=== PATIENT | male | born 1935 | race Caucasian/White ===

== ENCOUNTER → 2017-07-09 11:23 | Outpatient (CLI) | payer MEDICARE, OTHER, SELFPAY ==
[2017-07-09 13:24] LABS: PSA,Total- Diagnostic 3.53 ng/mL (0.0-4.0)
== END ==
PROVIDERS: Family Provider Family Medicine; PCP Family Medicine; Visit Provider Urology
DX: N40.1 Benign prostatic hyperplasia with lower urinary tract symptoms (principal); R30.0 Dysuria
CPT/HCPCS: 36415; 84153

== ENCOUNTER → 2017-07-16 13:51 | Outpatient (CLI) | payer MEDICARE, OTHER, SELFPAY ==
--- NOTE | 2017-07-16 13:52 | CT_ITS ---
STUDY: CT ABDOMEN AND PELVIS WITHOUT CONTRAST REASON FOR EXAM: Male, 81 years old. History of TURP dysuria RADIATION DOSAGE (If Supplied By Facility): CTDIvol = ( 9.71 ) mGy, DLP = ( 553.22 ) mGycm TECHNIQUE: Transaxial images were obtained from the dome of the diaphragm to the symphysis pubis without oral contrast, and without intravenous contrast. Sagittal and coronal images were reconstructed. Individualized dose optimization techniques were used for this CT. COMPARISON: March 15, 2014 CT scan abdomen and pelvis FINDINGS: There is minimal lower lobe atelectasis lateral pleural plaquing and peripheral fibrotic change. There visualized coronary calcifications. There is partial visualization of the defibrillator lead. Normal liver. Normal gallbladder and extrahepatic biliary system. Normal spleen. Normal pancreas. Normal bilateral adrenal glands. There is mild bilateral perinephric stranding without evidence of hydronephrosis or visualized stones. This is greater than prior study. There is a small hiatal hernia. Normal small intestine. There is moderate stool in the colon. There are a few diverticula present without evidence of diverticulitis. The appendix is visualized and appears normal. Aorta is partially calcified. This calcifications the takeoff of the celiac and the superior mesenteric artery as well as bilateral renal arteries. Normal inferior vena cava. Normal retroperitoneum. Normal urinary bladder. The prostate measures 4.4 x 5.5 cm. This is slightly smaller than the prior study when it measured approximately 4.9 x 5.7 cm allowing for differences in technique. The prior study may have been near the TURP timing. There is a low-lying appearance of the rectum. There are few phleboliths in the pelvis. There is no definitive pelvic lymphadenopathy. There is a partially visualized trace amount of fluid within the right scrotum similar to prior study. The bladder is distended. Normal abdominal wall. There is a straightening of the physiologic lordosis. There is multilevel disc space narrowing and endplate sclerosis with multilevel neural foraminal narrowing secondary to broad disc bulge and facet arthropathy especially at L2-L3, L3-L4 and L4-L5 there is moderate central stenosis as well. There is degenerative change of the SI joints. There are diffuse degenerative changes of the visualized lumbar spine. CT/Abdomen/Pelvis without Cont IMPRESSION: Nonspecific bilateral perinephric stranding. No evidence of hydronephrosis or visualized stones. Enlarged prostate slightly smaller than the prior study. Diverticulosis no evidence of diverticulitis. Visualized pleural plaquing and fibrotic change within the lung bases. Status post sternotomy and pacemaker. Degenerative changes in the thoracolumbar spine as detailed above. Electronically Signed: Elena Almonte MD at 15:45 EST Tel , Service support ,
== END ==
PROVIDERS: Family Provider Family Medicine; PCP Family Medicine; Visit Provider Urology
DX: R10.9 Unspecified abdominal pain (principal); Z98.890 Other specified postprocedural states
CPT/HCPCS: 74176

== ENCOUNTER → 2017-08-20 14:12 | Outpatient (CLI) | payer MEDICARE, OTHER, SELFPAY ==
--- NOTE | 2017-08-20 14:13 | US_ITS ---
STUDY: ULTRASOUND - URINARY BLADDER REASON FOR EXAM: Male, 81 years old. Pre and post void, nocturia and PVH TECHNIQUE: Ultrasound evaluation of the urinary bladder was performed with real-time and static kinsey-scale imaging. COMPARISON: None. FINDINGS: There is no right UVJ calculus. There is a non-visualization of a right ureteral jet. There is no left UVJ calculus. There is a non-visualization of a left ureteral jet. The distended volume of the urinary bladder is 50.0 ml. The empty volume of the urinary bladder is 0 ml. The bladder wall is within normal limits. The empty bladder wall measures 8 mm. There is no demonstrated bladder wall mass lesion. There are no demonstrated bladder calculi. US/Post Void Residual Bladder IMPRESSION: Normal ultrasound of the urinary bladder. Electronically Signed: Rubens Mccoy MD at 23:55 EDT , Service support ,
== END ==
PROVIDERS: Family Provider Family Medicine; PCP Family Medicine; Visit Provider Family Medicine
DX: N40.1 Benign prostatic hyperplasia with lower urinary tract symptoms (principal)
CPT/HCPCS: 51798

== ENCOUNTER 2017-10-21 09:09 | Emergency (ER) | payer MEDICARE, OTHER, SELFPAY ==
[2017-10-21 09:11] VITALS: BP 143/84; PULSE 60; RESP 14; TEMP 36.8; O2SAT 98; BMI 23.8
[2017-10-21] MEDS: 0.9% Normal Saline 1,000 ML 150 ML IV (09:15)
--- NOTE | 2017-10-21 09:21 | RAD_ITS ---
STUDY: X-RAY CHEST REASON FOR EXAM: Male, 81 years old. Shortness of breath. Dyspnea. TECHNIQUE: Portable upright chest x-ray COMPARISON: 10/27/2015 FINDINGS: Left pacer device with 2 wire leads, stable. Median sternotomy. Radiodense pulmonary nodule of the right lower lung is stable and most consistent with old granulomatous disease. 2 others on the left consistent with old granulomatous disease. Low inspiratory effort contributing to hypoventilatory compressive changes of the pulmonary interstitium. Accounting for this, no suspected infiltrate. 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 Correlate smoking history. Normal cardiomediastinal silhouette, netsor and pleural margins. No acute osseous or upper abdominal process. RAD/Chest 1 View (Portable) IMPRESSION: No acute cardiopulmonary process. Electronically Signed: Julio C Clayton, at 9:48 EDT Tel , Service support ,
--- NOTE | 2017-10-21 09:21 | EKG12_ITS ---
Test Reason : CHEST PAIN Blood Pressure : / mmHG Vent. Rate : 060 BPM Atrial Rate : 060 BPM P-R Int : 256 ms QRS Dur : 126 ms QT Int : 424 ms P-R-T Axes : 029 -39 110 degrees QTc Int : 424 ms Sinus rhythm with 1st degree A-V block Left axis deviation Left ventricular hypertrophy with QRS widening and repolarization abnormality Abnormal ECG Confirmed by AILEEN COHEN ([id number]), editor news TRENA DEAL ([id number]) on 11/04/2017 5:17:48 PM Referred By: DARIAN Confirmed By:AILEEN COHEN
--- NOTE | 2017-10-21 09:28 | ED.VISSUMM ---
- ER Visit Summary Date of Service: 10/21/17 Chief Complaint: Syncope History of Present Illness: The patient is a 81 M who was brought in by EMS. Patient states he went to the [facility] this morning. He was walking on the sidewalk crumpled to the ground. He believes he passed out. He denies chest pain or palpitations. He does not member feeling lightheaded or dizzy before the episode. Patient has a history of sick sinus syndrome and has a cardiac pacemaker. He has had bypass surgery and cardiac stenting as well. He also has tricuspid and mitral valve insufficiency. Patient states he did not eat this morning but that is not unusual for him. Blood sugar per EMS was 108. There has been no recent change in his medications. Physical Examination: Vital signs are unremarkable. Patient is in no acute distress and is nontoxic appearing. Head and neck examination is normal. Heart is regular rate and rhythm. Palpable pulses are noted throughout. Lungs are clear with good air movement throughout. Abdomen is soft and nontender. Bowel sounds are noted. Extremity examination is unremarkable with full range of motion. Neurologic examination reveals no focal deficits. Skin examination reveals he does look slightly pale. Test Results: EKG is sinus at [address] change. Portable chest x-ray shows chronic changes with no acute process. CBC was normal white count with hemoglobin 12.6. Platelet count is 135,000. Chemistry studies are unremarkable. Troponin is negative. Emergency Department Course and Treatment: Patient was given IV fluids here. I discussed the case with Dr. Harden. We agreed that we would get a repeat troponin at 3 hours and have his pacemaker interrogated. The [facility] rep presented to the ER and interrogate the patient's pacemaker. He states it is functional and appropriate. Repeat troponin remains less than 0.015. Repeat EKG is unchanged. Patient got up and ambulated in the ER without difficulty. He has no dizziness or lightheadedness. He will be discharged home with family at this time. Treatment Plan: [] Disposition: Discharge Impression: Syncope This note was generated with DriftToIt dictation software. It may contain incorrect words, spelling, and punctuation that were not noted in review of the chart prior to signing ED Disposition - Plan for ED Patient: Disposition: Home or Assisted Living Chief Complaint: Dizziness Instructions: ED Fainting Unkn Cause Referrals: Hiram Wright MD [STAFF PHYSICIAN] - 1-2 Weeks Hi Durbin MD [Primary Care Provider] - 5-7 Days
[2017-10-21 09:29] LABS: Absolute Neutrophil Count 5.9 X10^3/uL (2.0-7.7); Basophil# 0.02 X10^3/uL; Basophil% 0.2 % (0-1); Eosinophil# 0.18 X10^3/uL; Hematocrit 38.4 % (40-54); Hemoglobin 12.6 g/dl (13.0-16.5); Lymphocyte % 23.9 % (19-41); Mean Corp Hgb Conc 32.8 g/gl (32-36); Mean Corpuscular Hgb 29.7 pg (27.0-32.0); Mean Corpuscular Volume 90.6 fL (80-94); Mean Platelet Vol. 9.4 fl (6.2-12.0); Monocyte# 0.56 X10^3/uL; Monocyte% 6.4 % (0-10); Neutrophil # 5.92 X10^3/uL (2.7-7.7); Neutrophil % 67.4 % (47-70); POSITIVE COUNT NO; POSITIVE DIFFERENTIAL NO; POSITIVE MORPHOLOGY NO; Platelet Count 135 K/mm3 (150-450); RBC Distribution Width CV 13.6 % (11.6-14.6); RBC Distribution Width SD 44.8 fl (35.1-43.9); Red Blood Count 4.24 M/mm3 (4.6-6.2); White Blood Count 8.8 K/mm3 (4.4-11.0)
[2017-10-21 09:42] LABS: Anion Gap 6 (5-15); BUN 23 mg/dL (7-18); BUN/Creat Ratio 19.8 RATIO (10-20); Calcium,Total 9.1 mg/dL (8.5-10.1); Chloride 109 mmol/L (98-107); Creatinine, Serum 1.16 mg/dL (0.70-1.30); EST Glomerular Filtration Rate 64 mL/min (>60); Est Glom Filt Rate - Afr Amer 78 mL/min (>60); Estimated Creatinine Clearance 59.05 ml/min; Glucose 94 mg/dL (74-106); Potassium 3.8 mmol/L (3.5-5.1); Sodium Level 141 mmol/L (136-145)
[2017-10-21 10:15] VITALS: BP 145/74; PULSE 60; RESP 18; O2SAT 98
--- NOTE | 2017-10-21 10:37 | NURSING ---
DR PEREZ PAGED
--- NOTE | 2017-10-21 11:00 | NURSING ---
CALLED [facility], TALKED TO PENELOPE. SHE WILL [employer] PAN TENDER INTERIGATOR
--- NOTE | 2017-10-21 11:18 | NURSING ---
AVERY, INTERIGATOR FOR [facility], CALLED BACK. HE WILL BE IN
--- NOTE | 2017-10-21 12:15 | EKG12_ITS ---
Test Reason : REPEAT Blood Pressure : / mmHG Vent. Rate : 060 BPM Atrial Rate : 060 BPM P-R Int : 216 ms QRS Dur : 166 ms QT Int : 470 ms P-R-T Axes : 027 -75 025 degrees QTc Int : 470 ms Atrial-sensed ventricular-paced rhythm with prolonged AV conduction Abnormal ECG Confirmed by AILEEN COHEN ([id number]), editor newspaper TRENA DEAL ([id number]) on 11/04/2017 5:18:08 PM Referred By: DARIAN Confirmed By:AILEEN COHEN
[2017-10-21 12:27] VITALS: BP 137/80; PULSE 60; RESP 15; O2SAT 96
--- NOTE | 2017-10-21 12:28 | ED.RN ---
rep present interrogating pacer at this time
--- NOTE | 2017-10-21 13:12 | ED.DEP ---
ED Disposition - Plan for ED Patient: Disposition: Home or Assisted Living Chief Complaint: Dizziness Instructions: ED Fainting Unkn Cause Referrals: Hi Durbin MD [Primary Care Provider] - 5-7 Days Hiram Wright MD [STAFF PHYSICIAN] - 1-2 Weeks
[2017-10-21 13:25] VITALS: BP 140/89; PULSE 72; RESP 16; TEMP 36.3; O2SAT 99
== END 2017-10-21 13:25 | disposition home or self-care (01) ==
PROVIDERS: Emergency Provider Emergency Medicine; Family Provider Family Medicine; PCP Family Medicine
DX: R55 Syncope and collapse (principal); I34.0 Nonrheumatic mitral (valve) insufficiency; I07.1 Rheumatic tricuspid insufficiency; I25.2 Old myocardial infarction; E78.00 Pure hypercholesterolemia, unspecified; G47.33 Obstructive sleep apnea (adult) (pediatric); N40.0 Benign prostatic hyperplasia without lower urinary tract symptoms; Z87.891 Personal history of nicotine dependence; Z95.0 Presence of cardiac pacemaker; Z95.1 Presence of aortocoronary bypass graft; Z95.5 Presence of coronary angioplasty implant and graft; Z79.82 Long term (current) use of aspirin; Z79.02 Long term (current) use of antithrombotics/antiplatelets; Z79.899 Other long term (current) drug therapy
CPT/HCPCS: 71045; 80048; 84484; 85025; 93005; 96360; 96361; 99285; J7030; A4216

== ENCOUNTER → 2017-11-01 15:47 | Outpatient (CLI) | payer MEDICARE, OTHER, SELFPAY ==
--- NOTE | 2017-11-01 15:47 | DT_ITS ---
This patient was seen during an EMR downtime October 28, 2017 - November 04, 2017. This patient may have a combination of paper and electronic documentation or all paper documentation. All documentation is viewable within the e-chart portion of [employer] for each patient visit.
--- NOTE | 2017-11-01 15:51 | CT_ITS ---
STUDY: CT LUMBAR SPINE WITHOUT CONTRAST REASON FOR EXAM: Male, 81 years old. BACK AND LEG PAIN RADIATION DOSAGE (If Supplied By Facility): CTDIvol = ( 16.16 ) mGy, DLP = ( 687.51 ) mGycm TECHNIQUE: The patient was scanned in a multi detector CT scanner. High resolution transaxial imaging was performed. Sagittal and coronal images were reconstructed. Individualized dose optimization techniques were used for this CT. COMPARISON: 11.07.13 FINDINGS: There is straightening of the normal lumbar lordosis. There is no substantial scoliosis. There are calcifications of the abdominal aorta. This is consistent for atherosclerotic disease. There is no abdominal aortic aneurysm. There are multiple diverticuli of the colon. There is diverticulosis but no radiographic signs for diverticulitis. Normal vertebrae of the lumbar spine. L1-2: There is endplate spondylosis of the vertebral body. Normal disc height and morphology. There is bilateral facet arthropathy. Normal central canal and bilateral lateral recesses. Normal bilateral intervertebral neural foramina. L2-3: There is endplate spondylosis of the vertebral body. Normal disc height and morphology. There is bilateral facet arthropathy. Normal central canal and bilateral lateral recesses. Normal bilateral intervertebral neural foramina. L3-4: There is endplate spondylosis of the vertebral body. Normal disc height and morphology. There is bilateral facet arthropathy. There is bilateral ligamentum flavum thickening. Narrowing of the lateral recess. Posterior disc bulge. Mild effacement of the anterior thecal sac. Mild bilateral neural foraminal stenosis. L4-5: There is endplate spondylosis of the vertebral body. Normal disc height and morphology. There is bilateral facet arthropathy. There is bilateral ligamentum flavum thickening. Severe left neural foraminal stenosis. Mild right neural foraminal stenosis. Posterior disc bulge. No spinal stenosis. Vacuum disc phenomenon. L5-S1: There is endplate spondylosis of the vertebral body. Loss of intervertebral disc height. There is bilateral facet arthropathy. Normal central canal and bilateral lateral recesses. Right paracentral disc bulge. No spinal stenosis. Moderate right neural foraminal stenosis. Normal visualized paraspinous soft tissue structures. CT/Spine Lumbar without Contrast IMPRESSION: Multilevel degenerative changes, as described above. Findings are unchanged since the prior study. There is mild straightening of the normal lumbar lordosis. This can suggest back strain. Electronically Signed: Sergio eLahy MD at 23:10 EDT , Service support ,
== END ==
PROVIDERS: Family Provider Family Medicine; PCP Family Medicine; Visit Provider Anesthesiology Pain Medicine
DX: M54.9 Dorsalgia, unspecified (principal); M79.606 Pain in leg, unspecified
CPT/HCPCS: 72131

== ENCOUNTER → 2018-01-16 15:54 | Outpatient (CLI) | payer MEDICARE, OTHER, SELFPAY ==
[2018-01-16 17:59] LABS: Absolute Neutrophil Count 4.7 X10^3/uL (2.0-7.7); Basophil# 0.03 X10^3/uL; Basophil% 0.4 % (0-1); Eosinophil# 0.18 X10^3/uL; Eosinophils% 2.4 % (0-5); Hematocrit 39.5 % (40-54); Hemoglobin 12.7 g/dl (13.0-16.5); Lymphocyte % 27.6 % (19-41); Mean Corp Hgb Conc 32.2 g/gl (32-36); Mean Corpuscular Hgb 29.5 pg (27.0-32.0); Mean Corpuscular Volume 91.9 fL (80-94); Mean Platelet Vol. 9.8 fl (6.2-12.0); Monocyte# 0.56 X10^3/uL; Monocyte% 7.3 % (0-10); Neutrophil # 4.74 X10^3/uL (2.7-7.7); Neutrophil % 62.2 % (47-70); Platelet Count 141 K/mm3 (150-450); RBC Distribution Width CV 13.7 % (11.6-14.6); RBC Distribution Width SD 45.7 fl (35.1-43.9); White Blood Count 7.6 K/mm3 (4.4-11.0)
[2018-01-16 18:30] LABS: ALB/GLOB Ratio 1.2 RATIO (0.9-2.4); AST(SGOT) 20 U/L (15-37); Alanine Aminotransfer ALT/SGPT 31 U/L (16-61); Alkaline Phosphatase 71 U/L (45-117); Anion Gap 13 (5-15); BUN 21 mg/dL (7-18); BUN/Creat Ratio 18.1 RATIO (10-20); Calcium,Total 9.1 mg/dL (8.5-10.1); Chloride 107 mmol/L (98-107); Creatinine, Serum 1.16 mg/dL (0.70-1.30); EST Glomerular Filtration Rate 64 mL/min (>60); Est Glom Filt Rate - Afr Amer 78 mL/min (>60); Globulin 3.3 g/dL (2.2-4.2); Glucose 79 mg/dL (74-106); Iron 64 ug/dL (65-175); Potassium 4.2 mmol/L (3.5-5.1); Protein, Total 7.3 g/dL (6.4-8.2); Sodium Level 143 mmol/L (136-145); Thyroid Stim Hormone (TSH) 1.53 uIU/mL (0.358-3.74)
[2018-01-16 19:02] LABS: POSITIVE COUNT NO; POSITIVE DIFFERENTIAL NO; POSITIVE MORPHOLOGY NO
[2018-01-17 10:39] LABS: Vitamin B12 > 2000 pg/mL (211-911)
== END ==
PROVIDERS: Family Provider Family Medicine; PCP Family Medicine; Visit Provider Family Medicine
DX: I10 Essential (primary) hypertension (principal); R53.81 Other malaise; R53.83 Other fatigue
CPT/HCPCS: 36415; 80053; 82306; 82533; 82607; 83540; 84403; 84443; 85025

== ENCOUNTER → 2018-08-04 12:04 | Outpatient (CLI) | payer MEDICARE, OTHER, SELFPAY ==
[2018-07-03 10:36] VITALS: BMI 24.6
[2018-08-04 13:58] LABS: Hematocrit 38.3 % (40-54); Hemoglobin 12.5 g/dl (13.0-16.5); Mean Corp Hgb Conc 32.6 g/gl (32-36); Mean Corpuscular Hgb 30.6 pg (27.0-32.0); Mean Corpuscular Volume 93.6 fL (80-94); Mean Platelet Vol. 10.3 fl (6.2-12.0); Platelet Count 160 K/mm3 (150-450); RBC Distribution Width CV 13.5 % (11.6-14.6); RBC Distribution Width SD 44.7 fl (35.1-43.9); Red Blood Count 4.09 M/mm3 (4.6-6.2); White Blood Count 7.1 K/mm3 (4.4-11.0)
[2018-08-04 14:02] LABS: Scan Indicated on CBC? Y/N NO
[2018-08-04 14:12] LABS: Anion Gap 6 (5-15); BUN 28 mg/dL (7-18); BUN/Creat Ratio 21.2 RATIO (10-20); Calcium,Total 9.1 mg/dL (8.5-10.1); Chloride 111 mmol/L (98-107); Creatinine, Serum 1.32 mg/dL (0.70-1.30); EST Glomerular Filtration Rate 55 mL/min (>60); Est Glom Filt Rate - Afr Amer 67 mL/min (>60); Glucose 108 mg/dL (74-106); Iron 75 ug/dL (65-175); Potassium 4.5 mmol/L (3.5-5.1); Sodium Level 143 mmol/L (136-145)
[2018-08-04 14:16] LABS: Vitamin B12 769 pg/mL (211-911)
== END ==
PROVIDERS: Family Provider Family Medicine; PCP Family Medicine; Visit Provider Family Medicine
DX: I10 Essential (primary) hypertension (principal); E53.8 Deficiency of other specified B group vitamins
CPT/HCPCS: 80048; 82607; 83540; 85027

== ENCOUNTER 2018-09-21 10:47 | Emergency (ER) | payer MEDICARE, OTHER, SELFPAY ==
[2018-07-03 10:36] VITALS: BMI 24.6
[2018-09-21 10:49] VITALS: BP 96/52; PULSE 60; RESP 18; TEMP 36.6; O2SAT 98; BMI 23.7
--- NOTE | 2018-09-21 10:58 | EKG12_ITS ---
Test Reason : CP Blood Pressure : / mmHG Vent. Rate : 065 BPM Atrial Rate : 065 BPM P-R Int : 194 ms QRS Dur : 126 ms QT Int : 388 ms P-R-T Axes : -17 -42 113 degrees QTc Int : 403 ms Normal sinus rhythm Left axis deviation Left ventricular hypertrophy with QRS widening and repolarization abnormality Poor R-Wave Progression Abnormal ECG Confirmed by ANA BOOGIE, MICHEAL ([id number]), editorial clerk OLIVERIO ROCK ([id number]) on 09/23/2018 11:11:54 AM Referred By: JUANITA Confirmed By:MICHEAL PEREZ MD
--- NOTE | 2018-09-21 10:58 | ED.VIS.GEN ---
History of Present Illness Chief Complaint: Chest Pain Detail of Chief Complaint: Shooting through my chest Informant: Patient, Significant Other Onset: Today - Per spouse, Weeks - Per patient Context: Sudden Onset Timing: Intermittent - Not able to tell me duration other than it shoots through my chest. Asked if this meant transient and patient acknowledged yes. Quality: Shooting pain Location: Left side of chest Current Severity: - - None Maximum Severity: - - Noted/present when he experiences the pain Worsened by: Not positional, exertional or related to food Relieved by: Apparently transient Associated Symptoms: None Narrative: Patient is an elderly male brought to the emergency room by because of chest pain. She was unaware that he has had pain for 1 week. Pain is described as shooting through his chest. On the left side of his chest. He is unable to qualitate or quantitate or tell duration of symptoms. There is no radiation. There is no associated symptoms. He denies history of PE or DVT. He denies leg pain, swelling discoloration. He denies hematemesis, melena hematochezia. He does have history of coronary bypass surgery. Apparently, this is not similar to the pain he had prior to bypass surgery. Patient is very hard of hearing. He is not a good informant. 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 Jacobo (3) BPH (benign prostatic hyperplasia) Status: Chronic (4) Cardiac pacemaker Status: Chronic Comment: 07/11/2015 @ [facility] per Dr. horn (5) Hyperlipidemia Status: Chronic (6) S/P CABG x 3 Status: Chronic Comment: 12/08/[address] [facility] [address]. Wesley: Left radial graft from Aorta to the distal RCA; SVG to the second marginal branch of the cs and first diaonal branch of the LAD (7) S/P TURP Status: Chronic (8) Stented coronary artery Status: Chronic Comment: Stent to LAD 10/04/2015 @ [facility] per Dr. Jacobo Past Medical History - Allergies and Home Meds Allergies/Adverse Reactions: Allergies niacin [From Niaspan Extended-Release] Allergy (Verified 09/21/18 10:49) Hives pravastatin Allergy (Verified 09/21/18 10:49) Other ELEVATED LIVER ENZYMES simvastatin [From Zocor] Allergy (Verified 09/21/18 10:49) Other ELEVATED LIVER ENZYMES Primary Care Physician: Hi Durbin MD [Primary Care Provider] - Prior records reviewed: Yes Surgical History: coronary bypass surgery, TURP Lives: Spouse/ Significant Other Smoking Status: Former smoker - Quit 1968 Alcohol: None Drugs: None - Family History Maternal Family History: Family History (Last Reviewed 07/03/18 @ 10:25 by Hiram Horn MD) Mother CAD (coronary artery disease) Hypertension Brother CVA (cerebral vascular accident) Brother Cancer Brother Heart disease Family History: Reports: Heart Disease Sibling Family History: Family History (Last Reviewed 07/03/18 @ 10:25 by Hiram Horn MD) Mother CAD (coronary artery disease) Hypertension Brother CVA (cerebral vascular accident) Brother Cancer Brother Heart disease Family History: Reports: Heart Disease Review of Systems General: Denies: Chills, Fever, Malaise, Subjective, Sweats ENT: Denies: Rhinorrhea, Sore throat Cardiovascular: Reports: Chest pain. Denies: Palpitations, Heart racing Respiratory: Denies: Dyspnea, Cough, Dyspnea on exertion, Orthopnea, Paroxysmal nocturnal dyspnea Gastrointestinal: Denies: Abdominal pain, Nausea, Vomiting, Diarrhea, Melena, Hematochezia Genitourinary: Denies: Dysuria, Hematuria, Frequency Musculoskeletal: Denies: Myalgias, Arthralgias, Neck pain, Back pain, Extremity Pain Skin: Denies: Rash, Wounds Neurological: Denies: Headache, Weakness, Numbness Hematologic: Denies: Easy bruising, Easy bleeding Allergy: Denies: Uticaria, Swelling of the mouth Physical Exam Vital Signs/Narrative: Vital Signs Temp Pulse Resp BP Pulse Ox 09/21/18 10:49 97.8 F 60 18 96/52 L 98 Inital Vital Signs reviewed: Yes - Blood pressure is low will monitor. General: Well nourished, Well developed, No Acute Distress Head: Normocephalic, Atraumatic Eyes: Perrl, EOMI. Negative for: Pale conjunctiva, Scleral icterus ENT: Moist mucous membranes, No rhinorrhea, TM's clear, - - Patient hard of hearing Neck: Supple, Nontender, No lymphadenopathy, No JVD Cardiovascular: Regular rate, Regular rhythm, No murmurs, Normal S1, Normal S2 Abdomen: Soft, Nontender, Nondistended, Normal bowel sounds, No masses. Negative for: Hepatomegaly, Splenomegaly, Mass, Pulsatile mass Extremities: Nontender, No edema, - - There is no asymmetry, swelling, discoloration, leg vein distention, palpable cords or tenderness along the distribution of the deep venous system. Skin: Normal color, No rash Neurological: Alert, Oriented x3, Cranial nerves II-XII grossly intact, Normal Strength, Normal Sensation, Normal Gait Psychological: Normal affect, Normal Mood Diagnostic/Tx/Re-eval Chest X-Ray - ED: 2 View, Read by ED Physician, Normal, Heart, Mediastinum, Bony Structures, No Acute Disease, Chronic Changes, - - Dual-chamber pacemaker noted. Sternotomy wires noted. Troponin less than 0.015 - Rhythm Strip Rhythm Strip: Sinus Rhythm Rate: 70 Ectopy: PAC(s) - EKG Initial EKG Interpretation: Sinus Rhythm - Ventricular rate 65. NC interval 194 ms. 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 [place] to the left. QT interval is normal. There is evidence of LVH with repolarization abnormality. 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 Troponin since symptoms have been present for 1 week and chest x-ray. Differential noncardiac versus cardiac versus GI versus pulmonary etiology. With normal EKG, normal troponin and no acute process noted on chest x-ray plan is to discharge to home patient's been informed the cause of his pain is unknown. He was told that he is not had a heart attack, there is no evidence of pneumonia, heart failure, pneumothorax etc. ED Disposition - Plan for ED Patient: Disposition: Home or Assisted Living Diagnosis: Intermittent left-sided chest pain, Atherosclerotic heart disease of [place] coronary artery without angina pectoris, Hyperlipidemia Instructions: ED Chest Pain NonCardiac Referrals: Hi Durbin MD [Primary Care Provider] - 5-7 Days
--- NOTE | 2018-09-21 11:02 | ED.DCSUM_ITS ---
History of Present Illness Chief Complaint: Chest Pain Detail of Chief Complaint: Shooting through my chest Informant: Patient, Significant Other Onset: Today - Per spouse, Weeks - Per patient Context: Sudden Onset Timing: Intermittent - Not able to tell me duration other than it shoots through my chest. Asked if this meant transient and patient acknowledged yes. Quality: Shooting pain Location: Left side of chest Current Severity: - - None Maximum Severity: - - Noted/present when he experiences the pain Worsened by: Not positional, exertional or related to food Relieved by: Apparently transient Associated Symptoms: None Narrative: Patient is an elderly male brought to the emergency room by because of chest pain. She was unaware that he has had pain for 1 week. Pain is described as shooting through his chest. On the left side of his chest. He is unable to qualitate or quantitate or tell duration of symptoms. There is no radiation. There is no associated symptoms. He denies history of PE or DVT. He denies leg pain, swelling discoloration. He denies hematemesis, melena hematochezia. He does have history of coronary bypass surgery. Apparently, this is not similar to the pain he had prior to bypass surgery. Patient is very hard of hearing. He is not a good informant. 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 Jacobo (3) BPH (benign prostatic hyperplasia) Status: Chronic (4) Cardiac pacemaker Status: Chronic Comment: 07/11/2015 @ [facility] per Dr. horn (5) Hyperlipidemia Status: Chronic (6) S/P CABG x 3 Status: Chronic Comment: 12/08/[address] [facility] [address] Wesley: Left radial graft from Aorta to the distal RCA; SVG to the second marginal branch of the cs and first diaonal branch of the LAD (7) S/P TURP Status: Chronic (8) Stented coronary artery Status: Chronic Comment: Stent to LAD 10/04/2015 @ [facility] per Dr. Jacobo Past Medical History - Allergies and Home Meds Allergies/Adverse Reactions: Allergies niacin [From Niaspan Extended-Release] Allergy (Verified 09/21/18 10:49) Hives pravastatin Allergy (Verified 09/21/18 10:49) Other ELEVATED LIVER ENZYMES simvastatin [From Zocor] Allergy (Verified 09/21/18 10:49) Other ELEVATED LIVER ENZYMES Primary Care Physician: Hi Durbin MD [Primary Care Provider] - Prior records reviewed: Yes Surgical History: coronary bypass surgery, TURP Lives: Spouse/ Significant Other Smoking Status: Former smoker - Quit 1968 Alcohol: None Drugs: None - Family History Maternal Family History: Family History (Last Reviewed 07/03/18 @ 10:25 by Hiram Horn MD) Mother CAD (coronary artery disease) Hypertension Brother CVA (cerebral vascular accident) Brother Cancer Brother Heart disease Family History: Reports: Heart Disease Sibling Family History: Family History (Last Reviewed 07/03/18 @ 10:25 by Hiram Horn MD) Mother CAD (coronary artery disease) Hypertension Brother CVA (cerebral vascular accident) Brother Cancer Brother Heart disease Family History: Reports: Heart Disease Review of Systems General: Denies: Chills, Fever, Malaise, Subjective, Sweats ENT: Denies: Rhinorrhea, Sore throat Cardiovascular: Reports: Chest pain. Denies: Palpitations, Heart racing Respiratory: Denies: Dyspnea, Cough, Dyspnea on exertion, Orthopnea, Paroxysmal nocturnal dyspnea Gastrointestinal: Denies: Abdominal pain, Nausea, Vomiting, Diarrhea, Melena, Hematochezia Genitourinary: Denies: Dysuria, Hematuria, Frequency Musculoskeletal: Denies: Myalgias, Arthralgias, Neck pain, Back pain, Extremity Pain Skin: Denies: Rash, Wounds Neurological: Denies: Headache, Weakness, Numbness Hematologic: Denies: Easy bruising, Easy bleeding Allergy: Denies: Uticaria, Swelling of the mouth Physical Exam Vital Signs/Narrative: Vital Signs Temp Pulse Resp BP Pulse Ox 09/21/18 10:49 97.8 F 60 18 96/52 L 98 Inital Vital Signs reviewed: Yes - Blood pressure is low will monitor. General: Well nourished, Well developed, No Acute Distress Head: Normocephalic, Atraumatic Eyes: Perrl, EOMI. Negative for: Pale conjunctiva, Scleral icterus ENT: Moist mucous membranes, No rhinorrhea, TM's clear, - - Patient hard of hearing Neck: Supple, Nontender, No lymphadenopathy, No JVD Cardiovascular: Regular rate, Regular rhythm, No murmurs, Normal S1, Normal S2 Abdomen: Soft, Nontender, Nondistended, Normal bowel sounds, No masses. Negative for: Hepatomegaly, Splenomegaly, Mass, Pulsatile mass Extremities: Nontender, No edema, - - There is no asymmetry, swelling, discoloration, leg vein distention, palpable cords or tenderness along the distribution of the deep venous system. Skin: Normal color, No rash Neurological: Alert, Oriented x3, Cranial nerves II-XII grossly intact, Normal Strength, Normal Sensation, Normal Gait Psychological: Normal affect, Normal Mood Diagnostic/Tx/Re-eval Chest X-Ray - ED: 2 View, Read by ED Physician, Normal, Heart, Mediastinum, Bony Structures, No Acute Disease, Chronic Changes, - - Dual-chamber pacemaker noted. Sternotomy wires noted. Troponin less than 0.015 - Rhythm Strip Rhythm Strip: Sinus Rhythm Rate: 70 Ectopy: PAC(s) - EKG Initial EKG Interpretation: Sinus Rhythm - Ventricular rate 65. OK interval 194 ms. 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 Canby to the left. QT interval is normal. There is evidence of LVH with repolarization abnormality. 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 Troponin since symptoms have been present for 1 week and chest x-ray. Differential noncardiac versus cardiac versus GI versus pulmonary etiology. With normal EKG, normal troponin and no acute process noted on chest x-ray plan is to discharge to home patient's been informed the cause of his pain is unknown. He was told that he is not had a heart attack, there is no evidence of pneumonia, heart failure, pneumothorax etc. ED Disposition - Plan for ED Patient: Disposition: Home or Assisted Living Diagnosis: Intermittent left-sided chest pain, Atherosclerotic heart disease of nikolai coronary artery without angina pectoris, Hyperlipidemia Instructions: ED Chest Pain NonCardiac Referrals: Hi Durbin MD [Primary Care Provider] - 5-7 Days
--- NOTE | 2018-09-21 11:15 | RAD_ITS ---
STUDY: X-RAY CHEST REASON FOR EXAM: Male, 82 years old. Pain TECHNIQUE: PA and lateral views of the chest. COMPARISON: October 21, 2017 chest x-ray FINDINGS: There is a left side pacer demonstrated with leads overlying right atrium and ventricle. The interstitial markings are minimally prominent within the left greater than right lung base stable since prior study. There is no demonstrated pleural abnormality. Sternal cerclage wires are present from a prior sternotomy. Normal mediastinum and nestor. Normal visualized pulmonary arteries. Normal visualized aortic arch and descending thoracic aorta. Normal visualized thoracic spine. Normal visualized ribs, clavicles, and shoulders. There is no demonstrated abnormality of the visualized soft tissue structures of the upper abdomen. RAD/Chest PA and Lateral IMPRESSION: Asymmetric or status post sternotomy. Stable lung markings. No evidence of acute focal infiltrate. Electronically Signed: Elena Almonte MD at 11:47 EDT Tel , Service support ,
[2018-09-21 12:04] VITALS: BP 132/64; PULSE 62; RESP 18; O2SAT 99
== END 2018-09-21 12:05 | disposition home or self-care (01) ==
PROVIDERS: Emergency Provider Emergency Medicine; Family Provider Family Medicine; PCP Family Medicine
DX: R07.9 Chest pain, unspecified (principal); I25.10 Atherosclerotic heart disease of native coronary artery without angina pectoris; E78.5 Hyperlipidemia, unspecified; N40.0 Benign prostatic hyperplasia without lower urinary tract symptoms; Z95.1 Presence of aortocoronary bypass graft; Z87.891 Personal history of nicotine dependence; Z95.0 Presence of cardiac pacemaker; Z79.82 Long term (current) use of aspirin; Z79.02 Long term (current) use of antithrombotics/antiplatelets; Z79.899 Other long term (current) drug therapy
CPT/HCPCS: 71046; 84484; 93005; 99284

== ENCOUNTER → 2019-02-25 | Outpatient (CLI) | payer MEDICARE, OTHER, SELFPAY ==
[2019-01-02 10:31] VITALS: BMI 24.0
[2019-02-25 14:37] LABS: Absolute Lymphocyte Count 1.71 X10^3/uL (0.83-4.51); Absolute Neutrophil Count 4.7 X10^3/uL (2.0-7.7); Basophil# 0.05 X10^3/uL; Basophil% 0.7 % (0-1); Eosinophil# 0.19 X10^3/uL; Eosinophils% 2.7 % (0-5); Hematocrit 39.1 % (40-54); Hemoglobin 12.7 g/dL (13.0-16.5); Lymphocyte # 1.71 X10^3/ul (4.0); Lymphocyte % 24.5 % (19-41); Mean Corp Hgb Conc 32.5 g/dL (32-36); Mean Corpuscular Hgb 30.4 pg (27.0-32.0); Mean Corpuscular Volume 93.5 fL (80-94); Mean Platelet Vol. 10.1 fl (6.2-12.0); Monocyte# 0.34 X10^3/uL; Monocyte% 4.9 % (0-10); NRBC Flagged by Analyzer 0 % (0-5); Neutrophil # 4.66 X10^3/uL (2.7-7.7); Neutrophil % 66.9 % (47-70); Platelet Count 153 K/mm3 (150-450); RBC Distribution Width CV 12.5 % (11.6-14.6); RBC Distribution Width SD 43.2 fl (35.1-43.9); Red Blood Count 4.18 M/mm3 (4.6-6.2)
[2019-02-25 14:56] LABS: Vitamin B12 775 pg/mL (211-911); Vitamin D,25 Hydroxy 63.9 ng/mL (29.95-100.01)
[2019-02-25 15:00] LABS: ALB/GLOB Ratio 1.3 RATIO (0.9-2.4); AST(SGOT) 14 U/L (15-37); Alanine Aminotransfer ALT/SGPT 23 U/L (16-61); Albumin, Serum 3.9 g/dL (3.2-5.0); Alkaline Phosphatase 73 U/L (45-117); Anion Gap 4 (5-15); BUN 26 mg/dL (7-18); BUN/Creat Ratio 17.8 RATIO (10-20); Chloride 109 mmol/L (98-107); Cholesterol 178 mg/dL (200); Creatinine, Serum 1.46 mg/dL (0.70-1.30); EST Glomerular Filtration Rate 49 mL/min (>60); Est Glom Filt Rate - Afr Amer 59 mL/min (>60); Globulin 3.1 g/dL (2.2-4.2); Glucose 120 mg/dL (74-106); High Density Lipoprotein 53 mg/dL; Potassium 3.9 mmol/L (3.5-5.1); Sodium Level 139 mmol/L (136-145); Thyroid Stim Hormone (TSH) 1.14 uIU/mL (0.358-3.74); Triglycerides 217 mg/dL; Very Low Density Lipoprotein 43 mg/dL (5-40)
== END | disposition home or self-care (01) ==
LOC: MFPLAB 12:06
PROVIDERS: Family Provider Family Medicine; PCP Family Medicine; Referring Provider Family Medicine; Visit Provider Family Medicine
DX: I10 Essential (primary) hypertension (principal); E55.9 Vitamin D deficiency, unspecified; F32.9 Major depressive disorder, single episode, unspecified; E53.8 Deficiency of other specified B group vitamins
CPT/HCPCS: 36415; 80053; 80061; 82306; 82607; 84443; 85025

== ENCOUNTER → 2019-05-28 11:13 | Outpatient (CLI) | payer MEDICARE, OTHER, SELFPAY ==
[2019-01-02 10:31] VITALS: BMI 24.0
[2019-05-28 13:00] LABS: Anion Gap 4 (5-15); BUN 29 mg/dL (7-18); BUN/Creat Ratio 20.7 RATIO (10-20); Calcium,Total 9.4 mg/dL (8.5-10.1); Chloride 111 mmol/L (98-107); EST Glomerular Filtration Rate 52 mL/min (>60); Est Glom Filt Rate - Afr Amer 62 mL/min (>60); Glucose 113 mg/dL (74-106); Potassium 4.3 mmol/L (3.5-5.1); Sodium Level 143 mmol/L (136-145)
== END ==
PROVIDERS: Family Provider Family Medicine; PCP Family Medicine; Referring Provider Family Medicine; Visit Provider Family Medicine
DX: I10 Essential (primary) hypertension (principal)
CPT/HCPCS: 36415; 80048

== ENCOUNTER → 2019-11-17 15:22 | Outpatient (CLI) | payer MEDICARE, OTHER, SELFPAY ==
[2019-07-31 14:53] VITALS: BMI 23.8
[2019-11-17 18:03] LABS: Absolute Neutrophil Count 6.3 X10^3/uL (2.0-7.7); Basophil# 0.06 X10^3/uL; Basophil% 0.7 % (0-1); Eosinophil# 0.14 X10^3/uL; Eosinophils% 1.6 % (0-5); Hematocrit 39.6 % (40-54); Hemoglobin 12.6 g/dL (13.0-16.5); Lymphocyte % 20.4 % (19-41); Mean Corp Hgb Conc 31.8 g/dL (32-36); Mean Corpuscular Hgb 29.5 pg (27.0-32.0); Mean Corpuscular Volume 92.7 fL (80-94); Mean Platelet Vol. 9.9 fl (6.2-12.0); Monocyte# 0.52 X10^3/uL; Monocyte% 5.9 % (0-10); NRBC Flagged by Analyzer 0 % (0-5); Neutrophil # 6.26 X10^3/uL (2.7-7.7); Neutrophil % 71.1 % (47-70); Platelet Count 215 K/mm3 (150-450); RBC Distribution Width CV 12.8 % (11.6-14.6); RBC Distribution Width SD 43.6 fl (35.1-43.9); Red Blood Count 4.27 M/mm3 (4.6-6.2); White Blood Count 8.8 K/mm3 (4.4-11.0)
[2019-11-17 18:14] LABS: Erythrocyte Sedimentation Rate 20 mm/hr (0-20)
[2019-11-17 18:26] LABS: Vitamin B12 509 pg/mL (211-911); Vitamin D,25 Hydroxy 75.9 ng/mL
[2019-11-17 18:33] LABS: ALB/GLOB Ratio 1.1 RATIO (0.9-2.4); AST(SGOT) 18 U/L (15-37); Alanine Aminotransfer ALT/SGPT 26 U/L (16-61); Albumin, Serum 3.9 g/dL (3.2-5.0); Alkaline Phosphatase 91 U/L (45-117); Anion Gap 7 (5-15); BUN 27 mg/dL (7-18); BUN/Creat Ratio 13.9 RATIO (10-20); Calcium,Total 9.4 mg/dL (8.5-10.1); Chloride 105 mmol/L (98-107); Creatinine, Serum 1.94 mg/dL (0.70-1.30); EST Glomerular Filtration Rate 35 mL/min (>60); Est Glom Filt Rate - Afr Amer 43 mL/min (>60); Globulin 3.7 g/dL (2.2-4.2); Glucose 80 mg/dL (74-106); Iron 67 ug/dL (65-175); Potassium 4.2 mmol/L (3.5-5.1); Protein, Total 7.6 g/dL (6.4-8.2); Sodium Level 140 mmol/L (136-145); Thyroid Stim Hormone (TSH) 1.19 uIU/mL (0.358-3.74)
== END ==
PROVIDERS: PCP Family Medicine; Referring Provider Family Medicine; Visit Provider Family Medicine
DX: E53.8 Deficiency of other specified B group vitamins (principal); R53.83 Other fatigue; F32.9 Major depressive disorder, single episode, unspecified; E55.9 Vitamin D deficiency, unspecified; D50.9 Iron deficiency anemia, unspecified
CPT/HCPCS: 36415; 80053; 82306; 82607; 83540; 84443; 85025; 85652

== ENCOUNTER → 2019-12-08 12:07 | Outpatient (CLI) | payer MEDICARE, OTHER, SELFPAY ==
[2019-07-31 14:53] VITALS: BMI 23.8
[2019-12-08 15:25] LABS: Anion Gap 6 (5-15); BUN 29 mg/dL (7-18); BUN/Creat Ratio 19.5 RATIO (10-20); Calcium,Total 8.9 mg/dL (8.5-10.1); Chloride 107 mmol/L (98-107); Creatinine, Serum 1.49 mg/dL (0.70-1.30); EST Glomerular Filtration Rate 48 mL/min (>60); Est Glom Filt Rate - Afr Amer 58 mL/min (>60); Glucose 93 mg/dL (74-106); Potassium 4.1 mmol/L (3.5-5.1); Sodium Level 139 mmol/L (136-145)
== END ==
PROVIDERS: PCP Family Medicine; Referring Provider Family Medicine; Visit Provider Family Medicine
DX: R94.4 Abnormal results of kidney function studies (principal)
CPT/HCPCS: 36415; 80048

== ENCOUNTER → 2020-03-22 11:11 | Outpatient (CLI) | payer MEDICARE, OTHER, SELFPAY ==
[2020-03-03 14:26] VITALS: BMI 23.6
[2020-03-22 15:17] LABS: Anion Gap 6 (5-15); BUN 25 mg/dL (7-18); BUN/Creat Ratio 19.1 RATIO (10-20); Calcium,Total 9.2 mg/dL (8.5-10.1); Chloride 108 mmol/L (98-107); Cholesterol 176 mg/dL (200); Creatinine, Serum 1.31 mg/dL (0.70-1.30); EST Glomerular Filtration Rate 56 mL/min (>60); Est Glom Filt Rate - Afr Amer 67 mL/min (>60); Glucose 89 mg/dL (74-106); High Density Lipoprotein 59 mg/dL; Potassium 4.5 mmol/L (3.5-5.1); Sodium Level 139 mmol/L (136-145); Triglycerides 204 mg/dL; Very Low Density Lipoprotein 41 mg/dL (5-40)
[2020-03-22 15:20] LABS: Vitamin B12 537 pg/mL (211-911)
== END ==
PROVIDERS: PCP Family Medicine; Referring Provider Family Medicine; Visit Provider Family Medicine
DX: I10 Essential (primary) hypertension (principal); E53.8 Deficiency of other specified B group vitamins
CPT/HCPCS: 36415; 80048; 80061; 82607

== ENCOUNTER 2020-06-23 14:19 | Outpatient (RCR) | payer MEDICARE, OTHER, SELFPAY ==
[2020-03-03 14:26] VITALS: BMI 23.6
== END 2020-06-23 23:59 ==
LOC: IMMUN 14:19
PROVIDERS: PCP Family Medicine; Visit Provider Family Medicine
DX: Z23 Encounter for immunization (principal)
CPT/HCPCS: 0011A; 0012A; 91301

== ENCOUNTER 2020-07-13 15:44 | Emergency (ER) | payer MEDICARE, OTHER, SELFPAY ==
[2020-03-03 14:26] VITALS: BMI 23.6
[2020-07-13 15:45] VITALS: BP 108/61; PULSE 60; RESP 15; RESP 21; TEMP 36.5; O2SAT 98; O2SAT 99; BMI 25.0
--- NOTE | 2020-07-13 16:03 | EKG12_ITS ---
Test Reason : SYNCOPE Blood Pressure : / mmHG Vent. Rate : 067 BPM Atrial Rate : 067 BPM P-R Int : 210 ms QRS Dur : 166 ms QT Int : 474 ms P-R-T Axes : 006 -65 056 degrees QTc Int : 500 ms Atrial-sensed ventricular-paced rhythm with prolonged AV conduction with occasional Premature ventric ular complexes Abnormal ECG Confirmed by TINY BOOGIE, DMITRI ([id number]), graphic editor OLIVERIO ROCK ([id number]) on 07/18/2020 10:43:28 AM Referred By: TED Confirmed By:DMITRI FRANKS MD
--- NOTE | 2020-07-13 16:03 | RAD_ITS ---
STUDY: X-RAY CHEST REASON FOR EXAM: Male, 84 years old. NEAR SYNCOPE TECHNIQUE: Frontal view COMPARISON: 09/21/2018. FINDINGS: Stable sternotomy wires and left-sided pacemaker. The lungs are expanded. Possible left basilar retrocardiac infiltrate. Normal size heart. Normal mediastinum and nestor. Normal visualized pulmonary arteries. Normal visualized aortic arch and descending thoracic aorta. Degenerative changes of the thoracic spine. Normal visualized ribs, clavicles, and shoulders. There is no demonstrated abnormality of the visualized soft tissue structures of the upper abdomen. RAD/Chest 1 View (Portable) IMPRESSION: Possible left basilar retrocardiac infiltrate. Electronically Signed: Phill Haddad DO at 17:35 EST Tel [phone], Service support ,
--- NOTE | 2020-07-13 16:43 | ED.VISSUMM ---
- ER Visit Summary Date of Service: 07/13/20 Chief Complaint: Near syncope History of Present Illness: The patient is a [address] Jones and Dr. Choudhury. He has a history of sick sinus syndrome and a pacemaker. He reports that he was standing up cooking became lightheaded and diaphoretic. He pulled out a chair and sat down. Family member reports the patient was pale and drooling. He did not go unresponsive. He did not fall. Patient denies any chest pain, palpitations, or shortness of breath with this episode. His review of systems is otherwise negative. Physical Examination: Vitals: Stable. Afebrile. General: Well-nourished and well-developed. Head: Normocephalic atraumatic. Neck: Supple, no lymphadenopathy. No JVD. Nontender. Cardiovascular: Regular rate and rhythm. 2 out of 6 systolic murmur. Heart sounds are distant. Respiratory: No respiratory distress. Fine crackles at the bases bilaterally. Abdominal: Soft, nontender, nondistended, normal bowel sounds. No guarding, rebound, or peritoneal signs. Back: Nontender. Extremities: Nontender, no edema. Skin: Normal color, no rash. Neurologic: Alert and oriented ?3. Cranial nerves II through XII are intact. Normal strength and sensation. Psych: Normal affect. Test Results: EKG is AV paced at 67 with PVCs. There is normal sensing capture. Pacemaker interrogation shows no events. CBC shows stable neutrophils 75 and lymphocytes of 18. Chem-7 shows a BUN of 27 and creatinine 1.66. Baseline creatinine in 2019 was 1.31?1.94. Troponin is negative. Clinical Impression(s) from Imaging Studies Chest X-Ray 07/13/20 16:03 IMPRESSION: Possible left basilar retrocardiac infiltrate. Electronically Signed: Phill Haddad DO at 17:35 EST Tel [phone], Service support , Emergency Department Course and Treatment: Patient has no symptoms at this time and feels improved. He is resting comfortably. Patient had positive orthostatic vital signs here. I discussed with him the radiologist reading of his chest x-ray which I do not appreciate. He denies cough. He denies fever or chills. I do not think that he has pneumonia and he agrees with this. Treatment Plan: Patient be discharged with instructions to push fluids. He feels well and would like to go home. Follow-up his primary care physician 1 to 2 days if not improving. Return to the emergency department for any worsening symptoms. Disposition: To home in improved and stable condition. Impression: 1. Near syncope. 2. Orthostatic hypotension. This note was generated with [employer] dictation software. It may contain incorrect words, spelling, and punctuation that were not noted in review of the chart prior to signing ED Disposition - Plan for ED Patient: Disposition: Home or Assisted Living Instructions: ED Hypotension, Orthostatic Referrals: Hi Durbin MD [Primary Care Provider] - 1-2 Days if not improving
[2020-07-13 16:44] LABS: Absolute Neutrophil Count 5.9 X10^3/uL (2.0-7.7); Basophil# 0.05 X10^3/uL; Basophil% 0.6 % (0-1); Eosinophil# 0.22 X10^3/uL; Eosinophils% 2.8 % (0-5); Hemoglobin 13.8 g/dL (13.0-16.5); Lymphocyte % 17.7 % (19-41); Mean Corp Hgb Conc 31.4 g/dL (32-36); Mean Corpuscular Hgb 28.5 pg (27.0-32.0); Mean Corpuscular Volume 90.9 fL (80-94); Mean Platelet Vol. 10.4 fl (6.2-12.0); Monocyte# 0.34 X10^3/uL; Monocyte% 4.3 % (0-10); NRBC Flagged by Analyzer 0 % (0-5); Neutrophil % 74.5 % (47-70); POSITIVE COUNT YES; Platelet Count 130 K/mm3 (150-450); RBC Distribution Width CV 13.3 % (11.6-14.6); RBC Distribution Width SD 45.1 fl (35.1-43.9); Red Blood Count 4.84 M/mm3 (4.6-6.2); White Blood Count 7.9 K/mm3 (4.4-11.0)
[2020-07-13 16:52] LABS: Differential Indicated SCAN CRITERIA MET
[2020-07-13 16:56] LABS: Anion Gap 5 (5-15); BUN 27 mg/dL (7-18); BUN/Creat Ratio 16.3 RATIO (10-20); Calcium,Total 9.2 mg/dL (8.5-10.1); Chloride 107 mmol/L (98-107); Creatinine, Serum 1.66 mg/dL (0.70-1.30); EST Glomerular Filtration Rate 42 mL/min (>60); Est Glom Filt Rate - Afr Amer 51 mL/min (>60); Estimated Creatinine Clearance 37.01 ml/min; Glucose 105 mg/dL (74-106); Potassium 3.8 mmol/L (3.5-5.1); Sodium Level 139 mmol/L (136-145)
[2020-07-13 17:12] LABS: Differential Comment SCANNED
[2020-07-13 17:42] VITALS: BP 108/56; BP 122/60; BP 139/59; BP 154/68; PULSE 60; PULSE 62; PULSE 63; RESP 17; O2SAT 98
[2020-07-13 19:01] VITALS: BP 116/56; PULSE 60; RESP 16; O2SAT 100
== END 2020-07-13 19:06 | disposition home or self-care (01) ==
PROVIDERS: Emergency Provider Emergency Medicine; PCP Family Medicine
DX: I95.1 Orthostatic hypotension (principal); I25.10 Atherosclerotic heart disease of native coronary artery without angina pectoris; K21.9 Gastro-esophageal reflux disease without esophagitis; Z95.0 Presence of cardiac pacemaker; Z79.82 Long term (current) use of aspirin
CPT/HCPCS: 71045; 80048; 84484; 85025; 93005; 99285; A4216

== ENCOUNTER → 2020-08-16 12:02 | Outpatient (CLI) | payer MEDICARE, OTHER, SELFPAY ==
[2020-08-16 15:23] LABS: Anion Gap 6 (5-15); BUN 29 mg/dL (7-18); BUN/Creat Ratio 17.5 RATIO (10-20); Calcium,Total 8.9 mg/dL (8.5-10.1); Chloride 107 mmol/L (98-107); Creatinine, Serum 1.66 mg/dL (0.70-1.30); EST Glomerular Filtration Rate 42 mL/min (>60); Est Glom Filt Rate - Afr Amer 51 mL/min (>60); Glucose 97 mg/dL (74-106); Sodium Level 141 mmol/L (136-145)
== END ==
PROVIDERS: PCP Family Medicine; Visit Provider Family Medicine
DX: N18.30 Chronic kidney disease, stage 3 unspecified (principal)
CPT/HCPCS: 36415; 80048

== ENCOUNTER 2020-09-19 22:18 | Inpatient (IN) | payer MEDICARE, OTHER, SELFPAY ==
[2020-09-01 10:47] VITALS: BMI 24.1
[2020-09-19 22:20] VITALS: BP 127/55; PULSE 60; RESP 14; TEMP 37; O2SAT 98; BMI 25.2
--- NOTE | 2020-09-19 22:36 | CT_ITS ---
STUDY: CT CERVICAL SPINE WITHOUT CONTRAST REASON FOR EXAM: Male, 84 years old. trauma RADIATION DOSAGE (If Supplied By Facility): CTDIvol = ( 21.18 ) mGy, DLP = ( 466.88 ) mGycm TECHNIQUE: High resolution transaxial imaging was performed without contrast material. Sagittal and coronal images were reconstructed. Individualized dose optimization techniques were used for this CT. COMPARISON: None FINDINGS: Normal craniovertebral junction. Normal anterior atlantoaxial articulation. Normal odontoid process. Normal cervical lordosis. Normal vertebral bodies and posterior osseous elements. C2-3: Normal endplates. Normal disc height and morphology. Normal central canal and intervertebral neuroforamina. C3-4: Normal endplates. Normal disc height and morphology. Normal central canal and intervertebral neuroforamina. C4-5: Normal endplates. Normal disc height and morphology. Normal central canal and intervertebral neuroforamina. C5-6: Disc space narrowing and moderate narrowing of the neural foramen on the right. Left neural foramen and central canal patent. C6-7: Normal endplates. Normal disc height and morphology. Normal central canal and intervertebral neuroforamina. C7-T1: Normal endplates. Normal disc height and morphology. Normal central canal and intervertebral neuroforamina. Normal visualized soft tissue structures. Calcified plaque in the carotids bilaterally. CT/Spine Cervical without Contras IMPRESSION: No fracture Electronically Signed: Bandar Styles MD at 23:59 EDT , Service support ,
--- NOTE | 2020-09-19 22:36 | CT_ITS ---
STUDY: CT BRAIN WITHOUT CONTRAST REASON FOR EXAM: Male, 84 years old. trauma RADIATION DOSAGE (If Supplied By Facility): CTDIvol = ( 44.99 ) mGy, DLP = ( 880.47 ) mGycm TECHNIQUE: Transaxial CT imaging of the brain was performed without administration of intravenous contrast material. Individualized dose optimization techniques were used for this CT. COMPARISON: MR brain 11/27/2011 FINDINGS: Normal soft tissue structures. Normal calvarium. There is moderate cerebral atrophy with widening of the extra-axial spaces and ventricular dilatation. Normal white matter tracts of the cerebral hemispheres. Normal basal ganglia and thalami. Normal brainstem. Normal cerebellum. Intracranial atherosclerosis. There is no intracranial hemorrhage. There are no findings of an acute ischemic infarction. Normal visualized paranasal sinuses. CT/Brain/Head without Contrast IMPRESSION: Moderate atrophy. No acute disease. Electronically Signed: Bandar Styles MD at 23:52 EDT , Service support ,
--- NOTE | 2020-09-19 22:37 | EKG12_ITS ---
Test Reason : DYSRHYTHMIA Blood Pressure : / mmHG Vent. Rate : 060 BPM Atrial Rate : 060 BPM P-R Int : 232 ms QRS Dur : 176 ms QT Int : 504 ms P-R-T Axes : -03 -67 081 degrees QTc Int : 504 ms AV dual-paced rhythm with prolonged AV conduction Abnormal ECG Confirmed by ANA BOOGIE, MICHEAL ([id number]), purchasing expeditor OLIVERIO ROCK ([id number]) on 09/22/2020 9:04:31 AM Referred By: KATHIE Confirmed By:MICHEAL PEREZ MD
--- NOTE | 2020-09-19 22:50 | RAD_ITS ---
STUDY: X-RAY CHEST REASON FOR EXAM: Male, 84 years old. syncope, fall with head injury. abnormal EKG. semi conscious. TECHNIQUE: Single frontal view of the chest. COMPARISON: 07/13/2020 FINDINGS: Bipolar pacer on the left. Sternotomy wires. At least 2 nodular densities project over the right midlung measuring up to 12 mm. There is no demonstrated pleural abnormality. Normal size heart. Normal mediastinum and nestor. Normal visualized pulmonary arteries. Normal visualized aortic arch and descending thoracic aorta. Normal visualized thoracic spine. Normal visualized ribs, clavicles, and shoulders. There is no demonstrated abnormality of the visualized soft tissue structures of the upper abdomen. RAD/Chest 1 View (Portable) IMPRESSION: Right perihilar nodular densities. Recommend follow-up CT chest nonemergently. Electronically Signed: Bandar Styles MD at 0:02 EDT , Service support ,
[2020-09-19 23:11] LABS: International Normalized Ratio 1.1; Prothrombin Time (Protime)PT. 13.4 SECONDS (11.7-14.9)
[2020-09-19 23:12] LABS: Partial Thromboplast Time 31.4 Seconds (24.1-36.2)
[2020-09-19 23:13] LABS: Anion Gap 9 (5-15); BUN 31 mg/dL (7-18); BUN/Creat Ratio 13.6 RATIO (10-20); Calcium,Total 9.1 mg/dL (8.5-10.1); Chloride 105 mmol/L (98-107); Creatinine, Serum 2.28 mg/dL (0.70-1.30); EST Glomerular Filtration Rate 29 mL/min (>60); Est Glom Filt Rate - Afr Amer 35 mL/min (>60); Estimated Creatinine Clearance 26.94 ml/min; Glucose 112 mg/dL (74-106); Potassium 3.6 mmol/L (3.5-5.1); Sodium Level 139 mmol/L (136-145)
[2020-09-19 23:15] LABS: Bacteria 0 SEEN /hpf (None Seen); Mucous, Urine 0 SEEN /hpf (<or=2+); Red Blood Cells-Urine 0 SEEN /hpf (0-5); Squamous Epithelial Cells - UA 0 SEEN /hpf (0-5)
[2020-09-19 23:17] LABS: Color, Urine Amber (Yellow); Glucose, Dipstick Normal (Normal); Ketone-Dipstick 5 mg/dl (Negative); Leukocyte Esterase-Dipstick 25 /ul (Negative); Nitrite-Dipstick Negative (Negative); Occult Blood-Urine Negative /ul (Negative); Protein-Dipstick 15 mg/dl (Negative); Specific Gravity, Urine 1.025 (1.002-1.030); Urine Bilirubin Dipstick Negative (Negative); Urine Clarity Clear (Clear); Urine Urobilinogen 1 mg/dl (Normal)
[2020-09-19 23:23] LABS: Absolute Lymphocyte Count 2.91 X10^3/uL (0.83-4.51); Absolute Neutrophil Count 6.4 X10^3/uL (2.0-7.7); Basophil# 0.06 X10^3/uL; Basophil% 0.6 % (0-1); Eosinophil# 0.16 X10^3/uL; Eosinophils% 1.6 % (0-5); Hematocrit 39.9 % (40-54); Hemoglobin 12.8 g/dL (13.0-16.5); Lymphocyte # 2.91 X10^3/ul (0.83-4.51); Lymphocyte % 28.6 % (19-41); Mean Corp Hgb Conc 32.1 g/dL (32-36); Mean Corpuscular Hgb 28.8 pg (27.0-32.0); Mean Corpuscular Volume 89.9 fL (80-94); Mean Platelet Vol. 9.8 fl (6.2-12.0); Monocyte# 0.57 X10^3/uL; Monocyte% 5.6 % (0-10); NRBC Flagged by Analyzer 0 % (0-5); Neutrophil # 6.38 X10^3/uL (2.7-7.7); Neutrophil % 62.8 % (47-70); Platelet Count 167 K/mm3 (150-450); RBC Distribution Width CV 13.4 % (11.6-14.6); RBC Distribution Width SD 44.4 fl (35.1-43.9); Red Blood Count 4.44 M/mm3 (4.6-6.2); White Blood Count 10.2 K/mm3 (4.4-11.0)
[2020-09-19 23:26] LABS: Hyaline Cast 5-10 SEEN /lpf (0-5); White Blood Cells 0-5 SEEN /hpf (0-5)
[2020-09-20] VITALS (12 sets, daily range): BP systolic 123–149; BP diastolic 58–72; PULSE 60–63; RESP 16–18; TEMP 36.4–36.9; O2SAT 93–100
--- NOTE | 2020-09-20 00:29 | ED.VISSUMM ---
- ER Visit Summary Date of Service: 09/20/20 Chief Complaint: Syncope History of Present Illness: The patient is a 84 M who presents for syncopal episode. He said he fell over from standing and hit his head. He thinks something is wrong with his heart, but denies any chest pain. He does have a history of coronary disease and a pacemaker. He is on aspirin and Plavix among his other medications. No other complaints. Physical Examination: Afebrile and vital signs unremarkable. Head and neck atraumatic. Heart regular. Lungs clear. Abdomen soft. Back is nontender. Extremities atraumatic and nontender. Skin is pale. NIH stroke scale is 0. Test Results: EKG shows a paced rhythm at a rate of 60. Troponin 0 0.063. Hemoglobin 12.8. BUN 31 and creatinine 2.28. Coags unremarkable. Urinalysis unremarkable. Chest x-ray shows right-sided nodules. CT brain and cervical spine are unremarkable. Emergency Department Course and Treatment: Patient was placed on the monitor. Work-up as above. He has signs of acute kidney injury and was treated with a fluid bolus. Troponin is indeterminate. EKG is paced, but I have low suspicion for ACS. He has no chest pain. No history of blood clots. No pain whatsoever. No evidence of bleeding. Will contact the hospitalist for admission. Treatment Plan: As above Disposition: Admission Impression: Syncope, acute kidney injury, elevated troponin, lung nodules This note was generated with [employer] dictation software. It may contain incorrect words, spelling, and punctuation that were not noted in review of the chart prior to signing ED Disposition - Plan for ED Patient: Referrals: Hi Durbin MD [Primary Care Provider] -
[2020-09-20] MEDS: 0.9% Normal Saline 1,000 ML 100 ML IV ×2 (02:50→13:25)
[2020-09-20 08:43] LABS: ALB/GLOB Ratio 1.2 RATIO (0.9-2.4); Albumin, Serum 3.3 g/dL (3.2-5.0); BUN 31 mg/dL (7-18); BUN/Creat Ratio 17.8 RATIO (10-20); Calcium,Total 8.4 mg/dL (8.5-10.1); Creatinine, Serum 1.74 mg/dL (0.70-1.30); EST Glomerular Filtration Rate 40 mL/min (>60); Est Glom Filt Rate - Afr Amer 48 mL/min (>60); Estimated Creatinine Clearance 35.31 ml/min; Globulin 2.8 g/dL (2.2-4.2); Glucose 99 mg/dL (74-106); Protein, Total 6.1 g/dL (6.4-8.2)
[2020-09-20 08:44] LABS: AST(SGOT) 14 U/L (15-37); Alanine Aminotransfer ALT/SGPT 16 U/L (16-61); Alkaline Phosphatase 74 U/L (45-117); Anion Gap 10 (5-15); Chloride 107 mmol/L (98-107); Magnesium 1.7 mg/dL (1.6-2.6); Potassium 3.6 mmol/L (3.5-5.1); Sodium Level 139 mmol/L (136-145); Thyroid Stim Hormone (TSH) 0.61 uIU/mL (0.358-3.74)
--- NOTE | 2020-09-20 09:04 | ECHOD_ITS ---
Reason For Study: Pre Syncope Procedure This was a 2D Doppler, Color Flow transthoracic echocardiogram. Bubble Study performed. Exam performed portable in patient room. Left Ventricle Normal LV size. Moderate concentric left ventricular hypertrophy. Left ventricular systolic function is normal. The estimated ejection fraction is 65 %. Diastolic function is indeterminate. No regional wall motion abnormalities noted. Right Ventricle Normal RV size. ICD or pacer leads identified within the right ventricle. Normal systolic function. Atria Normal left atrium. Normal right atrium. ICD or pacer leads identified within the right atrium. No doppler evidence for ASD. Bubble contrast study negative for right to left interatrial shunt. Mitral Valve There is no mitral annular calcification. Anterior leaflet diffuse mitral valve thickening. Mild- Moderate (1-2+) eccentric mitral valve insufficiency. Tricuspid Valve Normal tricuspid valve. Mild to moderate (1-2+) eccentric tricuspid valve insufficiency. Right ventricular systolic pressure estimated to be 42 mmHg. Aortic Valve Trisinus/trileaflet aortic valve. Normal aortic valve. Mild (1+) aortic valve insufficiency. Pulmonic Valve The pulmonic valve is not well visualized. Trivial pulmonic valve insufficiency. Great Vessels The aortic root is not well visualized. Pericardium/Pleural No pericardial effusion. Medication Performed a rapid injection of agitated mix of 9 cc saline and 1cc air to assess for atrial septal defect. MMode/2D Measurements & Calculations LVIDd: 4.3 cm IVSd: 1.6 cm LA dimension: 4.2 cm LVIDs: 3.0 cm LVPWd: 1.4 cm FS: 29.8 % LAV(MOD-bp): 63.9 ml LA A4 area: 19.9 cm2 RA A4 area: 19.8 cm2 LAV(MOD-bp) Indexed: 31.0 ml/m2 LAV(MOD-sp2): 69.0 ml LAV(MOD-sp4): 57.7 ml Time Measurements MV dec time: 0.43 sec Doppler Measurements & Calculations MV E max alonzo: 46.6 cm/sec Lat Peak E' Alonzo: 6.3 cm/sec Med Peak E' Alonzo: 4.6 cm/sec MV A max alonzo: 81.2 cm/sec E/E' lat: 7.4 E/E' med: 10.2 MV E/A: 0.57 MV V2 max: 85.4 cm/sec MV P1/2t max alonzo: 54.4 cm/sec Ao V2 max: 129.4 cm/sec MV max P.9 mmHg MV P1/2t: 80.3 msec Ao max P.7 mmHg MV V2 mean: 39.9 cm/sec MV dec slope: 198.2 cm/sec2 MV mean P.77 mmHg MV V2 VTI: 25.7 cm MVA(P1/2t): 2.7 cm2 AI max alonzo: 502.6 cm/sec LV V1 max: 114.0 cm/sec PA V2 max: 168.5 cm/sec AI max P.0 mmHg LV V1 max P.2 mmHg AI dec slope: 241.6 cm/sec2 AI P1/2t: 609.3 msec TR max alonzo: 312.6 cm/sec TR max P.1 mmHg ECHO/Echo Complete Interpretation Summary Left ventricular systolic function is normal. The estimated ejection fraction is 65 %. Moderate concentric left ventricular hypertrophy. Anterior leaflet diffuse mitral valve thickening. Mild-Moderate (1-2+) eccentric mitral valve insufficiency. Mild to moderate (1-2+) eccentric tricuspid valve insufficiency. Mild (1+) aortic valve insufficiency. Trivial pulmonic valve insufficiency. Right ventricular systolic pressure estimated to be 42 mmHg. Diastolic function is indeterminate. Bubble contrast study negative for right to left interatrial shunt. ICD or pacer leads identified within the right atrium ICD or pacer leads identified within the right ventricle. Ordering Physician: Myles Valdovinos Referring Physician: Dusty Durbin Performed By: Damion Ceron RCS
[2020-09-20 09:21] LABS: Vitamin D,25 Hydroxy 86.6 ng/mL
[2020-09-20 09:50] LABS: Absolute Lymphocyte Count 1.23 X10^3/uL (0.83-4.51); Absolute Neutrophil Count 7.2 X10^3/uL (2.0-7.7); Basophil# 0.04 X10^3/uL; Basophil% 0.4 % (0-1); Eosinophil# 0.06 X10^3/uL; Eosinophils% 0.7 % (0-5); Hematocrit 34.1 % (40-54); Hemoglobin 10.7 g/dL (13.0-16.5); Lymphocyte # 1.23 X10^3/ul (0.83-4.51); Lymphocyte % 13.8 % (19-41); Mean Corp Hgb Conc 31.4 g/dL (32-36); Mean Corpuscular Hgb 28.5 pg (27.0-32.0); Mean Corpuscular Volume 90.7 fL (80-94); Monocyte# 0.42 X10^3/uL; Monocyte% 4.7 % (0-10); NRBC Flagged by Analyzer 0 % (0-5); Neutrophil # 7.16 X10^3/uL (2.7-7.7); Neutrophil % 80.1 % (47-70); Platelet Count 140 K/mm3 (150-450); RBC Distribution Width CV 13.3 % (11.6-14.6); RBC Distribution Width SD 44.1 fl (35.1-43.9); Red Blood Count 3.76 M/mm3 (4.6-6.2); White Blood Count 8.9 K/mm3 (4.4-11.0)
[2020-09-20] MEDS: Enoxaparin 40 MG/0.4 ML Syringe SC (11:54)
[2020-09-20] MEDS: Fluticasone 0.05% 1 SPRAY NASAL.SRY NASAL (11:54)
[2020-09-20] MEDS: Clopidogrel Bisulfate 75 MG Tablet PO (11:55)
[2020-09-20] MEDS: Memantine Hydrochloride 5 MG Tablet PO (11:55)
[2020-09-20] MEDS: Ascorbic Acid 500 MG Tablet PO (11:55)
[2020-09-20] MEDS: Pantoprazole Sodium 40 MG Tablet PO (11:55)
[2020-09-20] MEDS: Sertraline 100 MG Tablet 200 MG PO (11:56)
--- NOTE | 2020-09-20 12:10 | CASEMGMT ---
IRWIN LUNA Assessment: Face to Face with pt for initial transition planning/care coordination assessment. IRWIN LUNA introduced self and role at [facility], pt voices understanding and consents to assessment. Pt is A/O x4 and answers all questions appropriately at this time. is at bedside. Pt does not have hearing aids in as they need charged. He wishes CM to speak with for assessment due to [place]. Care providers, pharmacy, and demographics verified/updated. Admitting Dx: Syncope PCP: Ramakrishna Specialists: Kyle cardio Preferred Pharmacy: [facility] Retail Insurance: [facility], [employer] Prescription Benefit: yes LW/HPOA: Per pt , pt does not have a LW/DPOA. LNOK: Minal Flaherty Living Arrangements: Pt lives with , son, dil and grandson in a 2 story house with 3 steps with a rail to enter in the back. Pt was I in ADL's. No concerns at home per . Transportation: Pt transports pt to appts. Denies concerns with transportation. DME/HHC/SNF: Pt denies having any DME in the home. Denies any previous HHC or SNF stays. Pt states no concerns with going home at time of dc. She states pt may be weaker than usual. Discussed HHC for therapy. Pt states she feels this is something that would be beneficial but that the pt is stubborn and strong willed. She will discuss with . IRWIN LUNA provided a list of HHC providers including quality and resource use data and consistent with the patient?s preferred geographic region, medical needs, and insurance network. CM to follow for HHC needs. Pt states no further concerns/needs. Advised pt/ to ask CM if any further question/concerns/needs arise, voices understanding. Pt Goal: Home Plan: Home with family support, follow for HHC.
--- NOTE | 2020-09-20 12:51 | PCM.PN.HOSP ---
Subjective Subjective: Denies current complaints. Objective Data Objective Data Vital Signs: Vital Signs Temp Pulse Resp BP Pulse Ox 36.9 C 60 16 126/58 H 99 09/20/20 10:45 09/20/20 10:45 09/20/20 10:45 09/20/20 10:45 09/20/20 10:45 Oxygen Delivery Method Room Air Weight: 84.3 kg Body Mass Index (BMI) 25.2 Intake & Output: Intake and Output for Last 24 Hours 09/18/20 09/19/20 09/20/20 23:59 23:59 23:59 Intake Total 500 / 500 Balance 500 / 500 Lab / Micro Data Result Diagrams: 09/20/20 06:08 09/20/20 06:08 Labs: Laboratory Results - last 24 hr 09/19/20 09/19/20 09/19/20 22:15 22:15 22:15 WBC 10.2 RBC 4.44 L Hgb 12.8 L Hct 39.9 L MCV 89.9 MCH 28.8 MCHC 32.1 RDW Std Deviation 44.4 H RDW Coeff of Bekah 13.4 Plt Count 167 MPV 9.8 Immature Gran % (Auto) 0.800 Neut % (Auto) 62.8 Lymph % (Auto) 28.6 Robertson % (Auto) 5.6 Eos % (Auto) 1.6 Baso % (Auto) 0.6 Absolute Neuts (auto) 6.4 Absolute Lymphs (auto) 2.91 Nucleated RBC % 0 PT 13.4 INR 1.1 APTT 31.4 Sodium 139 Potassium 3.6 Chloride 105 Carbon Dioxide 25.0 Anion Gap 9 BUN 31 H Creatinine 2.28 H Estim Creat Clear Calc 26.94 Est GFR (MDRD) Af Amer 35 L Est GFR (MDRD) Non-Af 29 L BUN/Creatinine Ratio 13.6 Glucose 112 H Calcium 9.1 Magnesium Total Bilirubin AST ALT Alkaline Phosphatase Troponin I 0.063 H Total Protein Albumin Globulin Albumin/Globulin Ratio Vitamin D 25-Hydroxy TSH Urine Color Urine Clarity Urine pH Ur Specific [place] Urine Protein Urine Glucose (UA) Urine Ketones Urine Occult Blood Urine Nitrite Urine Bilirubin Urine Urobilinogen Ur Leukocyte Esterase Urine RBC Urine WBC Ur Squamous Epith Cells Urine Bacteria Hyaline Casts Urine Mucus Blood Type Antibody Screen 04/26/21 04/26/21 04/27/21 22:50 23:00 02:58 WBC RBC Hgb Hct MCV MCH MCHC RDW Std Deviation RDW Coeff of Bekah Plt Count MPV Immature Gran % (Auto) Neut % (Auto) Lymph % (Auto) Robertson % (Auto) Eos % (Auto) Baso % (Auto) Absolute Neuts (auto) Absolute Lymphs (auto) Nucleated RBC % PT INR APTT Sodium Potassium Chloride Carbon Dioxide Anion Gap BUN Creatinine Estim Creat Clear Calc Est GFR (MDRD) Af Amer Est GFR (MDRD) Non-Af BUN/Creatinine Ratio Glucose Calcium Magnesium Total Bilirubin AST ALT Alkaline Phosphatase Troponin I 0.085 H Total Protein Albumin Globulin Albumin/Globulin Ratio Vitamin D 25-Hydroxy TSH Urine Color Cori Urine Clarity Clear Urine pH 5.0 Ur Specific [place] 1.025 Urine Protein 15 H Urine Glucose (UA) Normal Urine Ketones 5 H Urine Occult Blood Negative Urine Nitrite Negative Urine Bilirubin Negative Urine Urobilinogen 1 H Ur Leukocyte Esterase 25 H Urine RBC 0 SEEN Urine WBC 0-5 SEEN Ur Squamous Epith Cells 0 SEEN Urine Bacteria 0 SEEN Hyaline Casts 5-10 SEEN Urine Mucus 0 SEEN Blood Type A POSITIVE Antibody Screen NEGATIVE 09/20/20 09/20/20 09/20/20 06:08 06:08 06:08 WBC 8.9 RBC 3.76 L Hgb 10.7 L Hct 34.1 L MCV 90.7 MCH 28.5 MCHC 31.4 L RDW Std Deviation 44.1 H RDW Coeff of Bekah 13.3 Plt Count 140 L MPV 10.0 Immature Gran % (Auto) 0.300 Neut % (Auto) 80.1 H Lymph % (Auto) 13.8 L Robertson % (Auto) 4.7 Eos % (Auto) 0.7 Baso % (Auto) 0.4 Absolute Neuts (auto) 7.2 Absolute Lymphs (auto) 1.23 Nucleated RBC % 0 PT INR APTT Sodium 139 Potassium 3.6 Chloride 107 Carbon Dioxide 22.0 Anion Gap 10 BUN 31 H Creatinine 1.74 H Estim Creat Clear Calc 35.31 Est GFR (MDRD) Af Amer 48 L Est GFR (MDRD) Non-Af 40 L BUN/Creatinine Ratio 17.8 Glucose 99 Calcium 8.4 L Magnesium 1.7 Total Bilirubin 0.30 AST 14 L ALT 16 Alkaline Phosphatase 74 Troponin I 0.234 H Total Protein 6.1 L Albumin 3.3 Globulin 2.8 Albumin/Globulin Ratio 1.2 Vitamin D 25-Hydroxy 86.6 TSH 0.61 Urine Color Urine Clarity Urine pH Ur Specific [place] Urine Protein Urine Glucose (UA) Urine Ketones Urine Occult Blood Urine Nitrite Urine Bilirubin Urine Urobilinogen Ur Leukocyte Esterase Urine RBC Urine WBC Ur Squamous Epith Cells Urine Bacteria Hyaline Casts Urine Mucus Blood Type Antibody Screen Radiography Diagnostic Testing: Radiology Impression Brain CT 09/19/20 22:36 IMPRESSION: Moderate atrophy. No acute disease. Electronically Signed: Bandar Styles MD at 23:52 EDT , Service support , Cervical Spine CT 09/19/20 22:36 IMPRESSION: No fracture Electronically Signed: Bandar Styles MD at 23:59 EDT , Service support , Chest X-Ray 09/19/20 22:50 IMPRESSION: Right perihilar nodular densities. Recommend follow-up CT chest nonemergently. Electronically Signed: Bandar Stylse MD at 0:02 EDT , Service support , Physical Exam Narrative pleasantly confused. afebrile. large back tattoo. Const Orientation / Consciousness: confused HEENT Head and Scalp: normocephalic Resp normal respiratory effort and clear to auscultation bilaterally Cardio regular rate, regular rhythm, S1 normal heart sound and S2 normal heart sound Extremity normal to inspection and full ROM Assessment & Plan Assessment/Plan (1) Syncope and collapse: Status: Acute Code(s): R55 - Syncope and collapse Plan: may be vasovagal. no arrythmia on tele check echo (2) LIZABETH (acute kidney injury): Status: Acute Code(s): N17.9 - Acute kidney failure, unspecified Plan: monitor (3) Elevated troponin: Status: Acute Code(s): R77.8 - Other specified abnormalities of plasma proteins Plan: trending up to 0.234. asymptomatic. check echo and stress. known CAD had [facility] in 2016: 1. Angiographically normal left main coronary artery. 2. Left anterior descending artery with 70% mid segment stenosis. 3. Left circumflex artery, which is totally occluded. 4. Right coronary artery, which is dominant and subtotally occluded in the proximal to mid segment. 5. Saphenous vein graft to obtuse marginal branch, which is patent. 6. Saphenous vein graft to diagonal branch with mild eccentric stenosis. 7. Radial graft to right coronary artery, which is patent. Based on the above angiographic findings, I would recommend angioplasty to the left anterior descending artery to see whether this would improve his symptomatology. Inpatient E&M: [id number] Subs Hosp L2
[2020-09-20] MEDS: Donepezil HCl 10 MG Tablet PO (21:20)
[2020-09-20] MEDS: Tamsulosin HCl 0.4 MG Capsule PO (21:20)
[2020-09-20] MEDS: Finasteride 5 MG Tablet PO (21:20)
[2020-09-20] MEDS: Atorvastatin Calcium 10 MG Tablet PO (21:20)
[2020-09-21] VITALS (14 sets, daily range): BP systolic 111–161; BP diastolic 47–67; PULSE 60–76; RESP 16–18; TEMP 36.2–36.8; O2SAT 95–100
[2020-09-21 05:36] LABS: Absolute Lymphocyte Count 1.27 X10^3/uL (0.83-4.51); Basophil# 0.04 X10^3/uL; Basophil% 0.7 % (0-1); Eosinophil# 0.17 X10^3/uL; Eosinophils% 2.9 % (0-5); Hematocrit 32.9 % (40-54); Hemoglobin 10.4 g/dL (13.0-16.5); Lymphocyte # 1.27 X10^3/ul (0.83-4.51); Lymphocyte % 21.7 % (19-41); Mean Corp Hgb Conc 31.6 g/dL (32-36); Mean Corpuscular Hgb 28.3 pg (27.0-32.0); Mean Corpuscular Volume 89.6 fL (80-94); Mean Platelet Vol. 9.5 fl (6.2-12.0); Monocyte# 0.37 X10^3/uL; Monocyte% 6.3 % (0-10); NRBC Flagged by Analyzer 0 % (0-5); Neutrophil # 3.99 X10^3/uL (2.7-7.7); Neutrophil % 68.2 % (47-70); Platelet Count 114 K/mm3 (150-450); RBC Distribution Width CV 13.2 % (11.6-14.6); RBC Distribution Width SD 43.9 fl (35.1-43.9); Red Blood Count 3.67 M/mm3 (4.6-6.2); White Blood Count 5.9 K/mm3 (4.4-11.0)
[2020-09-21 05:55] LABS: Anion Gap 7 (5-15); BUN 26 mg/dL (7-18); BUN/Creat Ratio 20.3 RATIO (10-20); Calcium,Total 8.3 mg/dL (8.5-10.1); Chloride 111 mmol/L (98-107); Creatinine, Serum 1.28 mg/dL (0.70-1.30); EST Glomerular Filtration Rate 57 mL/min (>60); Est Glom Filt Rate - Afr Amer 69 mL/min (>60); Estimated Creatinine Clearance 47.99 ml/min; Glucose 87 mg/dL (74-106); Potassium 3.5 mmol/L (3.5-5.1); Sodium Level 141 mmol/L (136-145)
--- NOTE | 2020-09-21 05:55 | EKG12_ITS ---
Test Reason : AM EKG Blood Pressure : / mmHG Vent. Rate : 060 BPM Atrial Rate : 060 BPM P-R Int : 144 ms QRS Dur : 170 ms QT Int : 476 ms P-R-T Axes : -11 -64 095 degrees QTc Int : 476 ms Atrial-sensed ventricular-paced rhythm Abnormal ECG Confirmed by ANA BOOGIE, MICHEAL ([id number]), slot editor OLIVERIO ROCK ([id number]) on 09/22/2020 9:23:26 AM Referred By: ELGIN Confirmed By:MICHEAL PEREZ MD
[2020-09-21] MEDS: Clopidogrel Bisulfate 75 MG Tablet PO (06:25)
[2020-09-21] MEDS: Aspirin E.C. 325 MG Tablet PO (06:25)
[2020-09-21] MEDS: Pantoprazole Sodium 40 MG Tablet PO (06:25)
--- NOTE | 2020-09-21 10:18 | STRESSREP ---
Stress Test Report Date: 09-21-2020 Procedure: Pharmacologic stress nuclear imaging study Indications: Syncope; permanent pacemaker; CAD; abnormal cardiac enzyme Consent: Per the patient Procedure: The patient underwent pharmacologic (Regadenoson 0.4mg ) evaluation with a peak heart rate of 126 beats per minute (91%predicted maximal heart rate) and a peak blood pressure of 142/70 mmHg. The baseline ECG demonstrated an electronic ventricular pacemaker. The peak pharmacologic ECG demonstrated an electronic ventricular pacemaker. There was a rare PVC during recovery. There was no complaint of chest discomfort during pharmacologic infusion or recovery. The examination was discontinued secondary to completion of protocol. Impression: 1. Pharmacologic (Regadenoson) evaluation 2. Peak pharmacologic ECG with an electronic ventricular pacemaker. 3. There was a rare PVC during recovery. 4. Nuclear images pending Myocardial perfusion imaging study: Technique: The patient was injected with 11.0 millicuries of technetium 99m Cardiolite and subsequently rest SPECT Cardiolite nuclear imaging was obtained in the horizontal long, vertical long, and short axis views. The patient underwent pharmacologic (Regadenoson) evaluation with a peak heart rate of 126 beats per minute (91% percent predicted maximal heart rate) and a peak blood pressure of 142/70 mmHg. The patient was injected with 32.9 millicuries of technetium 99m Cardiolite and subsequently stress SPECT Cardiolite nuclear imaging was obtained in the horizontal long, vertical long, and short axis views. A gated Cardiolite study at peak stress was obtained. Interpretation: Rest and stress SPECT Cardiolite nuclear imaging status post realignment, normalization, and attenuation correction demonstrate relative uniform tracer uptake and myocardial perfusion appearing within normal limits. There is end systolic thickening and brightening. The gated Cardiolite study demonstrates myocardial thickening and inward wall motion. The reported LVEF is 75%. Impression: 1. Rest and stress SPECT Cardiolite nuclear imaging demonstrate relative uniform tracer uptake and myocardial perfusion appearing within normal limits. 2. The gated Cardiolite study reports an LVEF of 75%. This note was generated with [employer] software. It may contain incorrect words, spelling, and punctuation that were not noted in checking the note before signing.
[2020-09-21] MEDS: Fluticasone 0.05% 1 SPRAY NASAL.SRY NASAL (11:29)
[2020-09-21] MEDS: Ascorbic Acid 500 MG Tablet PO (11:30)
[2020-09-21] MEDS: Memantine Hydrochloride 5 MG Tablet PO (11:30)
[2020-09-21] MEDS: Sertraline 100 MG Tablet 200 MG PO (11:30)
--- NOTE | 2020-09-21 14:17 | CASEMGMT ---
Pt screened with [facility] Palliative Screening Tool d/t Strata 3, pt did not meet criteria.
--- NOTE | 2020-09-21 15:15 | PN.HOSP_ITS ---
Subjective Subjective: Feels good. Denies any new complaints. Objective Data Objective Data Vital Signs: Vital Signs Temp Pulse Resp BP Pulse Ox 36.6 C 63 16 142/58 H 100 09/21/20 12:25 09/21/20 14:00 09/21/20 14:00 09/21/20 12:25 09/21/20 14:00 Oxygen Delivery Method Room Air Weight: 84.3 kg Body Mass Index (BMI) 25.2 Intake & Output: Intake and Output for Last 24 Hours 09/19/20 09/20/20 09/21/20 23:59 23:59 23:59 Intake Total 3340 / 3340 360 / 360 Balance 3340 / 3340 360 / 360 Lab / Micro Data Result Diagrams: 09/21/20 05:14 09/21/20 05:14 Labs: Laboratory Results - last 24 hr 09/21/20 09/21/20 05:14 05:14 WBC 5.9 RBC 3.67 L Hgb 10.4 L Hct 32.9 L MCV 89.6 MCH 28.3 MCHC 31.6 L RDW Std Deviation 43.9 RDW Coeff of Bekah 13.2 Plt Count 114 L MPV 9.5 Immature Gran % (Auto) 0.200 Neut % (Auto) 68.2 Lymph % (Auto) 21.7 [place] % (Auto) 6.3 Eos % (Auto) 2.9 Baso % (Auto) 0.7 Absolute Neuts (auto) 4.0 Absolute Lymphs (auto) 1.27 Nucleated RBC % 0 Sodium 141 Potassium 3.5 Chloride 111 H Carbon Dioxide 23.0 Anion Gap 7 BUN 26 H Creatinine 1.28 Estim Creat Clear Calc 47.99 Est GFR (MDRD) Af Amer 69 Est GFR (MDRD) Non-Af 57 L BUN/Creatinine Ratio 20.3 H Glucose 87 Calcium 8.3 L Physical Exam Const alert Resp normal respiratory effort and clear to auscultation bilaterally Cardio regular rate, regular rhythm, S1 normal heart sound and S2 normal heart sound GI normal to inspection, nondistended, normoactive bowel sounds, non-tender and non-distended Assessment & Plan Assessment/Plan (1) Syncope and collapse: Status: Acute Code(s): R55 - Syncope and collapse Plan: may be vasovagal. no arrythmia on tele echo results as below (2) LIZABETH (acute kidney injury): Status: Acute Code(s): N17.9 - Acute kidney failure, unspecified Plan: resolved suspect prerenal (3) Elevated troponin: Status: Acute Code(s): R77.8 - Other specified abnormalities of plasma proteins Plan: trending up to 0.234. asymptomatic. Echo shows: EF 65%. Concentric LVH. RVSP 42mmHg Stress test results pending. continue DAPT, HIS known CAD [facility] in 2016: * 1. Angiographically normal left main coronary artery. * 2. Left anterior descending artery with 70% mid segment stenosis. * 3. Left circumflex artery, which is totally occluded. * 4. Right coronary artery, which is dominant and subtotally occluded in the proximal to mid segment. * 5. Saphenous vein graft to obtuse marginal branch, which is patent. * 6. Saphenous vein graft to diagonal branch with mild eccentric stenosis. * 7. Radial graft to right coronary artery, which is patent. * Based on the above angiographic findings, I would recommend angioplasty to the left anterior descending artery to see whether this would improve his symptomatology. (4) Venous thromboembolism (VTE) prophylaxis not indicated: Status: Acute Plan: as pt is observation status at this time.
[2020-09-21] MEDS: Atorvastatin Calcium 10 MG Tablet PO (21:28)
[2020-09-21] MEDS: Tamsulosin HCl 0.4 MG Capsule PO (21:28)
[2020-09-21] MEDS: Donepezil HCl 10 MG Tablet PO (21:28)
[2020-09-21] MEDS: Finasteride 5 MG Tablet PO (21:28)
[2020-09-22 05:00] VITALS: BP 138/61; PULSE 60; RESP 16; TEMP 37; O2SAT 97
[2020-09-22 07:30] VITALS: O2SAT 98
[2020-09-22 07:34] VITALS: PULSE 65
[2020-09-22] MEDS: Memantine Hydrochloride 5 MG Tablet PO (08:59)
[2020-09-22] MEDS: Fluticasone 0.05% 1 SPRAY NASAL.SRY NASAL (08:59)
[2020-09-22] MEDS: Ascorbic Acid 500 MG Tablet PO (08:59)
[2020-09-22] MEDS: Aspirin E.C. 325 MG Tablet PO (08:59)
[2020-09-22] MEDS: Pantoprazole Sodium 40 MG Tablet PO (09:00)
[2020-09-22] MEDS: Sertraline 100 MG Tablet 200 MG PO (09:00)
[2020-09-22] MEDS: Clopidogrel Bisulfate 75 MG Tablet PO (09:00)
--- NOTE | 2020-09-22 09:00 | DS.PCM_ITS ---
Providers Date of Admission: 09/20/20 Primary Care Physician: Dr. iH Durbin MD Reason For Visit: syncope Diagnosis Discharge Diagnosis (1) Syncope and collapse: Status: Acute Code(s): R55 - Syncope and collapse (2) LIZABETH (acute kidney injury): Status: Acute Code(s): N17.9 - Acute kidney failure, unspecified (3) Elevated troponin: Status: Acute Code(s): R77.8 - Other specified abnormalities of plasma proteins (4) Venous thromboembolism (VTE) prophylaxis not indicated: Status: Acute Medications at Discharge Home Medications ascorbic acid (vitamin C) 500 mg PO DAILY@0800 07/23/14 atorvastatin 10 mg PO QHS 07/23/14 esomeprazole magnesium 40 mg PO DAILY 07/23/14 aspirin 325 mg PO DAILY@0807/08/15 ergocalciferol (vitamin D2) 50,000 unit PO TU 07/08/15 fluticasone furoate 27.5 mcg NS DAILY 07/08/15 nitroglycerin 0.4 mg SL Q5M PRN 07/08/15 clopidogrel 75 mg PO DAILY 10/27/15 donepezil 10 mg PO QHS 07/23/16 memantine 5 mg tablet 5 mg PO DAILY tab 01/02/19 finasteride 5 mg PO QHS 07/13/20 tamsulosin 0.4 mg PO QHS 07/13/20 sertraline 100 mg tablet 200 mg PO DAILY tablet 09/01/20 Hospital Course Procedures 2-D Echocardiogram Summary of Care Provided Minutes Spent on Discharge: 28 Hospital Course: Presents with a syncopal episode. [place] to be vasovagal. Patient underwent echocardiogram that showed an EF of 65% with right ventricular systolic pressure 42 mmHg. Telemetry was unremarkable. Patient did have bump in his troponin went up to 0.234. Patient was asymptomatic denies any chest pain. Patient did undergo a stress test which results were delayed due to recent EMR upgrade but report came in today and was negative. Patient did have acute kidney injury as well with a creatinine of 2.28. Today it is down to 1.28 which is his baseline. Likely some dehydration was contributing to that and maybe his syncopal episode as well the patient has remained stable during this hospitalization and will be discharged home in stable condition. Physical Exam Const alert and no apparent distress HEENT normocephalic Resp normal respiratory effort and clear to auscultation bilaterally Cardio regular rate, regular rhythm, S1 normal heart sound and S2 normal heart sound ABG / Lab / Microbiology Data Result Diagrams: 09/21/20 05:14 09/21/20 05:14 D/C Instructions Discharge Diet: Low fat / Low cholesterol Meaningful Use Info Meaningful Use Diagnoses (Choose all that apply): None applicable Discharge Plan Admission Admit Date/Time: 09/20/20 10:57 Attending Provider: Behzad Ulloa Primary Care Provider: Hi Durbin Instructions Patient Instructions: ED Chest Pain, Noncardiac Discharge Orders/Prescriptions Prescriptions: Continued memantine [Namenda] 5 mg tablet 5 mg PO DAILY RF: 0 atorvastatin 10 MG tablet 10 mg PO QHS RF: 0 ascorbic acid (vitamin C) 500 MG tablet 500 mg PO DAILY@0800 RF: 0 sertraline 100 mg tablet 200 mg PO DAILY RF: 0 aspirin 325 MG tablet 325 mg PO DAILY@0800 RF: 0 fluticasone furoate 10 GM spray,suspension 27.5 mcg NS DAILY RF: 0 clopidogrel 75 MG tablet 75 mg PO DAILY RF: 0 donepezil 10 MG tablet 10 mg PO QHS RF: 0 tamsulosin 0.4 MG capsule 0.4 mg PO QHS RF: 0 finasteride 5 MG tablet 5 mg PO QHS RF: 0 No Action esomeprazole magnesium 40 MG capsule 40 mg PO DAILY RF: 0 nitroglycerin 0.4 MG tablet 0.4 mg SL Q5M PRN (Reason: Chest Pain) RF: 0 ergocalciferol (vitamin D2) 50,000 UNIT capsule 50,000 unit PO TU RF: 0 Referrals: Hi Durbin MD [Primary Care Provider] - Within 2 Weeks Disposition Patient Disposition: Home, self care
--- NOTE | 2020-09-22 09:44 | CASEMGMT ---
IRWIN CM in to pt room to discuss dc. Pt sitting up in chair. Pt states he is feeling well and that he does exercises at home. Denies need for home therapy or outpt therapy. Pt denies further needs.
--- NOTE | 2020-09-22 09:48 | PHA.DC.MR ---
Pharmacy Service has performed discharge medication reconciliation for this patient. No new medications at time of discharge. Medications reviewed are from previously reported home medications. Home Medications ascorbic acid (vitamin C) 500 mg PO DAILY@0800 07/23/14 atorvastatin 10 mg PO QHS 07/23/14 esomeprazole magnesium 40 mg PO DAILY 07/23/14 aspirin 325 mg PO DAILY@0800 07/08/15 ergocalciferol (vitamin D2) 50,000 unit PO TU 07/08/15 fluticasone furoate 27.5 mcg NS DAILY 07/08/15 nitroglycerin 0.4 mg SL Q5M PRN 07/08/15 clopidogrel 75 mg PO DAILY 10/27/15 donepezil 10 mg PO QHS 07/23/16 memantine 5 mg tablet 5 mg PO DAILY tab 01/02/19 finasteride 5 mg PO QHS 07/13/20 tamsulosin 0.4 mg PO QHS 07/13/20 sertraline 100 mg tablet 200 mg PO DAILY tablet 09/01/20 The patient's discharge medication list was reviewed for discrepancies and discrepancies were resolved.
--- NOTE | 2020-09-22 10:15 | PCM.DC ---
Discharge Instructions Outpatient Procedure Reason For Visit: syncope Diet Discharge Diet: Low fat / Low cholesterol Dressing / Incision Call your doctor if you observe: Fainting spells Follow Up Care Test Results: Test results from this visit will be discussed in further detail at your follow-up appointment, if applicable. Discharge Plan Admission Admit Date/Time: 09/20/20 10:57 Attending Provider: Behzad Ulloa Primary Care Provider: Hi Durbin Instructions Patient Instructions: ED Chest Pain, Noncardiac Discharge Orders/Prescriptions Prescriptions: Continued memantine [Namenda] 5 mg tablet 5 mg PO DAILY RF: 0 atorvastatin 10 MG tablet 10 mg PO QHS RF: 0 ascorbic acid (vitamin C) 500 MG tablet 500 mg PO DAILY@0800 RF: 0 sertraline 100 mg tablet 200 mg PO DAILY RF: 0 aspirin 325 MG tablet 325 mg PO DAILY@0800 RF: 0 fluticasone furoate 10 GM spray,suspension 27.5 mcg NS DAILY RF: 0 clopidogrel 75 MG tablet 75 mg PO DAILY RF: 0 donepezil 10 MG tablet 10 mg PO QHS RF: 0 tamsulosin 0.4 MG capsule 0.4 mg PO QHS RF: 0 finasteride 5 MG tablet 5 mg PO QHS RF: 0 No Action esomeprazole magnesium 40 MG capsule 40 mg PO DAILY RF: 0 nitroglycerin 0.4 MG tablet 0.4 mg SL Q5M PRN (Reason: Chest Pain) RF: 0 ergocalciferol (vitamin D2) 50,000 UNIT capsule 50,000 unit PO TU RF: 0 Referrals: Hi Durbin MD [Primary Care Provider] - 09/29/20 3:20 pm Disposition Patient Disposition: Home, self care
[2020-09-22 10:59] VITALS: BP 160/70; PULSE 60; RESP 16; TEMP 36.4; O2SAT 98
== END 2020-09-22 11:22 | disposition home or self-care (01) | DRG 641 ==
LOC: ED 22:45 → PCU 09-20 08:30
PROVIDERS: Admitting Provider Hospitalist; Emergency Provider Emergency Medicine; PCP Family Medicine
DX: E86.0 Dehydration (principal); N17.9 Acute kidney failure, unspecified; R55 Syncope and collapse; R29.700 NIHSS score 0; R91.8 Other nonspecific abnormal finding of lung field; R77.8 Other specified abnormalities of plasma proteins; Z79.02 Long term (current) use of antithrombotics/antiplatelets; Z79.82 Long term (current) use of aspirin; I10 Essential (primary) hypertension; I25.10 Atherosclerotic heart disease of native coronary artery without angina pectoris; Z95.1 Presence of aortocoronary bypass graft; Z95.0 Presence of cardiac pacemaker
CPT/HCPCS: 36415; 70450; 71045; 72125; 78452; 80048; 80053; 81001; 82306; 83735; 84443; 84484; 85025; 85610; 85730; 86850; 86900; 86901; 93005; 93017; 93306; 97162; 97166; 97530; 99285; A9500; J7030; J7040; P9612; A4216; J2785

== ENCOUNTER → 2020-10-27 11:29 | Outpatient (CLI) | payer MEDICARE, OTHER, SELFPAY ==
[2020-10-27 15:07] LABS: Hematocrit 39.4 % (40-54); Hemoglobin 12.5 g/dL (13.0-16.5); Mean Corp Hgb Conc 31.7 g/dL (32-36); Mean Corpuscular Hgb 29.3 pg (27.0-32.0); Mean Corpuscular Volume 92.5 fL (80-94); Mean Platelet Vol. 10.1 fl (6.2-12.0); Platelet Count 139 K/mm3 (150-450); RBC Distribution Width CV 13.9 % (11.6-14.6); RBC Distribution Width SD 46.8 fl (35.1-43.9); Red Blood Count 4.26 M/mm3 (4.6-6.2); White Blood Count 7.6 K/mm3 (4.4-11.0)
[2020-10-27 15:15] LABS: Anion Gap 6 (5-15); BUN 28 mg/dL (7-18); BUN/Creat Ratio 21.4 RATIO (10-20); Calcium,Total 9.4 mg/dL (8.5-10.1); Chloride 108 mmol/L (98-107); Creatinine, Serum 1.31 mg/dL (0.70-1.30); EST Glomerular Filtration Rate 55 mL/min (>60); Est Glom Filt Rate - Afr Amer 67 mL/min (>60); Glucose 86 mg/dL (74-106); Potassium 4.8 mmol/L (3.5-5.1); Sodium Level 142 mmol/L (136-145)
== END ==
PROVIDERS: PCP Family Medicine; Referring Provider Family Medicine; Visit Provider Family Medicine
DX: N18.30 Chronic kidney disease, stage 3 unspecified (principal); D64.9 Anemia, unspecified
CPT/HCPCS: 36415; 80048; 85027

== ENCOUNTER → 2020-12-12 12:15 | Outpatient (CLI) | payer MEDICARE, OTHER, SELFPAY ==
[2020-12-12 15:13] LABS: Absolute Neutrophil Count 5.4 X10^3/uL (2.0-7.7); Basophil# 0.07 X10^3/uL; Basophil% 0.9 % (0-1); Eosinophil# 0.25 X10^3/uL; Eosinophils% 3.1 % (0-5); Hematocrit 39.8 % (40-54); Lymphocyte % 23.4 % (19-41); Mean Corp Hgb Conc 32.7 g/dL (32-36); Mean Corpuscular Volume 91.7 fL (80-94); Mean Platelet Vol. 9.7 fl (6.2-12.0); Monocyte# 0.48 X10^3/uL; Monocyte% 5.9 % (0-10); NRBC Flagged by Analyzer 0 % (0-5); Neutrophil % 66.3 % (47-70); Platelet Count 123 K/mm3 (150-450); RBC Distribution Width CV 13.7 % (11.6-14.6); RBC Distribution Width SD 46.7 fl (35.1-43.9); Red Blood Count 4.34 M/mm3 (4.6-6.2); White Blood Count 8.1 K/mm3 (4.4-11.0)
[2020-12-12 15:26] LABS: Vitamin B12 457 pg/mL (211-911)
[2020-12-12 15:51] LABS: ALB/GLOB Ratio 1.3 RATIO (0.9-2.4); AST(SGOT) 17 U/L (15-37); Alanine Aminotransfer ALT/SGPT 25 U/L (16-61); Alkaline Phosphatase 72 U/L (45-117); Anion Gap 7 (5-15); BUN 25 mg/dL (7-18); BUN/Creat Ratio 17.5 RATIO (10-20); Calcium,Total 9.1 mg/dL (8.5-10.1); Chloride 107 mmol/L (98-107); Creatinine, Serum 1.43 mg/dL (0.70-1.30); EST Glomerular Filtration Rate 50 mL/min (>60); Est Glom Filt Rate - Afr Amer 61 mL/min (>60); Globulin 3.1 g/dL (2.2-4.2); Glucose 94 mg/dL (74-106); Potassium 4.5 mmol/L (3.5-5.1); Protein, Total 7.1 g/dL (6.4-8.2); Sodium Level 140 mmol/L (136-145); Thyroid Stim Hormone (TSH) 1.79 uIU/mL (0.358-3.74)
== END ==
PROVIDERS: PCP Family Medicine; Visit Provider Family Medicine
DX: R45.86 Emotional lability (principal); E53.8 Deficiency of other specified B group vitamins
CPT/HCPCS: 36415; 80053; 82607; 84443; 85025; 87086; 87088

== ENCOUNTER → 2021-03-23 13:17 | Outpatient (CLI) | payer MEDICARE, OTHER, SELFPAY ==
--- NOTE | 2021-03-23 13:20 | CT_ITS ---
STUDY: CT ORBITS WITHOUT CONTRAST REASON FOR EXAM: Male, 85 years old. OPTIC NEUROPATHY RADIATION DOSAGE (If Supplied By Facility): CTDIvol = ( 67.58 ) mGy, DLP = ( 806.33 ) mGycm TECHNIQUE: The patient was scanned in a multi detector CT scanner. Transaxial imaging was performed without the administration of intravenous contrast material. Sagittal and coronal images were reconstructed. Individualized dose optimization techniques were used for this CT. COMPARISON: None. FINDINGS: Normal globes. Normal intraconal spaces. Normal optic nerve sheath complex. Normal bilateral extraocular muscles. Normal lacrimal glands. Normal bilateral medial and inferior orbital noe. Normal bilateral maxillary bones. Normal bilateral frontozygomatic arches. Normal bilateral zygomatic temporal arches. Normal frontal sinus. Normal ethmoidal sinuses. Normal maxillary sinuses. Normal sphenoid sinuses. Normal soft tissue structures. CT/Orb Sella Post Fossa Ear w/o IMPRESSION: Normal CT examination of the bilateral orbits. Electronically Signed: Rudy Gordillo MD at 14:16 EDT , Service support ,
--- NOTE | 2021-03-23 13:21 | CT_ITS ---
STUDY: CT BRAIN WITH AND WITHOUT CONTRAST REASON FOR EXAM: Male, 85 years old. OPTIC NEUROPATHY RADIATION DOSAGE (If Supplied By Facility): CTDIvol = ( 44.99 ) mGy, DLP = ( 1783.45 ) mGycm TECHNIQUE: Transaxial CT imaging of the brain was performed pre and post contrast administration. The examination was performed with intravenous administration of 100 CC ISOVUE 300. Individualized dose optimization techniques were used for this CT. COMPARISON: None. FINDINGS: Normal soft tissue structures. Normal calvarium. There is mild cerebral atrophy with widening of the extra-axial spaces and ventricular dilatation. There are areas of decreased attenuation within the white matter tracts of the supratentorial brain, consistent with microvascular disease changes. Normal basal ganglia and thalami. Normal brainstem. Normal cerebellum. There is no intracranial hemorrhage. There are no findings of an acute ischemic infarction. Normal visualized paranasal sinuses. CT/Brain/Head W/WO Contrast IMPRESSION: Chronic involutional changes of the brain. Electronically Signed: Rudy Gordillo MD at 14:15 EDT , Service support ,
[2021-03-23 13:36] LABS: CREATININE FINGERSTICK 0.9 mg/dL (0.70-1.30); EGFR FINGERSTICK > 60.0000 mL/min (>60)
== END ==
PROVIDERS: PCP Family Medicine; Referring Provider Ophthalmology; Visit Provider Ophthalmology
DX: H46.8 Other optic neuritis (principal)
CPT/HCPCS: 70470; 70480; Q9967

== ENCOUNTER → 2021-05-11 10:53 | Outpatient (CLI) | payer MEDICARE, OTHER, SELFPAY ==
[2021-05-11 12:18] LABS: Hematocrit 39.8 % (40-54); Hemoglobin 12.9 g/dL (13.0-16.5); Mean Corp Hgb Conc 32.4 g/dL (32-36); Mean Corpuscular Hgb 29.9 pg (27.0-32.0); Mean Corpuscular Volume 92.3 fL (80-94); Mean Platelet Vol. 10.3 fl (6.2-12.0); Platelet Count 120 K/mm3 (150-450); RBC Distribution Width CV 13.7 % (11.6-14.6); RBC Distribution Width SD 46.5 fl (35.1-43.9); Red Blood Count 4.31 M/mm3 (4.6-6.2); White Blood Count 7.4 K/mm3 (4.4-11.0)
[2021-05-11 12:42] LABS: ALB/GLOB Ratio 1.2 RATIO (0.9-2.4); AST(SGOT) 23 U/L (15-37); Alanine Aminotransfer ALT/SGPT 35 U/L (16-61); Albumin, Serum 3.9 g/dL (3.2-5.0); Alkaline Phosphatase 71 U/L (45-117); Anion Gap 6 (5-15); BUN 28 mg/dL (7-18); BUN/Creat Ratio 20.3 RATIO (10-20); Calcium,Total 9.4 mg/dL (8.5-10.1); Chloride 108 mmol/L (98-107); Cholesterol 179 mg/dL (200); Creatinine, Serum 1.38 mg/dL (0.70-1.30); EST Glomerular Filtration Rate 52 mL/min (>60); Est Glom Filt Rate - Afr Amer 63 mL/min (>60); Globulin 3.2 g/dL (2.2-4.2); Glucose 86 mg/dL (74-106); High Density Lipoprotein 59 mg/dL; Potassium 4.5 mmol/L (3.5-5.1); Protein, Total 7.1 g/dL (6.4-8.2); Sodium Level 140 mmol/L (136-145); Triglycerides 207 mg/dL; Very Low Density Lipoprotein 41 mg/dL (5-40)
[2021-05-11 12:52] LABS: Vitamin B12 593 pg/mL (211-911)
== END ==
PROVIDERS: PCP Family Medicine; Referring Provider Family Medicine; Visit Provider Family Medicine
DX: N18.30 Chronic kidney disease, stage 3 unspecified (principal); E55.9 Vitamin D deficiency, unspecified; I25.10 Atherosclerotic heart disease of native coronary artery without angina pectoris; E53.8 Deficiency of other specified B group vitamins
CPT/HCPCS: 36415; 80053; 80061; 82306; 82607; 85027

== ENCOUNTER 2021-08-28 12:44 | Outpatient (CLI) | payer MEDICARE, OTHER, SELFPAY ==
--- NOTE | 2021-08-28 12:47 | RAD_ITS ---
STUDY: X-RAY CHEST REASON FOR EXAM: Male, 85 years old. CHEST PAIN ABNORNAL CXR TECHNIQUE: XR Chest 2 Views COMPARISON: 09.19.20 FINDINGS: There is no demonstrated pleural abnormality. There are multiple median sternotomy wires. There is a left sided pacemaker batterypack. Left infiltrate Normal size heart. Normal mediastinum and nestor. Normal visualized pulmonary arteries. There is atherosclerotic calcification of the aortic arch with tortuosity. There are diffuse degenerative changes of the visualized thoracic spine. There is degenerative osteoarthritis of the bilateral shoulders. There is no demonstrated abnormality of the visualized soft tissue structures of the upper abdomen. RAD/Chest PA and Lateral IMPRESSION: Left infiltrate Electronically Signed: Sergio Leahy MD at 19:16 EDT ,
== END 2021-08-28 23:59 | disposition home or self-care (01) ==
LOC: MTRAD 12:46
PROVIDERS: PCP Family Medicine; Referring Provider Family Medicine; Visit Provider Family Medicine
DX: R93.89 Abnormal findings on diagnostic imaging of other specified body structures (principal)
CPT/HCPCS: 71046

== ENCOUNTER 2021-12-10 04:43 | Emergency (ER) | payer MEDICARE, OTHER, SELFPAY ==
[2021-12-10 04:43] VITALS: BP 104/62; PULSE 63; RESP 22; TEMP 36.7; O2SAT 95; BMI 23.7
--- NOTE | 2021-12-10 04:54 | CT_ITS ---
We are attempting to reach an attending provider to discuss findings. An addendum with communication details will be sent when the communication is complete. STUDY: CT BRAIN WITHOUT CONTRAST REASON FOR EXAM: Male, 86 years old. Syncope and fall RADIATION DOSAGE (If Supplied By Facility): CTDIvol = ( 44.99 ) mGy, DLP = ( 897.35 ) mGycm TECHNIQUE: Transaxial CT imaging of the brain was performed without administration of intravenous contrast material. Individualized dose optimization techniques were used for this CT. COMPARISON: CT head 03/23/2021. FINDINGS: BRAIN: Acute intraparenchymal hemorrhage in the left posterior temporal parietal region measures 3.2 x 2.5 x 1.9 cm with mild surrounding edema. Mild mass effect on the adjacent posterior horn of the left lateral ventricle. No midline shift. Small adjacent subarachnoid hemorrhage. Decreased attenuation in the periventricular white matter bilaterally. VENTRICLES AND SULCI: Ventricles are not dilated. The sulci are partially effaced on the left. EXTRA-AXIAL: No hemorrhage, fluid collection, or mass. CALVARIUM / SKULL BASE: Unremarkable. FACE/SINUSES: Unremarkable. SOFT TISSUES: Unremarkable. CT/Brain/Head without Contrast IMPRESSION: Intraparenchymal hemorrhage in the left temporoparietal region with small adjacent subarachnoid hemorrhage, mild surrounding edema. No midline shift. Chronic microvascular ischemic disease. Electronically Signed: Maria Elena Iverson MD at 5:23 EDT ,
--- NOTE | 2021-12-10 04:54 | EKG12_ITS ---
Test Reason : CP Blood Pressure : / mmHG Vent. Rate : 063 BPM Atrial Rate : 063 BPM P-R Int : 196 ms QRS Dur : 142 ms QT Int : 442 ms P-R-T Axes : 032 -50 113 degrees QTc Int : 452 ms Normal sinus rhythm Right bundle branch block Left anterior fascicular block Bifascicular block Left ventricular hypertrophy with repolarization abnormality Abnormal ECG NORMAL SINUS RHYTHM Confirmed by TINY BOOGIE, DMITRI ([id number]), map editor NIALL PATEL ([id number]) on 12/11/2021 10:58:59 AM Referred By: HERLINDA Confirmed By:DMITRI FRANKS MD
--- NOTE | 2021-12-10 04:57 | EX.ED.DYSGE1 ---
HPI History of Present Illness Chief Complaint: Syncope Informant: patient and EMS Narrative Narrative: Patient is an 86-year-old male with history of coronary artery disease status post CABG, sick sinus syndrome, pulmonary hypertension, hyperlipidemia and dementia presenting from home after a fall. Apparently patient was walking to go to the bathroom when he collapsed. Patient was diaphoretic for squad. Prearrival EKG transmitted was concerning for ST elevation in lead III and aVF with ST depressions in 1, aVL, V2 and V3. STEMI alert was called. Case was discussed with cardiology on-call, Dr. Paris, who was not convinced this was an ST elevation WI and canceled STEMI alert pending further and ER evaluation. Patient currently denies any chest pain or any other complaints at this time. He is a poor historian because of his dementia. There is no family at the bedside at this time. Chart review shows that patient was most hospitalized on 09/19-09/22/20 for syncope. He had echocardiogram which showed an EF of 65% with right ventricular systolic pressure 42 mmHg. Patient had a bump in his troponin that went up to 0.234. He did have a stress test which was negative. He did have acute kidney injury at that time with a creatinine of 2.28 however it trended down to 1.2 eights at time of discharge. [facility] Medical History Atherosclerotic heart disease of [place] coronary artery without angina pectoris BPH (benign prostatic hyperplasia) Dementia Hyperlipidemia Secondary pulmonary arterial hypertension Sick sinus syndrome Syncope and collapse Home Medications ascorbic acid (vitamin C) 500 mg tablet 500 mg PO DAILY@0800 07/23/14 [History Last Taken 07/13/20] atorvastatin 10 mg tablet 10 mg PO QHS 07/23/14 [History Last Taken 07/12/20] esomeprazole magnesium 40 mg capsule,delayed release 40 mg PO DAILY 07/23/14 [History Last Taken 07/13/20] aspirin 325 mg tablet,delayed release 325 mg PO DAILY@0800 07/08/15 [History Last Taken 07/13/20] ergocalciferol (vitamin D2) 1,250 mcg (50,000 unit) capsule 50,000 unit PO TU 07/08/15 [History Last Taken 07/05/20] nitroglycerin 0.4 mg sublingual tablet 0.4 mg sublingual Q5M PRN Chest Pain 07/08/15 [History Last Taken Unknown] clopidogrel 75 mg tablet 75 mg PO DAILY 10/27/15 [History Last Taken 07/13/20] finasteride 5 mg tablet 5 mg PO QHS PROSTATE 07/13/20 [History Last Taken 07/12/20] tamsulosin 0.4 mg capsule 0.4 mg PO QHS PROSTATE 07/13/20 [History Last Taken 07/12/20] sertraline 100 mg tablet 200 mg PO DAILY 09/01/20 [History Last Taken Unknown] fluticasone propionate 50 mcg/actuation nasal spray,suspension 2 spray intranasal DAILY 08/17/21 [History Last Taken Unknown] memantine 5 mg tablet 5 mg PO DAILY 12/10/21 [History Last Taken Unknown] Allergy/AdvReac Type Severity Reaction Status Date / Time donepezil Allergy Intermediate hallucinati Verified 08/17/21 11:46 ons niacin Allergy Hives Verified 08/17/21 11:15 [From Niaspan Extended-Release] pravastatin Allergy Other Verified 08/17/21 11:15 simvastatin [From Zocor] Allergy Other Verified 08/17/21 11:15 metoprolol AdvReac Severe Hypotensive/passing Verified 08/17/21 11:15 out Family History Mother , age 90 CAD (coronary artery disease) Hypertension Brother CVA (cerebral vascular accident) Brother Cancer Brother Heart disease Surgical History H/O coronary artery bypass surgery (12/08/01) History of coronary artery stent placement (10/04/15) History of permanent cardiac pacemaker placement (07/11/15) History of transurethral resection of prostate Social History Smoking Status: Former smoker how long ago did patient quit smokin-40 years ago alcohol intake: never substance use type: marijuana caffeine: Yes Type: coffee Number of servings: 3 ROS ROS ED Review of Systems ROS Unobtainable: other Details: Dementia EXAM Physical Exam Const Vital Signs: 12/10/21 04:43 07/17/22 04:59 12/10/21 05:01 Temperature 98.1 F Temperature Source Temporal Pulse Rate 63 61 Respiratory Rate 22 H 21 H Respiratory Effort Non-Labored Respiratory Pattern Normal Blood Pressure 104/62 Blood Pressure Mean 76 Pulse Ox 95 96 Oxygen Delivery Method Room Air Room Air 12/10/21 05:32 Temperature 97.4 F L Temperature Source Temporal Pulse Rate 61 Respiratory Rate 17 Respiratory Effort Respiratory Pattern Blood Pressure 134/50 H Blood Pressure Mean 78 Pulse Ox 95 Oxygen Delivery Method Room Air Positive well nourished and well developed General Appearance ED: well developed and NAD HEENT Reports dry mucous membranes Mouth ED: Yes dry mucous membranes Mouth: dry mucous membranes Eyes PERRL and EOMs intact bilaterally Neck supple and no JVD Chest Wall inspection of chest normal and palpation of chest normal Resp normal respiratory effort and clear to auscultation bilaterally Cardio regular rate, regular rhythm and no murmurs GI normal to inspection, nondistended, normoactive bowel sounds and non-tender Extremity normal to inspection General Extremety ED: Negative for edema or tenderness General Extremity: Negative for edema Neuro no sensory deficits noted Sensorium / Orientation: alert and orientation impaired Motor Exam: strength 5/5 throughout Psych mental status grossly normal Skin no rashes or lesions noted Skin Narrative: Scattered ecchymosis on the left trunk as well as the legs in various stages of healing MDM MDM MDM Narrative Medical decision making narrative: Patient is evaluated for initially what sounds like a syncopal episode. He had EKG changes concerning for ST elevation WI. This was discussed with cardiology who deactivated and did not feel that this was a STEMI. Repeat EKG in the emergency room is not consistent with a STEMI but does show some T wave changes. then arrived to the bedside and states that he was too weak to get out of bed. She does not think that he is fallen. CT of the brain is obtained as patient does seem confused and is weak with this questionable syncopal history. It shows a small subdural as well as an intraparenchymal hemorrhage. No shift. Patient is extremely hard of hearing at baseline and is difficult to perform a full neurologic exam however he does not appear to have any focal neurologic deficits. NIH is 1 as he is not aware of the month. Discussed with the patient's at length if he would like intervention versus palliative/hospice care. She states they never had this discussion and she does not know. She does not know if he would like to be intubated or not. Will transfer to [facility] for further expert evaluation as we do not have any neurosurgical services in our emergency room. Patient remains hemodynamically stable in the emergency room. We will maintain blood pressure below 140 as needed. Lab Data Attestation: I reviewed the patient's lab results. Labs: Laboratory Results - last 24 hr 12/10/21 12/10/21 12/10/21 04:50 04:50 04:50 WBC 7.8 RBC 4.48 L Hgb 13.5 Hct 41.8 MCV 93.3 MCH 30.1 MCHC 32.3 RDW Std Deviation 44.9 H RDW Coeff of Bekah 13.2 Plt Count 97 L MPV 9.9 Immature Gran % (Auto) 0.500 Neut % (Auto) 92.8 H Lymph % (Auto) 3.8 L O'Brien % (Auto) 1.7 Eos % (Auto) 0.6 Baso % (Auto) 0.6 Absolute Neuts (auto) 7.3 Absolute Lymphs (auto) 0.30 L Nucleated RBC % 0 PT Cancelled INR Cancelled APTT Cancelled Sodium 142 Potassium 3.3 L Chloride 111 H Carbon Dioxide 23.0 Anion Gap 8 BUN 29 H Creatinine 1.62 H Estim Creat Clear Calc 36.59 Est GFR (MDRD) Af Amer 52 L Est GFR (MDRD) Non-Af 43 L BUN/Creatinine Ratio 17.9 Glucose 95 Calcium 9.4 Total Bilirubin 0.60 AST 38 H ALT 36 Alkaline Phosphatase 78 Troponin I High Sens 32 Total Protein 6.7 Albumin 3.7 Globulin 3.0 Albumin/Globulin Ratio 1.2 Urine Color Urine Clarity Urine pH Ur Specific Jackson Urine Protein Urine Glucose (UA) Urine Ketones Urine Occult Blood Urine Nitrite Urine Bilirubin Urine Urobilinogen Ur Leukocyte Esterase 12/10/21 05:00 WBC RBC Hgb Hct MCV MCH MCHC RDW Std Deviation RDW Coeff of Bekah Plt Count MPV Immature Gran % (Auto) Neut % (Auto) Lymph % (Auto) O'Brien % (Auto) Eos % (Auto) Baso % (Auto) Absolute Neuts (auto) Absolute Lymphs (auto) Nucleated RBC % PT INR APTT Sodium Potassium Chloride Carbon Dioxide Anion Gap BUN Creatinine Estim Creat Clear Calc Est GFR (MDRD) Af Amer Est GFR (MDRD) Non-Af BUN/Creatinine Ratio Glucose Calcium Total Bilirubin AST ALT Alkaline Phosphatase Troponin I High Sens Total Protein Albumin Globulin Albumin/Globulin Ratio Urine Color Yellow Urine Clarity Clear Urine pH 5.0 Ur Specific Jackson 1.025 Urine Protein 15 H Urine Glucose (UA) Normal Urine Ketones 5 H Urine Occult Blood Negative Urine Nitrite Negative Urine Bilirubin Negative Urine Urobilinogen Normal Ur Leukocyte Esterase Negative Radiography Chest X-Ray - ED: 1 View, Read by ED Physician, Read by Radiologist and No Acute Disease Diagnostic Testing: Clinical Impression(s) from Imaging Studies Brain CT 12/10/21 04:54 IMPRESSION: Intraparenchymal hemorrhage in the left temporoparietal region with small adjacent subarachnoid hemorrhage, mild surrounding edema. No midline shift. Chronic microvascular ischemic disease. Electronically Signed: Maria Elena Iverson MD at 5:23 EDT Reading Location ID and State: [facility] / [place] Tel , Service support , ADDENDUM: 12/10/21 0532 IMPRESSION: Intraparenchymal hemorrhage in the left temporoparietal region with small adjacent subarachnoid hemorrhage, mild surrounding edema. No midline shift. Chronic microvascular ischemic disease. N.B. : The above Results were Read Back by Maria Elena Iverson MD to Danielle Hassan and understanding confirmed on 12/10/2021 05:25:56 (ET). Electronically Signed: Maria Elena Iverson MD at 5:23 EDT Reading Location ID and State: [facility] / [place] Tel , Service support , Chest X-Ray 12/10/21 05:08 IMPRESSION: No infiltrates. Questionable nodular opacity in the right lower lung. Follow-up PA and lateral chest x-ray recommended. Electronically Signed: Maria Elena Iverson MD at 5:25 EDT Reading Location ID and State: [facility] / [place] Tel , Service support , Rhythm Strip Rhythm Strip: Sinus Rhythm Rate: 63 Ectopy: None EKG Initial EKG: Attestation: I personally reviewed and interpreted this EKG as follows: Interpretation: Sinus Rhythm Comments: Normal sinus rhythm at a rate of 63 Bifascicular block?right bundle branch block and left anterior fascicular block LVH with repolarization abnormalities T wave inversions in 1, aVL, V1 through V3 Compared to prior EKG on 09/21/2020 patient is no longer paced and has new T wave inversions in V1 through V3 as well as new bifascicular block Prior: Changed Critical Care Time Critical Care Time: Yes Critical care time (excluding procedures): 30-74 minutes (45), Discussing w/Patient &/or Family/Full Stack Developer, Discussing w/Consultants, Arranging Admission or Transfer and Performing Direct Patient Care at Bedside Discharge Plan Triage Chief Complaint: Syncope Other Complaint: Chest Pain ED Provider: Danielle Hassan Dx/Rx/DC Orders Clinical Impression: Subdural hematoma, Intraparenchymal hemorrhage of brain, Abnormal ECG Prescriptions: No Action fluticasone propionate 50 mcg/actuation spray,suspension 2 spray intranasal DAILY atorvastatin 10 MG tablet 10 mg PO QHS Label Comments: cholesterol ascorbic acid (vitamin C) 500 MG tablet 500 mg PO DAILY@0800 Label Comments: supplement esomeprazole magnesium 40 MG capsule 40 mg PO DAILY Label Comments: acid reflux sertraline 100 mg tablet 200 mg PO DAILY Label Comments: depression aspirin 325 MG tablet 325 mg PO DAILY@0800 Label Comments: heart health nitroglycerin 0.4 MG tablet 0.4 mg SL Q5M PRN (Reason: Chest Pain) Label Comments: chest pain ergocalciferol (vitamin D2) 50,000 UNIT capsule 50,000 unit PO TU Label Comments: supplement clopidogrel 75 MG tablet 75 mg PO DAILY tamsulosin 0.4 MG capsule 0.4 mg PO QHS finasteride 5 MG tablet 5 mg PO QHS memantine 5 mg tablet 5 mg PO DAILY Primary Care Provider: Hi Durbin Referrals: Hi Durbin MD [Primary Care Provider] - Disposition Disposition: Acute Care Hospital Discharge Location: [facility]
[2021-12-10] MEDS: 0.9% Normal Saline 1,000 ML 1000 ML IV (04:58)
[2021-12-10 04:59] VITALS: BP 121/37; PULSE 61; RESP 21; O2SAT 96
[2021-12-10 05:00] VITALS: BP 121/37; PULSE 63; RESP 18; TEMP 36.6; O2SAT 96
[2021-12-10 05:04] LABS: Absolute Neutrophil Count 7.3 X10^3/uL (2.0-7.7); Basophil# 0.05 X10^3/uL; Basophil% 0.6 % (0-1); Eosinophil# 0.05 X10^3/uL; Eosinophils% 0.6 % (0-5); Hematocrit 41.8 % (40-54); Hemoglobin 13.5 g/dL (13.0-16.5); Lymphocyte % 3.8 % (19-41); Mean Corp Hgb Conc 32.3 g/dL (32-36); Mean Corpuscular Hgb 30.1 pg (27.0-32.0); Mean Corpuscular Volume 93.3 fL (80-94); Mean Platelet Vol. 9.9 fl (6.2-12.0); Monocyte# 0.13 X10^3/uL; Monocyte% 1.7 % (0-10); NRBC Flagged by Analyzer 0 % (0-5); Neutrophil # 7.27 X10^3/uL (2.7-7.7); Neutrophil % 92.8 % (47-70); POSITIVE COUNT YES; POSITIVE DIFFERENTIAL YES; Platelet Count 97 K/mm3 (150-450); RBC Distribution Width CV 13.2 % (11.6-14.6); RBC Distribution Width SD 44.9 fl (35.1-43.9); Red Blood Count 4.48 M/mm3 (4.6-6.2); White Blood Count 7.8 K/mm3 (4.4-11.0)
[2021-12-10 05:05] LABS: Mucous, Urine 0 SEEN /hpf (<or=2+); Red Blood Cells-Urine 0 SEEN /hpf (0-5); Squamous Epithelial Cells - UA 0 SEEN /hpf (0-5)
--- NOTE | 2021-12-10 05:08 | RAD_ITS ---
STUDY: X-RAY CHEST REASON FOR EXAM: Male, 86 years old. syncope TECHNIQUE: AP portable. 5:07 AM. COMPARISON: 08/28/2021 FINDINGS: LINES/DEVICES: Pacemaker leads unchanged. LUNGS: No consolidation. Questionable small nodular opacity in the right lower lung superimposed on the anterior fourth rib may be superimposed structures, nodule not excluded. No pneumothorax. MEDIASTINUM: Unremarkable. CARDIAC SILHOUETTE: Not enlarged. Sternal wires. BONES AND SOFT TISSUES: No acute abnormalities. RAD/Chest 1 View (Portable) IMPRESSION: No infiltrates. Questionable nodular opacity in the right lower lung. Follow-up PA and lateral chest x-ray recommended. Electronically Signed: Maria Elena Iverson MD at 5:25 EDT ,
[2021-12-10 05:09] LABS: Differential Indicated SCAN CRITERIA MET
[2021-12-10 05:24] LABS: ALB/GLOB Ratio 1.2 RATIO (0.9-2.4); AST(SGOT) 38 U/L (15-37); Alanine Aminotransfer ALT/SGPT 36 U/L (16-61); Albumin, Serum 3.7 g/dL (3.2-5.0); Alkaline Phosphatase 78 U/L (45-117); Anion Gap 8 (5-15); BUN 29 mg/dL (7-18); BUN/Creat Ratio 17.9 RATIO (10-20); Calcium,Total 9.4 mg/dL (8.5-10.1); Chloride 111 mmol/L (98-107); Creatinine, Serum 1.62 mg/dL (0.70-1.30); EST Glomerular Filtration Rate 43 mL/min (>60); Est Glom Filt Rate - Afr Amer 52 mL/min (>60); Estimated Creatinine Clearance 36.59 ml/min; Glucose 95 mg/dL (74-106); Potassium 3.3 mmol/L (3.5-5.1); Protein, Total 6.7 g/dL (6.4-8.2); Sodium Level 142 mmol/L (136-145); Troponin-I HS (w/2H Reflex) 32 pg/mL (3.0-78.0)
[2021-12-10 05:29] LABS: Color, Urine Yellow (Yellow); Glucose, Dipstick Normal (Normal); Ketone-Dipstick 5 mg/dl (Negative); Leukocyte Esterase-Dipstick Negative /ul (Negative); Nitrite-Dipstick Negative (Negative); Occult Blood-Urine Negative /ul (Negative); Protein-Dipstick 15 mg/dl (Negative); Specific Gravity, Urine 1.025 (1.002-1.030); Urine Bilirubin Dipstick Negative (Negative); Urine Clarity Clear (Clear); Urine Urobilinogen Normal (Normal)
[2021-12-10 05:32] VITALS: BP 134/50; PULSE 61; RESP 17; TEMP 36.3; O2SAT 95
[2021-12-10 05:36] LABS: Bacteria RARE /hpf (None Seen); White Blood Cells 0-5 SEEN /hpf (0-5)
[2021-12-10 05:37] LABS: Calcium Oxalate Crystals Ur RARE /hpf (<or=2+)
[2021-12-10 05:52] LABS: International Normalized Ratio 1.2; Prothrombin Time (Protime)PT. 14.6 SECONDS (11.7-14.9)
[2021-12-10] MEDS: 0.9% Normal Saline 1,000 ML 150 ML IV (05:57)
[2021-12-10 06:06] VITALS: BP 130/48; PULSE 70; RESP 15; TEMP 36.6; O2SAT 94
[2021-12-10 06:12] LABS: Differential Comment SCANNED
[2021-12-10 06:59] LABS: Reflex Troponin-HS? (from REC) Y
== END 2021-12-10 06:05 | disposition short-term general hospital (02) ==
PROVIDERS: Emergency Provider Emergency Medicine; PCP Family Medicine; Visit Provider Emergency Medicine
DX: I62.00 Nontraumatic subdural hemorrhage, unspecified (principal); F03.90 Unspecified dementia, unspecified severity, without behavioral disturbance, psychotic disturbance, mood disturbance, and anxiety; R94.31 Abnormal electrocardiogram [ECG] [EKG]; E78.5 Hyperlipidemia, unspecified; I25.10 Atherosclerotic heart disease of native coronary artery without angina pectoris; F12.90 Cannabis use, unspecified, uncomplicated; Z79.82 Long term (current) use of aspirin; Z79.899 Other long term (current) drug therapy; Z95.0 Presence of cardiac pacemaker; Z95.5 Presence of coronary angioplasty implant and graft; Z87.891 Personal history of nicotine dependence
CPT/HCPCS: 70450; 71045; 80053; 81001; 84484; 85025; 85610; 85730; 93005; 96360; 99285; J7030; A4216

== ENCOUNTER 2021-12-14 19:00 | Inpatient (IN) | payer MEDICARE, OTHER, SELFPAY ==
[2021-12-14 19:21] VITALS: BP 114/53; PULSE 60; RESP 18; TEMP 36.5; O2SAT 95; BMI 24.9
[2021-12-14 22:15] VITALS: PULSE 60; RESP 16; O2SAT 95
[2021-12-14] MEDS: levETIRAcetam Oral Solution 500 MG/5 ML PO (22:44)
[2021-12-14] MEDS: MELATONIN 3 MG TABLET 6 MG PO (22:50)
[2021-12-14] MEDS: Memantine Hydrochloride 10 MG Tablet PO (22:52)
--- NOTE | 2021-12-15 04:04 | NURSING ---
Patient admitted to TCU last night, he is spontaneous, jumps up without calling for help. He has some confusion and expressive aphasia, unable to answer admit questions or fill out paperwork. Called listed contact w/ no answer, RN to reach out to family in the morning to complete admission documentation.
[2021-12-15 05:53] LABS: Absolute Lymphocyte Count 1.23 X10^3/uL (0.83-4.51); Absolute Neutrophil Count 4.1 X10^3/uL (2.0-7.7); Basophil# 0.04 X10^3/uL; Basophil% 0.7 % (0-1); Eosinophil# 0.27 X10^3/uL; Eosinophils% 4.4 % (0-5); Hematocrit 35.8 % (40-54); Hemoglobin 12.1 g/dL (13.0-16.5); Lymphocyte # 1.23 X10^3/ul (0.83-4.51); Lymphocyte % 20.1 % (19-41); Mean Corp Hgb Conc 33.8 g/dL (32-36); Mean Corpuscular Hgb 30.6 pg (27.0-32.0); Mean Corpuscular Volume 90.6 fL (80-94); Mean Platelet Vol. 9.7 fl (6.2-12.0); Monocyte# 0.42 X10^3/uL; Monocyte% 6.9 % (0-10); NRBC Flagged by Analyzer 0 % (0-5); Neutrophil # 4.13 X10^3/uL (2.7-7.7); Neutrophil % 67.4 % (47-70); Platelet Count 105 K/mm3 (150-450); RBC Distribution Width CV 12.9 % (11.6-14.6); RBC Distribution Width SD 42.9 fl (35.1-43.9); Red Blood Count 3.95 M/mm3 (4.6-6.2); White Blood Count 6.1 K/mm3 (4.4-11.0)
[2021-12-15] MEDS: levETIRAcetam Oral Solution 500 MG/5 ML PO ×2 (06:07→18:03)
[2021-12-15] MEDS: Tamsulosin HCl 0.4 MG Capsule PO (06:07)
[2021-12-15] MEDS: Pantoprazole Sodium 40 MG Tablet PO (06:07)
[2021-12-15] MEDS: Sertraline 100 MG Tablet 200 MG PO (06:08)
[2021-12-15 06:17] LABS: Anion Gap 8 (5-15); BUN 30 mg/dL (7-18); BUN/Creat Ratio 21.6 RATIO (10-20); Calcium,Total 9.3 mg/dL (8.5-10.1); Chloride 106 mmol/L (98-107); Creatinine, Serum 1.39 mg/dL (0.70-1.30); EST Glomerular Filtration Rate 52 mL/min (>60); Est Glom Filt Rate - Afr Amer 63 mL/min (>60); Estimated Creatinine Clearance 40.12 ml/min; Glucose 88 mg/dL (74-106); Potassium 4.4 mmol/L (3.5-5.1); Sodium Level 138 mmol/L (136-145)
[2021-12-15 06:20] VITALS: BP 132/49; PULSE 60; RESP 16; TEMP 35.6; O2SAT 95
--- NOTE | 2021-12-15 06:26 | NURSING ---
Addendum entered by Annabel Storey 12/15/21 06:47: Called [facility] and updated of fall. She will be in later today to see patient, updated her that nurse will have some paperwork to go over with her. Original Note: Called to room around 0610 where staff had found patient on the floor laying on his right side by his bed. He had not called out for help to get up, bed alarm sounding. He has skin tear to right elbow and abrasion to right side of head. He was able to stand up with help of 2 RNs and sat in chair. Vitals stable, neuro assessment unchanged from assessment last night, WILLIAMS. Follows commands, difficult to assess orientation as he doesn't seem to understand questions, which is also unchanged from before fall. Paged Dr. Horne @[phone], verbal order to do head CT w/o contrast.
--- NOTE | 2021-12-15 08:23 | NURSING ---
CT called and updated RN that there was a critical finding on the CT scan. They are reaching out to Dr. Horne to notify her of the findings. Updated Imani GAYLE.
--- NOTE | 2021-12-15 09:18 | NURSING ---
pt taken to ED. Dr Horne aware and notified patient's spouse.
--- NOTE | 2021-12-15 09:32 | PCM.HP.STD ---
HPI - General General Date of Admission: 12/14/21 Date of Service: 12/15/21 Chief Complaint: Intracerebral bleed. HPI Narrative DAMASO FLAHERTY, is a 86 YO male admitted to TCU last evening from [facility] where he was evaluated for an intracerebral bleed secondary to a fall. Early this morning the bed alarm went off and staff rushed to the room and found him on the floor. He had a abrasion on the Elbow and had struck his head. He was sent to CT for an emergent NC CTB which revealed the intracerebral bleed in the posterior left temporal parietal lobe had increased in size since the prior study. There was an enlarging halo of surrounding vasogenic edema which now causes mild mass-effect upon the atrium of the left left lateral ventricle. There was a trace of subarachnoid blood which was unchanged from a prior study. Mr. Flaherty was sent to the ED for possible transfer to [facility]. I then talked to Mrs. Flaherty on the phone and discussed code status which was not listed on the chart from admission to TCU. Mr. Flaherty has advanced dementia and has been having frequent falls. Mrs. Flaherty was told at [facility] that he was not a surgical candidate. She did not think her would want intubated or have CPR. His quality of life has not been good recently. She made a decision to keep him comfortable and to have him stay at [facility] so that she can visit with him. An order for DNRCC was entered into the computer. He will be readmitted to TCU and we will start Decadron to decrease the edema and keep the HOB elevated. PRN pain medication will be ordered and he will be kept comfortable. Will repeat the CTB in 6 hours to see if the bleeding has stabilized. Mrs. Flaherty is good with this plan and will be in shortly to visit. There were no records from [facility] for me to review. I did review the records from the ED on 12/10/2021. Apparently he was walking to the bathroom and collapsed. He was diaphoretic when the squad arrived. He had an abnormal EKG and initially was thought to have a STEMI however Dr. Cannon canceled the STEMI alert pending further ER evaluation. He has dementia and is a very poor historian. He had been hospitalized in August for syncope. His EF at that time was 65% with a right ventricular systolic pressure of 42. He had a stress test that was negative at that time. Past medical history is significant for CAD, BPH, dementia, hyperlipidemia, mild pulmonary hypertension, sick sinus syndrome. He has had a CABG and stents placed in 2015. He also had a permanent pacemaker placed in June 2015. COUNTS INCLUDE 234 BEDS AT THE [facility] Medical History (Updated 12/15/21 @ 15:[address] 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 Sick sinus syndrome Syncope and collapse Home Medications ascorbic acid (vitamin C) 500 mg tablet 500 mg PO DAILY@0800 07/23/14 [History Last Taken 07/13/20] atorvastatin 10 mg tablet 10 mg PO QHS cholesterol 07/23/14 [History Last Taken 07/12/20] esomeprazole magnesium 40 mg capsule,delayed release 40 mg PO DAILY acid reflux 07/23/14 [History Last Taken 07/13/20] aspirin 325 mg tablet,delayed release 325 mg PO DAILY@0800 07/08/15 [History Last Taken 07/13/20] ergocalciferol (vitamin D2) 1,250 mcg (50,000 unit) capsule 50,000 unit PO TU supplement 07/08/15 [History Last Taken 07/05/20] nitroglycerin 0.4 mg sublingual tablet 0.4 mg sublingual Q5M PRN Chest Pain 07/08/15 [History Last Taken Unknown] clopidogrel 75 mg tablet 75 mg PO DAILY 10/27/15 [History Last Taken 07/13/20] finasteride 5 mg tablet 5 mg PO QHS PROSTATE 07/13/20 [History Last Taken 07/12/20] sertraline 100 mg tablet 200 mg PO DAILY mood 09/01/20 [History Last Taken Unknown] fluticasone propionate 50 mcg/actuation nasal spray,suspension 2 spray intranasal DAILY 08/17/21 [History Last Taken Unknown] memantine 5 mg tablet 10 mg PO DAILY memory 12/10/21 [History Last Taken Unknown] acetaminophen 325 mg tablet 975 mg PO Q6H PRN Pain 12/14/21 [History Last Taken Unknown] levetiracetam 500 mg tablet 500 mg PO BID prevent seizures 12/14/21 [History Last Taken Unknown] melatonin 3 mg tablet 6 mg PO DAILY sleep 12/14/21 [History Last Taken Unknown] tamsulosin 0.4 mg capsule 0.4 mg PO DAILY bladder 12/14/21 [History Last Taken Unknown] Allergy/AdvReac Type Severity Reaction Status Date / Time donepezil Allergy Intermediate hallucinati Verified 12/15/21 09:39 ons niacin Allergy Hives Verified 12/15/21 09:39 [From Niaspan Extended-Release] pravastatin Allergy Other Verified 12/15/21 09:39 simvastatin [From Zocor] Allergy Other Verified 12/15/21 09:39 metoprolol AdvReac Severe Hypotensive/passing Verified 12/15/21 09:39 out Family History Mother , age 90 CAD (coronary artery disease) Hypertension Brother CVA (cerebral vascular accident) Brother Cancer Brother Heart disease Surgical History H/O coronary artery bypass surgery (12/08/01) History of coronary artery stent placement (10/04/15) History of permanent cardiac pacemaker placement (07/11/15) History of transurethral resection of prostate Social History Smoking Status: Former smoker how long ago did patient quit smokin-40 years ago alcohol intake: never substance use type: marijuana caffeine: Yes Type: coffee Number of servings: 3 ROS Review of Systems ROS Unobtainable: due to mental status and other Details: severe dementia and he had to be sedated due to agitation and combative aggressive behavior. Vital Signs Vital Signs Vital Signs: 12/14/21 19:21 12/14/21 22:15 12/15/21 06:20 Temperature 97.7 F L 96.1 F L Temperature Source Temporal Temporal Pulse Rate 60 60 60 Pulse Rhythm Regular Pulse Strength Normal (2+) Respiratory Rate 18 16 16 Respiratory Effort Normal Non-Labored Respiratory Depth Normal Respiratory Pattern Normal Blood Pressure 114/53 L 132/49 H Blood Pressure Mean 73 76 Blood Pressure Source Monitor Monitor Blood Pressure Position Sitting Blood Pressure Location Right Arm Pulse Ox 95 95 95 Oxygen Delivery Method Room Air Room Air Room Air Weight Weight: 174 lb 2.643 oz Body Mass Index (BMI) 24.9 Physical Exam Const Constitutional Narrative: He awoke when I entered the room and he is calm and cooperative. General Appearance: cooperative HEENT normocephalic HEENT Narrative: He had no hematomas or laceration of the scalp. He did not c/o pain when I palpated his skull. Mucous membranes are very dry and he tells me he is thirsty. Pupils are equal and reactive to light. Extraocular muscles are intact. He is very hard of hearing. Neck Neck Narrative: Neck is supple. The are no fractures or subluxations on the CT of the cervical spine this AM. Chest Chest Narrative: PM in the upper Left chest. Cardio Cardio Narrative: Regular, no gallop and no ectopy. GI GI Narrative: The abdomen is soft, ND, and there are normal BS's. He had no guarding with palpation of the abd and I felt no masses. Extremity Extremity Narrative: He has a bruise on the Left elbow but no swelling and no openings in the skin. There is no edema Skin Skin Narrative: bruises no rashes, no breakdown. Neuro Neuro Narrative: Oriented to person for me He was calm and appropriate. He is moving all extremities. He is very RESIGHINI. There is no facial asymmetry. He protruded his tongue on the midline. Results Lab / Micro Data Result Diagrams: 12/15/21 05:36 12/15/21 05:36 Labs: Laboratory Results - last 24 hr 12/15/21 05:36: WBC 6.1, RBC 3.95 L, Hgb 12.1 L, Hct 35.8 L, MCV 90.6, MCH 30.6, MCHC 33.8, RDW Std Deviation 42.9, RDW Coeff of Bekah 12.9, Plt Count 105 L, MPV 9.7, Immature Gran % (Auto) 0.500, Neut % (Auto) 67.4, Lymph % (Auto) 20.1, [place] % (Auto) 6.9, Eos % (Auto) 4.4, Baso % (Auto) 0.7, Absolute Neuts (auto) 4.1, Absolute Lymphs (auto) 1.23, Nucleated RBC % 0 12/15/21 05:36: Sodium 138, Potassium 4.4, Chloride 106, Carbon Dioxide 24.0, Anion Gap 8, BUN 30 H, Creatinine 1.39 H, Estim Creat Clear Calc 40.12, Est GFR (MDRD) Af Amer 63, Est GFR (MDRD) Non-Af 52 L, BUN/Creatinine Ratio 21.6 H, Glucose 88, Calcium 9.3 Micro: Microbiology 12/14/21 23:15 Nasal Secretion SARS-CoV-2 Antigen (Rapid) - Final Assessment & Plan Assessment/Plan (1) Intraparenchymal hemorrhage of brain: PLAN: Due to a fall on 12/10/21. He had another fall this morning and the bleed may have increased......it is increased from our CT on 12/10 but, we have no records from [facility] so it maybe stable. I suspect they would not have discharged him if it was not stable. (2) Atherosclerotic heart disease of [place] coronary artery without angina pectoris: QUALIFIERS: [place] vs. transplanted heart: [place] heart Qualified Code(s): I25.10 - Atherosclerotic heart disease of [place] coronary artery without angina pectoris (3) History of coronary artery stent placement: (4) H/O coronary artery bypass surgery: (5) History of permanent cardiac pacemaker placement: (6) Secondary pulmonary arterial hypertension: (7) Frequent falls: (8) Presbycusis of both ears: (9) Dementia with behavioral disturbance: (10) Normochromic normocytic anemia: (11) Thrombocytopenia: (12) Chronic renal failure, stage 3a: PLAN: Plan PLAN PT for gait stability - when we know the bleed is stable OT for ADL's ST for evaluation Analgesics as needed Bowel protocol Fall precautions Assess for Anxiety/Depression GI prophylaxis with pantoprazole DVT prophylaxis contraindicated due to Intracerebral bleed. Code status was reviewed with Mrs Flaherty and I explained the differences between the different levels and he is to be a DNR CC. Order entered into the computer. HOB elevated to 30 degrees Start Decadron 4 mg IV Q8H to decrease edema. Haldol was ordered to control behavior and was effective. I am going to start him on Seroquel 25 mg at 2000 and 12.5 mg in the AM. Will order PRN Haldol for extreme agitation with aggression. Will keep the pt at [facility] and continue to observe. Check orthostatic VS's to r/o orthostatic hypotension as the etiology of the syncope/falls. Repeat the CT brain today at 3 to make sure the bleed is stable. Charges/Coding Visit Charges Inpatient E&M: 05432 SNF Init L2
--- NOTE | 2021-12-15 11:10 | NURSING ---
pt agitated and refusing to sit or lay down. Repeatedly stating he wants to go home. Unable to calm pt. Received order for 2mg Haldol IM x1 per Dr. Horne.
[2021-12-15] MEDS: Haloperidol Lactate 5 MG/ML Vial 2 MG IM (11:31)
--- NOTE | 2021-12-15 11:55 | NURSING ---
Notified Dr. Horne of pt still agitated and becoming aggressive. Received order for 3mg Haldol IM.
[2021-12-15] MEDS: Haloperidol Lactate 5 MG/ML Vial 3 MG IM (12:04)
--- NOTE | 2021-12-15 15:19 | NURSING ---
pt take to CT for repeat CT of brain
[2021-12-15] MEDS: dexAMETHasone 4 MG/ML Vial IV ×2 (15:49→19:55)
[2021-12-15 16:00] VITALS: BP 140/69; PULSE 64; RESP 16; TEMP 36.1; O2SAT 98
[2021-12-15] MEDS: QUEtiapine 25 MG Tablet PO (19:54)
[2021-12-15] MEDS: Atorvastatin Calcium 10 MG Tablet PO (19:56)
[2021-12-15] MEDS: MELATONIN 3 MG TABLET 6 MG PO (19:56)
[2021-12-15] MEDS: Finasteride 5 MG Tablet PO (19:57)
[2021-12-15] MEDS: Memantine Hydrochloride 10 MG Tablet PO (19:58)
[2021-12-15 22:00] VITALS: PULSE 62; RESP 16; O2SAT 95
[2021-12-16] MEDS: Tamsulosin HCl 0.4 MG Capsule PO (05:15)
[2021-12-16] MEDS: dexAMETHasone 4 MG/ML Vial IV ×3 (05:15→22:38)
[2021-12-16] MEDS: Pantoprazole Sodium 40 MG Tablet PO (05:16)
[2021-12-16] MEDS: Sertraline 100 MG Tablet PO (05:16)
[2021-12-16] MEDS: levETIRAcetam Oral Solution 500 MG/5 ML PO ×2 (05:16→17:29)
[2021-12-16 05:24] VITALS: BP 133/82; BP 142/91; PULSE 62
--- NOTE | 2021-12-16 06:30 | NURSING ---
patient sleeping until time for meds. Medications taken without difficulty. Pt sleep majority of night. Got up 3-4 times through out night, easily directed back to bed, toileted for 250 urine out and then bladder scanned for 0 retention.
[2021-12-16] MEDS: QUEtiapine 25 MG Tablet 12.5 MG PO (07:37)
--- NOTE | 2021-12-16 08:34 | NURSING ---
pt restless, assisted to BR, pt voided, passed flatus and then back to chair. alarm in place. sitting in lobby drinking coffee and has magazine. will continue to montior, frequent checks
--- NOTE | 2021-12-16 09:15 | NURSING ---
pt restless again, asking to go lay down, pt assisted x2 to bed, linens changed d/t staining. noted mepilex intact to coccyx. call light in reach. alarm in place on bed for safety.
[2021-12-16] MEDS: Tuberculin,Purif.prot.deriv. 50 TU/ML Vial 0.1 ML ID (09:42)
[2021-12-16 11:38] VITALS: PULSE 83; RESP 16; O2SAT 94
--- NOTE | 2021-12-16 12:03 | NURSING ---
reported that pt has bilateral LEOS's and had this nurse check pt room. This nurse could not find any personal belongings except upper dentures. She stated she would call [facility] to see if they still have them.
[2021-12-16 12:24] VITALS: BP 96/46; PULSE 60; RESP 18; TEMP 36.1; O2SAT 94
[2021-12-16] MEDS: 0.9% Saline Lock 10 ML Syringe IV ×2 (13:40→22:39)
[2021-12-16 14:14] VITALS: BP 103/54; BP 63/37; BP 81/41; PULSE 61; PULSE 92
--- NOTE | 2021-12-16 14:49 | PCM.PN.BLA ---
Progress Note Afebrile Orthostatics are very + today. Maintaining appropriate oxygen saturation on RA Oral intake is improved today. Discussed with nursing - no problems that need addressed. Behavior is much better and he is not agitated. He is cooperative with nursing today and he is calm. Medication list reviewed. He denies LEOS. Speech is a little difficult for me to understand. He does not enunciate very well. Physical Exam Narrative Calm, cooperative, is starting to eat and drink more. Appears in no acute distress. HEENT HEENT Narrative: Mucous membranes are dry. Resp Resp Narrative: Not Neck, lungs are clear to auscultation, no accessory muscle use. Cardio Cardio Narrative: Regular rate and rhythm, no gallop GI GI Narrative: Soft, nontender, nondistended bowel sounds present. Extremity Extremity Narrative: No edema Assessment & Plan Assessment/Plan (1) Orthostatic hypotension: PLAN: Likely multifactorial. Dehydration + FLomax and Proscar. Will hydrate today and recheck orthostatics in the AM. Hold the Proscar. (2) Dehydration: PLAN: Hydrate today and recheck the lab in the AM (3) Frequent falls: PLAN: Due to orthostasis? (4) Intraparenchymal hemorrhage of brain: PLAN: CT yesterday afternoon stable and he is not c/o and does not appear to be in pain. He is cooperative today with no agitation. Continue the Seroquel. (5) Cerebral edema: PLAN: Continue the Decadron 4 mg BID today and change to PO in the AM if stable. Visit Charges Inpatient E&M: 00304 SNF Subs L2
[2021-12-16] MEDS: 0.9% Normal Saline 1,000 ML 100 ML IV (15:16)
--- NOTE | 2021-12-16 17:42 | NURSING ---
updated on MD orders today.
[2021-12-16] MEDS: MELATONIN 3 MG TABLET PO (22:30)
[2021-12-16] MEDS: Atorvastatin Calcium 10 MG Tablet PO (22:30)
[2021-12-16] MEDS: QUEtiapine 25 MG Tablet PO (22:31)
[2021-12-16] MEDS: Memantine Hydrochloride 10 MG Tablet PO (22:31)
[2021-12-17] MEDS: 0.9% Normal Saline 1,000 ML 100 ML IV (01:20)
[2021-12-17] MEDS: Sertraline 100 MG Tablet PO (06:32)
[2021-12-17] MEDS: Tamsulosin HCl 0.4 MG Capsule PO (06:32)
[2021-12-17] MEDS: Pantoprazole Sodium 40 MG Tablet PO (06:32)
[2021-12-17] MEDS: levETIRAcetam Oral Solution 500 MG/5 ML PO ×2 (06:33→17:11)
[2021-12-17] MEDS: dexAMETHasone 4 MG/ML Vial IV ×2 (06:38→12:51)
[2021-12-17] MEDS: 0.9% Saline Lock 10 ML Syringe IV (06:40)
[2021-12-17 07:04] LABS: Anion Gap 9 (5-15); BUN 36 mg/dL (7-18); BUN/Creat Ratio 28.3 RATIO (10-20); Calcium,Total 9.1 mg/dL (8.5-10.1); Chloride 106 mmol/L (98-107); Creatinine, Serum 1.27 mg/dL (0.70-1.30); EST Glomerular Filtration Rate 57 mL/min (>60); Est Glom Filt Rate - Afr Amer 69 mL/min (>60); Estimated Creatinine Clearance 47.52 ml/min; Glucose 122 mg/dL (74-106); Magnesium 1.9 mg/dL (1.6-2.6); Potassium 4.2 mmol/L (3.5-5.1); Sodium Level 138 mmol/L (136-145)
[2021-12-17] MEDS: QUEtiapine 25 MG Tablet 12.5 MG PO (07:50)
--- NOTE | 2021-12-17 11:43 | NURSING ---
unable to get ortho's d/t pt resisting, family at bedside.
[2021-12-17] MEDS: 0.9% Normal Saline 1,000 ML 75 ML IV (11:59)
[2021-12-17 12:03] VITALS: BP 130/45
--- NOTE | 2021-12-17 12:52 | PN_ITS ---
Subjective Subjective Afebrile Blood pressure is better today following hydration. Sitting up it is 130/45. He is maintaining appropriate oxygen saturation on room air. Heart rate is in the 60s. Fluid balance yesterday was +1810. Post void residual last night was 261 and he was straight cathed. Proscar was discontinued yesterday for orthostatic hypotension. He remains on Flomax. Unable to stand and get orthostatics today. Will try again in the AM. He requested to get in the WC and go for a ride today. His and dtr were pr esent and he sat in the atrium and ate his lunch. He was attempting to get up by himself while in the atrium to go back to bed. He is more directable. slept well last night. Told me his fine today. He does not appear to be in any discomfort. All labs were reviewed. The sodium is 138 and the potassium is 4.2 today. The BUN is 36 and the creatinine is 1.27, down from 1.54 on 12/15/2021. FBS is 122, likely secondary to Decadron to decrease cerebral edema. Magnesium is normal. Objective Data Objective Data Vital Signs: Vital Signs Temp Pulse Resp BP Pulse Ox O2 Del Method 97 F L 61 18 130/45 H 94 Room Air 12/16/21 12:24 12/16/21 14:14 12/16/21 12:24 12/17/21 12:03 12/16/21 12:24 12/16/21 12:24 Oxygen Delivery Method Room Air Weight: 174 lb 2.643 oz Body Mass Index (BMI) 24.9 Intake & Output: Intake and Output for Last 24 Hours 12/15/21 12/16/21 12/17/21 23:59 23:59 23:59 Intake Total 120 / 120 600 / 600 2240 / 2240 Output Total 550 / 550 250 / 250 Balance 120 / 120 50 / 50 1989 Medical Nutrition Assessment Dietitian: Malnutrition Criteria Met Start: 12/15/21 11:51 Freq: Status: Active Protocol: Document 12/15/21 11:53 CED (Rec: 12/15/21 11:54 SLA [id number]) Nutrition Malnutrition Evidence of Malnutrition Exists Yes Malnutrition (moderate): Acute Illness/Injury Evidenced By Suboptimal Energy Intake ( Severe),Physical Changes ( Moderate) Intake Problem Inadequate Oral Intake Etiology related to traumatic subarachnoid hemmorhage Signs/Symptoms as 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 Lab / Micro Data Result Diagrams: 12/15/21 05:36 12/17/21 06:20 Labs: Laboratory Results - last 24 hr 12/17/21 06:20: Sodium 138, Potassium 4.2, Chloride 106, Carbon Dioxide 23.0, Anion Gap 9, BUN 36 H, Creatinine 1.27, Estim Creat Clear Calc 47.52, Est GFR (MDRD) Af Amer 69, Est GFR (MDRD) Non-Af 57 L, BUN/Creatinine Ratio 28.3 H, Glucose 122 H, Calcium 9.1, Magnesium 1.9 Micro: Microbiology 12/14/21 23:15 Nasal Secretion SARS-CoV-2 Antigen (Rapid) - Final Physical Exam Const no apparent distress HEENT moist oral mucous membranes Resp clear to auscultation bilaterally Cardio regular rate, regular rhythm and no gallops GI normal to inspection, nondistended, normoactive bowel sounds, soft to palpation and non-tender GI Narrative: Had a BM today Extremity Extremity Narrative: no edema Skin General Skin Exam: no breakdown Rashes: no rashes Neuro CN's II-XII intact bilaterally and no focal motor deficits Assessment & Plan Assessment/Plan (1) Cerebral edema: PLAN: Continue the Decadron but, transition to PO today. (2) Dehydration: PLAN: Continue the IV fluids for another 24 hours and decrease the rate to 75 cc/hr (3) Orthostatic hypotension: PLAN: Continue to hold the Proscar. BP improved with hydration.......would still like to get a standing BP.....will try tomorrow when PT is here. (4) Dementia with behavioral disturbance: PLAN: Continue the Seroquel. (5) Intraparenchymal hemorrhage of brain: PLAN: TAper over the next week. Continue to keep the HOB elevated to 30 degrees. (6) Chronic renal failure, stage 3a: PLAN: Creat improving with hydration (7) Urine retention: PLAN: Continue post void residuals and straight cath PRN for a residual > 250. PLAN: Plan Continue PT........remains to be seen if he will be able to go home with his or if he needs placed in a dementia gamez. Charges/Coding Visit Charges Inpatient E&M: 33042 Subs Hosp L1
[2021-12-17 16:00] VITALS: BP 130/42; PULSE 64; RESP 17; TEMP 35.9; O2SAT 95
[2021-12-17] MEDS: dexAMETHasone 4 MG Tablet 2 MG PO (17:11)
[2021-12-17] MEDS: MELATONIN 3 MG TABLET PO (20:32)
[2021-12-17] MEDS: QUEtiapine 25 MG Tablet PO (20:33)
[2021-12-17] MEDS: Memantine Hydrochloride 10 MG Tablet PO (20:33)
[2021-12-17] MEDS: Atorvastatin Calcium 10 MG Tablet PO (20:33)
[2021-12-17] MEDS: Acetaminophen 325 MG Tablet 975 MG PO (20:40)
[2021-12-18] MEDS: levETIRAcetam Oral Solution 500 MG/5 ML PO ×2 (05:09→17:58)
[2021-12-18] MEDS: Sertraline 100 MG Tablet PO (05:10)
[2021-12-18] MEDS: Pantoprazole Sodium 40 MG Tablet PO (05:10)
[2021-12-18] MEDS: Tamsulosin HCl 0.4 MG Capsule PO (05:10)
[2021-12-18] MEDS: dexAMETHasone 4 MG Tablet 2 MG PO ×2 (08:01→17:58)
[2021-12-18] MEDS: QUEtiapine 25 MG Tablet 12.5 MG PO (08:01)
[2021-12-18 09:22] VITALS: BP 112/53; BP 115/58; BP 68/34; PULSE 59; PULSE 72
[2021-12-18] MEDS: 0.9% Saline Lock 10 ML Syringe IV (09:27)
[2021-12-18 09:30] VITALS: PULSE 60; RESP 20; O2SAT 97
[2021-12-18 14:36] VITALS: BP 134/52; PULSE 60; RESP 14; TEMP 36.4; O2SAT 96
--- NOTE | 2021-12-18 15:18 | NURSING ---
Addendum entered by Imani Gupta 12/18/21 15:31: Fax number for Dr Knutson [phone] Original Note: Left message for Dr Knutson's office, stating pt's spouse does not want to keep F/U appt. [facility] did ask that CT results from 12/15/21 be faxed and images be sent over. Dr Knutson's nurse to call back tomorrow if there are any questions.
--- NOTE | 2021-12-18 16:15 | CASEMGMT ---
Social Work Unable to complete assessment with pt r/t cognition. Contacted to complete. Explained Medicare benefit and secondary insurance. Verified contacts. Inquired about DC plans. states the goal is for pt to return home at the end of TCU stay. Explored goals per for pt to be able to return home. states pt must be able to walk and transfer at [facility] as cannot physically lift pt. would like pt's speech to improve to be better understood, and his cognition to improve. SW explained those goals will be noted to the therapists, however, pt is currently x2 assist and is not safe to be left alone. Inquired about alternative DC plan. Explained HEAV[employer] D[employer] MECH[employer]IC cannot provide x2 assist in the home and currently, aides are difficult to secure in the home. Discussed SNF stay and financial liability with part B therapies. states she cannot afford to pay privately for SNF. Inquired about finances. Pt does have a life insurance policy that will need to be liquidated. [facility]. Pt is over resources for checking account currently and income. However, SW explained Medicaid will take into account the spouse in the community and pt may need a QIT. unsure of her plan. SW offered to take the next day to consider options and will reconvene at the [facility] 12/20. Offered ongoing assistance with questions and DC planning. agreed and expressed appreciation. SW to continue to follow. MARLON TurnerW
--- NOTE | 2021-12-18 17:02 | CASEMGMT ---
Addendum entered by Karen Contreras 12/19/21 09:54: Palliative has a visit scheduled with the 12/19 at 1400 Original Note: Social Work Palliative referral made to [facility] per Dr. Horne request. Palliative is reviewing schedule to determine timeframe of when pt can be seen. SW to continue to follow. Karen Contreras, PRODUCTION TRAINER DIRECTOR OF COLLECTIONS AND ARCHIVES
[2021-12-18] MEDS: Atorvastatin Calcium 10 MG Tablet PO (20:36)
[2021-12-18] MEDS: MELATONIN 3 MG TABLET PO (20:37)
[2021-12-18] MEDS: Memantine Hydrochloride 10 MG Tablet PO (20:37)
[2021-12-18] MEDS: QUEtiapine 25 MG Tablet PO (20:37)
[2021-12-19] MEDS: levETIRAcetam Oral Solution 500 MG/5 ML PO ×2 (05:18→18:04)
[2021-12-19] MEDS: Sertraline 100 MG Tablet PO (05:19)
[2021-12-19] MEDS: Tamsulosin HCl 0.4 MG Capsule PO (05:19)
[2021-12-19] MEDS: Pantoprazole Sodium 40 MG Tablet PO (05:19)
--- NOTE | 2021-12-19 07:44 | PN.TCU_ITS ---
Subjective Subjective Resident restless, gets up and down a lot, alert to self. Objective Data Objective Data Vital Signs: Vital Signs Temp Pulse Resp BP Pulse Ox O2 Del Method 97.6 F L 60 14 134/52 H 96 Room Air 12/18/21 14:36 12/18/21 14:36 12/18/21 14:36 12/18/21 14:36 12/18/21 14:36 12/18/21 14:36 Oxygen Delivery Method Room Air Weight: 79 kg Body Mass Index (BMI) 24.9 Intake & Output: Intake and Output for Last 24 Hours 12/17/21 12/18/21 12/19/21 23:59 23:59 23:59 Intake Total 2933.75 / 2933.75 620 / 620 Output Total 250 / 250 Balance 2683.75 / 2683.75 620 / 620 Medical Nutrition Assessment Dietitian: Malnutrition Criteria Met Start: 12/15/21 11:51 Freq: Status: Active Protocol: Document 12/15/21 11:53 CED (Rec: 12/15/21 11:54 SLA [id number]) Nutrition Malnutrition Evidence of Malnutrition Exists Yes Malnutrition (moderate): Acute Illness/Injury Evidenced By Suboptimal Energy Intake ( Severe),Physical Changes ( Moderate) Intake Problem Inadequate Oral Intake Etiology related to traumatic subarachnoid hemmorhage Signs/Symptoms as evidenced by <50% 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 Lab / Micro Data Result Diagrams: 12/15/21 05:36 12/17/21 06:20 Micro: Microbiology 12/14/21 23:15 Nasal Secretion SARS-CoV-2 Antigen (Rapid) - Final Assessment & Plan Assessment/Plan (1) Intracranial bleed: (2) Behavioral disorder: PLAN: Seroquel, Haldol necessary for time being, consider gradual dose reduction once resident stable.
[2021-12-19] MEDS: QUEtiapine 25 MG Tablet 12.5 MG PO (08:32)
[2021-12-19] MEDS: dexAMETHasone 4 MG Tablet 2 MG PO ×2 (08:32→18:05)
[2021-12-19 10:00] VITALS: BP 130/76; BP 133/48; BP 138/81; PULSE 59
[2021-12-19] MEDS: 0.9% Saline Lock 10 ML Syringe IV (12:35)
--- NOTE | 2021-12-19 14:34 | PCM.PN.DRR ---
TCU RX Drug Regimen Review Subjective: TCU Admission. 86 YOM presented to ER with a fall. Transferred to [facility] for evaluation of intracerebral bleed secondary to fall. Admitted to TCU with debility for strengthening and rehabilitation. Objective: Allergies donepezil Allergy (Intermediate, Verified 12/15/21 09:39) hallucinations niacin [From Niaspan Extended-Release] Allergy (Verified 12/15/21 09:39) Hives pravastatin Allergy (Verified 12/15/21 09:39) Other ELEVATED LIVER ENZYMES simvastatin [From Zocor] Allergy (Verified 12/15/21 09:39) Other ELEVATED LIVER ENZYMES metoprolol Adverse Reaction (Severe, Verified 12/15/21 09:39) Hypotensive/passing out Current Medications Generic Name Dose Route Start Last Admin Trade Name Freq PRN Reason Stop Dose Admin Acetaminophen 975 mg 12/14/21 19:40 12/17/21 20:40 Acetaminophen 325 Mg Tablet PO 975 mg Q6H PRN Administration Pain score 1-10 Atorvastatin Calcium 10 mg 12/15/21 22:00 12/18/21 20:36 Atorvastatin Calcium 10 Mg Tablet PO 10 mg QHS PAULO Administration Dexamethasone 4 mg 12/17/21 17:00 12/19/21 08:32 Dexamethasone 4 Mg Tablet PO 12/26/21 16:59 4 mg BIDCM PAULO Administration Taper Ergocalciferol 1.25 mg 12/19/21 19:40 Ergocalciferol 1.25 Mg (50, 000 Unit) Capsule PO TU PAULO Finasteride 5 mg 12/15/21 22:00 12/15/21 19:57 Finasteride 5 Mg Tablet PO 5 mg QHS PAULO Administration Haloperidol Lactate 2 mg 12/15/21 15:39 Haloperidol Lactate 5 Mg/Ml Vial IM Q8H PRN PRN severe agitation/aggression Levetiracetam 500 mg 12/15/21 06:00 12/19/21 05:18 Levetiracetam Oral Solution 500 Mg/5 Ml PO 500 mg BID PAULO Administration Melatonin 3 mg 12/16/21 22:00 12/18/21 20:37 Melatonin 3 Mg Tablet PO 3 mg QHS PAULO Administration Memantine 10 mg 12/14/21 22:00 12/18/21 20:37 Memantine Hydrochloride 10 Mg Tablet PO 10 mg QHS PAULO Administration Nutritional Formula (Lactose Free) 120 ml 12/15/21 06:00 12/19/21 12:15 Ensure Enlive 120 Ml Liquid PO Not Given 4X/DAY PAULO Pantoprazole Sodium 40 mg 12/15/21 06:00 12/19/21 05:19 Pantoprazole Sodium 40 Mg Tablet PO 40 mg DAILY PAULO Administration Quetiapine Fumarate 25 mg 12/15/21 20:00 12/18/21 20:37 Quetiapine 25 Mg Tablet PO 25 mg 2000 PAULO Administration Quetiapine Fumarate 12.5 mg 12/16/21 08:00 12/19/21 08:32 Quetiapine 25 Mg Tablet PO 12.5 mg 0800 PAULO Administration Sertraline HCl 100 mg 12/16/21 06:00 12/19/21 05:19 Sertraline 100 Mg Tablet PO 100 mg DAILY PAULO Administration Sodium Chloride 10 - 40 ml 12/15/21 15:52 12/19/21 12:35 0.9% Saline Lock 10 Ml Syringe IV 10 ml UD PRN Administration SALINE FLUSH Tamsulosin HCl 0.4 mg 12/15/21 06:00 12/19/21 05:19 Tamsulosin Hcl 0.4 Mg Capsule PO 0.4 mg DAILY PAULO Administration Tuberculin PPD 0.1 ml 12/23/21 10:00 Tuberculin,Purif.Prot.Deriv. 50 Tu/Ml Vial ID 12/23/21 10:01 X1 ONE Problem List (Last Updated 12/15/21 @ 15:[address] 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) Vital Signs Temp Pulse Resp BP Pulse Ox O2 Del Method 97.6 F L 60 14 134/52 H 96 Room Air 12/18/21 14:36 12/18/21 14:36 12/18/21 14:36 12/18/21 14:36 12/18/21 14:36 12/18/21 14:36 Oxygen Delivery Method Room Air Weight: 79 kg Body Mass Index (BMI) 24.9 Sodium 138 mmol/L (136-145) 12/17/21 06:20 Potassium 4.2 mmol/L (3.5-5.1) 12/17/21 06:20 Chloride 106 mmol/L (98-107) 12/17/21 06:20 Carbon Dioxide 23.0 mmol/L (21.0-32.0) 12/17/21 06:20 Anion Gap 9 (5-15) 12/17/21 06:20 BUN 36 mg/dL (7-18) H 12/17/21 06:20 Creatinine 1.27 mg/dL (0.70-1.30) 12/17/21 06:20 Est GFR (MDRD) Af Amer 69 mL/min (>60) 12/17/21 06:20 Est GFR (MDRD) Non-Af 57 mL/min (>60) L 12/17/21 06:20 BUN/Creatinine Ratio 28.3 RATIO (10-20) H 12/17/21 06:20 Glucose 122 mg/dL (74-106) H 12/17/21 06:20 Assessment/Plan: 1. Pain: acetaminophen 975mg PO Q6H PRN pain 1-1010. Resident has received 1 dose of acetaminophen for generalized pain with a score of 4. Document resident resting following dose. Please continue to monitor for increased pain and PRN usage. 2. Cerebral edema: dexamethasone taper thru 12/26/21. Please continue to monitor for edema, agitation/delirium (BEERs criteria medication, resident has had documented agitation/aggression towards staff), increased hunger, S/S of infection and blood glucose (last 122mg/dL). 3. BPH: tamsulosin 0.4mg and finasteride 5mg PO QHS (currently on hold due to orthostatic hypotension). Please continue to monitor BP (last 134/52, BPs have varied) and S/S of BPH. 4. Hyperlipidemia: atorvastatin 10mg PO QHS. Please continue to monitor lipid panel at least annually (last 05/11/21) and for muscle pain. 5. GI prophylaxis: pantoprazole 40mg PO daily. Please consider stopping this medication after completion of steroid if it is being used solely for GI prophylaxis. This medication is on the BEERs list for the risk for C difficile infection and bone loss/fractures. Resident is having frequent falls and this medication can increase the risk of fractures. Thanks. Please continue to monitor for diarrhea. 6. Vitamin D deficiency (lab 05/11/21 WNL while taking vitamin D): ergocalciferol 1.25mg PO weekly. Please continue to monitor to monitor vitamin D levels. Assessment/Plan for indications treated with psychotropic medications: 1. Dementia with behavioral disorder: memantine 10mg PO QHS, quetiapine 12.5mg PO QAM and 25mg PO QPM, haloperidol 2mg IM Q8H PRN severe agitation/aggression. Necessity and GDR addressed for quetiapine and haloperidol in physician note. Please consider adding a 2 week stop date for haloperidol per CMS requirements for PRN antipsychotics. Thanks. Resident has not required a dose of PRN haloperidol. Use of dexamethasone could be contributing to the behavioral disorder. Dexamethasone taper will end in 1 week. Quetiapine and haloperidol are on the BEERs criteria for delirium/dementia/falls. Resident had a fall while on these medications. Please continue to monitor while resident still needs these medications. Please continue to monitor for GI side effects, rash, dementia, dyskinesias, dry mouth, Medical chart and medication regimen reviewed. The following medication irregularities or issues were identified: *1. Haloperidol 2mg IM Q8H PRN severe agitation/aggression. Necessity and GDR addressed for quetiapine and haloperidol in physician note. Please consider adding a 2 week stop date for haloperidol per CMS requirements for PRN antipsychotics. Thanks. *2. Levetiracetam oral solution 500mg PO BID. I did not see a clear, documented indication for this medication. Please consider adding an indication if medication is clinically necessary. Thanks. Please continue to monitor renal function. *3. Pantoprazole 40mg PO daily. Please consider stopping this medication after completion of steroid if it is being used solely for GI prophylaxis. This medication is on the BEERs list for the risk for C difficile infection and bone loss/fractures. Resident is having frequent falls and this medication can increase the risk of fractures. Thanks. *4. Sertraline 100mg PO daily. I did not see a clear, documented indication for this medication. Please consider adding the indication if medication is clinically necessary. If resident needs this medication, please consider GDR at this time. This medication is on the BEERs criteria for falls/fractures and resident has been having frequent falls. Thanks. *5. Melatonin 3mg PO QHS. I did not see a documented indication for this medication. Please consider adding the indication if clinically necessary. Thanks. Date of Note:: 12/19/21
[2021-12-19 15:03] VITALS: RESP 18; TEMP 35.8; O2SAT 96
[2021-12-19 19:44] VITALS: PULSE 54; RESP 16; O2SAT 97
[2021-12-19] MEDS: Memantine Hydrochloride 10 MG Tablet PO (21:58)
[2021-12-19] MEDS: MELATONIN 3 MG TABLET PO (21:58)
[2021-12-19] MEDS: QUEtiapine 25 MG Tablet PO (21:58)
[2021-12-19] MEDS: Atorvastatin Calcium 10 MG Tablet PO (21:58)
[2021-12-19] MEDS: Ergocalciferol 1.25 MG (50, 000 UNIT) Capsule PO (22:01)
[2021-12-20 06:23] VITALS: BP 152/69; PULSE 62
[2021-12-20] MEDS: Pantoprazole Sodium 40 MG Tablet PO (06:25)
[2021-12-20] MEDS: Tamsulosin HCl 0.4 MG Capsule PO (06:25)
[2021-12-20] MEDS: Sertraline 100 MG Tablet PO (06:25)
[2021-12-20] MEDS: levETIRAcetam Oral Solution 500 MG/5 ML PO ×2 (06:26→18:15)
[2021-12-20] MEDS: dexAMETHasone 4 MG Tablet 2 MG PO ×2 (07:54→18:15)
[2021-12-20] MEDS: QUEtiapine 25 MG Tablet 12.5 MG PO (07:54)
--- NOTE | 2021-12-20 08:54 | NURSING ---
Went to assist pt with oral care this AM, asked pt to open mouth so this nurse could clean top dentures d/t bad odor in mouth. No dentures, checked trash, bed, linens, clost, BR, ect. no where to be found. at bedside and stated I have found them teeth in crazy places at home will notify TCU health information managers. Last saw by this nurse on Saturday.
--- NOTE | 2021-12-20 09:06 | CASEMGMT ---
Social Work IDT met with patient and for care plan meeting. Discussed patient's progress in PT/OT/ST/SN. Explained Medicare benefit and secondary insurance. Pt remains impulsive and level of assistance varies day-to-day but becoming more alert and talkative. His cognition is still impairment and unable to make his own decisions currently. Reiterated request for alternative DC plan to . has not decided on a plan. Encouraged to look into liquidating the life insurance policy to see about that process. SW provided SNF list with quality and resource data that is consistent with geographic location and insurance network. Encouraged to choose 2-3 facilities for SW to start referring to. expressed understanding. SW to continue to follow. MARLON TurnerW
[2021-12-20 09:49] VITALS: PULSE 64; RESP 16; O2SAT 98
[2021-12-20 16:00] VITALS: BP 123/64; PULSE 62; RESP 18; TEMP 36.6; O2SAT 98
[2021-12-20] MEDS: MELATONIN 3 MG TABLET PO (21:51)
[2021-12-20] MEDS: Memantine Hydrochloride 10 MG Tablet PO (21:51)
[2021-12-20] MEDS: QUEtiapine 25 MG Tablet PO (21:51)
[2021-12-20] MEDS: Atorvastatin Calcium 10 MG Tablet PO (21:51)
[2021-12-21] MEDS: Sertraline 100 MG Tablet PO (05:39)
[2021-12-21] MEDS: levETIRAcetam Oral Solution 500 MG/5 ML PO ×2 (05:39→17:10)
[2021-12-21] MEDS: Pantoprazole Sodium 40 MG Tablet PO (05:39)
[2021-12-21] MEDS: Tamsulosin HCl 0.4 MG Capsule PO (05:40)
[2021-12-21 05:49] VITALS: BP 138/63; PULSE 64; RESP 16; TEMP 36.4; O2SAT 95
[2021-12-21] MEDS: dexAMETHasone 4 MG Tablet 2 MG PO ×2 (08:33→17:10)
[2021-12-21] MEDS: QUEtiapine 25 MG Tablet 12.5 MG PO (08:34)
[2021-12-21 16:00] VITALS: BP 108/58; PULSE 59; RESP 18; TEMP 36.2; O2SAT 97
[2021-12-21] MEDS: Atorvastatin Calcium 10 MG Tablet PO (19:55)
[2021-12-21] MEDS: Acetaminophen 325 MG Tablet 975 MG PO (19:55)
[2021-12-21] MEDS: QUEtiapine 25 MG Tablet PO (19:56)
[2021-12-21] MEDS: Memantine Hydrochloride 10 MG Tablet PO (19:56)
[2021-12-21] MEDS: MELATONIN 3 MG TABLET PO (19:56)
[2021-12-21 23:00] VITALS: PULSE 60; RESP 16; O2SAT 98
[2021-12-22 05:43] LABS: Absolute Lymphocyte Count 1.42 X10^3/uL (0.83-4.51); Absolute Neutrophil Count 11.4 X10^3/uL (2.0-7.7); Basophil# 0.01 X10^3/uL; Basophil% 0.1 % (0-1); Eosinophil# 0.03 X10^3/uL; Eosinophils% 0.2 % (0-5); Hematocrit 34.8 % (40-54); Hemoglobin 11.7 g/dL (13.0-16.5); Lymphocyte # 1.42 X10^3/ul (0.83-4.51); Lymphocyte % 10.4 % (19-41); Mean Corp Hgb Conc 33.6 g/dL (32-36); Mean Corpuscular Hgb 30.6 pg (27.0-32.0); Mean Corpuscular Volume 91.1 fL (80-94); Mean Platelet Vol. 10.3 fl (6.2-12.0); Monocyte# 0.63 X10^3/uL; Monocyte% 4.6 % (0-10); NRBC Flagged by Analyzer 0 % (0-5); Neutrophil # 11.38 X10^3/uL (2.7-7.7); Neutrophil % 83.7 % (47-70); Platelet Count 135 K/mm3 (150-450); RBC Distribution Width CV 13.2 % (11.6-14.6); RBC Distribution Width SD 43.2 fl (35.1-43.9); Red Blood Count 3.82 M/mm3 (4.6-6.2); White Blood Count 13.6 K/mm3 (4.4-11.0)
[2021-12-22 06:01] LABS: Anion Gap 5 (5-15); BUN 40 mg/dL (7-18); BUN/Creat Ratio 30.1 RATIO (10-20); Calcium,Total 9.3 mg/dL (8.5-10.1); Chloride 101 mmol/L (98-107); Creatinine, Serum 1.33 mg/dL (0.70-1.30); EST Glomerular Filtration Rate 54 mL/min (>60); Est Glom Filt Rate - Afr Amer 66 mL/min (>60); Estimated Creatinine Clearance 45.37 ml/min; Glucose 109 mg/dL (74-106); Potassium 4.2 mmol/L (3.5-5.1); Sodium Level 136 mmol/L (136-145)
[2021-12-22] MEDS: Sertraline 100 MG Tablet PO (06:32)
[2021-12-22] MEDS: Pantoprazole Sodium 40 MG Tablet PO (06:32)
[2021-12-22] MEDS: Tamsulosin HCl 0.4 MG Capsule PO (06:32)
[2021-12-22] MEDS: levETIRAcetam Oral Solution 500 MG/5 ML PO ×2 (06:32→17:09)
[2021-12-22] MEDS: QUEtiapine 25 MG Tablet 12.5 MG PO (08:30)
[2021-12-22] MEDS: dexAMETHasone 4 MG Tablet 2 MG PO ×2 (08:30→17:09)
--- NOTE | 2021-12-22 08:46 | PCM.CONS.P ---
Assessment & Plan Assessment/Plan (1) Intracranial bleed: (2) Cerebral edema: (3) Orthostatic hypotension: (4) Chronic renal failure, stage 3a: (5) Normochromic normocytic anemia: (6) Dementia with behavioral disturbance: (7) BPH (benign prostatic hyperplasia): QUALIFIERS: Lower urinary tract symptom presence: symptoms absent Prostatic enlargement morphology: unspecified morphology Qualified Code(s): N40.0 - Enlarged prostate without lower urinary tract symptoms (8) Frequent falls: (9) Syncope and collapse: (10) Atherosclerotic heart disease of [place] coronary artery without angina pectoris: QUALIFIERS: [place] vs. transplanted heart: [place] heart Qualified Code(s): I25.10 - Atherosclerotic heart disease of [place] coronary artery without angina pectoris (11) History of coronary artery stent placement: (12) H/O coronary artery bypass surgery: (13) History of permanent cardiac pacemaker placement: (14) Sick sinus syndrome: (15) Hyperlipidemia: QUALIFIERS: Hyperlipidemia type: pure hypercholesterolemia Qualified Code(s): E78.00 - Pure hypercholesterolemia, unspecified; E78.0 - Pure hypercholesterolemia (16) Debility: PLAN: Plan Dinesh HAN is an 86 year old male referred to [facility] Palliative for symptom management related to worsening dementia exacerbated by recent falls and intracranial hemorrhage. He is currently receiving therapy at [facility]. Palliative plan is as follows: 1) Debility/ falling/orthostatic Hypotension: Patient is continuing to receive PT/OT/ST. Due to Dementia and the intracranial bleed, progress is inconsistent and intermittent according to therapy. is aware of this. Discussed goals at this visit. Wants to take him home at his highest function and maintain the best quality of life as possible. Patient will remain a Palliative patient during active therapies at this time. Most likely will transition to hospice care once therapies are complete. She will discuss this further with her son and contact Palliative with any further questions. Orthostatics tends to be stable with discontinuing of Proscar (Finasteride). 2) Dementia with behaviors/Intracranial bleed: Behaviors appear stable at this time with current Seroquel dosing of 12.5mg during the day and 25mg at bedtime. Dinesh continues on Sertraline 100mg daily to assist with mood. No behaviors currently per staff. Palliative would recommend tapering back Memantine to 5mg if behaviors increase and/or hypotension continues due to late stage Dementia. 3) Encounter for Palliative care: Extensive discussion about Palliative versus hospice services. , Tamia is interested in Hospice services at discharge but unsure the amount of care that will be required at home. This may require more frequency of care than hospice can provide. Palliative may be an option with [facility] services but Thank you for the opportunity to participate in this patient's care, please do not hesitate to contact [facility] with any further questions or concerns. Palliative direct line is [phone]. TCU staff notified to call Palliative with any concerns and discharge planning date. Palliative will follow PRN while at TCU and follow as Palliative or Hospice care. TIME IN 0840 TIME OUT 0930 HPI Consult Data Date of Consult: 12/22/21 HPI Narrative HPI Narrative: Dinesh HAN is an 86 year old male referred to [facility] Palliative for symptom management related to worsening dementia exacerbated by recent falls and intracranial hemorrhage. He had been hospitalized in August for syncope. ECHO at that time revealed EF of 65% with right ventricular systolic pressure estimated to be 42. Stress test was negative. Past medical history is significant for CAD s/p CABG and stent placement in 2015, BPH, Dementia, Hyperlipidemia, mild pulmonary HTN and sic sinus syndrome. Alexandro was admitted to TCU on 12/14/21 following a fall and subsequent intracerebral bleed on 12/10/21. He was diaphoretic and evaluated for DE due to abnormal EKG and initially thought was a STEMI but was cancelled after further evaluation. Dinesh was sent for a CT on 12/10/21 which showed acute intraparenchymal hemorrhage in the left posterior temporal parietal region measures 3.2 x 2.5 x 1.9 cm with mild surrounding edema. Mild mass effect on the adjacent posterior horn of the left lateral ventricle. No midline shift. Small adjacent subarachnoid hemorrhage. Decreased attenuation in the periventricular white matter bilaterally.He was transferred to [facility] to be evaluated by neurology and deemed that patient was not a surgical candidate and sent back to the TCU on 12/14/21. Early in the morning, he reportedly fell while trying to go to the bathroom and struck his elbow and head. Follow up CT on 12/15 showed that the acute lobulated parenchymal hematoma is again seen within the posterior left temporoparietal lobe; the hematoma measures 3.6 x 2.5 x 3.5cm in diameter and has mildly increased in size since the prior study when it measured 3.2 x 2.5 x 1.9 cm. There is an enlarging halo of surrounding vasogenic edema which now causes mild mass effect upon the atrium of theleft lateral ventricle. A trace of subarachnoid blood is again noted within a sulcus just posterior to the parenchymal hematoma, unchanged. discussed with Dr. Horne and decided to keep Alexandro at [facility] and keep him comfortable. [facility] does not feel that he is a surgical candidate and she felt that he would not want intubated or have CPR and changed his code status to DNRCC. He was readmitted to TCU and placed on Decadron to decrease the edema and PRN Haldol and scheduled Seroquel for agitation. Orhtostatics were started on 12/15/21 as well. 's goal would be to take patient home if he is able to walk or transfer with one assist. Seen today in his TCU room. Responsive to name, LION. Has difficulty communicating and quickly falls back asleep. Able to follow commands but noted weakness in extremities. Denies any distress and appears comfortable. Talked with Rebel in PT and reports that progress is limited by patient's mental status. He is impulsive and gets up and walks in an instant. Safety alarms are placed in his chair and bed. Denies any ataxia, but patient is weak and unsteady and requires at least one and maybe 2 assist depending on the day. Met with his , Tamia to discuss Palliative versus hospice care. Goals are to continue PT to get him to be able to be care for at home. Comfort care only. She does not want any surgeries or heroics for him at this time. He has been through enough. Her son lives with her and works cage shift manager at [employer] so he can be of some assistance. They have been for 29 years and he was walking with a cane before the brain bleed. He was never very physically active and struggled with long-term cardiac issues before the dementia diagnosis. Tamia appears overwhelmed with these recent hospitalizations and is in agreement to assess with SS what will be needed at home following the end of PT. Understands the difference between hospice and Palliative care. During visit patient gets up and walks to the visiting area [facility] with a nurse. Gait is unsteady and he is smiling and blowing kisses to his . He was assisted into a gerichair beside his . Nurse reports that he is pleasantly confused, but not agitated with care and appears to be doing well with current Seroquel dosing. Haldol has been discontinued but staff are not concerned and have not noticed any aggression or behaviors that require additional Palliative intervention at this time. is pleased with care and will continue Palliative while patient is receiving therapies and will discuss hospice care with son. Palliative card and number left with Tamia at the conclusion of the visit. 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 Sick sinus syndrome Syncope and collapse Home Medications ascorbic acid (vitamin C) 500 mg tablet 500 mg PO DAILY@0800 07/23/14 [History Last Taken 07/13/20] atorvastatin 10 mg tablet 10 mg PO QHS cholesterol 07/23/14 [History Last Taken 07/12/20] esomeprazole magnesium 40 mg capsule,delayed release 40 mg PO DAILY acid reflux 07/23/14 [History Last Taken 07/13/20] aspirin 325 mg tablet,delayed release 325 mg PO DAILY@0800 07/08/15 [History Last Taken 07/13/20] ergocalciferol (vitamin D2) 1,250 mcg (50,000 unit) capsule 50,000 unit PO TU supplement 07/08/15 [History Last Taken 07/05/20] nitroglycerin 0.4 mg sublingual tablet 0.4 mg sublingual Q5M PRN Chest Pain 07/08/15 [History Last Taken Unknown] clopidogrel 75 mg tablet 75 mg PO DAILY 10/27/15 [History Last Taken 07/13/20] finasteride 5 mg tablet 5 mg PO QHS PROSTATE 07/13/20 [History Last Taken 07/12/20] sertraline 100 mg tablet 200 mg PO DAILY mood 09/01/20 [History Last Taken Unknown] fluticasone propionate 50 mcg/actuation nasal spray,suspension 2 spray intranasal DAILY 08/17/21 [History Last Taken Unknown] memantine 5 mg tablet 10 mg PO DAILY memory 12/10/21 [History Last Taken Unknown] acetaminophen 325 mg tablet 975 mg PO Q6H PRN Pain 12/14/21 [History Last Taken Unknown] levetiracetam 500 mg tablet 500 mg PO BID prevent seizures 12/14/21 [History Last Taken Unknown] melatonin 3 mg tablet 6 mg PO DAILY sleep 12/14/21 [History Last Taken Unknown] tamsulosin 0.4 mg capsule 0.4 mg PO DAILY bladder 12/14/21 [History Last Taken Unknown] Allergy/AdvReac Type Severity Reaction Status Date / Time donepezil Allergy Intermediate hallucinati Verified 12/15/21 09:39 ons niacin Allergy Hives Verified 12/15/21 09:39 [From Niaspan Extended-Release] pravastatin Allergy Other Verified 12/15/21 09:39 simvastatin [From Zocor] Allergy Other Verified 12/15/21 09:39 metoprolol AdvReac Severe Hypotensive/passing Verified 12/15/21 09:39 out Family History Mother , age 90 CAD (coronary artery disease) Hypertension Brother CVA (cerebral vascular accident) Brother Cancer Brother Heart disease Surgical History H/O coronary artery bypass surgery (12/08/01) History of coronary artery stent placement (10/04/15) History of permanent cardiac pacemaker placement (07/11/15) History of transurethral resection of prostate Social History Smoking Status: Former smoker how long ago did patient quit smokin-40 years ago alcohol intake: never substance use type: marijuana caffeine: Yes Type: coffee Number of servings: 3 ROS ROS Narrative Discussed symptom concerns with staff and spouse. Patient unable to accurately answer questions Review of Systems ROS Unobtainable: due to mental status Physical Exam Const alert, no apparent distress and well nourished HEENT normocephalic and head/scalp atraumatic General Ear: hearing grossly impaired Mouth: oral and palatal mucosa normal and lips normal Eyes PERRL, EOMs intact bilaterally, conjunctivae normal and no scleral icterus Neck full ROM and supple Chest inspection of chest normal Resp normal respiratory effort, normal air movement and no use of accessory muscles Auscultation: diminished lung sounds bilateral Cardio regular rate, regular rhythm and diaphoretic Cardio Narrative: pacemaker Rate: regular rate GI normal to inspection, nondistended, normoactive bowel sounds Back/Spine normal ROM and normal to inspection Extremity full ROM and no clubbing, cyanosis or edema Extremity Narrative: BUE weakness noted in hand grasp Skin Skin Narrative: skin tear dressing to the right elbow, multiple tattoos Neuro moves all extremities Neuro Narrative: Requires at least one to two person for ambulation. Patient is impulsive and does not use call light. Safety alarms in place to alert staff. Sensorium / Orientation: oriented to person Speech: expressive aphasia Gait (Neuro): staggering Psych Appearance: disheveled Activity / Motor Behavior: fidgetting Speech: minimal and other Has some possible expressive aphasia. Appears to understand the questions but trouble putting words together to communicate ideas. Thought Process: confused Memory / Cognition: dementia Insight: poor
[2021-12-22 15:12] VITALS: BP 126/57; PULSE 73; RESP 14; TEMP 36.1; O2SAT 97
--- NOTE | 2021-12-22 16:53 | NURSING ---
Called pt's family and LVM that there was a employee who tested positive for Covid.
[2021-12-22] MEDS: QUEtiapine 25 MG Tablet PO (20:18)
[2021-12-22] MEDS: MELATONIN 3 MG TABLET PO (20:18)
[2021-12-22] MEDS: Atorvastatin Calcium 10 MG Tablet PO (20:18)
[2021-12-22] MEDS: Memantine Hydrochloride 10 MG Tablet PO (20:18)
[2021-12-23] MEDS: Menthol/Lanolin/Calamine/Znox 113 GM Tube 1 APPLIC TOPICAL ×2 (04:59→17:57)
[2021-12-23] MEDS: Sertraline 100 MG Tablet PO (05:00)
[2021-12-23] MEDS: Pantoprazole Sodium 40 MG Tablet PO (05:00)
[2021-12-23] MEDS: levETIRAcetam Oral Solution 500 MG/5 ML PO ×2 (05:00→17:43)
[2021-12-23] MEDS: Tamsulosin HCl 0.4 MG Capsule PO (05:00)
[2021-12-23] MEDS: dexAMETHasone 4 MG Tablet 2 MG PO ×2 (08:24→17:43)
[2021-12-23] MEDS: QUEtiapine 25 MG Tablet 12.5 MG PO (08:24)
[2021-12-23] MEDS: Tuberculin,Purif.prot.deriv. 50 TU/ML Vial 0.1 ML ID (12:10)
[2021-12-23 16:00] VITALS: BP 108/60; PULSE 69; RESP 18; TEMP 36.3; O2SAT 96
[2021-12-23 19:44] VITALS: PULSE 61; RESP 16
[2021-12-23] MEDS: QUEtiapine 25 MG Tablet PO (21:59)
[2021-12-23] MEDS: Atorvastatin Calcium 10 MG Tablet PO (22:00)
[2021-12-23] MEDS: Memantine Hydrochloride 10 MG Tablet PO (22:00)
[2021-12-23] MEDS: MELATONIN 3 MG TABLET PO (22:00)
[2021-12-24] MEDS: Pantoprazole Sodium 40 MG Tablet PO (04:34)
[2021-12-24] MEDS: Sertraline 100 MG Tablet PO (04:34)
[2021-12-24] MEDS: levETIRAcetam Oral Solution 500 MG/5 ML PO ×2 (04:34→17:51)
[2021-12-24] MEDS: Tamsulosin HCl 0.4 MG Capsule PO (04:35)
[2021-12-24] MEDS: Menthol/Lanolin/Calamine/Znox 113 GM Tube 1 APPLIC TOPICAL ×2 (04:37→17:52)
[2021-12-24] MEDS: dexAMETHasone 4 MG Tablet 2 MG PO (08:43)
[2021-12-24] MEDS: QUEtiapine 25 MG Tablet 12.5 MG PO (08:43)
[2021-12-24 15:52] VITALS: BP 120/61; PULSE 65; RESP 16; TEMP 35.9; O2SAT 95
[2021-12-24] MEDS: QUEtiapine 25 MG Tablet PO (19:54)
[2021-12-24] MEDS: Atorvastatin Calcium 10 MG Tablet PO (19:54)
[2021-12-24] MEDS: MELATONIN 3 MG TABLET PO (19:55)
[2021-12-24] MEDS: Memantine Hydrochloride 10 MG Tablet PO (19:55)
[2021-12-25] MEDS: levETIRAcetam Oral Solution 500 MG/5 ML PO ×2 (05:47→17:55)
[2021-12-25] MEDS: Tamsulosin HCl 0.4 MG Capsule PO (05:48)
[2021-12-25] MEDS: Sertraline 100 MG Tablet PO (05:48)
[2021-12-25] MEDS: Pantoprazole Sodium 40 MG Tablet PO (05:48)
[2021-12-25] MEDS: Menthol/Lanolin/Calamine/Znox 113 GM Tube 1 APPLIC TOPICAL ×2 (05:52→17:55)
[2021-12-25] MEDS: dexAMETHasone 4 MG Tablet 2 MG PO (08:39)
[2021-12-25] MEDS: QUEtiapine 25 MG Tablet 12.5 MG PO (08:39)
--- NOTE | 2021-12-25 14:35 | CASEMGMT ---
Social Work This social service coordinator met with patient spouse in room. Introduced self and social service coordinator role. Patient spouse agreeable to speaking with this social service coordinator. Patient resting in bed and remains to be confused per medical team. This social service coordinator broached topic of discharge plan for patient. Patient spouse believes that patient is doing much better and plans for patient to discharge to home with spouse. Patient spouse confirms to have list of nursing homes and to have looked at list but plan is home. This social service coordinator voiced understanding. This social service coordinator communicating to patient spouse that reason for senior care recommendation for patient is due to patient being confused and concerns for patient safety. Patient spouse voiced understanding and plans to speak with family further about what to do. This social service coordinator provided patient spouse with support and active listening. Will continue to follow. CIELO Solis
[2021-12-25 15:46] VITALS: BP 138/57; PULSE 65; RESP 16; TEMP 36.2; O2SAT 97
[2021-12-25] MEDS: Acetaminophen 325 MG Tablet 975 MG PO (20:15)
[2021-12-25] MEDS: Atorvastatin Calcium 10 MG Tablet PO (20:16)
[2021-12-25] MEDS: Memantine Hydrochloride 10 MG Tablet PO (20:16)
[2021-12-25] MEDS: QUEtiapine 25 MG Tablet PO (20:16)
[2021-12-25] MEDS: MELATONIN 3 MG TABLET PO (20:17)
[2021-12-25 21:00] VITALS: PULSE 65; RESP 18; O2SAT 98
--- NOTE | 2021-12-26 04:15 | NURSING ---
Presents in common area with direct supervision, alert to self per usual, restless at times, poor safety awareness, pt. requests to sit in common area to watch tv per preference. No distress observed or reported. Resps even and unlabored. Call ortiz within reach and personal alarm in place and functioning properly to alert staff of unassisted transfers.
[2021-12-26] MEDS: Menthol/Lanolin/Calamine/Znox 113 GM Tube 1 APPLIC TOPICAL ×2 (04:59→17:51)
[2021-12-26] MEDS: Tamsulosin HCl 0.4 MG Capsule PO (05:00)
[2021-12-26] MEDS: Sertraline 100 MG Tablet PO (05:00)
[2021-12-26] MEDS: levETIRAcetam Oral Solution 500 MG/5 ML PO ×2 (05:00→17:51)
[2021-12-26] MEDS: Pantoprazole Sodium 40 MG Tablet PO (05:00)
[2021-12-26] MEDS: dexAMETHasone 4 MG Tablet 2 MG PO (07:42)
[2021-12-26] MEDS: QUEtiapine 25 MG Tablet 12.5 MG PO (07:42)
--- NOTE | 2021-12-26 08:27 | NURSING ---
message left to cancel CT scan of brain at [facility] for Dr Lin. offered to do here and fax report and mail disc. awaiting return call. unable to get transport set up, may need to reschedule.
--- NOTE | 2021-12-26 09:26 | MDS.RN ---
Information for the mds was obtained from review of the clinical record, interview of resident, staff, and direct observation of resident's care.
--- NOTE | 2021-12-26 11:30 | CASEMGMT ---
Social Work Telephone call from patient spouse, Tamia. Tamia reports to have been talking with son and thinking things over. Tamia states there is no way I could take him home in regards to the patient. This social services designee confirmed that team is recommending group home placement. This social services designee provided active listening and normalizing of Tamia's emotions/thoughts. Tamia reports plan to look over group home list further and decide on facility. This social services designee explaining patient Medicare benefits and value of transitioning patient to a nursing facility under skilled care sooner rather then later to allow for patient to have time to transition and for Tamia to have time to get finances figured out in regards to possible Medicaid. This social services designee encouraged Tamia to start Medicaid application process and to get back to this social services designee about group home choice in order for this social services designee to begin placement process and obtain bed for patient. Tamia voiced understanding. This social services designee communicating plan that patient would transition to accepting facility when acceptance is obtained, Tamia agreeable to this plan. Active support provided. Will continue to follow. Santiago MASON, CIELO
[2021-12-26 14:29] VITALS: BP 126/63; PULSE 78; RESP 18; TEMP 37; O2SAT 95
--- NOTE | 2021-12-26 15:05 | PN_ITS ---
Subjective Subjective Temp today is 98.6 which is actually higher than his usual temperature max ranges from 96.5-97. 6. VSS Maintaining appropriate oxygen saturation on RA Oral intake is variable Discussed with nursing - no problems that need addressed. Nursing tells me that he is calm and compliant now. He is redirectable and he is no longer agitated and striking out. Reviewed the PT/OT/ST notes Medication list reviewed. He denies LEOS, Cough, abd pain, LEOS. When I saw Alexandro today he was sitting in the lounge looking at a magazine. He is calm and he is able to follow simple commands. His speech is garbled at times and unintelligible. I do understand some words. He tells me that he has plenty to eat and he is good. He is unsupervised at this time and he is not attempting to get up and walk away. At admission to TCU he attempted to get out of bed by himself at night without calling nursing. The bed alarm went off and when the nurses rushed and he was sitting on the floor and had hit his head. Stat noncontrast CT brain showed increased bleeding from the last scan that was done at [facility]. He was started on Seroquel for dementia with behavioral disturbance. The dosage was gradually wa lked him to keep him calm and sleeping at night. For the first few days he was still impulsive and getting agitated with his family and attempting to get up out of bed and from a chair without assist. Now he is calm and without agitation. He still tries to get up without assist but, he has alarms on at all times and he has had no further falls. Lungs - Coarse crackles in the bases which is chronic. No tachypnea and no conversational dyspnea. No wheezing. HRRR, no gallops abd is soft, ND and NT with normal BS's. No peripheral edema. Recent lab was reviewed and the WBC is increased at 13.6 which is new....this may be due to the Decadron 2 mg daily since 12/15 ordered for cerebral edema. There is a left shift with 84% neutrophils and 1% immature granulocytes. Hemoglobin is 11.7, down from 12.1 on 12/15/2021. Creatinine is stable at 1.33 and electrolytes are within normal limits. Impressions 1. History of intracerebral bleed in November 2021. This was secondary to a fall. He fell again after admission to TCU and the stat CT brain showed increased bleeding from when he was seen in the ED initially prior to transfer to [facility]. There was a lot of cerebral edema and he has been on Decadron 2 mg daily. will repeat a NC CTB per neurosurgery at [facility] request. If the cerebral edema has decreased will taper the Decadron off. 2. Advanced dementia with behavioral disturbance. Tapering the Seroquel is contraindicated because he gets agitated and is hard to control. He gets combative. His would like to take him home if his behavior is controlled. He is no longer getting up at night and wandering around and he was previously doing this at home. 3. CRF 4. BPH. Objective Data Objective Data Vital Signs: Vital Signs Temp Pulse Resp BP Pulse Ox O2 Del Method 98.6 F 78 18 126/63 H 95 Room Air 12/26/21 14:29 12/26/21 14:29 12/26/21 14:29 12/26/21 14:29 12/26/21 14:29 12/26/21 14:29 Oxygen Delivery Method Room Air Weight: 180 lb 3.2 oz Body Mass Index (BMI) 24.9 Intake & Output: Intake and Output for Last 24 Hours 12/24/21 12/25/21 12/26/21 23:59 23:59 23:59 Intake Total 480 / 480 960 / 960 480 / 480 Balance 480 / 480 960 / 960 480 / 480 Medical Nutrition Assessment Dietitian: Malnutrition Criteria Met Start: 12/15/21 11:51 Freq: Status: Active Protocol: Document 12/20/21 11:07 CED (Rec: 12/20/21 11:07 CED [id number]) Nutrition Malnutrition Evidence of Malnutrition Exists Yes Malnutrition (moderate): Acute Illness/Injury Evidenced By Suboptimal Energy Intake ( Severe),Physical Changes ( Moderate) Intake Problem Inadequate Oral Intake Etiology related to traumatic subarachnoid hemorrhage Signs/Symptoms as evidenced by <50% po intake x 5 days sea captain and ~50% po intake since on TCU Status Active Problem Clinical Problem Acute Disease or Injury Related Malnutrition Etiology related to traumatic subarachnoid hemorrhage and inadequate energy intake Signs/Symptoms as evidenced by <50% po intake x 5 days sea captain and ~50% po intake since on TCU; res appears to have fat/muscle wasting in clavicle, shoulders , triceps, orbital, buccal Status Active Problem Biting/Chewing Difficulty Etiology related to issues with dysphagia Signs/Symptoms as evidenced by need for mech altered diet consistency Status Active Problem Recommendation Dietitian Recommendations/Changes Will continue liberal regular - consistency per FURNITURE REPAIR TECHNICIAN Will continue ensure enlive 4x /day w/ medpass Will continue magic cup/ ensure pudding w/ lunch and dinner for increased nutrition if consumed. Monitor wt trends as available and adjust supplements/diet as indicated. Lab / Micro Data Result Diagrams: 12/22/21 05:18 12/22/21 05:18 Micro: Microbiology 12/21/21 07:00 Nasal Secretion SARS-CoV-2 Antigen (Rapid) - Final 12/14/21 23:15 Nasal Secretion SARS-CoV-2 Antigen (Rapid) - Final Charges/Coding Visit Charges Inpatient E&M: 01810 Subs Hosp L2
--- NOTE | 2021-12-26 16:50 | NURSING ---
pt found on floor laying on back in lobby close to nurses station. vitals stable, pt getting up for something to eat. impulsive, does not call for help, but pt also has difficulty expressing needs verbally. dr lincoln and updated. no injuries noted.
--- NOTE | 2021-12-26 17:05 | NURSING ---
Addendum entered by Annabel Storey 12/27/21 09:44: CT results faxed to Dr. Knutson's office. Original Note: radiology transmitting CT scan results through system to Dr zahraa Gilman. will fax report as well
[2021-12-26] MEDS: Memantine Hydrochloride 10 MG Tablet PO (20:15)
[2021-12-26] MEDS: Atorvastatin Calcium 10 MG Tablet PO (20:15)
[2021-12-26] MEDS: QUEtiapine 25 MG Tablet PO (20:15)
[2021-12-26] MEDS: MELATONIN 3 MG TABLET PO (20:15)
[2021-12-26] MEDS: Ergocalciferol 1.25 MG (50, 000 UNIT) Capsule PO (20:15)
[2021-12-27] MEDS: Pantoprazole Sodium 40 MG Tablet PO (05:18)
[2021-12-27] MEDS: Tamsulosin HCl 0.4 MG Capsule PO (05:18)
[2021-12-27] MEDS: levETIRAcetam Oral Solution 500 MG/5 ML PO ×2 (05:18→16:59)
[2021-12-27] MEDS: Sertraline 100 MG Tablet PO (05:18)
[2021-12-27] MEDS: Menthol/Lanolin/Calamine/Znox 113 GM Tube 1 APPLIC TOPICAL ×2 (05:23→17:00)
[2021-12-27] MEDS: QUEtiapine 25 MG Tablet 12.5 MG PO (08:42)
[2021-12-27 14:17] VITALS: BP 130/61; PULSE 77; RESP 19; TEMP 36.6; O2SAT 97
[2021-12-27 20:15] VITALS: PULSE 65; RESP 16; O2SAT 96
[2021-12-27] MEDS: Memantine Hydrochloride 10 MG Tablet PO (20:30)
[2021-12-27] MEDS: MELATONIN 3 MG TABLET PO (20:30)
[2021-12-27] MEDS: Atorvastatin Calcium 10 MG Tablet PO (20:30)
[2021-12-27] MEDS: QUEtiapine 25 MG Tablet PO (20:30)
[2021-12-28] MEDS: Sertraline 100 MG Tablet PO (05:50)
[2021-12-28] MEDS: Tamsulosin HCl 0.4 MG Capsule PO (05:50)
[2021-12-28] MEDS: Pantoprazole Sodium 40 MG Tablet PO (05:50)
[2021-12-28] MEDS: levETIRAcetam Oral Solution 500 MG/5 ML PO ×2 (05:50→18:16)
[2021-12-28] MEDS: Menthol/Lanolin/Calamine/Znox 113 GM Tube 1 APPLIC TOPICAL ×2 (05:50→18:16)
[2021-12-28] MEDS: QUEtiapine 25 MG Tablet 12.5 MG PO (09:18)
--- NOTE | 2021-12-28 09:53 | CASEMGMT ---
Social Work Physical Therapy communicating to this social group worker that patient has been having difficulty participating in therapy and to anticipate a discharge next week from TCU. Telephone call to patient spouse, Minal. This social group worker updated Minal on above information. Minal voiced understanding. This social group worker inquired if Mnial has decided on nursing facility. Minal states [facility]. Minal not wanting to make any decisions until meeting with [facility] at 9am tomorrow morning. Minal agreeable to social work following up with Minal tomorrow morning after meeting. Minal states I will make a decision by then. Active support and listening provided. Will continue to follow. Santiago MASON, MIS
[2021-12-28 10:00] VITALS: PULSE 63; RESP 18; O2SAT 97
[2021-12-28 15:45] VITALS: BP 114/58; PULSE 70; RESP 16; TEMP 35.9; O2SAT 97
[2021-12-28] MEDS: QUEtiapine 25 MG Tablet PO (19:45)
[2021-12-28] MEDS: Atorvastatin Calcium 10 MG Tablet PO (19:45)
[2021-12-28] MEDS: MELATONIN 3 MG TABLET PO (19:46)
[2021-12-28] MEDS: Memantine Hydrochloride 10 MG Tablet PO (19:46)
[2021-12-29] MEDS: Acetaminophen 325 MG Tablet 975 MG PO (03:05)
[2021-12-29] MEDS: Sertraline 100 MG Tablet PO (05:05)
[2021-12-29] MEDS: levETIRAcetam Oral Solution 500 MG/5 ML PO ×2 (05:05→17:45)
[2021-12-29] MEDS: Pantoprazole Sodium 40 MG Tablet PO (05:05)
[2021-12-29] MEDS: Tamsulosin HCl 0.4 MG Capsule PO (05:05)
[2021-12-29] MEDS: Menthol/Lanolin/Calamine/Znox 113 GM Tube 1 APPLIC TOPICAL ×2 (05:09→17:46)
[2021-12-29 05:39] LABS: Absolute Lymphocyte Count 1.28 X10^3/uL (0.83-4.51); Absolute Neutrophil Count 6.6 X10^3/uL (2.0-7.7); Basophil# 0.05 X10^3/uL; Basophil% 0.6 % (0-1); Eosinophil# 0.22 X10^3/uL; Eosinophils% 2.5 % (0-5); Hemoglobin 11.5 g/dL (13.0-16.5); Lymphocyte # 1.28 X10^3/ul (0.83-4.51); Lymphocyte % 14.5 % (19-41); Mean Corp Hgb Conc 32.9 g/dL (32-36); Mean Corpuscular Hgb 30.8 pg (27.0-32.0); Mean Corpuscular Volume 93.8 fL (80-94); Mean Platelet Vol. 9.7 fl (6.2-12.0); Monocyte# 0.52 X10^3/uL; Monocyte% 5.9 % (0-10); NRBC Flagged by Analyzer 0 % (0-5); Neutrophil # 6.63 X10^3/uL (2.7-7.7); Neutrophil % 75.3 % (47-70); Platelet Count 108 K/mm3 (150-450); RBC Distribution Width CV 14.3 % (11.6-14.6); RBC Distribution Width SD 48.5 fl (35.1-43.9); Red Blood Count 3.73 M/mm3 (4.6-6.2); White Blood Count 8.8 K/mm3 (4.4-11.0)
[2021-12-29 06:01] LABS: Anion Gap 7 (5-15); BUN 50 mg/dL (7-18); BUN/Creat Ratio 32.7 RATIO (10-20); Calcium,Total 8.8 mg/dL (8.5-10.1); Chloride 102 mmol/L (98-107); Creatinine, Serum 1.53 mg/dL (0.70-1.30); EST Glomerular Filtration Rate 46 mL/min (>60); Est Glom Filt Rate - Afr Amer 56 mL/min (>60); Estimated Creatinine Clearance 39.89 ml/min; Glucose 116 mg/dL (74-106); Potassium 4.1 mmol/L (3.5-5.1); Sodium Level 137 mmol/L (136-145)
[2021-12-29] MEDS: QUEtiapine 25 MG Tablet 12.5 MG PO (08:42)
--- NOTE | 2021-12-29 15:09 | CASEMGMT ---
Addendum entered by Karen Contreras 12/29/21 16:13: Received return call from Diya at the [facility]. Discussed pt's need for tx to a LTC. Answered Diya's question. Diya requesting medical records from TCU SNF stay to file a claim through the [facility] to request coverage at a SNF. Diya stated there are no restrictions for which SNF, but pt would admit private pay until [facility] is approved then pt would get reimbursed. SW expressed understanding. [facility] can accept pt. SW to continue to follow. Original Note: Social Work Spoke with on DC planning. stated she spoke with Diya Street at [facility] but unsure of the next steps or if the [facility] will fund any SNF services. SW offered to contact Diya - agreeable. SW inquired about SNF choices. requested a new list to review. SW requested 3 choices and to contact this worker with preferences. expressed understanding. SW left message to speak with Diya Street to get further information. contacted SW and requested referrals to [facility], [facility] and [place]. SW emailed referrals to admissions coordinators. Will continue to follow. Karen Contreras, MARLON LOZANOW
[2021-12-29 15:32] VITALS: BP 108/54; PULSE 60; RESP 18; TEMP 36.7; O2SAT 96
[2021-12-29 19:38] VITALS: PULSE 66; RESP 18; O2SAT 96
[2021-12-29] MEDS: QUEtiapine 25 MG Tablet 50 MG PO (19:54)
[2021-12-29] MEDS: Atorvastatin Calcium 10 MG Tablet PO (19:54)
[2021-12-29] MEDS: MELATONIN 3 MG TABLET PO (19:54)
[2021-12-29] MEDS: Memantine Hydrochloride 10 MG Tablet PO (19:54)
[2021-12-30] MEDS: Pantoprazole Sodium 40 MG Tablet PO (05:32)
[2021-12-30] MEDS: Sertraline 100 MG Tablet PO (05:32)
[2021-12-30] MEDS: levETIRAcetam Oral Solution 500 MG/5 ML PO ×2 (05:32→17:48)
[2021-12-30] MEDS: Tamsulosin HCl 0.4 MG Capsule PO (05:33)
[2021-12-30] MEDS: Menthol/Lanolin/Calamine/Znox 113 GM Tube 1 APPLIC TOPICAL ×2 (05:36→17:48)
[2021-12-30 06:31] VITALS: TEMP 36.2
[2021-12-30] MEDS: QUEtiapine 25 MG Tablet 12.5 MG PO (08:20)
[2021-12-30 10:00] VITALS: PULSE 68; RESP 18
[2021-12-30 15:12] VITALS: BP 125/51; PULSE 60; RESP 18; TEMP 36.4; O2SAT 97
[2021-12-30] MEDS: MELATONIN 3 MG TABLET PO (20:52)
[2021-12-30] MEDS: Memantine Hydrochloride 10 MG Tablet PO (20:53)
[2021-12-30] MEDS: Atorvastatin Calcium 10 MG Tablet PO (20:53)
[2021-12-30] MEDS: QUEtiapine 25 MG Tablet 50 MG PO (20:54)
[2021-12-31] MEDS: Pantoprazole Sodium 40 MG Tablet PO (05:06)
[2021-12-31] MEDS: levETIRAcetam Oral Solution 500 MG/5 ML PO ×2 (05:06→17:15)
[2021-12-31] MEDS: Tamsulosin HCl 0.4 MG Capsule PO (05:07)
[2021-12-31] MEDS: Menthol/Lanolin/Calamine/Znox 113 GM Tube 1 APPLIC TOPICAL ×2 (05:07→17:15)
[2021-12-31] MEDS: Sertraline 100 MG Tablet PO (05:07)
[2021-12-31] MEDS: QUEtiapine 25 MG Tablet 12.5 MG PO (09:06)
--- NOTE | 2021-12-31 10:00 | EKG12_ITS ---
Test Reason : AMEKG Blood Pressure : / mmHG Vent. Rate : 061 BPM Atrial Rate : 060 BPM P-R Int : 230 ms QRS Dur : 130 ms QT Int : 456 ms P-R-T Axes : 104 -51 035 degrees QTc Int : 459 ms Atrial-paced rhythm with prolonged AV conduction Left axis deviation Left ventricular hypertrophy with QRS widening Abnormal ECG No previous ECGs available Confirmed by TINY BOOGIE, DMITRI ([id number]), editorial intern OLIVERIO ROCK ([id number]) on 01/03/2022 9:34:42 AM Referred By: JORGE Confirmed By:DMITRI FRANKS MD
[2021-12-31 14:05] VITALS: BP 112/57; PULSE 60; RESP 20; TEMP 37.4; O2SAT 96
[2021-12-31] MEDS: Memantine Hydrochloride 10 MG Tablet PO (20:21)
[2021-12-31] MEDS: MELATONIN 3 MG TABLET PO (20:21)
[2021-12-31] MEDS: Atorvastatin Calcium 10 MG Tablet PO (20:21)
[2021-12-31] MEDS: QUEtiapine 25 MG Tablet 50 MG PO (20:24)
[2022-01-01] MEDS: levETIRAcetam Oral Solution 500 MG/5 ML PO ×2 (06:30→18:02)
[2022-01-01] MEDS: Menthol/Lanolin/Calamine/Znox 113 GM Tube 1 APPLIC TOPICAL ×2 (06:30→18:07)
[2022-01-01] MEDS: Pantoprazole Sodium 40 MG Tablet PO (06:31)
[2022-01-01] MEDS: Sertraline 100 MG Tablet PO (06:31)
[2022-01-01] MEDS: Tamsulosin HCl 0.4 MG Capsule PO (06:32)
[2022-01-01 06:38] VITALS: BP 104/55; PULSE 68
[2022-01-01] MEDS: QUEtiapine 25 MG Tablet 12.5 MG PO (07:51)
[2022-01-01 15:17] VITALS: BP 132/72; PULSE 69; RESP 16; TEMP 36.3; O2SAT 95
[2022-01-01 15:34] VITALS: PULSE 53; O2SAT 100
[2022-01-01] MEDS: MELATONIN 3 MG TABLET PO (20:30)
[2022-01-01] MEDS: QUEtiapine 25 MG Tablet 50 MG PO (20:31)
[2022-01-01] MEDS: Atorvastatin Calcium 10 MG Tablet PO (20:31)
[2022-01-01] MEDS: Memantine Hydrochloride 10 MG Tablet PO (21:32)
[2022-01-02] MEDS: Pantoprazole Sodium 40 MG Tablet PO (05:28)
[2022-01-02] MEDS: levETIRAcetam Oral Solution 500 MG/5 ML PO ×2 (05:28→17:52)
[2022-01-02] MEDS: Tamsulosin HCl 0.4 MG Capsule PO (05:28)
[2022-01-02] MEDS: Sertraline 100 MG Tablet PO (05:28)
[2022-01-02] MEDS: Menthol/Lanolin/Calamine/Znox 113 GM Tube 1 APPLIC TOPICAL ×2 (05:34→17:53)
[2022-01-02] MEDS: QUEtiapine 25 MG Tablet 12.5 MG PO (08:08)
--- NOTE | 2022-01-02 09:31 | CASEMGMT ---
Social Work Followed up with on DC plans. aware [facility] accepted and agreeable to DC on 01/05. CC agreeable to DC 01/05. scheduled cot transport through [facility] for 01/05 at 10 am. PASRR completed. IDT notified. Plan: DC to [facility] 01/05, nonskilled, private pay, with part B therapies Karen Contreras, MARLON LOZANOW
[2022-01-02 14:13] VITALS: BP 135/53; PULSE 60; RESP 16; TEMP 36.1; O2SAT 94
--- NOTE | 2022-01-02 18:37 | NURSING ---
pt c/o burning with urination this AM, urine straw yellow, clear. dr lincoln notified, new order for UA. pt never really complains and his speech was clear when he stated ouch, that burning even painful with cleaning of urethra opening.
[2022-01-02 18:49] LABS: Mucous, Urine 0 SEEN /hpf (<or=2+); Red Blood Cells-Urine 0 SEEN /hpf (0-5); Squamous Epithelial Cells - UA 0 SEEN /hpf (0-5)
[2022-01-02 18:52] LABS: Color, Urine Yellow (Yellow); Glucose, Dipstick Normal (Normal); Ketone-Dipstick Negative (Negative); Leukocyte Esterase-Dipstick Negative /ul (Negative); Nitrite-Dipstick Negative (Negative); Occult Blood-Urine Negative /ul (Negative); Protein-Dipstick 15 mg/dl (Negative); Specific Gravity, Urine 1.015 (1.002-1.030); Urine Bilirubin Dipstick Negative (Negative); Urine Clarity Clear (Clear); Urine Urobilinogen 1 mg/dl (Normal)
[2022-01-02 19:51] LABS: Bacteria 1+ /hpf (None Seen); White Blood Cells 0-5 SEEN /hpf (0-5)
[2022-01-02] MEDS: MELATONIN 3 MG TABLET PO (22:24)
[2022-01-02] MEDS: Atorvastatin Calcium 10 MG Tablet PO (22:24)
[2022-01-02] MEDS: Memantine Hydrochloride 10 MG Tablet PO (22:24)
[2022-01-02] MEDS: Ergocalciferol 1.25 MG (50, 000 UNIT) Capsule PO (22:24)
[2022-01-02] MEDS: QUEtiapine 25 MG Tablet 50 MG PO (22:25)
[2022-01-03] MEDS: Menthol/Lanolin/Calamine/Znox 113 GM Tube 1 APPLIC TOPICAL ×2 (04:58→16:55)
[2022-01-03] MEDS: levETIRAcetam Oral Solution 500 MG/5 ML PO ×2 (05:00→16:52)
[2022-01-03] MEDS: Sertraline 100 MG Tablet PO (05:00)
[2022-01-03] MEDS: Pantoprazole Sodium 40 MG Tablet PO (05:00)
[2022-01-03] MEDS: Tamsulosin HCl 0.4 MG Capsule PO (05:00)
[2022-01-03] MEDS: QUEtiapine 25 MG Tablet 12.5 MG PO (07:32)
--- NOTE | 2022-01-03 08:27 | DS.PCM_ITS ---
Providers Date of Admission: 12/14/21 Primary Care Physician: Dr. Hi Durbin MD Consultations 12/18/21 14:59 Consult: Hospice / Palliative Care Routine Consulting Provider: [facility] Reason for Consult: Palliative EMERGENT Consult: No MD Notified: Yes Date Notified: 12/18/21 Time Notified: 14:59 Method of Notification: Text Reason For Visit: TRAUMATIC SUBARACHNOID HEMMORAGE, MALNUTRITION Diagnosis Discharge Diagnosis (1) Intracranial bleed: Status: Acute Code(s): I62.9 - Nontraumatic intracranial hemorrhage, unspecified (2) Cerebral edema: Status: Acute Code(s): G93.6 - Cerebral edema (3) Orthostatic hypotension: Status: Acute Code(s): I95.1 - Orthostatic hypotension (4) Chronic renal failure, stage 3a: Status: Acute Code(s): N18.31 - Chronic kidney disease, stage 3a (5) Normochromic normocytic anemia: Status: Acute Code(s): D64.9 - Anemia, unspecified (6) Dementia with behavioral disturbance: Status: Acute Code(s): F03.91 - Unspecified dementia with behavioral disturbance (7) BPH (benign prostatic hyperplasia): Status: Acute Code(s): N40.0 - Benign prostatic hyperplasia without lower urinary tract symptoms Qualifiers: Prostatic enlargement morphology: unspecified morphology Lower urinary tract symptom presence: symptoms absent Qualified Code(s): N40.0 - Enlarged prostate without lower urinary tract symptoms (8) Frequent falls: Status: Acute Code(s): R29.6 - Repeated falls (9) Syncope and collapse: Status: Acute Code(s): R55 - Syncope and collapse (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 transplanted heart: [place] heart Qualified Code(s): I25.10 - Atherosclerotic heart disease of [place] coronary artery without angina pectoris (11) History of coronary artery stent placement: Status: Chronic Code(s): Z95.5 - Presence of coronary angioplasty implant and graft (12) H/O coronary artery bypass surgery: Status: Chronic Code(s): Z95.1 - Presence of aortocoronary bypass graft (13) History of permanent cardiac pacemaker placement: Status: Chronic Code(s): Z95.0 - Presence of cardiac pacemaker (14) Sick sinus syndrome: Status: Chronic Code(s): I49.5 - Sick sinus syndrome (15) Hyperlipidemia: Status: Chronic Code(s): E78.5 - Hyperlipidemia, unspecified Qualifiers: Hyperlipidemia type: pure hypercholesterolemia Qualified Code(s): E78.00 - Pure hypercholesterolemia, unspecified; E78.0 - Pure hypercholesterolemia (16) Debility: Status: Acute Code(s): R53.81 - Other malaise Medications at Discharge Home Medications atorvastatin 10 mg tablet 10 mg PO QHS cholesterol 07/23/14 esomeprazole magnesium 40 mg capsule,delayed release 40 mg PO DAILY acid reflux 07/23/14 ergocalciferol (vitamin D2) 1,250 mcg (50,000 unit) capsule 50,000 unit PO TU supplement 07/08/15 finasteride 5 mg tablet 5 mg PO QHS PROSTATE 07/13/20 acetaminophen 325 mg tablet 975 mg PO Q6H PRN Pain 12/14/21 levetiracetam 500 mg tablet 500 mg PO BID prevent seizures 12/14/21 tamsulosin 0.4 mg capsule 0.4 mg PO DAILY bladder 12/14/21 melatonin 3 mg tablet 3 mg PO QHS #0 tabs 01/03/22 memantine 10 mg tablet 10 mg PO QHS #0 tabs 01/03/22 quetiapine 25 mg tablet 12.5 mg PO 0800 #0 tabs 01/03/22 quetiapine 25 mg tablet 50 mg PO 2000 #0 tabs 01/03/22 sertraline 100 mg tablet 100 mg PO DAILY #0 tabs 01/03/22 Hospital Course Operations None Procedures None Summary of Care Provided Minutes Spent on Discharge: 35 Hospital Course: 86 year old male with below past medical history hospitalized for intracranial bleed, complicated by dementia with behavioral disorder, admitted to TCU with debility, here for rehabilitation, strengthening, prior to discharge. Discharge to [facility] 01/05/2022, nonskilled, private pay, with Part B therapies. Physical Exam Const alert General Appearance: cooperative HEENT normocephalic Eyes PERRL and EOMs intact bilaterally Neck supple, no JVD and no carotid bruits Resp normal respiratory effort, normal air movement and clear to auscultation bilaterally Cardio regular rate and regular rhythm GI normal to inspection, nondistended, normoactive bowel sounds, non-tender and non-distended Extremity normal capillary refill General Extremity: Negative for edema Skin no rashes or lesions noted General Skin Exam: no breakdown Psych affect normal Appearance: appropriate Medical Records Data Medical Nutrition Assessment Dietitian: Malnutrition Criteria Met Start: 12/15/21 11:51 Freq: Status: Active Protocol: Document 12/20/21 11:07 CED (Rec: 12/20/21 11:07 [facility] [id number]) Nutrition Malnutrition Evidence of Malnutrition Exists Yes Malnutrition (moderate): Acute Illness/Injury Evidenced By Suboptimal Energy Intake ( Severe),Physical Changes ( Moderate) Intake Problem Inadequate Oral Intake Etiology related to traumatic subarachnoid hemorrhage Signs/Symptoms as evidenced by <50% po intake x 5 days sea captain and ~50% po intake since on TCU Status Active Problem Clinical Problem Acute Disease or Injury Related Malnutrition Etiology related to traumatic subarachnoid hemorrhage and inadequate energy intake Signs/Symptoms as evidenced by <50% po intake x 5 days sea captain and ~50% po intake since on TCU; res appears to have fat/muscle wasting in clavicle, shoulders , triceps, orbital, buccal Status Active Problem Biting/Chewing Difficulty Etiology related to issues with dysphagia Signs/Symptoms as evidenced by need for mech altered diet consistency Status Active Problem Recommendation Dietitian Recommendations/Changes Will continue liberal regular - consistency per HAY STACKER OPERATOR Will continue ensure enlive 4x /day w/ medpass Will continue magic cup/ ensure pudding w/ lunch and dinner for increased nutrition if consumed. Monitor wt trends as available and adjust supplements/diet as indicated. Weight / BMI Weight Weight: 81.737 kg Body Mass Index (BMI) 24.9 ABG / Lab / Microbiology Data Result Diagrams: 12/29/21 05:21 12/29/21 05:21 Laboratory: Laboratory Results - last 24 hr 01/02/22 18:35: Urine Color Yellow, Urine Clarity Clear, Urine pH 6.0, Ur Specific [place] 1.015, Urine Protein 15 H, Urine Glucose (UA) Normal, Urine Ketones Negative, Urine Occult Blood Negative, Urine Nitrite Negative, Urine Bi lirubin Negative, Urine Urobilinogen 1 H, Ur Leukocyte Esterase Negative, Urine RBC 0 SEEN, Urine WBC 0-5 SEEN, Ur Squamous Epith Cells 0 SEEN, Urine Bacteria 1+, Urine Mucus 0 SEEN Microbiology: Microbiology 12/28/21 14:37 Nasal Secretion SARS-CoV-2 Antigen (Rapid) - Final 12/21/21 07:00 Nasal Secretion SARS-CoV-2 Antigen (Rapid) - Final 12/14/21 23:15 Nasal Secretion SARS-CoV-2 Antigen (Rapid) - Final D/C Instructions Discharge Diet: No restrictions Discharge Activity: Return to Normal Activity, May Shower and Use Walker Weight Bearing Status: Weight bearing as tolerated Call your doctor if you observe: Fever of 101 or Higher, Inability to urinate, Inability to have a bowel movement, Shortness of breath, Dizziness, Fainting spells, Swelling in the ankles, Chest pain and Uncontrolled pain Additional Instructions: Discharge to [facility] 01/05/2022, nonskilled, private pay, with Part B therapies. Meaningful Use Info Meaningful Use Diagnoses (Choose all that apply): Hemorrhagic CVA CVA Therapy Assessed for PT,OT and/or ST?: Yes Discharge Plan Admission Admit Date/Time: 12/14/21 19:00 Primary Reason for Your Visit: Debility. Attending Provider: Frederick Fang Chi Primary Care Provider: Hi Durbin Consulting Providers: Mary Bo ; Reji Mcmahan ; Kerline Vail ; Shirley Bradley ; Lenore Eldridge DOG GROOMER Instructions Additional Instructions / Restrictions: Discharge to [facility] 01/05/2022, nonskilled, private pay, with Part B therapies. Discharge Orders/Prescriptions Prescriptions: New quetiapine 25 mg Tablet 12.5 mg PO 0800 Qty: 0 0RF quetiapine 25 mg Tablet 50 mg PO 1999 Qty: 0 0RF sertraline 100 mg Tablet 100 mg PO DAILY Qty: 0 0RF melatonin 3 mg Tablet 3 mg PO QHS Qty: 0 0RF memantine 10 mg Tablet 10 mg PO QHS Qty: 0 0RF Continued atorvastatin 10 MG tablet 10 mg PO QHS Label Comments: cholesterol esomeprazole magnesium 40 MG capsule 40 mg PO DAILY Label Comments: acid reflux ergocalciferol (vitamin D2) 50,000 UNIT capsule 50,000 unit PO TU Label Comments: supplement finasteride 5 MG tablet 5 mg PO QHS tamsulosin 0.4 mg Capsule 0.4 mg PO DAILY acetaminophen 325 mg Tablet 975 mg PO Q6H PRN (Reason: Pain) levetiracetam 500 mg Tablet 500 mg PO BID Discontinued fluticasone propionate 50 mcg/actuation spray,suspension 2 spray intranasal DAILY ascorbic acid (vitamin C) 500 MG tablet 500 mg PO DAILY@0800 Label Comments: supplement sertraline 100 mg tablet 200 mg PO DAILY Label Comments: depression aspirin 325 MG tablet 325 mg PO DAILY@0800 Label Comments: heart health nitroglycerin 0.4 MG tablet 0.4 mg SL Q5M PRN (Reason: Chest Pain) Label Comments: chest pain clopidogrel 75 MG tablet 75 mg PO DAILY memantine 5 mg tablet 10 mg PO DAILY melatonin 3 mg Tablet 6 mg PO DAILY Referrals / Follow Up: Camron Knutson [Other] ( Neurosurgery f/u SaturdayDecember 26 @ [address] scheduled at 1330 before appt) Hi Durbin MD [Primary Care Provider] - Within 2 Weeks Louis Winters MD [NON-STAFF] - In 1 Week (Urologist f/u in 1 week) Disposition Disposition (needs filled in before D/C Order can be placed): NonSkilled NH/Intermed Care
--- NOTE | 2022-01-03 08:36 | TREXTCAR_ITS ---
Diet Diet Order/Speech Therapy: 12/14/21 19:53 Diet: Regular - General Food consistency:: Mechanical (Minced/Moist) Liquid Consistency:: Regular/Thin Type of Dietary Supplement:: EP w/ L & MC w/ D Routine Orders/Code Status [facility]s) Left knee abrasion: Wound Type: Abrasion Dressing Change: cleanse, adaptic, cover with gauze, wrap with martin per order Left elbow abrasion: Wound Type: Abrasion Right 2nd toe: Wound Type: missing toenail Right elbow skin tear: Wound Type: Skin Tear Dressing Change: adaptic, gauze, kerlix Left Forearm: Wound Type: Skin Tear Dressing Change: dry/dressing removed left BRADY Therapies Weight Bearing: Weight bearing as tolerated Physical Therapy: Eval and Treat Occupational Therapy: Eval and Treat Speech Therapy: Eval and Treat Problem/Diagnosis (1) Intracranial bleed: Status: Acute Code(s): I62.9 - Nontraumatic intracranial hemorrhage, unspecified (2) Cerebral edema: Status: Acute Code(s): G93.6 - Cerebral edema (3) Orthostatic hypotension: Status: Acute Code(s): I95.1 - Orthostatic hypotension (4) Chronic renal failure, stage 3a: Status: Acute Code(s): N18.31 - Chronic kidney disease, stage 3a (5) Normochromic normocytic anemia: Status: Acute Code(s): D64.9 - Anemia, unspecified (6) Dementia with behavioral disturbance: Status: Acute Code(s): F03.91 - Unspecified dementia with behavioral disturbance (7) BPH (benign prostatic hyperplasia): Status: Acute Code(s): N40.0 - Benign prostatic hyperplasia without lower urinary tract symptoms (8) Frequent falls: Status: Acute Code(s): R29.6 - Repeated falls (9) Syncope and collapse: Status: Acute Code(s): R55 - Syncope and collapse (10) Atherosclerotic heart disease of [place] coronary artery without angina pectoris: Status: Chronic Code(s): I25.10 - Atherosclerotic heart disease of [place] coronary artery without angina pectoris (11) History of coronary artery stent placement: Status: Chronic Code(s): Z95.5 - Presence of coronary angioplasty implant and graft Comment: [id number]-[id number] LAD w/ 3.0 x 16 mm Synergy 5/10/16 (12) H/O coronary artery bypass surgery: Status: Chronic Code(s): Z95.1 - Presence of aortocoronary bypass graft Comment: CABG x 3 RA-Distal RCA, SVG-OM2 and SVG-D1 12/08/2001 (13) History of permanent cardiac pacemaker placement: Status: Chronic Code(s): Z95.0 - Presence of cardiac pacemaker (14) Sick sinus syndrome: Status: Chronic Code(s): I49.5 - Sick sinus syndrome (15) Hyperlipidemia: Status: Chronic Code(s): E78.5 - Hyperlipidemia, unspecified (16) Debility: Status: Acute Code(s): R53.81 - Other malaise Allergies/Procedures Done in Hospital Allergies donepezil Allergy (Intermediate, Verified 12/15/21 09:39) hallucinations niacin [From Niaspan Extended-Release] Allergy (Verified 12/15/21 09:39) Hives pravastatin Allergy (Verified 12/15/21 09:39) Other ELEVATED LIVER ENZYMES simvastatin [From Zocor] Allergy (Verified 12/15/21 09:39) Other ELEVATED LIVER ENZYMES metoprolol Adverse Reaction (Severe, Verified 12/15/21 09:39) Hypotensive/passing out Type of Care/Length of Stay Estimated LOS: More Than 30 Days Type of Care Needed: Intermediate Rehab Potential: Fair Prognosis: Fair Additional Orders/Day of Discharge Additional Orders: part B therapies Day of Discharge: 01/05/22 Dietary and Speech Recommendations Dietitian Recommendations/Changes: Will continue liberal regular - consistency per ELIGIBILITY EXAMINER Will continue ensure enlive 4x/day w/ medpass Will continue magic cup/ ensure pudding w/ lunch and dinner for increased nutrition if consumed. Monitor wt trends as available and adjust supplements/diet as indicated. Discharge Plan Admission Admit Date/Time: 12/14/21 19:00 Primary Reason for Your Visit: Debility. Attending Provider: Frederick Fang Chi Primary Care Provider: Hi Durbin Consulting Providers: Mary Bo ; Reji Mcmahan ; Kerline Vail ; Shirley Bradley ; Lenore Eldridge CIVIL SERVICE WORKER Instructions Additional Instructions / Restrictions: Discharge to [facility] 01/05/2022, nonskilled, private pay, with Part B therapies. Discharge Orders/Prescriptions Prescriptions: New quetiapine 25 mg Tablet 12.5 mg PO 0800 Qty: 0 0RF quetiapine 25 mg Tablet 50 mg PO 1999 Qty: 0 0RF sertraline 100 mg Tablet 100 mg PO DAILY Qty: 0 0RF melatonin 3 mg Tablet 3 mg PO QHS Qty: 0 0RF memantine 10 mg Tablet 10 mg PO QHS Qty: 0 0RF Continued atorvastatin 10 MG tablet 10 mg PO QHS Label Comments: cholesterol esomeprazole magnesium 40 MG capsule 40 mg PO DAILY Label Comments: acid reflux ergocalciferol (vitamin D2) 50,000 UNIT capsule 50,000 unit PO TU Label Comments: supplement finasteride 5 MG tablet 5 mg PO QHS tamsulosin 0.4 mg Capsule 0.4 mg PO DAILY acetaminophen 325 mg Tablet 975 mg PO Q6H PRN (Reason: Pain) levetiracetam 500 mg Tablet 500 mg PO BID Discontinued fluticasone propionate 50 mcg/actuation spray,suspension 2 spray intranasal DAILY ascorbic acid (vitamin C) 500 MG tablet 500 mg PO DAILY@0800 Label Comments: supplement sertraline 100 mg tablet 200 mg PO DAILY Label Comments: depression aspirin 325 MG tablet 325 mg PO DAILY@0800 Label Comments: heart health nitroglycerin 0.4 MG tablet 0.4 mg SL Q5M PRN (Reason: Chest Pain) Label Comments: chest pain clopidogrel 75 MG tablet 75 mg PO DAILY memantine 5 mg tablet 10 mg PO DAILY melatonin 3 mg Tablet 6 mg PO DAILY Referrals / Follow Up: Camron Knutson [Other] ( Neurosurgery f/u SaturdayDecember 26 @ [address] scheduled at 1330 before appt) Hi Durbin MD [Primary Care Provider] - Within 2 Weeks Louis Winters MD [NON-STAFF] - In 1 Week (Urologist f/u in 1 week) Disposition Disposition (needs filled in before D/C Order can be placed): NonSkilled NH/Intermed Care (1) BPH (benign prostatic hyperplasia) Qualifiers: Prostatic enlargement morphology: unspecified morphology Lower urinary tract symptom presence: symptoms absent Qualified Code(s): N40.0 - Enlarged prostate without lower urinary tract symptoms (2) Atherosclerotic heart disease of [place] coronary artery without angina pectoris Qualifiers: [place] vs. transplanted heart: [place] heart Qualified Code(s): I25.10 - Atherosclerotic heart disease of [place] coronary artery without angina pectoris (3) Hyperlipidemia Qualifiers: Hyperlipidemia type: pure hypercholesterolemia Qualified Code(s): E78.00 - Pure hypercholesterolemia, unspecified; E78.0 - Pure hypercholesterolemia
[2022-01-03 14:45] VITALS: RESP 16
[2022-01-03 14:50] VITALS: BP 135/62; PULSE 62; RESP 18; TEMP 36; O2SAT 92
[2022-01-03] MEDS: QUEtiapine 25 MG Tablet 50 MG PO (20:39)
[2022-01-03] MEDS: Atorvastatin Calcium 10 MG Tablet PO (20:39)
[2022-01-03] MEDS: MELATONIN 3 MG TABLET PO (20:39)
[2022-01-03] MEDS: Memantine Hydrochloride 10 MG Tablet PO (20:40)
[2022-01-04] MEDS: QUEtiapine 25 MG Tablet 12.5 MG PO (08:54)
[2022-01-04] MEDS: levETIRAcetam Oral Solution 500 MG/5 ML PO ×2 (08:55→17:05)
[2022-01-04] MEDS: Sertraline 100 MG Tablet PO (08:55)
[2022-01-04] MEDS: Tamsulosin HCl 0.4 MG Capsule PO (08:55)
[2022-01-04] MEDS: Pantoprazole Sodium 40 MG Tablet PO (08:55)
[2022-01-04] MEDS: Menthol/Lanolin/Calamine/Znox 113 GM Tube 1 APPLIC TOPICAL ×2 (08:56→17:05)
[2022-01-04 10:00] VITALS: PULSE 60; RESP 18; O2SAT 95
--- NOTE | 2022-01-04 10:11 | NURSING ---
Nurse Hand Tire Trimmer, Dr. Fang and patient's spouse notified of fall.
--- NOTE | 2022-01-04 10:19 | NURSING ---
Notified Dr. Fang of patients fall, received order for Neuro checks and CT of head. Will add order.
[2022-01-04 13:53] VITALS: BP 136/53; PULSE 62; RESP 18; TEMP 36.2; O2SAT 94
[2022-01-04] MEDS: MELATONIN 3 MG TABLET PO (20:02)
[2022-01-04] MEDS: QUEtiapine 25 MG Tablet 50 MG PO (20:02)
[2022-01-04] MEDS: Atorvastatin Calcium 10 MG Tablet PO (20:02)
[2022-01-04] MEDS: Memantine Hydrochloride 10 MG Tablet PO (20:03)
[2022-01-05 05:41] LABS: Absolute Lymphocyte Count 1.38 X10^3/uL (0.83-4.51); Absolute Neutrophil Count 3.9 X10^3/uL (2.0-7.7); Basophil# 0.03 X10^3/uL; Basophil% 0.5 % (0-1); Eosinophil# 0.29 X10^3/uL; Eosinophils% 4.8 % (0-5); Hemoglobin 10.9 g/dL (13.0-16.5); Lymphocyte # 1.38 X10^3/ul (0.83-4.51); Lymphocyte % 22.6 % (19-41); Mean Corpuscular Hgb 30.4 pg (27.0-32.0); Mean Corpuscular Volume 92.2 fL (80-94); Mean Platelet Vol. 9.5 fl (6.2-12.0); Monocyte# 0.45 X10^3/uL; Monocyte% 7.4 % (0-10); NRBC Flagged by Analyzer 0 % (0-5); Neutrophil # 3.92 X10^3/uL (2.7-7.7); Neutrophil % 64.2 % (47-70); Platelet Count 102 K/mm3 (150-450); RBC Distribution Width CV 13.6 % (11.6-14.6); RBC Distribution Width SD 46.3 fl (35.1-43.9); Red Blood Count 3.58 M/mm3 (4.6-6.2); White Blood Count 6.1 K/mm3 (4.4-11.0)
[2022-01-05] MEDS: Menthol/Lanolin/Calamine/Znox 113 GM Tube 1 APPLIC TOPICAL (06:00)
[2022-01-05] MEDS: Sertraline 100 MG Tablet PO (06:00)
[2022-01-05] MEDS: Tamsulosin HCl 0.4 MG Capsule PO (06:00)
[2022-01-05] MEDS: Pantoprazole Sodium 40 MG Tablet PO (06:00)
[2022-01-05] MEDS: levETIRAcetam Oral Solution 500 MG/5 ML PO (06:00)
[2022-01-05 06:02] LABS: Anion Gap 6 (5-15); BUN 29 mg/dL (7-18); Calcium,Total 8.7 mg/dL (8.5-10.1); Chloride 108 mmol/L (98-107); Creatinine, Serum 1.32 mg/dL (0.70-1.30); EST Glomerular Filtration Rate 55 mL/min (>60); Est Glom Filt Rate - Afr Amer 66 mL/min (>60); Estimated Creatinine Clearance 46.24 ml/min; Glucose 105 mg/dL (74-106); Sodium Level 138 mmol/L (136-145)
[2022-01-05] MEDS: QUEtiapine 25 MG Tablet 12.5 MG PO (07:28)
[2022-01-05 08:19] VITALS: BP 126/63; PULSE 60; RESP 18; TEMP 36.1; O2SAT 94
--- NOTE | 2022-01-05 10:10 | NURSING ---
REPORT CALLED TO [facility]. SPOKE WITH NURSE BECERRIL.
--- NOTE | 2022-01-10 12:56 | NURSING ---
Product Introduction Manager Note: Initial activity assessment completed on paper by interim interpretive program coordinator.
== END 2022-01-05 11:20 | disposition intermediate care facility (04) | DRG 949 ==
PROVIDERS: Internal Medicine; Admitting Provider Family Medicine Geriatric Medicine; PCP Family Medicine; Visit Provider Family Medicine Geriatric Medicine
DX: S06.369D Traumatic hemorrhage of cerebrum, unspecified, with loss of consciousness of unspecified duration, subsequent encounter (principal); G93.6 Cerebral edema; F03.91 Unspecified dementia, unspecified severity, with behavioral disturbance; I27.21 Secondary pulmonary arterial hypertension; S50.312A Abrasion of left elbow, initial encounter; D64.9 Anemia, unspecified; N18.31 Chronic kidney disease, stage 3a; I25.10 Atherosclerotic heart disease of native coronary artery without angina pectoris; I12.9 Hypertensive chronic kidney disease with stage 1 through stage 4 chronic kidney disease, or unspecified chronic kidney disease; W19.XXXD Unspecified fall, subsequent encounter; W19.XXXA Unspecified fall, initial encounter; E78.00 Pure hypercholesterolemia, unspecified; E55.9 Vitamin D deficiency, unspecified; Z87.891 Personal history of nicotine dependence; Z66 Do not resuscitate; Y93.9 Activity, unspecified; Y99.9 Unspecified external cause status; Y92.129 Unspecified place in nursing home as the place of occurrence of the external cause; Z79.899 Other long term (current) drug therapy; Z79.82 Long term (current) use of aspirin; Z79.02 Long term (current) use of antithrombotics/antiplatelets; N40.1 Benign prostatic hyperplasia with lower urinary tract symptoms; Z95.0 Presence of cardiac pacemaker; R33.8 Other retention of urine
CPT/HCPCS: 36415; 80048; 81001; 83735; 85025; 87426; 87811; 92507; 92523; 92526; 92610; 93005; 97116; 97162; 97166; 97530; 97535; 97802; J7030; A4216

== ENCOUNTER 2021-12-15 09:14 | Emergency (ER) | payer MEDICARE, OTHER, SELFPAY ==
[2021-12-15 09:15] VITALS: BP 134/74; PULSE 65; RESP 17; TEMP 35.8; O2SAT 98; BMI 23.1
--- NOTE | 2021-12-15 09:21 | CT_ITS ---
STUDY: CT CERVICAL SPINE WITHOUT CONTRAST REASON FOR EXAM: Male, 86 years old. History of fall. RADIATION DOSAGE (If Supplied By Facility): CTDIvol = ( 24.82 ) mGy, DLP = ( 565.68 ) mGycm TECHNIQUE: High resolution transaxial imaging was performed without contrast material. Sagittal and coronal images were reconstructed. Individualized dose optimization techniques were used for this CT. COMPARISON: Comparison is made with prior study dated 09/19/2020. FINDINGS: Normal craniovertebral junction. There are degenerative changes of the anterior atlantoaxial articulation. Normal odontoid process. There is straightening of the normal cervical lordosis. Normal vertebral bodies and posterior osseous elements. C2-3: Normal endplates. Normal disc height and morphology. Normal central canal and intervertebral neuroforamina. C3-4: Normal endplates. Normal disc height and morphology. Normal central canal and intervertebral neuroforamina. C4-5: Normal endplates. Normal disc height and morphology. Normal central canal and intervertebral neuroforamina. C5-6: Anterior spondylosis. Mild degree of disc space narrowing. Uncovertebral arthrosis. Bilateral neural foraminal stenosis worse on the left side. C6-7: Moderate degree of disc space narrowing. Spondylosis. Uncovertebral arthrosis. Bilateral neural foraminal stenosis worse on the right side. C7-T1: Disc space narrowing. Spondylosis. Atherosclerotic calcification in the carotid bifurcations bilaterally. CT/Spine Cervical without Contras IMPRESSION: Multilevel degenerative changes, as described above. Electronically Signed: Rudy Gordillo MD at 9:59 EDT ,
[2021-12-15 09:37] VITALS: BP 139/50; PULSE 60; RESP 18; O2SAT 99
--- NOTE | 2021-12-15 09:43 | EX.ED.GENINJ ---
HPI History of Present Illness Chief Complaint: Head Injury Informant: other Narrative Narrative: Patient sent down from TCU for unwitnessed fall with a CT concerning for a worsening head bleed. I spoke with physician there Dr. Horne. Reports patient just came to the facility yesterday for a recent bleed, unclear on CODE STATUS. Unwitnessed fall. He has history of dementia. He is not on any anticoagulation. Reported changes mentally from baseline from when they had him yesterday therefore sent down here. She was called and the spouse to discuss the patient's CODE STATUS. Reviewing CT scan report noting concerning increased size of intraparenchymal hematoma up to 3.6 cm from 3.2 cm. There is vasogenic edema and a stable minimal subarachnoid hemorrhage adjacent to the parenchymal hematoma. There is also anterior bow development of minimal intraventricular blood. There is noted mass-effect on the atrium and the lateral ventricle from the hematoma. Review records,. Had concerning syncopal episode 4 days ago, initial thought STEMI on EKG however cardiology canceled this and repeat EKG was stable. However with the fall he had a concerning intraparenchymal bleed and sent up to [facility]. There is no surgical intervention. Patient is denying any symptoms. There is abrasion right elbow. [facility] Medical History Atherosclerotic heart disease of [place] coronary artery without angina pectoris BPH (benign prostatic hyperplasia) Dementia Hyperlipidemia Secondary pulmonary arterial hypertension Sick sinus syndrome Syncope and collapse Home Medications ascorbic acid (vitamin C) 500 mg tablet 500 mg PO DAILY@0800 07/23/14 [History Last Taken 07/13/20] atorvastatin 10 mg tablet 10 mg PO QHS cholesterol 07/23/14 [History Last Taken 07/12/20] esomeprazole magnesium 40 mg capsule,delayed release 40 mg PO DAILY acid reflux 07/23/14 [History Last Taken 07/13/20] aspirin 325 mg tablet,delayed release 325 mg PO DAILY@0800 07/08/15 [History Last Taken 07/13/20] ergocalciferol (vitamin D2) 1,250 mcg (50,000 unit) capsule 50,000 unit PO TU supplement 07/08/15 [History Last Taken 07/05/20] nitroglycerin 0.4 mg sublingual tablet 0.4 mg sublingual Q5M PRN Chest Pain 07/08/15 [History Last Taken Unknown] clopidogrel 75 mg tablet 75 mg PO DAILY 10/27/15 [History Last Taken 07/13/20] finasteride 5 mg tablet 5 mg PO QHS PROSTATE 07/13/20 [History Last Taken 07/12/20] sertraline 100 mg tablet 200 mg PO DAILY mood 09/01/20 [History Last Taken Unknown] fluticasone propionate 50 mcg/actuation nasal spray,suspension 2 spray intranasal DAILY 08/17/21 [History Last Taken Unknown] memantine 5 mg tablet 10 mg PO DAILY memory 12/10/21 [History Last Taken Unknown] acetaminophen 325 mg tablet 975 mg PO Q6H PRN Pain 12/14/21 [History Last Taken Unknown] levetiracetam 500 mg tablet 500 mg PO BID prevent seizures 12/14/21 [History Last Taken Unknown] melatonin 3 mg tablet 6 mg PO DAILY sleep 12/14/21 [History Last Taken Unknown] tamsulosin 0.4 mg capsule 0.4 mg PO DAILY bladder 12/14/21 [History Last Taken Unknown] Allergy/AdvReac Type Severity Reaction Status Date / Time donepezil Allergy Intermediate hallucinati Verified 12/15/21 09:39 ons niacin Allergy Hives Verified 12/15/21 09:39 [From Niaspan Extended-Release] pravastatin Allergy Other Verified 12/15/21 09:39 simvastatin [From Zocor] Allergy Other Verified 12/15/21 09:39 metoprolol AdvReac Severe Hypotensive/passing Verified 12/15/21 09:39 out Family History Mother , age 90 CAD (coronary artery disease) Hypertension Brother CVA (cerebral vascular accident) Brother Cancer Brother Heart disease Surgical History H/O coronary artery bypass surgery (12/08/01) History of coronary artery stent placement (10/04/15) History of permanent cardiac pacemaker placement (07/11/15) History of transurethral resection of prostate Social History Smoking Status: Former smoker how long ago did patient quit smokin-40 years ago alcohol intake: never substance use type: marijuana caffeine: Yes Type: coffee Number of servings: 3 ROS ROS ED ROS Narrative Limited due to dementia. Review of Systems ROS Unobtainable: other EXAM Physical Exam Const Vital Signs: 12/15/21 09:15 12/15/21 09:26 12/15/21 09:37 Temperature 96.5 F L Temperature Source Temporal Pulse Rate 65 60 Respiratory Rate 17 18 Respiratory Effort Normal Non-Labored Blood Pressure 134/74 H 139/50 H Blood Pressure Mean 94 79 Pulse Ox 98 99 Oxygen Delivery Method Room Air Room Air 12/15/21 09:37 12/15/21 10:46 Temperature Temperature Source Pulse Rate 60 Respiratory Rate Respiratory Effort Blood Pressure 128/65 H Blood Pressure Mean Pulse Ox 99 Oxygen Delivery Method Room Air Positive well nourished and well developed General Appearance ED: well developed and NAD HEENT Reports moist mucous membranes HEENT Narrative: Small contusion right forehead. No hemotympanums. normocephalic Eyes PERRL, EOMs intact bilaterally and conjunctivae normal General Eye ED: Yes normal appearance of both eyes Neck no lymphadenopathy and supple General: Negative for tenderness Chest Wall inspection of chest normal and palpation of chest normal Chest Narrative: No chest wall tenderness or crepitus. No ecchymosis. Chest: Negative for tenderness Resp normal respiratory effort and normal air movement Effort and Inspection: symmetric chest movement; Negative for respiratory distress Cardio regular rate, regular rhythm and no murmurs Peripheral Pulses: pulses 2+ throughout GI normal to inspection, nondistended, normoactive bowel sounds and non-tender Palpation: Negative for guarding or rebound tenderness present Back/Spine no CVA tenderness and no thoracic nor lumbar tenderness Extremity full ROM Extremity Narrative: Right upper extremity small skin tear at the elbow full range of motion no deformities. General Extremety ED: Negative for deformity, edema or tenderness General Extremity: Negative for deformity or edema Neuro no sensory deficits noted Neuro Narrative: Alert to person. Moving all extremities. Following commands. Sensorium / Orientation: awake and alert Skin Skin Narrative: See above MDM MDM MDM Narrative Medical decision making narrative: Patient vital stable he is protecting his airway. With extension injury c-collar ordered for cervical spine clearance with CT. Initial order labs EKG Per preparations. However called back shortly from physician upstairs Dr. Horne, she spoke with the spouse, stating patient now a DNR comfort care only. He was not a surgical candidate at [facility]. She is filling out the DNR comfort care forms. Plan will be to send the patient back up to TCU for comfort care treatment. I did cancel blood work EKG. Cervical spine films negative I cleared his c-collar. His spouse Tamia bedside present I discussed findings with her. She does confirm comfort care status. Patient be transferred back to TCU to be managed up there. Lab Data Attestation: I reviewed the patient's lab results. Labs: Laboratory Results - last 24 hr 12/15/21 12/15/21 09:30 09:30 WBC Cancelled Corrected WBC Cancelled RBC Cancelled Hgb Cancelled Hct Cancelled MCV Cancelled MCH Cancelled MCHC Cancelled RDW Std Deviation Cancelled RDW Coeff of Bekah Cancelled Plt Count Cancelled MPV Cancelled Immature Gran % (Auto) Cancelled Neut % (Auto) Cancelled Lymph % (Auto) Cancelled [place] % (Auto) Cancelled Eos % (Auto) Cancelled Baso % (Auto) Cancelled Absolute Neuts (auto) Cancelled Absolute Lymphs (auto) Cancelled Total Counted Cancelled Neutrophils % (Manual) Cancelled Band Neutrophils % Cancelled Lymphocytes % (Manual) Cancelled Monocytes % (Manual) Cancelled Eosinophils % (Manual) Cancelled Basophils % (Manual) Cancelled Metamyelocytes % Cancelled Myelocytes % Cancelled Promyelocytes % Cancelled Blast Cells % Cancelled Plasma Cell % (Manual) Cancelled Other Cells % Cancelled Nucleated RBC % Cancelled Nucleated RBCs/100 WBC Cancelled Differential Comment Cancelled Diff Path Review Cancelled Hypersegmented Neuts Cancelled Atypical Lymphocytes Cancelled Reactive Lymphocytes Cancelled Smudge Cells Cancelled Toxic Granulation Cancelled Toxic Vacuolation Cancelled Dohle Bodies Cancelled Ismael Rods Cancelled Platelet Estimate Cancelled Plt Morphology Comment Cancelled RBC Morphology Cancelled Polychromasia Cancelled Hypochromasia Cancelled Poikilocytosis Cancelled Basophilic Stippling Cancelled Anisocytosis Cancelled Microcytosis Cancelled Macrocytosis Cancelled Spherocytes Cancelled Sickle Cells Cancelled Target Cells Cancelled Tear Drop Cells Cancelled Ovalocytes Cancelled Stomatocytes Cancelled Holder-Broseley Bodies Cancelled [place] Cells Cancelled Bite Cells Cancelled Crenated Cell Cancelled Acanthocytes (Spur) Cancelled Rouleaux Cancelled Schistocytes Cancelled Sodium 136 Potassium 4.2 Chloride 105 Carbon Dioxide 21.0 Anion Gap 10 BUN 30 H Creatinine 1.54 H Estim Creat Clear Calc 39.43 Est GFR (MDRD) Af Amer 56 L Est GFR (MDRD) Non-Af 46 L BUN/Creatinine Ratio 19.5 Glucose 107 H Calcium 9.5 Radiography Diagnostic Testing: Clinical Impression(s) from Imaging Studies Cervical Spine CT 12/15/21 09:21 IMPRESSION: Multilevel degenerative changes, as described above. Electronically Signed: Rudy Gordillo MD at 9:59 EDT , Critical Care Time Critical Care Time: Yes Critical care time (excluding procedures): 30-74 minutes, Discussing w/Patient &/or Family/Singe Machine Operator, Discussing w/Consultants, Arranging Admission or Transfer, Performing Direct Patient Care at Bedside and - (35 minutes) Discharge Plan Triage Chief Complaint: Head Injury ED Provider: Tono Elliott Dx/Rx/DC Orders Clinical Impression: Intraparenchymal hemorrhage of brain, Skin tear, DNR (do not resuscitate) Instructions: Intraventricular Hemorrhage ... Prescriptions: No Action fluticasone propionate 50 mcg/actuation spray,suspension 2 spray intranasal DAILY atorvastatin 10 MG tablet 10 mg PO QHS Label Comments: cholesterol ascorbic acid (vitamin C) 500 MG tablet 500 mg PO DAILY@0800 Label Comments: supplement esomeprazole magnesium 40 MG capsule 40 mg PO DAILY Label Comments: acid reflux sertraline 100 mg tablet 200 mg PO DAILY Label Comments: depression aspirin 325 MG tablet 325 mg PO DAILY@0800 Label Comments: heart health nitroglycerin 0.4 MG tablet 0.4 mg SL Q5M PRN (Reason: Chest Pain) Label Comments: chest pain ergocalciferol (vitamin D2) 50,000 UNIT capsule 50,000 unit PO TU Label Comments: supplement clopidogrel 75 MG tablet 75 mg PO DAILY finasteride 5 MG tablet 5 mg PO QHS memantine 5 mg tablet 10 mg PO DAILY tamsulosin 0.4 mg Capsule 0.4 mg PO DAILY acetaminophen 325 mg Tablet 975 mg PO Q6H PRN (Reason: Pain) levetiracetam 500 mg Tablet 500 mg PO BID melatonin 3 mg Tablet 6 mg PO DAILY Primary Care Provider: Hi Durbin Referrals: Hi Durbin MD [Primary Care Provider] - Activity Restrictions/Additional Instructions: Increased intraparenchymal bleed with small intraventricular hemorrhage. DNR CC. Disposition Disposition: Intermediate Facility Discharge Location: [facility] Transitional Care Unit
[2021-12-15 09:48] LABS: Anion Gap 10 (5-15); BUN 30 mg/dL (7-18); BUN/Creat Ratio 19.5 RATIO (10-20); Calcium,Total 9.5 mg/dL (8.5-10.1); Chloride 105 mmol/L (98-107); Creatinine, Serum 1.54 mg/dL (0.70-1.30); EST Glomerular Filtration Rate 46 mL/min (>60); Est Glom Filt Rate - Afr Amer 56 mL/min (>60); Estimated Creatinine Clearance 39.43 ml/min; Glucose 107 mg/dL (74-106); Potassium 4.2 mmol/L (3.5-5.1); Sodium Level 136 mmol/L (136-145)
[2021-12-15 10:46] VITALS: BP 128/65; PULSE 60
== END 2021-12-15 10:50 | disposition skilled nursing facility (03) ==
PROVIDERS: Emergency Provider Emergency Medicine; PCP Family Medicine; Visit Provider Emergency Medicine
DX: S06.890A Other specified intracranial injury without loss of consciousness, initial encounter (principal); S50.311A Abrasion of right elbow, initial encounter; F12.90 Cannabis use, unspecified, uncomplicated; I25.10 Atherosclerotic heart disease of native coronary artery without angina pectoris; Z95.5 Presence of coronary angioplasty implant and graft; W19.XXXA Unspecified fall, initial encounter; Z95.0 Presence of cardiac pacemaker; Z87.891 Personal history of nicotine dependence; Z66 Do not resuscitate
CPT/HCPCS: 70450; 72125; 80048; 99284; A4216

== ENCOUNTER → 2021-12-15 | Outpatient (CLI) | payer MEDICARE, OTHER, SELFPAY ==
--- NOTE | 2021-12-15 06:59 | CT_ITS ---
STUDY: CT BRAIN WITHOUT CONTRAST REASON FOR EXAM: Male, 86 years old. RECENT BRAIN BLEED RADIATION DOSAGE (If Supplied By Facility): CTDIvol = ( 44.99 ) mGy, DLP = ( 843.73 ) mGycm TECHNIQUE: Transaxial CT imaging of the brain was performed without administration of intravenous contrast material. Individualized dose optimization techniques were used for this CT. COMPARISON: No relevant priors. FINDINGS: The acute lobulated parenchymal hematoma is again seen within the posterior left temporoparietal lobe; the hematoma measures 3.6 x 2.5 x 3.5 cm in diameter and has mildly increased in size since the prior study when it measured 3.2 x 2.5 x 1.9 cm. There is an enlarging halo of surrounding vasogenic edema which now causes mild mass effect upon the atrium of the left lateral ventricle. A trace of subarachnoid blood is again noted within a sulcus just posterior to the parenchymal hematoma, unchanged. A very small amount of intraventricular blood now layers in the dependent portion of the left occipital horn, a new finding. A tiny rounded focus of acute blood is now present within the right occipital horn, as well. No blood seen within the third and fourth ventricles. There is no blood within the basal cisterns. The ventricles are stable in size except for mild effacement of the atrium of the left lateral ventricle by the hematoma in the surrounding edema; there has been no increase in size of the ventricles. There is no midline shift. Findings a [id number] atrophy again noted with prominence of the sulci, basal cisterns and sylvian fissures. Patchy chronic small vessel ischemic changes are again noted within the deep white matter tracts. The cerebral cortical sulci about the parenchymal hematoma are effaced. The basal ganglia are symmetric. Normal soft tissue structures. Normal calvarium. Normal visualized paranasal sinuses. The visualized mastoid air cells are clear. CT/Brain/Head without Contrast IMPRESSION: Mild increase in size of the acute intraparenchymal hematoma within the left temporoparietal region, with increasing halo of surrounding vasogenic edema. Stable minimal subarachnoid hemorrhage adjacent to the parenchymal hematoma. Interval development of minimal inter-ventricular blood. No interval increase in size of the ventricles. Nonstandard communication protocol initiated. N.B. : Dr. Coleen MD, confirmed on 12/15/2021 09:15:26 (ET) that the referring physician received the results and does not require a verbal communication. Electronically Signed: Jacob Rausch MD at 7:44 EDT ,
--- NOTE | 2021-12-15 06:59 | CT_ITS ---
We are attempting to reach an attending provider to discuss findings. An addendum with communication details will be sent when the communication is complete. STUDY: CT BRAIN WITHOUT CONTRAST REASON FOR EXAM: Male, 86 years old. RECENT BRAIN BLEED RADIATION DOSAGE (If Supplied By Facility): CTDIvol = ( 44.99 ) mGy, DLP = ( 843.73 ) mGycm TECHNIQUE: Transaxial CT imaging of the brain was performed without administration of intravenous contrast material. Individualized dose optimization techniques were used for this CT. COMPARISON: No relevant priors. FINDINGS: The acute lobulated parenchymal hematoma is again seen within the posterior left temporoparietal lobe; the hematoma measures 3.6 x 2.5 x 3.5 cm in diameter and has mildly increased in size since the prior study when it measured 3.2 x 2.5 x 1.9 cm. There is an enlarging halo of surrounding vasogenic edema which now causes mild mass effect upon the atrium of the left lateral ventricle. A trace of subarachnoid blood is again noted within a sulcus just posterior to the parenchymal hematoma, unchanged. A very small amount of intraventricular blood now layers in the dependent portion of the left occipital horn, a new finding. A tiny rounded focus of acute blood is now present within the right occipital horn, as well. No blood seen within the third and fourth ventricles. There is no blood within the basal cisterns. The ventricles are stable in size except for mild effacement of the atrium of the left lateral ventricle by the hematoma in the surrounding edema; there has been no increase in size of the ventricles. There is no midline shift. Findings a kpie-wy-rmqlermy atrophy again noted with prominence of the sulci, basal cisterns and sylvian fissures. Patchy chronic small vessel ischemic changes are again noted within the deep white matter tracts. The cerebral cortical sulci about the parenchymal hematoma are effaced. The basal ganglia are symmetric. Normal soft tissue structures. Normal calvarium. Normal visualized paranasal sinuses. The visualized mastoid air cells are clear.
--- NOTE | 2021-12-15 15:24 | CT_ITS ---
STUDY: CT BRAIN WITHOUT CONTRAST REASON FOR EXAM: Male, 86 years old. BLEED RADIATION DOSAGE (If Supplied By Facility): CTDIvol = ( 44.99 ) mGy, DLP = ( 846.73 ) mGycm TECHNIQUE: Transaxial CT imaging of the brain was performed without administration of intravenous contrast material. Individualized dose optimization techniques were used for this CT. COMPARISON: Comparison is made with prior examination done earlier today. FINDINGS: Normal soft tissue structures. Normal calvarium. There is moderate cerebral atrophy with widening of the extra-axial spaces and ventricular dilatation. There are areas of decreased attenuation within the white matter tracts of the supratentorial brain, consistent with microvascular disease changes. Normal basal ganglia and thalami. Normal brainstem. Normal cerebellum. Stable intracerebral hematoma in the left posterior temporal parietal lobe. Stable mild subarachnoid hemorrhage along the posterior aspect of the intracerebral hematoma. Minimal layering of blood is seen in the posterior horn of the left lateral ventricle. Surrounding edema. There are no findings of an acute ischemic infarction. Normal visualized paranasal sinuses. CT/Brain/Head without Contrast IMPRESSION: Stable examination. Electronically Signed: Rudy Gordillo MD at 15:35 EDT ,
== END | disposition home or self-care (01) ==
LOC: CT 06:58
PROVIDERS: PCP Family Medicine; Referring Provider Internal Medicine; Visit Provider Family Medicine Geriatric Medicine
DX: S00.03XA Contusion of scalp, initial encounter (principal)
CPT/HCPCS: 70450

== ENCOUNTER → 2021-12-26 | Outpatient (CLI) | payer MEDICARE, OTHER, SELFPAY ==
--- NOTE | 2021-12-26 15:40 | CT_ITS ---
STUDY: CT BRAIN WITHOUT CONTRAST REASON FOR EXAM: Male, 86 years old. INTRACEREBRAL HEMORRHAGE TECHNIQUE: Transaxial CT imaging of the brain was performed without administration of intravenous contrast material. Individualized dose optimization techniques were used for this CT. COMPARISON: Dec 15 2021 3:15pm FINDINGS: Normal calvarium. Normal soft tissues. Normal size ventricles and extra-axial spaces for the patient''s age. Normal white matter tracts of the cerebral hemispheres. Normal basal ganglia and thalami. Normal brainstem. Normal cerebellum. There is left temporal occipital 28mm area of intracranial hemorrhage. Overlying area of cerebral edema. There are no findings of an acute ischemic infarction. There are calcifications noted in the distal vertebral arteries. There are calcifications noted in the cavernous carotid arteries. This is consistent for atherosclerotic disease. Normal visualized paranasal sinuses. ASPECTS 10 CT/Brain/Head without Contrast IMPRESSION: There is improvement in the size of the left temporal occipital intracranial hemorrhage Electronically Signed: Sergio Leahy MD at 16:24 EDT ,
== END | disposition home or self-care (01) ==
LOC: CT 15:40
PROVIDERS: PCP Family Medicine; Referring Provider Internal Medicine; Visit Provider Internal Medicine
DX: S06.6X0D Traumatic subarachnoid hemorrhage without loss of consciousness, subsequent encounter (principal)
CPT/HCPCS: 70450

== ENCOUNTER → 2022-01-04 | Outpatient (CLI) | payer MEDICARE, OTHER, SELFPAY ==
--- NOTE | 2022-01-04 10:44 | CT_ITS ---
STUDY: CT BRAIN WITHOUT CONTRAST REASON FOR EXAM: Male, 86 years old. FALL RADIATION DOSAGE (If Supplied By Facility): CTDIvol = ( 44.99 ) mGy, DLP = ( 863.60 ) mGycm TECHNIQUE: Transaxial CT imaging of the brain was performed without administration of intravenous contrast material. Individualized dose optimization techniques were used for this CT. COMPARISON: Comparison is made with prior study 12/26/2021. FINDINGS: Normal soft tissue structures. Normal calvarium. There is mild cerebral atrophy with widening of the extra-axial spaces and ventricular dilatation. There are areas of decreased attenuation within the white matter tracts of the supratentorial brain, consistent with microvascular disease changes. Normal basal ganglia and thalami. Normal brainstem. Normal cerebellum. Once again, there is evidence of a focal intracerebral hematoma in the posterior left temporal parietal lobe with surrounding edema and mass effect. The hematoma as decreased in size as compared to prior study. It presently measures 2.2 cm x 2.2 cm. There is also evidence of less mass effect at this time. Atherosclerotic calcification of the cavernous portions of the internal carotid artery bilaterally. There are no findings of an acute ischemic infarction. Normal visualized paranasal sinuses. CT/Brain/Head without Contrast IMPRESSION: Interval further decrease in size of the left posterior parietal occipital intracerebral hematoma with the residual surrounding edema. Electronically Signed: Rudy Gordillo MD at 11:10 EDT ,
== END | disposition home or self-care (01) ==
PROVIDERS: PCP Family Medicine; Visit Provider Family Medicine Geriatric Medicine
DX: S00.03XA Contusion of scalp, initial encounter (principal); W19.XXXA Unspecified fall, initial encounter
CPT/HCPCS: 70450

== ENCOUNTER → 2022-05-11 | Outpatient (REF) | payer MEDICARE, OTHER, MEDICAID, SELFPAY ==
[2022-05-11 08:42] LABS: ALB/GLOB Ratio 1.1 RATIO (0.9-2.4); AST(SGOT) 22 U/L (15-37); Alanine Aminotransfer ALT/SGPT 32 U/L (16-61); Albumin, Serum 3.3 g/dL (3.2-5.0); Alkaline Phosphatase 74 U/L (45-117); Anion Gap 5 (5-15); BUN 28 mg/dL (7-18); BUN/Creat Ratio 18.7 RATIO (10-20); Chloride 107 mmol/L (98-107); EST Glomerular Filtration Rate 47 mL/min (>60); Est Glom Filt Rate - Afr Amer 57 mL/min (>60); Globulin 3.1 g/dL (2.2-4.2); Glucose 91 mg/dL (74-106); Potassium 4.2 mmol/L (3.5-5.1); Protein, Total 6.4 g/dL (6.4-8.2); Sodium Level 139 mmol/L (136-145)
== END ==
LOC: OLS.SW 05:00
PROVIDERS: PCP Family Medicine; Visit Provider Internal Medicine
DX: N18.31 Chronic kidney disease, stage 3a (principal); E46 Unspecified protein-calorie malnutrition
CPT/HCPCS: 36415; 80053

== ENCOUNTER 2022-05-25 13:47 | Outpatient (CLI) | payer MEDICARE, OTHER, SELFPAY ==
--- NOTE | 2022-05-25 13:52 | ART_ITS ---
Reason For Study: Atherosclerosis Procedure A bilateral lower extremity continuous wave Doppler with analog waveform analysis and ankle brachial indexes. Left Segmental Pressures Left brachial= 125mmHg. Left posterior tibial artery = 119mmHg. Left dorsalis pedis artery = 117mmHg. Left digit = 90 mmHg. Right Segmental Pressures Right brachial= 122mmHg. Right posterior tibial artery = 130mmHg. Right dorsalis pedis artery = 114mmHg. Right digit = 114 mmHg. Indices The right ankle brachial index by the posterior tibial artery is 1.04. The right ankle brachial index by the dorsalis pedis is 0.91. The right digital-brachial index is 0.91. The left ankle brachial index by the posterior tibial artery is 0.95. The left ankle brachial index by the dorsalis pedis is 0.94. The left digital-brachial index is 0.72. VL/Ankle Brachial Index Interpretation Summary Triphasic and biphasic Doppler waveforms are noted at ankle level on the right. Biphasic Doppler waveforms are noted at ankle level on the left. Pulse-volume recordings appear satisfactory at ankle and digital level bilaterally. Resting ankle-brachial indices are normal bilate rally. Digital- brachial indices are normal bilaterally. There is no evidence of significant arterial occlusive disease in the lower ext remities bilaterally. Ordering Physician: Yosi Hood Referring Physician: Dusty Durbin Performed By: Annamarie Duenas RDCS/RVT
== END 2022-05-25 23:59 | disposition home or self-care (01) ==
PROVIDERS: PCP Family Medicine; Visit Provider Podiatrist Foot & Ankle Surgery
DX: I70.293 Other atherosclerosis of native arteries of extremities, bilateral legs (principal); I70.0 Atherosclerosis of aorta
CPT/HCPCS: 93922

== ENCOUNTER → 2022-08-10 | Outpatient (REF) | payer MEDICARE, OTHER, MEDICAID, SELFPAY ==
[2022-08-10 08:20] LABS: Vitamin D,25 Hydroxy 55.6 ng/mL
[2022-08-10 08:21] LABS: ALB/GLOB Ratio 1.2 RATIO (0.9-2.4); AST(SGOT) 21 U/L (15-37); Alanine Aminotransfer ALT/SGPT 29 U/L (16-61); Albumin, Serum 3.4 g/dL (3.2-5.0); Alkaline Phosphatase 80 U/L (45-117); Anion Gap 8 (5-15); BUN 28 mg/dL (7-18); BUN/Creat Ratio 19.7 RATIO (10-20); Calcium,Total 9.3 mg/dL (8.5-10.1); Chloride 107 mmol/L (98-107); Creatinine, Serum 1.42 mg/dL (0.70-1.30); EST Glomerular Filtration Rate 50 mL/min (>60); Est Glom Filt Rate - Afr Amer 61 mL/min (>60); Globulin 2.8 g/dL (2.2-4.2); Glucose 92 mg/dL (74-106); Potassium 4.2 mmol/L (3.5-5.1); Protein, Total 6.2 g/dL (6.4-8.2); Sodium Level 142 mmol/L (136-145)
== END ==
LOC: OLS.SW 05:00
PROVIDERS: PCP Family Medicine; Visit Provider Internal Medicine
DX: E55.9 Vitamin D deficiency, unspecified (principal)
CPT/HCPCS: 36415; 80053; 82306

== ENCOUNTER → 2022-11-09 | Outpatient (REF) | payer MEDICARE, OTHER, MEDICAID, SELFPAY ==
[2022-11-09 09:06] LABS: ALB/GLOB Ratio 1.1 RATIO (0.9-2.4); AST(SGOT) 16 U/L (15-37); Alanine Aminotransfer ALT/SGPT 24 U/L (16-61); Albumin, Serum 3.4 g/dL (3.2-5.0); Alkaline Phosphatase 80 U/L (45-117); Anion Gap 6 (5-15); BUN 30 mg/dL (7-18); BUN/Creat Ratio 19.2 RATIO (10-20); Calcium,Total 9.3 mg/dL (8.5-10.1); Chloride 107 mmol/L (98-107); Creatinine, Serum 1.56 mg/dL (0.70-1.30); EST Glomerular Filtration Rate 45 mL/min (>60); Est Glom Filt Rate - Afr Amer 55 mL/min (>60); Glucose 93 mg/dL (74-106); Potassium 4.4 mmol/L (3.5-5.1); Protein, Total 6.4 g/dL (6.4-8.2); Sodium Level 140 mmol/L (136-145)
== END ==
LOC: OLS.SW 05:00
PROVIDERS: PCP Family Medicine; Visit Provider Internal Medicine
DX: F03.90 Unspecified dementia, unspecified severity, without behavioral disturbance, psychotic disturbance, mood disturbance, and anxiety (principal)
CPT/HCPCS: 36415; 80053

== ENCOUNTER → 2022-12-18 | Outpatient (REF) | payer MEDICARE, OTHER, MEDICAID, SELFPAY ==
[2022-12-20 16:09] LABS: KEPPRA (LEVETIRACETAM) 20.1 ug/mL (10.0-40.0)
== END ==
LOC: OLS.SW 05:00
PROVIDERS: PCP Family Medicine; Visit Provider Internal Medicine
DX: Z79.899 Other long term (current) drug therapy (principal)
CPT/HCPCS: 36415; 80177

== ENCOUNTER → 2023-02-08 | Outpatient (REF) | payer MEDICARE, OTHER, MEDICAID, SELFPAY ==
[2023-02-08 09:11] LABS: ALB/GLOB Ratio 1.1 RATIO (0.9-2.4); AST(SGOT) 14 U/L (15-37); Alanine Aminotransfer ALT/SGPT 22 U/L (16-61); Albumin, Serum 3.4 g/dL (3.2-5.0); Alkaline Phosphatase 95 U/L (45-117); Anion Gap 1 (5-15); BUN 24 mg/dL (7-18); BUN/Creat Ratio 16.6 RATIO (10-20); Calcium,Total 9.1 mg/dL (8.5-10.1); Chloride 111 mmol/L (98-107); Creatinine, Serum 1.45 mg/dL (0.70-1.30); EST Glomerular Filtration Rate 49 mL/min (>60); Est Glom Filt Rate - Afr Amer 59 mL/min (>60); Globulin 3.2 g/dL (2.2-4.2); Glucose 96 mg/dL (74-106); Potassium 4.6 mmol/L (3.5-5.1); Protein, Total 6.6 g/dL (6.4-8.2); Sodium Level 142 mmol/L (136-145)
== END ==
LOC: OLS.SW 05:00
PROVIDERS: PCP Family Medicine; Visit Provider Internal Medicine
DX: D64.9 Anemia, unspecified (principal); I95.1 Orthostatic hypotension; N40.0 Benign prostatic hyperplasia without lower urinary tract symptoms; N18.31 Chronic kidney disease, stage 3a; F32.A Depression, unspecified
CPT/HCPCS: 36415; 80053

== ENCOUNTER → 2023-03-01 | Outpatient (REF) | payer MEDICARE, OTHER, MEDICAID, SELFPAY ==
[2023-03-01 09:32] LABS: ALB/GLOB Ratio 1.1 RATIO (0.9-2.4); AST(SGOT) 14 U/L (15-37); Alanine Aminotransfer ALT/SGPT 25 U/L (16-61); Albumin, Serum 3.8 g/dL (3.2-5.0); Alkaline Phosphatase 106 U/L (45-117); Anion Gap 5 (5-15); BUN 26 mg/dL (7-18); BUN/Creat Ratio 15.8 RATIO (10-20); Calcium,Total 9.5 mg/dL (8.5-10.1); Chloride 111 mmol/L (98-107); Creatinine, Serum 1.65 mg/dL (0.70-1.30); EST Glomerular Filtration Rate 42 mL/min (>60); Est Glom Filt Rate - Afr Amer 51 mL/min (>60); Globulin 3.5 g/dL (2.2-4.2); Glucose 92 mg/dL (74-106); Potassium 4.1 mmol/L (3.5-5.1); Protein, Total 7.3 g/dL (6.4-8.2); Sodium Level 143 mmol/L (136-145)
== END ==
LOC: OLS.SW 05:00
PROVIDERS: PCP Family Medicine; Visit Provider Family Medicine
DX: Z79.899 Other long term (current) drug therapy (principal)
CPT/HCPCS: 36415; 80053

== ENCOUNTER → 2023-03-20 | Outpatient (REF) | payer MEDICARE, OTHER, MEDICAID, SELFPAY ==
[2023-03-20 09:52] LABS: Cholesterol 173 mg/dL (200); High Density Lipoprotein 42 mg/dL; Triglycerides 260 mg/dL; Very Low Density Lipoprotein 52 mg/dL (5-40)
== END ==
LOC: OLS.SW 07:15
PROVIDERS: PCP Family Medicine; Visit Provider Internal Medicine
DX: E78.5 Hyperlipidemia, unspecified (principal)
CPT/HCPCS: 36415; 80061

== ENCOUNTER → 2023-05-23 | Outpatient (REF) | payer MEDICARE, OTHER, MEDICAID, SELFPAY ==
--- OUTSIDE RECORDS SUMMARY | 2023-05-23 08:06 | XMS RPT_ITS | CCD ---
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 Back Operator Name Role Phone Rosa Maria Durbin MD Primary Care Provider DIANNA JARRETT Attending Unavailable ROSA MARIA DURBIN Primary Care Unavailabl Rosa Maria Melara MD Primary Care Provider Allergies Allergy Classification Reported Allergen(s) Allergy Type Date of Onset Reaction(s) Facility (3 sources) donepezil Drug Allergy 08-17-2021 Mental Status Change [facility] (3 sources) Metoprolol Drug Allergy 02-16-2021 Other: See Comments [facility] (3 sources) Niacin Drug Allergy 03-20-2012 Hives [facility] (3 sources) Pravastatin Drug Allergy 01-02-2019 Other: See Comments [facility] (3 sources) Simvastatin Drug Allergy 03-20-2012 Other: See Comments [facility] Medications Completed/Discontinued Medications Medication Drug Class(es) Dates Sig (Normalized) Sig (Original) acetaminophen 325 mg oral tablet (8 sources) Start: 12-14-2021 take 3 tablets by mouth every six hours as needed acetaminophen (TYLENOL) 325 mg tablet 3 tablets by ORAL/FEEDING TUBE route every 6 hours as needed for pain. 0 12/14/2021 Active Problems Active Problems Problem Classification Problem Date Documented Da te Episodic/Chronic Acquired foot deformities (1 source) Hammer toe; Translations: [Other hammer toe(s) (acquired), left foot] Chronic Nutritional deficiencies (5 sources) Malnutrition (calorie); Translations: [Moderate protein-calorie malnutrition] Onset: 12-10-2021 12-14-2021 Chronic Open wounds of extremities (2 sources) Avulsion of toenail; Translations: [Unspecified open wound of unspecified toe(s) with damage to nail, initial encounter] Episodic Other skin disorders (1 source) Ingrowing nail of toe of left foot; Translations: [Ingrowing nail] Episodic Peripheral and visceral atherosclerosis (2 sources) Peripheral vascular disease, unspecified; Translations: [Peripheral vascular disease, unspecified] Chronic Past or Other Problems Problem Classification Problem Date Documented Date Episodic/Chronic E Codes: Fall (5 sources) Fall; Translations: [Unspecified fall, initial encounter] Onset: 12-12-2021 12-14-2021 Episodic Intracranial injury (10 sources) Hemorrhage into subarachnoid space of neuraxis; Translations: [Traumatic subarachnoid hemorrhage with loss of consciousness of unspecified duration, initial encounter] Onset: 12-10-2021 12-14-2021 Episodic Other aftercare (5 sources) Long-term current use of aspirin; Translations: [[employer] (current) use of aspirin] Onset: 12-12-2021 12-14-2021 Episodic Other aftercare (5 sources) 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; Translations: [[employer] (current) use of antithrombotics/anti platelets] Onset: 12-12-2021 12-14-2021 Episodic Results Test Name Value Interpretation Reference Range Facil ity Encounters Encounter Date Encounter Type Care Provider Facility Start: 08-14-2022 End: 08-14-2022 Patient encounter procedure Dianna Jarrett Work Phone: Podiatry Procedures Date Procedure Procedure Detail Performing Clinician Start: 12-10-2021 Antibody screen Plan of Treatment Date Care Activity Detail Author Start: 12-13-2024 DIABETES SCREEN DIABETES SCREEN [facility] Start: 05-27-2022 ADVANCE DIRECTIVE DISCUSSION ADVANCE DIRECTIVE DISCUSSION [facility] Start: 05-27-2022 DEPRESSION ASSESSMENT DEPRESSION ASSESSMENT [facility] Start: 01-25-2022 Influenza vaccination INFLUENZA (#1) [facility] Start: 05-27-2021 ADVANCE DIRECTIVE DISCUSSION ADVANCE DIRECTIVE DISCUSSION [facility] Start: 05-27-2021 DEPRESSION ASSESSMENT DEPRESSION ASSESSMENT [facility] Start: 2001 PNEUMOCOCCAL: 65+ (1 - PCV) PNEUMOCOCCAL: 65+ (1 - PCV) [facility] Start: 1986 SHINGRIX VACCINE (1 of 2) SHINGRIX VACCINE (1 of 2) [facility] Start: 11-27-1955 Urine microalbumin profile DTAP,TDAP,TD (1 - Tdap) [facility] End: 05-07-2023 PVR ANK PRESS [facility] PVR ANK PRESS [facility] Vascular Lab STAT PAD (peripheral artery disease) (HCC) Ingrowing toenail of left foot 1 Occurrences starting 05/07/2022 until 05/07/2023 [facility] Work Phone: Payers Date Payer Category Payer [employer] ( and others) [id number] 2007 Unknown FOR LIFE [id number] 2007-Present [phone] [address] [place] [address] Indemnity [id number] 2007 Unknown FOR LIFE [id number] 2007-Present [phone] [address] [place] [address] Indemnity [id number] 2001 Medicare MEDICARE MEDICAR E A AND B [id number] 2001-Present [phone] [address] [address] [place] [address] Medicare [id number] 2001 Medicare [id number] 2001 Medicare [id number] Social History Date Type Detail Facility Start: 05-07-2022 Tobacco smoking stat us NHIS Never smoked tobacco [facility] Start: 12-10-2021 End: 08-14-2022 Alcohol intake Current drinker of alcohol (finding) [facility] Start: 1935 Sex Assigned At Not on file [facility] Start: 11-30-2021 End: 12-10-2021 Exposure to SARS-CoV-2 (event) Not sure [facility] Clinical Notes 12-10-2021 to 08-14-2022 Dianna Jarrett - 08/14/2022 10:07 AM GAUDENCIOben MaguireTRUMAN - 08/14/2022 9:34 AM EDTTelephone Encounter - Poonam Reeves RN - 05/30/2022 10:31 AM ESTPatient Instructions Note Date & Type Note Facility 08-14-2022 History of Presen t illness Narrative FOLLOW UP PODIATRIC OFFICE VISIT Chief Complaint: This 86 year old who presents for follow up right great toe injury Patient presents to clinic for follow-up right great toe injury Was seen back in April at which time he had injured his right 1st and 3rd toe. Had xrays from an outside facility which was absent for any fracture He denies any pain today Reports to having his toenails cut at facility PAIN EVALUATION 08/14/2022 0930 Pain Level: 1 Pain Location: Foot-Right Intervention/Comfort measure: Reposition;Relaxation No results found for: HBA1C PCP: Rosa Maria Durbin MD No past medical history on file. Current Outpatient Medications Medication Sig acetaminophen (TYLENOL) 650 mg suppository 650 mg by RECTAL route every 4 hours as needed. mag hydrox/aluminum hyd/simeth (ANTACID SUSPENSION ORAL) Take 30 mL by mouth every 4 hours as needed. 225-200 mg/5ml Aluminum and magnesium hydroxide bisacodyl (DULCOLAX) 10 mg supp 10 mg by RECTAL route once daily as needed for constipation. sodium phosphate,mono-dibasic (FLEET ENEMA RECTAL) 1 Dose by RECTAL route as needed (Constipation). glucagon (GLUCAGON EMERGENCY KIT, HUMAN,) 1 mg injection Inject 1 mg subcutaneously one time only. dextrose (GLUCOSE GEL ORAL) Take by mouth. GUAIFENESIN ORAL Take 10 mL by mouth every 4 hours as needed. magnesium hydroxide (MILK OF MAGNESIA ORAL) Take 30 mL by mouth as needed (Constipation). Multivitamin capsule Take 1 capsule by mouth once daily. QUEtiapine (SEROQUEL) 25 mg tablet Take 25 mg by mouth daily at bedtime. acetaminophen (TYLENOL) 325 mg tablet 3 tablets by ORAL/FEEDING TUBE route every 6 hours as needed for pain. melatonin 3 mg tablet Take 2 tablets by mouth daily at bedtime. atorvastatin (LIPITOR) 10 mg tablet Take 10 mg by mouth once daily. ergocalciferol 50,000 unit capsule (VITAMIN D2, DRISDOL) Take 1 capsule by mouth one time a week. memantine (NAMENDA) 5 mg tablet Take 10 mg by mouth daily at bedtime. sertraline (ZOLOFT) 100 mg tablet Take 200 mg by mouth once daily. tamsulosin (FLOMAX) 0.4 mg Take 0.4 mg by mouth once daily. cephALEXin (KEFLEX) 500 mg capsule Take 1 capsule by mouth three times daily. (Patient not taking: Reported on 08/14/2022) levETIRAcetam (KEPPRA) 500 mg tablet Take 1 tablet by mouth twice daily for 9 days. esomeprazole (NEXIUM) 40 mg capsule Take 40 mg by mouth once daily. finasteride (PROSCAR) 5 mg tablet Take 5 mg by mouth once daily. No current facility-administered medications for this visit. ALLERGIES Allergen Reactions Metoprolol Other: See Comments Hypotension Donepezil Mental Status Change Niacin Hives Pravastatin Other: See Comments Simvastatin Other: See Comments PAST SURGICAL HISTORY Procedure Laterality Date PAST SURGICAL HISTORY OF bypass Physical Exam: OBJECTIVE: Constitutional: Pt is a well developed 86 year old male who is alert, oriented, cooperative and in no apparent distress. Eyes: Following during examination. No redness or drainage. Respiratory: RR normal and nonlabored. Even breathing. No evidence of distress. Psychology: Patient is engaged during conversation. Normal affect and mood. Does not appear depressed or anxious. NVSI unchanged from previous visit. Dermatological: Nails 1-5 b/l are dystrophic. Webspaces clean and dry 1-4 b/l. Skin appears well hydrated and supple. good color, texture, turgor. No open lesions present. No callosities present. Musculoskeletal/Orthopaedic: Patient has no pain to palpation of b/l feet ASSESSMENT: (S91.209A) Traumatic avulsion of nail plate of toe, initial encounter (primary encounter diagnosis) (I73.9) PAD (peripheral artery disease) ([facility]) PLAN: Reviewed xrays (scan) from outside facility. No fracture. Ok to continue with activity as tolerated Patient has dystrophic toenails but has them cut at facility. He has elected to continue with care at facility Follow-up tiffanie Jarrett DPM AMB ROOMING INTAKE FLOWSHEET DATA Pain Pain Level: 1 Pain Location: Foot-Right Intervention/Comfort measure: Reposition, Relaxation Patient presents with: Left Foot - Established Patient, Follow Up, Pain Right Foot - Established Patient, Follow Up, Pain Geeta Maguire LPN documented in this encounter [facility] 05-30-2022 Miscellaneous Notes Phone call to [facility] where patient is a resident. Left message with nurse, Alannah, that testing was normal. She verbalized understanding. Resutls faxed to facility at [phone] Please call patient to inform him that his circulation studies from [facility] appear normal Dianna Jarrett DPM PVR received via fax from [facility]. Forwarded to Dr. Jarrett for review. documented in this encounter [facility] 05-07-2022 Note HNO ID: [id number] Author: Dianna Jarrett Service: ? Author Type: Physician Type: Progress Notes Filed: 05/07/2022 12:52 PM Note Text: Initial Podiatric Office Visit: Chief Complaint: This 86 year old male who presents with chief complaint:traumatic nail injury of right 1st and 3rd toe HPI Patient presents to clinic with nascar driver with complaint of traumatic nail injury of right 1st and 3rd nail Patient does not answer any questions Per nascar driver, he apparently kicked something the other day and now has bleeding on the first and 3rd toe of right foot They are applying guaze to the toe. PAIN EVALUATION 05/07/2022 0940 Pain Level: -- Grimaces when toe is touched No results found for: HBA1C PCP: Rosa Maria Durbin MD No past medical history on file. Current Outpatient Medications Medication Sig acetaminophen (TYLENOL) 650 mg suppository 650 mg by RECTAL route every 4 hours as needed. mag hydrox/aluminum hyd/simeth (ANTACID SUSPENSION ORAL) Take 30 mL by mouth every 4 hours as needed. 225-200 mg/5ml Aluminum and magnesium hydroxide bisacodyl (DULCOLAX) 10 mg supp 10 mg by RECTAL route once daily as needed for constipation. sodium phosphate,mono-dibasic (FLEET ENEMA RECTAL) 1 Dose by RECTAL route as needed (Constipation). glucagon (GLUCAGON EMERGENCY KIT, HUMAN,) 1 mg injection Inject 1 mg subcutaneously one time only. dextrose (GLUCOSE GEL ORAL) Take by mouth. GUAIFENESIN ORAL Take 10 mL by mouth every 4 hours as needed. magnesium hydroxide (MILK OF MAGNESIA ORAL) Take 30 mL by mouth as needed (Constipation). Multivitamin capsule Take 1 capsule by mouth once daily. QUEtiapine (SEROQUEL) 25 mg tablet Take 25 mg by mouth daily at bedtime. acetaminophen (TYLENOL) 325 mg tablet 3 tablets by ORAL/FEEDING TUBE route every 6 hours as needed for pain. levETIRAcetam (KEPPRA) 500 mg tablet Take 1 tablet by mouth twice daily for 9 days. melatonin 3 mg tablet Take 2 tablets by mouth daily at bedtime. atorvastatin (LIPITOR) 10 mg tablet Take 10 mg by mouth once daily. ergocalciferol 50,000 unit capsule (VITAMIN D2, DRISDOL) Take 1 capsule by mouth one time a week. esomeprazole (NEXIUM) 40 mg capsule Take 40 mg by mouth once daily. finasteride (PROSCAR) 5 mg tablet Take 5 mg by mouth once daily. memantine (NAMENDA) 5 mg tablet Take 10 mg by mouth daily at bedtime. sertraline (ZOLOFT) 100 mg tablet Take 200 mg by mouth once daily. tamsulosin (FLOMAX) 0.4 mg Take 0.4 mg by mouth once daily. No current facility-administered medications for this visit. ALLERGIES Allergen Reactions Metoprolol Other: See Comments Hypotension Donepezil Mental Status Change Niacin Hives Pravastatin Other: See Comments Simvastatin Other: See Comments PAST SURGICAL HISTORY Procedure Laterality Date PAST SURGICAL HISTORY OF bypass No family history on file. Social History Tobacco Use Smoking status: Never Vaping Use Vaping Use: Former Substance Use Topics Alcohol use: Yes Drug use: Never REVIEW OF SYSTEMS GENERAL: Negative for Malaise, significant weight loss, fever RESPIRATORY: Negative for cough, wheezing and shortness of breath CARDIOVASCULAR: Negative for chest pain, leg swelling and palpitations GI: Negative for abdominal discomfort, blood in stools or black stools and change in bowel habits : Negative for dysuria, frequency and incontinence MUSCULOSKELETAL: Negative for joint pain or swelling, back pain, and muscle pain. SKIN: Negative for lesions, rash, and itching. HEMATOLOGY/LYMPHOLOGY Negative for prolonged bleeding, bruising easily, and swollen nodes. ENDOCRINE: Negative for cold or heat intolerance, polyuria, polydipsia and goiter. NEURO: negative Physical Exam: Constitutional: Pt is a well developed 86 year old male who is alert, oriented and cooperative Eyes: Following during examination. No redness or drainage. Respiratory: RR normal and nonlabored. Even breathing. No evidence of distress or shortness of breath. Psychology: Patient is engaged during conversation. Normal affect and mood. Does not appear depressed or anxious during encounter. Vascular: Dorsalis pedis and posterior tibial pulses nonpalpable b/l Posterior tibial pulses are biphasci with doppler right and monophasic left Capillary Fill time < 5 seconds to digits 1-5 b/l Skin temperature warm to cool proximal to distal b/l Hair growth absent to digits Neurological: absent light touch/epicritic sensation b/l absent protective sensation + significant neurological deficits Dermatological: Right hallux and right 3rd nail have dry blood beneath nail plate. There is abrasion to proximal nail fold of right hallux. Toenails 1-5 right are dystrophic and elongated. Left hallux toenail is thick, dystrophic, ingrowing to medial and lateral nail border without infection. Webspaces clean and dry 1-4 b/l. Skin appears pallor and dry. Small black eschar to l (more content not included)... [facility] 05-07-2022 Note HNO ID: [id number] Author: Berenice Baker RN Service: ? Author Type: Registered Nurse Type: Progress Notes Filed: 05/07/2022 12:52 PM Note Text: AMB ROOMING INTAKE FLOWSHEET DATA Risk Screening Do you have concerns about personal safety or safety in the home?: No Pain Pain Level: (Grimaces when toe is touched) Patient presents with: Right Great Toe - New, Pain, Nail Check Right 3rd Toe - New, Pain, Nail Check Per caregiver patient kicked something when walking. Split nail to Right great toe and bleeding to that nail as well as right 3rd nail. Patient not able to answer questions for this nurse. [facility] 05-07-2022 Instructions Dianna Jarrett - 05/07/2022 10:34 AM EST Recommend topical antibiotic such as neosporin to both great toe and right 3rd toe daily Take keflex 500 mg three times daily x 1 week Get xrays today Get circulation studies If condition worsens where your toe turns red or black, present to ED immediately. Would consider [facility] or [facility]. Will recommend use of gel padding to left 4th and 5th toe because these toes curl and can lead to sores. documented in this encounter [facility] 05-07-2022 History of Presen t illness Narrative Images from the original note were not included. Initial Podiatric Office Visit: Chief Complaint: This 86 year old male who presents with chief complaint:traumatic nail injury of right 1st and 3rd toe HPI Patient presents to clinic with nascar driver with complaint of traumatic nail injury of right 1st and 3rd nail Patient does not answer any questions Per nascar driver, he apparently kicked something the other day and now has bleeding on the first and 3rd toe of right foot They are applying guaze to the toe. PAIN EVALUATION 05/07/2022 0940 Pain Level: -- Grimaces when toe is touched No results found for: HBA1C PCP: Rosa Maria Durbin MD No past medical history on file. Current Outpatient Medications Medication Sig acetaminophen (TYLENOL) 650 mg suppository 650 mg by RECTAL route every 4 hours as needed. mag hydrox/aluminum hyd/simeth (ANTACID SUSPENSION ORAL) Take 30 mL by mouth every 4 hours as needed. 225-200 mg/5ml Aluminum and magnesium hydroxide bisacodyl (DULCOLAX) 10 mg supp 10 mg by RECTAL route once daily as needed for constipation. sodium phosphate,mono-dibasic (FLEET ENEMA RECTAL) 1 Dose by RECTAL route as needed (Constipation). glucagon (GLUCAGON EMERGENCY KIT, HUMAN,) 1 mg injection Inject 1 mg subcutaneously one time only. dextrose (GLUCOSE GEL ORAL) Take by mouth. GUAIFENESIN ORAL Take 10 mL by mouth every 4 hours as needed. magnesium hydroxide (MILK OF MAGNESIA ORAL) Take 30 mL by mouth as needed (Constipation). Multivitamin capsule Take 1 capsule by mouth once daily. QUEtiapine (SEROQUEL) 25 mg tablet Take 25 mg by mouth daily at bedtime. acetaminophen (TYLENOL) 325 mg tablet 3 tablets by ORAL/FEEDING TUBE route every 6 hours as needed for pain. levETIRAcetam (KEPPRA) 500 mg tablet Take 1 tablet by mouth twice daily for 9 days. melatonin 3 mg tablet Take 2 tablets by mouth daily at bedtime. atorvastatin (LIPITOR) 10 mg tablet Take 10 mg by mouth once daily. ergocalciferol 50,000 unit capsule (VITAMIN D2, DRISDOL) Take 1 capsule by mouth one time a week. esomeprazole (NEXIUM) 40 mg capsule Take 40 mg by mouth once daily. finasteride (PROSCAR) 5 mg tablet Take 5 mg by mouth once daily. memantine (NAMENDA) 5 mg tablet Take 10 mg by mouth daily at bedtime. sertraline (ZOLOFT) 100 mg tablet Take 200 mg by mouth once daily. tamsulosin (FLOMAX) 0.4 mg Take 0.4 mg by mouth once daily. No current facility-administered medications for this visit. ALLERGIES Allergen Reactions Metoprolol Other: See Comments Hypotension Donepezil Mental Status Change Niacin Hives Pravastatin Other: See Comments Simvastatin Other: See Comments PAST SURGICAL HISTORY Procedure Laterality Date PAST SURGICAL HISTORY OF bypass No family history on file. Social History Tobacco Use Smoking status: Never Vaping Use Vaping Use: Former Substance Use Topics Alcohol use: Yes Drug use: Never REVIEW OF SYSTEMS GENERAL: Negative for Malaise, significant weight loss, fever RESPIRATORY: Negative for cough, wheezing and shortness of breath CARDIOVASCULAR: Negative for chest pain, leg swelling and palpitations GI: Negative for abdominal discomfort, blood in stools or black stools and change in bowel habits : Negative for dysuria, frequency and incontinence MUSCULOSKELETAL: Negative for joint pain or swelling, back pain, and muscle pain. SKIN: Negative for lesions, rash, and itching. HEMATOLOGY/LYMPHOLOGY Negative for prolonged bleeding, bruising easily, and swollen nodes. ENDOCRINE: Negative for cold or heat intolerance, polyuria, polydipsia and goiter. NEURO: negative Physical Exam: Constitutional: Pt is a well developed 86 year old male who is alert, oriented and cooperative Eyes: Following during examination. No redness or drainage. Respiratory: RR normal and nonlabored. Even breathing. No evidence of distress or shortness of breath. Psychology: Patient is engaged during conversation. Normal affect and mood. Does not appear depressed or anxious during encounter. Vascular: Dorsalis pedis and posterior tibial pulses nonpalpable b/l Posterior tibial pulses are biphasci with doppler right and monophasic left Capillary Fill time < 5 seconds to digits 1-5 b/l Skin temperature warm to cool proximal to distal b/l Hair growth absent to digits Neurological: absent light touch/epicritic sensation b/l absent protective sensation + significant neurological deficits Dermatological: Right hallux and right 3rd nail have dry blood beneath nail plate. There is abrasion to proximal nail fold of right hallux. Toenails 1-5 right are dystrophic and elongated. Left hallux toenail is thick, dystrophic, ingrowing to medial and lateral nail border without infection. Webspaces clean and dry 1-4 b/l. Skin appears pallor and dry. Small black eschar to left hallux. Small abrasion to left 4th toe dorsally and left lateral 5th toe. Musculoskeletal/Orthopaedic: Patient has no pain to palpation of b/l feet Hammertoes are noted to lesser toes of b/l feet Radiographs: ordered ASSESSMENT: (S91.209A) Traumatic avulsion of nail plate of toe, initial encounter (primary encounter diagnosis) (I73.9) PAD (peripheral artery disease) ([facility]) (L60.0) Ingrowing toenail of left foot (M20.42) Hammer toe of left foot PLAN: 1. History and physical examination performed. 2. Patient has recent trauma to right hallux and right 3rd toe leading to blood beneath nail and small wound to right hallux proximal nail bed. Today, I debrided the nails to limit them from catching on his toes and leading to further injury. He has what I suspect to be crtitical pad and a traumatic nail avulsion could certainly lead to wound helaing issues. I debrided toenails 1-5 right foot. There is small wound to right hallux nail bed that I want to treat with neosporin and band aid and I think it would be good idea to place him on keflex tid x 1 week. I will order baseline xray. Removal of toenail could be an option in an otherwise healthy patient with good blood flow but on this patient, I will hold on removal until vascular status is checked with pvr. 3. I do have concerns of pad and slow wound healing. I am going to order pvr and have nursing watch this toe very closely . He can f/u in 1.5 weeks or sooner if problems arise 4. He does have ingrowing toenail of left hallux that was treated by way of slant back. Recommend topical antibiotic and band aide until healed 5. He has small wound of left 4th and 5th toe. These are caused likely by rubbing in shoes. Recommend gel padding. Dianna Jarrett DPM Podiatry [address] [facility] [address] Dept: [phone] Dept AMB ROOMING INTAKE FLOWSHEET DATA Risk Screening Do you have concerns about personal safety or safety in the home?: No Pain Pain Level: (Grimaces when toe is touched) Patient presents with: Right Great Toe - New, Pain, Nail Check Right 3rd Toe - New, Pain, Nail Check Per caregiver patient kicked something when walking. Split nail to Right great toe and bleeding to that nail as well as right 3rd nail. Patient not able to answer questions for this nurse. documented in this encounter [facility] 12-26-2021 Miscellaneous Notes I was informed that patient's family wishes to follow up with a provider closer to home. They do not wish to come to our office at this time. Will advise patient's facility. Patience, nurse from [facility], called to cancel patient's CT and follow up with Dr. Knutson today. She stated the were unable to coordinate transport for him. She asked that we fax the CT order to them ([phone]). They will do the CT and send us the results. Once we receive I will call them back ([phone]) with future follow up plans. documented in this encounter [facility] [facility] 12-19-2021 Miscellaneous Notes [facility] called concerning appointment patient has set up on 12/26/21 w/Dr. Knutson, Patient has fallen again and they will be pushing images of CT Brain that he has had done in [place] and they will also fax me copies of radiology, But at this time the Family does not want patient to go to this appointment. If you have questions you can call Charge Nurse Rolanda at [phone]. They informed me that the patient's family does not want to be scheduled with us, Dr. Knutson at this time. I did tell them if they change their mind to give office a call to schedule. documented in this encounter [facility] 12-14-2021 Note HNO ID: [id number] Author: Ana Carr RN Service: Care Management Author Type: Registered Nurse Type: Care Mgt Progress Note Filed: 12/14/2021 4:40 PM Note Text: CARE MANAGEMENT DISCHARGE NOTE SERVICE DATE: 12/14/2021 SERVICE TIME: 4:35 PM LOS: 4 days Admission Date: 12/10/2021 DISCHARGE ARRANGEMENT (list agency and phone number) Discharge Arrangement: Halfway Facility Was an expedited discharge program used?: No Provider Name: [facility] CAREGIVER ASSESSMENT: Caregiver is ready, willing and able to meet the patient's needs as recommended by the inter-professional team:: Yes Patient's transition needs and plan for meeting these needs: SNF HANDOFF COMMUNICATION: Handoff to: Other Caregiver Other Caregiver Name/Phone: [facility]/ Bedside RN TRANSPORTATION ARRANGEMENTS: Transportation Arrangements: Ambulance Transportation Agency and Phone #:: [facility] ( [facility] ) [phone] / [phone] Date of Trip: 12/14/21 Time of Trip: 1700 Type of Service: BLS Non-emergency Is Patient Medicaid Pending?: No Was transportation financial coverage discussed with family?: Spouse Glaze Handler Location: [facility] Destination: [facility] Financial Care Management Responsibility: None Needs Prior to Discharge: Ready for Discharge Patient presents with decreased cognition. Spoke with patient's spouse Tamia via phone ([phone]). Discharge today. Discharge orders complete. [facility] is able to accept patient and has bed availability today now. No insurance authorization needed. Transportation set for 1700. [facility] notified. Bedside RN notified. SIGNATURE: Ana Carr RN PATIENT NAME: Alexandro Flaherty DATE: December 14, 2021 TIME: 4:34 PM PAGER/CONTACT #: [phone] [facility] 12-14-2021 Note HNO ID: [id number] Author: Ana Carr RN Service: Care Management Author Type: Registered Nurse Type: Care Mgt Progress Note Filed: 12/14/2021 10:06 AM Note Text: CARE MANAGEMENT PROGRESS NOTE SERVICE DATE: 12/14/2021 SERVICE TIME: 10:06 AM LOS: 4 days IMM Follow Up Copy Given: Yes Copy given to:: Patient Energy Conservation Specialist Energy Conservation Specialist Name/Relationship: Tamia Flaherty/ Spouse Method: By Phone (Verbal confirmation obtained) SIGNATURE: Ana Carr RN PATIENT NAME: Alexandro Flaherty DATE: December 14, 2021 TIME: 10:02 AM PAGER/CONTACT #: [phone] [facility] 12-14-2021 Note HNO ID: [id number] Author: Abimael Finn PA-C Service: General Surgery Author Type: Physician Photographic Engineer Type: Progress Notes Filed: 12/14/2021 8:52 AM Note Text: Trauma Surgery Progress Note SERVICE DATE: 12/14/2021 Trauma Service Pager: For questions or concerns Mon-Fri 6a-5p please page [phone]. After 5pm and on Weekends and Holidays, please page [phone] if in ICU or [phone] if on RNF. SUBJECTIVE: Per RN, patient required straight cath last night and continues to retain urine this morning. Patient awake sitting up in bed. Again, hard of hearing. No other focal concerns. Tolerating diet. OBJECTIVE: Vitals: Temp (24hrs), Av.6 ?C (97.8 ?F), Min:36.3 ?C (97.3 ?F), Max:36.8 ?C (98.2 ?F) BP 142/54 Pulse 60 Temp 36.3 ?C (97.3 ?F) (Axillary) Resp 18 Ht 177.8 cm (5' 10 ) Wt 77.6 kg (171 lb 1.2 oz) SpO2 99% BMI 24.55 kg/m? O2 Therapy: Room Air IANDO: Date 12/13/21699 - 12/14/21 0659 12/14/21 07 - 12/15/21 0659 Shift 1668-2885 2450-1239 9105-7358 24 Hour Total 6815-6953 2305-2365 7405-5714 24 Hour Total INTAKE PO 480 480 PO 480 480 Shift Total 480 480 OUTPUT Urine 530 794 1905 Straight cath (ml) 700 700 Output ([REMOVED] Indwelling Urinary Catheter 12/11/21 1830 Coude 12/13/21 1331) 600 600 # of BMs Stool Incontinence 1 x 1 x Shift Total 968 874 3295 Weight (kg) 79.6 79.6 77.6 77.6 77.6 77.6 77.6 77.6 MEDICATIONS: Current Facility-Administered Medications Medication Dose Route Frequency - haloperidol lactate 5 mg short-acting injection (HALDOL) 5 mg INTRAMUSCULAR q 6 H PRN - memantine 10 mg tab(s) (NAMENDA) 10 mg ORAL AT BEDTIME - atorvastatin 10 mg tab(s) (LIPITOR) 10 mg ORAL DAILY - finasteride 5 mg tab(s) (PROSCAR) 5 mg ORAL DAILY - tamsulosin 0.4 mg cap(s) (FLOMAX) 0.4 mg ORAL DAILY - heparin 5,000 Units injection 5,000 Units SUBCUTANEOUS q 8 H - senna-docusate 8.6-50 mg 1 tablet (SENNA-S) 1 tablet ORAL BID - NaCl 0.9% iv flush bag 20 mL INTRAVENOUS PRN - sodium chloride 0.9 % (flush) 3-5 mL (BD POSIFLUSH) 3-5 mL INTRAVENOUS q 12 H - acetaminophen 975 mg tab(s) (TYLENOL) 975 mg ORAL/FEEDING TUBE TID - pantoprazole DR 40 mg tab(s) (PROTONIX) 40 mg ORAL DAILY (6 AM) - ondansetron 4 mg tab(s) (ZOFRAN) 4 mg ORAL q 6 H PRN Or - ondansetron (PF) 4 mg injection (ZOFRAN) 4 mg INTRAVENOUS q 6 H PRN - oxyCODONE IR 2.5-5 mg tab(s) (ROXICODONE) 2.5-5 mg ORAL/FEEDING TUBE q 6 H PRN - QUEtiapine 50 mg tab(s) (SEROquel) 50 mg ORAL AT BEDTIME - melatonin 6 mg tab(s) 6 mg ORAL DAILY (8 PM) - levETIRAcetam 500 mg injection (KEPPRA) 500 mg INTRAVENOUS BID Labs: Recent Labs 12/13/21 0243 12/12/21 0306 NA 140 140 K 4.0 4.2 CHLOR 106* 106* CO2 18* 21* BUN 37* 39* CREAT 1.28* 1.39* GLUC 74 84 ANION 16 13 CA 9.2 8.9 WBC 6.24 7.31 HB 10.9* 10.8* HCT 32.3* 32.3* PLT 103* 93* PHYSICAL EXAM: Genl: Appears age appropriate. No acute distress. Resting comfortably. Head/Face: Normocephalic. Atraumatic. Eyes: EOMI. Sclera not icteric, not injected Resp: Breathing is non-labored on RA. CVS: RRR as above; 2+ pulses at RA, DP, PT bilat. GI: Abdomen is soft, non-tender, not distended. Bowel sounds normoactive. No peritonitis. MSK: Extremities without clubbing, cyanosis, edema. Normal ROM x 4. Skin: Warm and dry. Not jaundiced. Neuro: AANDOx1. Strength and sensation intact. WILKINS. Difficult exam secondary to hearing loss. Waves hello, nods yes and no occasionally. 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 CT HNCAP, CXR/PXR, rpt CT brain x2 (12/10) Traumatic Injuries: 1. Acute intraparenchymal hemorrhage in the superior left temporal lobe 2. Adjacent SAH Operations/Procedures: 1. None Care Plan: 1. SAH, IPH 1. NSX consulted 2. Non-op management 3. DDAVP, 1 unit platelets given 12/10 4. Hold ASA/Plavix until NSGY follow up 5. Keppra 500mg BID x 14d 6. BELLSTAFF following - diet advanced 12/13/2021 7. Continue DVT ppx 2. Fall, possible syncope 1. Patient oriented to name only and unable to provide any history 2. TSH, Vit B12 WNL 3. Briefly discussed code status over the phone with patient's spouse on 12/13 - full code at this time - will have further discussions in person 3. LIZABETH; Acute urinary retention 1. Baseline Cr unknown, was normal in 2016 2. Cr 1.28 from 1.39 on 12/13 3. Urine output adequate 4. Void trial attempted 12/13 5. Patient has required straight cath x 2 since zarate removed 6. Continue urinary retention protocol 7. May straight cath one more time prior to replacing zarate 8. If zarate t (more content not included)... [facility] 12-13-2021 Note HNO ID: [id number] Author: Ana Carr RN Service: Care Management Author Type: Registered Nurse Type: Care Mgt Progress Note Filed: 12/13/2021 4:06 PM Note Text: CARE MANAGEMENT PROGRESS NOTE SERVICE DATE: 12/13/2021 SERVICE TIME: 3:56 PM LOS: 3 days Care Coordination Summary: ? Situation: S/p fall. SAH, IPH. PT/OT recommend SNF. DC Disposition: Patient from home with his spouse, son, daughter in law and grandson prior to admission. Plan is for SNF placement at discharge. Patient's [facility] R[facility] is able to accept patient and will have a bed available on 12/15. Abimael Finn PA-C notified. Patient's spouse Tamia updated via phone ([phone]). Barriers: -Awaiting bed availability. -Will need updated COVID 19 testing. Pre-Certification: No. Medicare. No insurance authorization obtained. Anticipated DC Date: 12/15/21. DC Transportation: Will need transportation via ambulance. Family agreeable with DC plan: Yes. SIGNATURE: Ana Carr RN PATIENT NAME: Alexandro Flaherty DATE: December 13, 2021 TIME: 3:56 PM PAGER/CONTACT #: [phone] [facility] 12-13-2021 Note HNO ID: [id number] Author: Abimael Finn PA-C Service: General Surgery Author Type: Physician Photographic Engineer Type: Plan of Care Filed: 12/13/2021 3:19 PM Note Text: Trauma Surgery Plan of Care 12/13/2021 (12/13/2021, 3:17 PM): Spoke with patient's spouse over the phone and updated on plan of care. Patient's spouse is hopeful that he can go to [place] [facility] at discharge. We discussed code status and she is not ready to make a decision on DNR status at this time. Therefore, patient will remain full code. CM following for discharge planning needs. Will call patient's spouse with updates. Abimael Finn PA-C 12/13/2021 3:19 PM [facility] 12-13-2021 Note HNO ID: [id number] Author: Ana Carr RN Service: Care Management Author Type: Registered Nurse Type: Care Mgt Progress Note Filed: 12/13/2021 3:01 PM Note Text: CARE MANAGEMENT PROGRESS NOTE SERVICE DATE: 12/13/2021 SERVICE TIME: 2:52 PM LOS: 3 days Care Coordination Summary: Situation: S/p fall. SAH, IPH. PT/OT recommend SNF. DC Disposition: Patient from home with his spouse, son, daughter in law and grandson prior to admission. Plan is for SNF placement at discharge. [facility] is unable to [facility] and [facility] does not currently have any bed availability. Patient's spouse Tamia updated via phone ([phone]). Patient's spouse requests SNF referrals to [facility]. Facilities notified. Awaiting acceptance. Pre-Certification: No. Medicare. No insurance authorization obtained. Anticipated DC Date: To be determined. DC Transportation: Will need transportation via ambulance. Family agreeable with DC plan: Yes. SIGNATURE: Ana Carr RN PATIENT NAME: Alexandro Flaherty DATE: December 13, 2021 TIME: 2:51 PM PAGER/CONTACT #: [phone] [facility] 12-13-2021 Note HNO ID: [id number] Author: Ana Carr RN Service: Care Management Author Type: Registered Nurse Type: Care Mgt Progress Note Filed: 12/13/2021 12:04 PM Note Text: CARE MANAGEMENT PROGRESS NOTE SERVICE DATE: 12/13/2021 SERVICE TIME: 12:04 PM LOS: 3 days IMM Follow Up Copy Given: Yes Copy given to:: Patient Method: In Person (Copy left at the bedside for patient's spouse Tamia) SIGNATURE: Ana Carr RN PATIENT NAME: Alexandro Flaherty DATE: December 13, 2021 TIME: 12:04 PM PAGER/CONTACT #: [phone] [facility] 12-13-2021 Note HNO ID: [id number] Author: Abimael Finn PA-C Service: General Surgery Author Type: Physician Photographic Engineer Type: Progress Notes Filed: 12/13/2021 11:57 AM Note Text: Trauma Surgery Progress Note SERVICE DATE: 12/13/2021 Trauma Service Pager: For questions or concerns Mon-Fri 6a-5p please page [phone]. After 5pm and on Weekends and Holidays, please page [phone] if in ICU or [phone] if on RNF. SUBJECTIVE: NAEON. Patient seen and examined this morning. Appears more alert. Restraints and sitter have been removed. Extremely hard of hearing making interview difficult. OBJECTIVE: Vitals: Temp (24hrs), Av.6 ?C (97.9 ?F), Min:36.2 ?C (97.2 ?F), Max:36.7 ?C (98.1 ?F) BP 137/64 Pulse 62 Temp 36.6 ?C (97.9 ?F) (Oral) Resp 16 Ht 177.8 cm (5' 10 ) Wt 79.6 kg (175 lb 7.8 oz) SpO2 98% BMI 25.18 kg/m? O2 Therapy: Room Air IANDO: Date 12/12/21699 - 12/13/21 0659 12/13/21699 - 12/14/21 0659 Shift 5128-9730 9694-4622 8913-7074 24 Hour Total 3335-6237 2450-5655 0978-8505 24 Hour Total INTAKE PO 240 60 300 120 120 PO 240 60 300 120 120 Supplements (mL) 0 0 Shift Total 240 60 300 120 120 OUTPUT Urine 350 275 325 950 Output ( Indwelling Urinary Catheter 12/11/21 1830 Coude) 350 275 325 950 # of BMs Stool Incontinence 1 x 1 x Shift Total 350 275 325 950 Weight (kg) 79.5 79.5 79.6 79.6 79.6 79.6 79.6 79.6 MEDICATIONS: Current Facility-Administered Medications Medication Dose Route Frequency - haloperidol lactate 5 mg short-acting injection (HALDOL) 5 mg INTRAMUSCULAR q 6 H PRN - memantine 10 mg tab(s) (NAMENDA) 10 mg ORAL AT BEDTIME - atorvastatin 10 mg tab(s) (LIPITOR) 10 mg ORAL DAILY - finasteride 5 mg tab(s) (PROSCAR) 5 mg ORAL DAILY - tamsulosin 0.4 mg cap(s) (FLOMAX) 0.4 mg ORAL DAILY - heparin 5,000 Units injection 5,000 Units SUBCUTANEOUS q 8 H - senna-docusate 8.6-50 mg 1 tablet (SENNA-S) 1 tablet ORAL BID - NaCl 0.9% iv flush bag 20 mL INTRAVENOUS PRN - sodium chloride 0.9 % (flush) 3-5 mL (BD POSIFLUSH) 3-5 mL INTRAVENOUS q 12 H - acetaminophen 975 mg tab(s) (TYLENOL) 975 mg ORAL/FEEDING TUBE TID - pantoprazole DR 40 mg tab(s) (PROTONIX) 40 mg ORAL DAILY (6 AM) - ondansetron 4 mg tab(s) (ZOFRAN) 4 mg ORAL q 6 H PRN Or - ondansetron (PF) 4 mg injection (ZOFRAN) 4 mg INTRAVENOUS q 6 H PRN - oxyCODONE IR 2.5-5 mg tab(s) (ROXICODONE) 2.5-5 mg ORAL/FEEDING TUBE q 6 H PRN - QUEtiapine 50 mg tab(s) (SEROquel) 50 mg ORAL AT BEDTIME - melatonin 6 mg tab(s) 6 mg ORAL DAILY (8 PM) - levETIRAcetam 500 mg injection (KEPPRA) 500 mg INTRAVENOUS BID Labs: Recent Labs 12/13/21 0243 12/12/21 0306 12/11/21 0422 NA 140 140 140 K 4.0 4.2 4.0 CHLOR 106* 106* 107* CO2 18* 21* 20* BUN 37* 39* 34* CREAT 1.28* 1.39* 1.50* GLUC 74 84 100* ANION 16 13 13 CA 9.2 8.9 8.8 MG -- -- 3.1* P -- -- 3.8 ALB -- -- 3.6* AST -- -- 28 ALT -- -- 21 ALKPHOS -- -- 63 TBILI -- -- 0.4 WBC 6.24 7.31 7.84 HB 10.9* 10.8* 10.2* HCT 32.3* 32.3* 30.0* PLT 103* 93* 91* PHYSICAL EXAM: Genl: Appears age appropriate. No acute distress. Resting comfortably. Head/Face: Normocephalic. Atraumatic. Eyes: EOMI. Sclera not icteric, not injected Resp: Breathing is non-labored on RA @96%. CVS: RRR as above; 2+ pulses at RA, DP, PT bilat. GI: Abdomen is soft, non-tender, not distended. Bowel sounds normoactive. No peritonitis. : Zarate draining mildly blood tinged urine MSK: Extremities without clubbing, cyanosis, edema. Normal ROM x 4. Skin: Warm and dry. Not jaundiced. Neuro: AANDOx1. Strength and sensation intact. WILKINS. Difficult exam secondary to hearing loss. Waves hello, nods yes and no occasionally. 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 CT HNCAP, CXR/PXR, rpt CT brain x2 (12/10) Traumatic Injuries: 1. Acute intraparenchymal hemorrhage in the superior left temporal lobe 2. Adjacent SAH Operations/Procedures: 1. None Care Plan: 1. SAH, IPH 1. NSX consulted 2. Non-op management 3. DDAVP, 1 unit platelets given 12/10 4. Hold ASA/Plavix until NSGY follow up 5. Keppra 500mg BID x 14d 6. BELLSTAFF following - diet advanced 12/13/2021 7. Continue DVT ppx 2. Fall, possible syncope 1. Patient oriented to name only and unable to provide any history 2. TSH, Vit B12 WNL 3. ?LIZABETH 1. Baseline Cr unknown, was normal in 2016 2. Cr 1.28 from 1.39 from 1.50 3. Urine output adequate 4. Patient pulling at zarate overnight causing mild hematuria 1. Continue Flomax and Proscar 2. Void trial 12/13/2021 4. H/O Dementia 1. Agitation impr (more content not included)... [facility] 12-12-2021 Note HNO ID: [id number] Author: Ana Carr RN Service: Care Management Author Type: Registered Nurse Type: Care Mgt Initial Assessment Filed: 12/12/2021 2:41 PM Note Text: CARE MANAGEMENT: ASSESSMENT AND DISCHARGE PLAN SERVICE DATE: December 12, 2021 SERVICE TIME: 2:16 PM PRIMARY CARE PHYSICIAN: Rosa Maria Durbin MD (Confirmed with patient's spouse) Primary Contact: Extended Emergency Contact Information Primary Emergency Contact: KrystinaTamia Address: [address] [place] [address] Mobile Relation: Spouse ADMISSION STATUS: Inpatient Insurance Provider: MEDICARE A AND B; +Rx coverage NEEDS PRIOR TO DISCHARGE Needs Prior to Discharge: Accepting Facility;Bed Availability;Discharge Transportation POTENTIAL TRANSITION PLANS Halfway Facility/Intermediate Care Facility Based on clinical judgement, Care Management will address the following needs: Functional Patient's spouse perception of need for this admission: S/p fall ADVANCE DIRECTIVES Current Advance Directive: None Applique Sewer Attempted to Assist with AD Completion: No Unable to Assist Due To:: Delirium MS/BEHAVIOR Baseline Mental Status Prior to this Illness what was the patient's Baseline Mental Status?: Alert AND Oriented;Forgetful Prior to this illness, has anyone described the patient having any of the following behaviors?: Other: See Comment (Delusions ) Relationship of the informant to the patient:: Spouse Name of Informant: : Tamia Flaherty READMISSION Last Discharge Date: N/A Is this Within the Past 30 days? From what level of care did patient present?: Home Last discharge within 30 days: No PATIENT SCREEN Patient/Energy Conservation Specialist Stated Goals: This has been discussed with my family Under the care of a PCP?: Yes, External Provider Provider Name: Rosa Maria Durbin MD Last Known Visit: Per patient's spouse, 6 months ago Does the patient have transportation upon discharge?: No Situation: High fall risk Use of any community resources?: No Does the patient have a stable and supportive living arrangement and home setting?: Yes Situation: Patient from home with family prior to admission. Patient has a good support system in place. Are there any potential risks or gaps identified by risk/functional/fall,etc. scores in the EMR?: Yes Situation: Fall risk Any potential risks related to substance abuse and/or behavioral health?: No Based on clinical judgement, Care Management will address the following needs: Functional CAREGIVER ASSESSMENT Caregiver is ready, willing and able to meet the patient's needs as recommended by the inter-professional team:: Yes Patient's transition needs and plan for meeting these needs: SNF MEDICAL Medical Needs: Two or more chronic diseases;Fall risk or frequent falls Health Issues Impacting Discharge Plan: Newly diagnosed Newly Diagnosed: SAH, IPH Medication Adherance Med Adherance Assessement not completed due to: Mental Status; Patient's spouse Tamia reports no concerns with medication adherence SOCIAL Living Arrangements: Home Lives With: Spouse;Son;Other: See Comment (Daughter In Law/ Grandson) Financial Resources: Retired Supportive Patient Contact:: Yes Contact Resources: Family Is Patient Psychosocially Complex?: No Contact Resources: Family Per patient's spouse Tamia: Health Literacy How often do you need to have someone help you when you read instructions, pamphlets, or other written material from your doctor or pharmacy? : 1 - Never How confident are you filling out medical forms by yourself?: 1 - Extremely If Patient scores > 3 on either question, the following interventions were put into place:: Patient did not score > 3 on either question. BEHAVIORAL/COGNITIVE Psychosocial Psychosocial Needs: None FUNCTIONAL How do you manage to accomplish the following: Independent: Ambulation;Bathe/Shower;Dress;Go ing to the bathroom Needs Assistance: Transportation to appointments/community;Medicatio n Management;Meals/Meal Prep Services/Needs//Equipment Does Patient Currently Receive Any Community Services or Home Care?: None Equipment Prior to Admission: Cane;Walker;Tub bench/chair Has the Patient Been in a Halfway Facility in the Past 30 days?: No No medical discharge barriers identified at this time. No social discharge barriers identified at this time. No behavioral/cognitive discharge barriers identified at this time. FREEDOM OF CHOICE EXPLAINED: [place] of Choice Given: Yes Level of Care Discussed: Halfway Facility Financial Disclosure Provided: Yes Provider List: Halfway Facility Provider list within the patient's requested geographic area shared with the patient/family: Yes within: 10 miles of zip code: [address] Quality and resource use metrics shared with the patient that are relevant to the patient's goals of (more content not included)... [facility] 12-12-2021 Note HNO ID: [id number] Author: Sharee Wilson APRN.CNP Service: General Surgery Author Type: Nurse Practitioner Type: Progress Notes Filed: 12/12/2021 1:20 PM Note Text: Trauma Surgery Progress Note SERVICE DATE: 12/12/2021 Trauma Service Pager: For questions or concerns Mon-Fri 6a-5p please page [phone]. After 5pm and on Weekends and Holidays, please page [phone] if in ICU or [phone] if on RNF. SUBJECTIVE: Patient transferred out of ICU. In restraints due to trying to remove IVs/catheter and constantly trying to get out of bed. Oriented to name only, denies pain. Does not answer other questions reliably. OBJECTIVE: Vitals: Temp (24hrs), Av.4 ?C (97.5 ?F), Min:35.7 ?C (96.26 ?F), Max:37.1 ?C (98.8 ?F) BP 147/59 Pulse 65 Temp 36.5 ?C (97.7 ?F) (Oral) Resp 18 Ht 177.8 cm (5' 10 ) Wt 79.5 kg (175 lb 4.3 oz) SpO2 96% BMI 25.15 kg/m? O2 Therapy: Room Air IANDO: Date 12/11/21699 - 12/12/21 0659 12/12/21699 - 12/13/21 0659 Shift 6082-6291 6265-2483 6234-0222 24 Hour Total 5557-7972 2256-8108 8763-6154 24 Hour Total INTAKE PO 50 50 PO 50 50 Shift Total 50 50 OUTPUT Urine 400 689 134 2226 Straight cath (ml) 400 400 Output ( Indwelling Urinary Catheter 12/11/21 1830 Coude) 650 325 975 Shift Total 400 105 584 0466 Weight (kg) 79.5 79.5 79.5 79.5 79.5 79.5 79.5 79.5 MEDICATIONS: Current Facility-Administered Medications Medication Dose Route Frequency - haloperidol lactate 5 mg short-acting injection (HALDOL) 5 mg INTRAMUSCULAR q 6 H PRN - atorvastatin 10 mg tab(s) (LIPITOR) 10 mg ORAL DAILY - finasteride 5 mg tab(s) (PROSCAR) 5 mg ORAL DAILY - tamsulosin 0.4 mg cap(s) (FLOMAX) 0.4 mg ORAL DAILY - senna-docusate 8.6-50 mg 1 tablet (SENNA-S) 1 tablet ORAL BID - NaCl 0.9% iv flush bag 20 mL INTRAVENOUS PRN - sodium chloride 0.9 % (flush) 3-5 mL (BD POSIFLUSH) 3-5 mL INTRAVENOUS q 12 H - acetaminophen 975 mg tab(s) (TYLENOL) 975 mg ORAL/FEEDING TUBE TID - pantoprazole DR 40 mg tab(s) (PROTONIX) 40 mg ORAL DAILY (6 AM) - ondansetron 4 mg tab(s) (ZOFRAN) 4 mg ORAL q 6 H PRN Or - ondansetron (PF) 4 mg injection (ZOFRAN) 4 mg INTRAVENOUS q 6 H PRN - oxyCODONE IR 2.5-5 mg tab(s) (ROXICODONE) 2.5-5 mg ORAL/FEEDING TUBE q 6 H PRN - QUEtiapine 50 mg tab(s) (SEROquel) 50 mg ORAL AT BEDTIME - melatonin 6 mg tab(s) 6 mg ORAL DAILY (8 PM) - levETIRAcetam 500 mg injection (KEPPRA) 500 mg INTRAVENOUS BID Labs: Recent Labs 12/12/21 0306 12/11/21 0422 12/10/21 0910 12/10/21 0655 NA 140 140 -- 143 K 4.2 4.0 -- 3.4* CHLOR 106* 107* -- 108* CO2 21* 20* -- 21* BUN 39* 34* -- 27* CREAT 1.39* 1.50* -- 1.48* GLUC 84 100* -- 97 ANION 13 13 -- 14 CA 8.9 8.8 -- 9.3 MG -- 3.1* -- 1.6* P -- 3.8 -- 0.7* ALB -- 3.6* -- 4.0 AST -- 28 -- 31 ALT -- 21 -- 24 ALKPHOS -- 63 -- 79 TBILI -- 0.4 -- 0.5 WBC 7.31 7.84 -- 10.84 HB 10.8* 10.2* -- 12.3* HCT 32.3* 30.0* -- 38.3* PLT 93* 91* -- 101* LACT -- -- 1.3 -- INR -- -- -- 1.0 PHYSICAL EXAM: Genl: Appears age appropriate. No acute distress. Resting comfortably. Head/Face: Normocephalic. Atraumatic. Eyes: EOMI. Sclera not icteric, not injected Neck: No mid-line masses. C-spine non-tender. Back: T AND L Spine non-tender, no step-offs or deformities noted. No flank tenderness. Resp: Lung sounds are clear bilat. No wheezes. No rales. Breathing is non-labored on RA @96%. CVS: RRR as above; 2+ pulses at RA, DP, PT bilat. GI: Abdomen is soft, non-tender, not distended. Bowel sounds normoactive. No peritonitis. : Zarate draining clear yellow urine. MSK: Extremities without clubbing, cyanosis, edema. Normal ROM x 4. Skin: Warm and dry. Not jaundiced. Neuro: AANDOx1. Strength and sensation normal. WILKINS. 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 CT HNCAP, CXR/PXR, rpt CT brain x2 (12/10) Traumatic Injuries: 1. Acute intraparenchymal hemorrhage in the superior left temporal lobe 2. Adjacent SAH Operations/Procedures: 1. None Care Plan: 1. SAH, IPH 1. Non-op per NSGY 2. DDAVP, 1 unit platelets given 12/10 3. Hold ASA/Plavix until NSGY follow up 4. Keppra 500mg BID x14d 5. BELLSTAFF eval 6. Start DVT ppx 12/12 @ 2200 2. Fall, possible syncope 1. to come to bedside this afternoon, will discuss details of fall with her at that time 2. Patient oriented to name only and unable to provide any history 3. TSH, Vit B12 WNL 3. ?LIZABETH 1. Baseline Cr unknown, was normal in 2016 2. Cr 1.39 from 1.50 3. Urine output adequate 4. Maintain zarate for acute retention, plan void (more content not included)... [facility] 12-11-2021 Note HNO ID: [id number] Author: Heather Pachceo (Grazing Examiner) Service: Pharmacy Author Type: Pharmacy Customer Care Specialist Type: Plan of Care Filed: 12/11/2021 3:19 PM Note Text: PHARMACY MEDICATION REVIEW Patient Name: Alexandro Flaherty : 1935 The following medications were updated within the PLODDING MACHINE OPERATOR medication list: Medications ADDED to PLODDING MACHINE OPERATOR medication list atorvastatin (LIPITOR) 10 mg tablet Take 10 mg by mouth once daily. clopidogrel (PLAVIX) 75 mg tablet Take 75 mg by mouth once daily. ergocalciferol 50,000 unit capsule (VITAMIN D2, DRISDOL) Take 1 capsule by mouth one time a week. esomeprazole (NEXIUM) 40 mg capsule Take 40 mg by mouth once daily. finasteride (PROSCAR) 5 mg tablet Take 5 mg by mouth once daily. memantine (NAMENDA) 5 mg tablet Take 10 mg by mouth daily at bedtime. sertraline (ZOLOFT) 100 mg tablet Take 200 mg by mouth once daily. tamsulosin (FLOMAX) 0.4 mg Take 0.4 mg by mouth once daily. ? Medications CHANGED on PLODDING MACHINE OPERATOR medication list ? Medications REMOVED from PLODDING MACHINE OPERATOR medication list alprazolam(XANAX 0.5 MG TAB) Course of therapy completed metoprolol succinate(TOPROL XL 25 MG 24 HR TAB) Course of therapy completed modafinil(PROVIGIL 200 MG TAB) Course of therapy completed MULTIVITAMIN TAB Course of therapy completed NITROGLYCERIN 0.4 MG SUBLINGUAL TAB Course of therapy completed propoxyphene/acetaminophen(DARVO CET-N 100 100 MG-650 MG TAB) Course of therapy completed sildenafil citrate(VIAGRA 100 MG TAB) Course of therapy completed ? Additional comments: Verified medication information with [facility] and chart review. Did not confirm with patient/family. Did not check taking box. Removed from med list alprazolam, metoprolol succ, modafinil, multivit, nitroglycerin, Darvocet and sildenafil - all old medications. Per pharmacy added Atorvastatin (10/07/2021 for 90), clopidogrel (11/19/2021 for 90), vit D2 (10/20/2021 for 84), Nexium (08/19/2021 for 90), finasteride (10/30/2021 for 90), memantine (10/20/2021 for 90), sertraline (10/20/2021 for 90) and tamsulosin (10/07/2021 for 90) to the med list. Required follow up actions for nursing: Please verify medications when able with patient/family. The below information represents the best possible medication history: Yes Medication history completed by: Pharmacy Customer Care Specialist: Heather Pacheco (Grazing Examiner) Source of history: Pharmacy records: [facility] [phone] and [facility] records Medication nonadherence identified: Unable to assess Reconciliation completed: No, pharmacist not yet reviewed Patient interested in Bedside Delivery Services or using OP Pharmacy at discharge? Unable to assess Preferred outpatient pharmacy: [facility] [place] [address] [address] [facility] [phone] Allergies: No Known Allergies Prior to Admission Medications Prescriptions Last Dose Informant Patient Reported? Taking? atorvastatin (LIPITOR) 10 mg tablet Yes No Sig: Take 10 mg by mouth once daily. clopidogrel (PLAVIX) 75 mg tablet Yes No Sig: Take 75 mg by mouth once daily. ergocalciferol 50,000 unit capsule (VITAMIN D2, DRISDOL) Yes No Sig: Take 1 capsule by mouth one time a week. esomeprazole (NEXIUM) 40 mg capsule Yes No Sig: Take 40 mg by mouth once daily. finasteride (PROSCAR) 5 mg tablet Yes No Sig: Take 5 mg by mouth once daily. memantine (NAMENDA) 5 mg tablet Yes No Sig: Take 10 mg by mouth daily at bedtime. sertraline (ZOLOFT) 100 mg tablet Yes No Sig: Take 200 mg by mouth once daily. tamsulosin (FLOMAX) 0.4 mg Yes No Sig: Take 0.4 mg by mouth once daily. Facility-Administered Medications: None Heather Pacheco ([employer])[id number] 12/11/2021 [facility] 12-11-2021 Note HNO ID: [id number] Author: Magdalena Hill RN Service: Care Management Author Type: Registered Nurse Type: Care Mgt Progress Note Filed: 12/11/2021 11:08 AM Note Text: CARE MANAGEMENT PROGRESS NOTE SERVICE DATE: 12/11/2021 SERVICE TIME: 11:04 AM LOS: 1 day Needs Prior to Discharge: To Be Determined;OT/PT Evaluation DC plan: TBD Called and left message for Tamia to complete assessment. Per chart review pt A and O x 1. Will need to find out if active with any services. Pt may need SNF. SIGNATURE: Magdalena Hill RN PATIENT NAME: Alexandro Flaherty DATE: December 11, 2021 TIME: 11:04 AM PAGER/CONTACT #: [phone] [facility] 12-11-2021 Note HNO ID: [id number] Author: Manasa Sweeney MD Service: General Surgery Author Type: Resident Type: Progress Notes Filed: 12/11/2021 7:21 AM Note Text: Attestation signed by Lucho Villanueva MD at 12/31/2021 7:56 PM I personally saw and examined the patient on 12/11/21. I reviewed the resident's note. I agree with the resident's assessment and plan unless otherwise noted. Lucho Villanueva MD Trauma Surgery Progress Note SERVICE DATE: 12/11/2021 Trauma Service Pager: For questions or concerns Mon-Sat 6a-5p please page [phone]. After 5pm and on Weekends and Holidays, please page [phone] if in ICU or [phone] if on RNF. SUBJECTIVE: Remains hard of hearing and confused this morning. Per RN, pt remains confused and pulling at lines per RN requiring soft restraints. AOx1 per RN. Minimally answering questions this morning. Unclear if he is having LEOS/CP/SOB/N/V (pt mumbled when answering) Required straight cath overnight as pt refuses to urinate w/o getting out of bed OBJECTIVE: Vitals: Temp (24hrs), Av.7 ?C (98.1 ?F), Min:33.6 ?C (92.48 ?F), Max:37.7 ?C (99.86 ?F) BP 110/53 Pulse 64 Temp 36.3 ?C (97.34 ?F) Resp 21 Ht 177.8 cm (5' 10 ) Wt 79.5 kg (175 lb 4.3 oz) SpO2 95% BMI 25.15 kg/m? O2 Therapy: Room Air IANDO: Date 12/10/21699 - 12/11/21 0612/11/21699 - 12/12/21 0659 Shift 9279-8127 3554-8303 4364-0578 24 Hour Total 5319-2598 8980-9262 6482-8063 24 Hour Total INTAKE PO 240 240 PO 240 240 IV 50 50 Volume (mL) (desmopressin 40 mcg in NaCl 0.9% 50 mL (DDAVP)) 50 50 Blood Products 425 425 Infusion Complete Volume (mL) (Platelet Transfusion Instruction) 425 425 Shift Total 50 665 715 OUTPUT Urine 0 275 325 600 Straight cath (ml) 325 325 Urine Incontinence/Not Saved 1 x 1 x Output ( External Collection Device 12/10/21719) 0 275 275 Shift Total 0 275 325 600 Weight (kg) 79.5 79.5 79.5 79.5 79.5 79.5 79.5 79.5 MEDICATIONS: Current Facility-Administered Medications Medication Dose Route Frequency - NaCl 0.9% iv flush bag 20 mL INTRAVENOUS PRN - metoprolol succinate ER 25 mg tab(s) (TOPROL XL) 25 mg ORAL DAILY - sodium chloride 0.9 % (flush) 3-5 mL (BD POSIFLUSH) 3-5 mL INTRAVENOUS q 12 H - potassium chloride ER 20-40 mEq tab(s) (K-DUR, KLOR-CON) 20-40 mEq ORAL/FEEDING TUBE PRN Or - potassium chloride iv piggyback 20 mEq/100 mL 20 mEq INTRAVENOUS PRN - magnesium sulfate 2 g in sterile water 50 ml 2 g INTRAVENOUS PRN - phosphorus 500 mg tab(s) (K PHOS NEUTRAL) 500 mg ORAL/FEEDING TUBE PRN(NO DISPENSE) - calcium gluconate 4 g in NaCl 0.9% 250 mL 4 g INTRAVENOUS PRN - acetaminophen 975 mg tab(s) (TYLENOL) 975 mg ORAL/FEEDING TUBE TID - pantoprazole DR 40 mg tab(s) (PROTONIX) 40 mg ORAL DAILY (6 AM) - ondansetron 4 mg tab(s) (ZOFRAN) 4 mg ORAL q 6 H PRN Or - ondansetron (PF) 4 mg injection (ZOFRAN) 4 mg INTRAVENOUS q 6 H PRN - oxyCODONE IR 2.5-5 mg tab(s) (ROXICODONE) 2.5-5 mg ORAL/FEEDING TUBE q 6 H PRN - haloperidol lactate 5 mg short-acting injection (HALDOL) 5 mg INTRAVENOUS q 6 H PRN - QUEtiapine 50 mg tab(s) (SEROquel) 50 mg ORAL AT BEDTIME - melatonin 6 mg tab(s) 6 mg ORAL DAILY (8 PM) - levETIRAcetam 500 mg injection (KEPPRA) 500 mg INTRAVENOUS BID Labs: Recent Labs 12/11/21 0422 12/10/21 0910 12/10/21 0655 NA 140 -- 143 K 4.0 -- 3.4* CHLOR 107* -- 108* CO2 20* -- 21* BUN 34* -- 27* CREAT 1.50* -- 1.48* GLUC 100* -- 97 ANION 13 -- 14 CA 8.8 -- 9.3 MG 3.1* -- 1.6* P 3.8 -- 0.7* ALB 3.6* -- 4.0 AST 28 -- 31 ALT 21 -- 24 ALKPHOS 63 -- 79 TBILI 0.4 -- 0.5 WBC 7.84 -- 10.84 HB 10.2* -- 12.3* HCT 30.0* -- 38.3* PLT 91* -- 101* LACT -- 1.3 -- INR -- -- 1.0 PHYSICAL EXAM: General: appears age, drowsy Eyes: gross vision intact, no scleral icterus ENT: atraumatic, No gross abnormality CV: warm, well perfused Pulm: equal chest rise b/l, unlabored breathing on RA GI: abdomen soft, NTTP Skin: atraumatic, no jaundice Extremities: gross motor intact, atraumatic Psych: mood appropriate, no significant distress Neuro: drowsy, AOx1, moves all extremities ASSESSMENT AND PLAN: Active Hospital Problems Diagnosis Date Noted - SAH (subarachnoid hemorrhage) ([facility]) 12/10/2021 - Malnutrition of moderate degree (HCC) 12/10/2021 86 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 He was noted to have ICH Imaging performed: 1. 12/10 CTH x3 CS CAP, CXR, PXR Traumatic Injuries: 1. IPH in the L temporal lobe, intraventricular hemorrhage in b/l occipital horns, L SAH Operations/Procedures: 1. NA Care Plan: 1. ICH 1. S/p DDAVP and Plt on 12/10 2. Remains AOx1 w/o focal deficit 3. keppra 500 BID 4. SBP<160, elevated HOB 5. Chemical DVT ppx 6. F/up NSx recs regarding timing to trx to floor 1. September (more content not included)... [facility] 12-11-2021 Note HNO ID: [id number] Author: Boni Steinberg MD Service: General Surgery Author Type: Physician Type: Progress Notes Filed: 12/11/2021 10:40 AM Note Text: INPATIENT SICU PROGRESS NOTE SICU Service Pager: For questions or concerns Mon-Fri 6a-5p please page [phone]. After 5pm and on Weekends and Holidays, please page [phone]. Subjective Subjective: Patient seen and examined this morning AOx0 -- unable to respond to qs -- nonsensical speech Current Facility-Administered Medications Medication Dose Route Frequency - NaCl 0.9% iv flush bag 20 mL INTRAVENOUS PRN - iv contrast (radiology procedure) INTRAVENOUS DIRECTED PRN - iv contrast (radiology procedure) INTRAVENOUS DIRECTED PRN - metoprolol succinate ER 25 mg tab(s) (TOPROL XL) 25 mg ORAL DAILY - sodium chloride 0.9 % (flush) 3-5 mL (BD POSIFLUSH) 3-5 mL INTRAVENOUS q 12 H - potassium chloride ER 20-40 mEq tab(s) (K-DUR, KLOR-CON) 20-40 mEq ORAL/FEEDING TUBE PRN Or - potassium chloride iv piggyback 20 mEq/100 mL 20 mEq INTRAVENOUS PRN - magnesium sulfate 2 g in sterile water 50 ml 2 g INTRAVENOUS PRN - phosphorus 500 mg tab(s) (K PHOS NEUTRAL) 500 mg ORAL/FEEDING TUBE PRN(NO DISPENSE) - calcium gluconate 4 g in NaCl 0.9% 250 mL 4 g INTRAVENOUS PRN - acetaminophen 975 mg tab(s) (TYLENOL) 975 mg ORAL/FEEDING TUBE TID - pantoprazole DR 40 mg tab(s) (PROTONIX) 40 mg ORAL DAILY (6 AM) - ondansetron 4 mg tab(s) (ZOFRAN) 4 mg ORAL q 6 H PRN Or - ondansetron (PF) 4 mg injection (ZOFRAN) 4 mg INTRAVENOUS q 6 H PRN - oxyCODONE IR 2.5-5 mg tab(s) (ROXICODONE) 2.5-5 mg ORAL/FEEDING TUBE q 6 H PRN - haloperidol lactate 5 mg short-acting injection (HALDOL) 5 mg INTRAVENOUS q 6 H PRN - QUEtiapine 50 mg tab(s) (SEROquel) 50 mg ORAL AT BEDTIME - melatonin 6 mg tab(s) 6 mg ORAL DAILY (8 PM) - levETIRAcetam 500 mg injection (KEPPRA) 500 mg INTRAVENOUS BID Objective VITAL SIGNS BP 107/47 Pulse 60 Temp (Src) 97.34 (Axillary) Resp 23 Ht 5' 10 (1.78m) Wt 175 lb 4.3 oz (79.5kg) SpO2 94% BMI 25.15 kg/(m2). O2 Therapy: Room Air Temp (24hrs), Av.8 ?C (98.2 ?F), Min:33.6 ?C (92.48 ?F), Max:37.7 ?C (99.86 ?F) Date 12/10/21699 - 12/11/2165812/11/21699 - 12/12/21 0659 Shift 0508-1340 9354-2313 4421-1770 24 Hour Total 2058-8706 1174-2121 9777-9566 24 Hour Total INTAKE PO 240 240 PO 240 240 IV 50 50 Volume (mL) (desmopressin 40 mcg in NaCl 0.9% 50 mL (DDAVP)) 50 50 Blood Products 425 425 Infusion Complete Volume (mL) (Platelet Transfusion Instruction) 425 425 Shift Total 50 665 715 OUTPUT Urine 0 275 325 600 Straight cath (ml) 325 325 Urine Incontinence/Not Saved 1 x 1 x Output ( External Collection Device 12/10/21 07) 0 275 275 Shift Total 0 275 325 600 Weight (kg) 79.5 79.5 79.5 79.5 79.5 79.5 79.5 79.5 PHYSICAL EXAM: GENERAL: No distress, not alert, unable to cooperate NEURO: AANDOx0, CN II-XII grossly intact HEENT: normocephalic, atraumatic LUNGS: Unlabored breathing CARDIAC: Regular rate and rhythm as above ABDOMEN: Soft, non-tender, non-distended . EXTREMITIES: WILKINS, No deformities, No edema SKIN: Skin color, texture, turgor normal, No rashes or lesions DATA: Diagnostic tests reviewed for today's visit: No results for input(s): BODSITE, CTYPE, PH, PCO2, PO2, BE, HCO3, CO2CT, O2HB, COHB, MHGB, TEMP, PHTC, PCO2T, PO2T, O2AD in the last 72 hours. Recent Labs 12/11/21 0422 12/10/21 0910 12/10/21 0655 CREAT 1.50* -- 1.48* BUN 34* -- 27* NA 140 -- 143 K 4.0 -- 3.4* CHLOR 107* -- 108* CO2 20* -- 21* ANION 13 -- 14 GLUC 100* -- 97 CA 8.8 -- 9.3 P 3.8 -- 0.7* MG 3.1* -- 1.6* ALB 3.6* -- 4.0 AST 28 -- 31 ALT 21 -- 24 ALKPHOS 63 -- 79 TBILI 0.4 -- 0.5 WBC 7.84 -- 10.84 HB 10.2* -- 12.3* HCT 30.0* -- 38.3* PLT 91* -- 101* LACT -- 1.3 -- Assessment/Plan ACTIVE PROBLEM LIST Sah (Subarachnoid Hemorrhage) (Hcc) Malnutrition of Moderate Degree (Hcc) Assessment and Plan: 86 year old male s/p?syncopal fall who presented with intraparenchymal and subarachnoid hemorrhage while on ASA and plavix with new onset AMS ? Hospital course: 12/10: CT brain: IPH in left posterior temporal parietal region, 3.2x2.5,1.9cm with mild surrounding edema. Mass effect on adjacent posterior horn of left lateral ventricle. No midline shift. Small adjacent SAH Neuro: - Pain Control: tylenol júnior - Seroquel at bedtime, haldol prn - Seizure ppx: keppra 500 BID -nsgy recs: repeat CT stable -- will need repeats, 1U platelets, DDVAP was given in ED, nonsurg - 30 degrees head of bed, keep BP < 160 - q1 hr neuro checks - hx of dementia- delirium protocol ? CV: hx of CABG, hold palvix and ASA - Tele -HDS - EKG if indicated - SBP <160 - home meds: metop - most recent echo: EF 65%. Concentric LVH. RVSP 42mmHg Resp: - On O2 Therapy: Room Air - IS/Acapella/duonebs as able - CXR Findings: 12/10 No acute radiographic abnormality. Respiratory (more content not included)... [facility] 12-10-2021 Note HNO ID: [id number] Author: Gagan Milner DO Service: General Surgery Author Type: Resident Type: Plan of Care Filed: 12/10/2021 2:49 PM Note Text: SICU I spoke with the patient's Tamia via phone at [phone] 2:47 PM who confirms that she is willing for her to have a transfusion of platelets. Gagan Milner DO PGY-5 General Surgery 12/10/2021 2:47 PM [facility] Traumatic avulsion of nail plate of toe, initial encounter- Primary PAD (peripheral artery disease) (HCC) Peripheral vascular disease, unspecified [facility] Outpatient Procedure (Urgent) - Pending Review Specialty Diagnoses / Procedures Referred By Contdeanna t Referred To [facility] Diagnoses PAD (peripheral artery disease) (HCC) Ingrowing toenail of left foot Procedures PVR ANK PRESS SYED VAS LAB NON-INVAS PHYSIOLOGIC STD EXTREMITY ART [address] [place] [address] [facility] [place] [address] [place] [address] Referral ID Status Reason Start Date Expiration Date Visits Requested Visits Authorized [id number] Pending Review Auto-Generat ed Referral 12/12/202 2 05/07/2023 1 1 * Diagnostic Procedure Only (Routine) - Pending Review Specialty Diagnoses / Procedures Referred By Lenin dykes Referred To Contact XR IMAGING Diagnoses Traumatic avulsion of nail plate of toe, initial encounter Procedures XR FOOT GENERAL 3V AP/LAT/OBL RIGHT RADEX FOOT COMPLETE MINIMUM 3 VIEWS Dianna Jarrett [address] [place] [address] Xr Imaging Referral ID Status Reason Start Date Expiration Date Visits Requested Visits Authorized [id number] Pending Review Auto-Generat ed Referral 2 06/06/2023 1 1 [facility] Advance Directives Documents on File Type Date Recorded Patient 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 Conservation Specialist Expl anation Advance Directive(s) 12/12/2021 11:05 AM Advance Directive(s) 12/10/2021 7:27 AM Summary Purpose Family History No Family History Records FoundNo Family History Records Found Additional Source Comments Source Comments (unrecognize d section and content) In the event this informatio n is protected by the Federal Confidentiality of Alcohol and Drug Abuse Patient Records regulations: The Federal rules restrict any use of the information to criminally investigate or prosecute any alcohol or drug abuse patient.[facility] the event this information is protected by the Federal Confidentiality of Alcohol and Drug Abuse Patient Records regulations: The Federal rules restrict any use of the information to criminally investigate or prosecute any alcohol or drug abuse patient.[facility] the event this information is protected by the Federal Confidentiality of Alcohol and Drug Abuse Patient Records regulations: The Federal rules restrict any use of the information to criminally investigate or prosecute any alcohol or drug abuse patient.[facility] the event this information is protected by the Federal Confidentiality of Alcohol and Drug Abuse Patient Records regulations: The Federal rules restrict any use of the information to criminally investigate or prosecute any alcohol or drug abuse patient.[facility] the event this information is protected by the Federal Confidentiality of Alcohol and Drug Abuse Patient Records regulations: The Federal rules restrict any use of the information to criminally investigate or prosecute any alcohol or drug abuse patient.[facility] Reason for Visit (unrecogniz ed section and content) Reason Comments Appointment Reason Comments New Pain Nail Check Reason Comments Results Reason Comments Established Patient Follow Up Pain Care Teams (unrecognized sec tion and content) Belt Back Operator Relationship Specialty Start Date End Date Rosa Maria Durbin MD [address] [place] [id number] PCP - General Family Practice 09/28/11 Belt Back Operator Relationship Specialty Start Date End Date Rosa Maria Durbin MD [address] [place] [address] PCP - General Family Medicine 09/28/11 Belt Back Operator Relationship Specialty Start Date End Date Rosa Maria Durbin MD [address] [place] [address] PCP - General Family Medicine 09/28/11 Belt Back Operator Relationship Specialty Start Date End Date Rosa Maria Durbin MD [address] [place] [address] PCP - General [facility] 09/28/11 (unrecognized sect ion and content) No Status Records FoundNo Status Records Found INFORMATION SOURCE (unrecogn ized section and content) DATE CREATED AUTHOR AUTHOR'S ORGANIZ ATION 05/30/2022 [facility] FOR RECORDS PERTAINING TO PATIENTS WHO ARE OR HAVE BEEN ENROLLED IN A CHEMICAL DEPENDENCY/SUBSTANCEABUSE PROGRAM, SOME INFORMATION MAY BE OMITTED. This clinical summary was aggregated from multiple sources. Caution should be exercised in using it in the provision of clinical care. This summary normalizes information from multiple sources, and as a consequence, information in this document may materially change the coding, format and clinical context of patient data. In addition, data may be omitted in some cases. CLINICAL DECISIONS SHOULD BE BASED ON THE PRIMARY CLINICAL RECORDS. [employer] provides no warranty or guarantee of the accuracy or completeness of information in this document.
[2023-05-27 13:07] LABS: KEPPRA (LEVETIRACETAM) 15.4 ug/mL (10.0-40.0)
== END ==
LOC: OLS.SW 06:40
PROVIDERS: PCP Family Medicine; Referring Provider Family Medicine; Visit Provider Family Medicine
DX: S06.360D Traumatic hemorrhage of cerebrum, unspecified, without loss of consciousness, subsequent encounter (principal); Z79.899 Other long term (current) drug therapy
CPT/HCPCS: 36415; 80177

== ENCOUNTER → 2023-06-11 | Outpatient (REF) | payer MEDICARE, OTHER, MEDICAID, SELFPAY ==
--- OUTSIDE RECORDS SUMMARY | 2023-06-11 04:47 | XMS RPT_ITS | CCD ---
Author Name Unknown Address [address] [place] [address] Organization [facility] Care Team Providers Care Windows Systems Engineer Name Role Phone Rosa Maria Durbin MD Primary Care Provider DIANNA JARRETT Attending Unavailable ROSA MARIA DURBIN Primary Care Unavailabl Rosa Maria Melara MD Primary Care Provider Allergies Allergy Classification Reported Allergen(s) Allergy Type Date of Onset Reaction(s) Facility (3 sources) donepezil Drug Allergy 08-17-2021 Mental Status Change [facility] (3 sources) Metoprolol Drug Allergy 02-16-2021 Other: See Comments [facility] (3 sources) Niacin Drug Allergy 03-20-2012 Hives [facility] (3 sources) Pravastatin Drug Allergy 01-02-2019 Other: See Comments [facility] (3 sources) Simvastatin Drug Allergy 03-20-2012 Other: See Comments [facility] Medications Completed/Discontinued Medications Medication Drug Class(es) Dates [...] sources) Long-term current use of aspirin; Translations: [correction (current) use of aspirin] Onset: 12-12-2021 12-14-2021 Episodic Other aftercare (5 sources) 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; Translations: [correction (current) use of antithrombotics/anti platelets] Onset: 12-12-2021 12-14-2021 Episodic Results Test Name Value Interpretation Reference Range Facil ity Encounters Encounter Date Encounter Type Care Provider Facility Start: 08-14-2022 End: 08-14-2022 Patient encounter procedure Dianna Jarrett Work Phone: Podiatry Procedures Date Procedure Procedure Detail Performing Clinician Start: 12-10-2021 Antibody screen Plan of Treatment Date Care Activity Detail Author Start: 12-13-2024 DIABETES SCREEN DIABETES SCREEN [facility] Start: 05-27-2022 ADVANCE DIRECTIVE DISCUSSION ADVANCE DIRECTIVE DISCUSSION [facility] Start: 05-27-2022 DEPRESSION ASSESSMENT DEPRESSION ASSESSMENT [facility] Start: 01-25-2022 Influenza vaccination INFLUENZA (#1) [facility] Start: 05-27-2021 ADVANCE DIRECTIVE DISCUSSION ADVANCE DIRECTIVE DISCUSSION [facility] Start: 05-27-2021 DEPRESSION ASSESSMENT DEPRESSION ASSESSMENT [facility] Start: 2001 PNEUMOCOCCAL: 65+ (1 - PCV) PNEUMOCOCCAL: 65+ (1 - PCV) [facility] Start: 1986 SHINGRIX VACCINE (1 of 2) SHINGRIX VACCINE (1 of 2) [facility] Start: 11-27-1955 Urine microalbumin profile DTAP,TDAP,TD (1 - Tdap) [facility] End: 05-07-2023 PVR ANK PRESS [facility] PVR ANK PRESS [facility] Vascular Lab STAT PAD (peripheral artery disease) (HCC) Ingrowing toenail of left foot 1 Occurrences starting 05/07/2022 until 05/07/2023 [facility] Work Phone: Payers Date Payer Category Payer [employer] ( and others) [id number] 2007 Unknown FOR LIFE [id number] 2007-Present [phone] [address] [place] [address] Indemnity [id number] 2007 Unknown FOR LIFE [id number] 2007-Present [phone] [address] [place] [address] Indemnity [id number] 2001 Medicare MEDICARE MEDICAR E A AND B [id number] 2001-Present [phone] [address] [address] [place] [address] Medicare [id number] 2001 Medicare [id number] 2001 Medicare [id number] Social History Date Type Detail Facility Start: 05-07-2022 Tobacco smoking stat us NHIS Never smoked tobacco [facility] Start: 12-10-2021 End: 08-14-2022 Alcohol intake Current drinker of alcohol (finding) [facility] Start: 1935 Sex Assigned At Not on file [facility] Start: 11-30-2021 End: 12-10-2021 Exposure to SARS-CoV-2 (event) Not sure [facility] Clinical Notes 12-10-2021 to 08-14-2022 Dianna Jarrett [...] encounter diagnosis) (I73.9) PAD (peripheral artery disease) ([facility]) PLAN: Reviewed xrays (scan) from [...] Geeta Maguire LPN documented in this encounter [facility] 05-30-2022 Miscellaneous Notes Phone call to [facility] where patient is a resident. Left message with nurse, Alannah, that testing was normal. She verbalized understanding. Resutls faxed to facility at [phone] Please call patient to inform him that his circulation studies from [facility] appear normal Dianna Jarrett DPM PVR received via fax from [facility]. Forwarded to Dr. Jarrett for review. documented in this encounter [facility] 05-07-2022 Note HNO ID: [id number] Author: Dianna Jarrett Service: ? 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 [facility] 05-07-2022 Note HNO ID: [id number] Author: Berenice Baker RN Service: ? Author [...] able to answer questions for this nurse. [facility] 05-07-2022 Instructions Dianna Jarrett - 05/07/2022 10:34 AM EST Recommend topical antibiotic such as neosporin to both great toe and right 3rd toe daily Take keflex 500 mg three times daily x 1 week Get xrays today Get circulation studies If condition worsens where your toe turns red or black, present to ED immediately. Would consider [facility] or [place]. Will recommend use of gel padding to left 4th and 5th toe because these toes curl and can lead to sores. documented in this encounter [facility] 05-07-2022 History of Presen t illness Narrative Images from the original note were not included. 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 documented in this encounter [facility] 12-26-2021 Miscellaneous Notes I was informed that patient's family wishes to follow up with a provider closer to home. They do not wish to come to our office at this time. Will advise patient's facility. Patience, nurse from [facility], called to cancel patient's CT and follow up with Dr. Knutson today. She stated the were unable to coordinate transport for him. She asked that we fax the CT order to them ([phone]). They will do the CT and send us the results. Once we receive I will call them back ([phone]) with future follow up plans. documented in this encounter [facility] 12-19-2021 Miscellaneous Notes [facility] called concerning appointment patient has set up on 12/26/21 w/Dr. Knutson, Patient has fallen again and they will be pushing images of CT Brain that he has had done in [place] and they will also fax me copies of radiology, But at this time the Family does not want patient to go to this appointment. If you have questions you can call Charge Nurse Rolanda at [phone]. They informed me that the patient's family does not want to be scheduled with us, Dr. Knutson at this time. I did tell them if they change their mind to give office a call to schedule. documented in this encounter [facility] 12-14-2021 Note HNO ID: [id number] Author: Ana Carr RN Service: Care Management Author Type: Registered Nurse Type: Care Mgt Progress Note Filed: 12/14/2021 4:40 PM Note Text: CARE MANAGEMENT DISCHARGE NOTE SERVICE DATE: 12/14/2021 SERVICE TIME: 4:35 PM LOS: 4 days Admission Date: 12/10/2021 DISCHARGE ARRANGEMENT (list agency and phone number) Discharge Arrangement: Halfway Facility Was an expedited discharge program used?: No Provider Name: [facility] CAREGIVER ASSESSMENT: Caregiver is ready, willing and able to meet the patient's needs as recommended by the inter-professional team:: Yes Patient's transition needs and plan for meeting these needs: SNF HANDOFF COMMUNICATION: Handoff to: Other Caregiver Other Caregiver Name/Phone: [facility] Unit/ Bedside RN TRANSPORTATION ARRANGEMENTS: Transportation Arrangements: Ambulance Transportation Agency and Phone #:: [facility] ( [facility] ) [phone] / [phone] Date of Trip: 12/14/21 Time of Trip: 1700 Type of Service: BLS Non-emergency Is Patient Medicaid Pending?: No Was transportation financial coverage discussed with family?: Spouse Shearing Machine Feeder Location: [facility] Destination: [facility] Financial Care Management Responsibility: None Needs Prior to Discharge: Ready for Discharge Patient presents with decreased cognition. Spoke with patient's spouse Tamia via phone ([phone]). Discharge today. Discharge orders complete. [facility] is able to accept patient and has bed availability today now. No insurance authorization needed. Transportation set for 1700. [facility] Unit notified. Bedside RN notified. SIGNATURE: Ana Carr RN PATIENT NAME: Alexandro Flaherty DATE: December 14, 2021 TIME: 4:34 PM PAGER/CONTACT #: [phone] [facility] 12-14-2021 Note HNO ID: [id number] Author: Ana Carr RN Service: Care Management Author Type: Registered Nurse Type: Care Mgt Progress Note Filed: 12/14/2021 10:06 AM Note Text: CARE MANAGEMENT PROGRESS NOTE SERVICE DATE: 12/14/2021 SERVICE TIME: 10:06 AM LOS: 4 days IMM Follow Up Copy Given: Yes Copy given to:: Patient Clinical Project Coordinator Clinical Project Coordinator Name/Relationship: Tamia Flaherty/ Spouse Method: By Phone (Verbal confirmation obtained) SIGNATURE: Ana Carr RN PATIENT NAME: Alexandro Flaherty DATE: December 14, 2021 TIME: 10:02 AM PAGER/CONTACT #: [phone] [facility] 12-14-2021 Note HNO ID: [id number] Author: Abimael Finn PA-C Service: General Surgery Author Type: Physician High Energy Forming Equipment Operator Type: Progress Notes Filed: 12/14/2021 8:52 AM Note Text: Trauma Surgery Progress Note SERVICE DATE: 12/14/2021 Trauma Service Pager: For questions or concerns Mon-Fri 6a-5p please page [phone]. After 5pm and on Weekends and Holidays, [...] 0659 12/14/21 07 - 12/15/21 0659 Shift 9623-5495 9531-8601 5305-0126 24 Hour Total 9995-0069 2353-0335 7024-5197 24 Hour Total INTAKE PO 480 480 PO 480 480 Shift Total 480 480 OUTPUT Urine 424 177 4236 Straight cath (ml) 700 700 Output ([REMOVED] Indwelling Urinary Catheter 12/11/21 1830 Coude 12/13/21 1331) 600 600 # of BMs Stool Incontinence 1 x 1 x Shift Total 266 874 2099 Weight (kg) 79.6 79.6 77.6 77.6 77.6 [...] 5. Keppra 500mg BID x 14d 6. PROPERTY MANAGEMENT COORDINATOR following - diet advanced 12/13/2021 7. Continue [...] If zarate t (more content not included)... [facility] 12-13-2021 Note HNO ID: [id number] Author: Ana Carr RN Service: Care Management [...] [facility] is able to accept patient and will have a bed available on 12/15. Abimael Finn PA-C notified. Patient's spouse Tamia updated via phone ([phone]). Barriers: -Awaiting bed availability. -Will need updated COVID 19 testing. Pre-Certification: No. Medicare. No insurance authorization obtained. Anticipated DC Date: 12/15/21. DC Transportation: Will need transportation via ambulance. Family agreeable with DC plan: Yes. SIGNATURE: Ana Carr RN PATIENT NAME: Alexandro Flaherty DATE: December 13, 2021 TIME: 3:56 PM PAGER/CONTACT #: [phone] [facility] 12-13-2021 Note HNO ID: [id number] Author: Abimael Finn PA-C Service: General Surgery Author Type: Physician High Energy Forming Equipment Operator Type: Plan of Care Filed: 12/13/2021 3:19 PM Note Text: Trauma Surgery Plan of Care 12/13/2021 (12/13/2021, 3:17 PM): Spoke with patient's spouse over the phone and updated on plan of care. Patient's spouse is hopeful that he can go to [place] [facility] at discharge. We discussed code status and she is not ready to make a decision on DNR status at this time. Therefore, patient will remain full code. CM following for discharge planning needs. Will call patient's spouse with updates. Abimael Finn PA-C 12/13/2021 3:19 PM [facility] 12-13-2021 Note HNO ID: [id number] Author: Ana Carr RN Service: Care Management [...] Plan is for SNF placement at discharge. [facility] and [facility] does not [facility] have any bed availability. Patient's spouse Tamia updated via phone ([phone]). Patient's spouse requests SNF referrals to [facility]. Facilities notified. Awaiting acceptance. Pre-Certification: No. Medicare. No insurance authorization obtained. Anticipated DC Date: To be determined. DC Transportation: Will need transportation via ambulance. Family agreeable with DC plan: Yes. SIGNATURE: Ana Carr RN PATIENT NAME: Alexandro Flaherty DATE: December 13, 2021 TIME: 2:51 PM PAGER/CONTACT #: [phone] [facility] 12-13-2021 Note HNO ID: [id number] Author: Ana Carr RN Service: Care Management [...] 13, 2021 TIME: 12:04 PM PAGER/CONTACT #: [phone] [facility] 12-13-2021 Note HNO ID: [id number] Author: Abimael Finn PA-C Service: General Surgery Author Type: Physician High Energy Forming Equipment Operator Type: Progress Notes Filed: 12/13/2021 11:57 AM Note Text: Trauma Surgery Progress Note SERVICE DATE: 12/13/2021 Trauma Service Pager: For questions or concerns Mon-Fri 6a-5p please page [phone]. After 5pm and on Weekends and Holidays, please page [phone] if in ICU or [phone] if on RNF. SUBJECTIVE: NAEON. Patient seen [...] 12/13/21 0659 12/13/21699 - 12/14/21 0659 Shift 8552-0663 6411-5152 4097-7513 24 Hour Total 7592-0354 3897-7423 7560-8557 24 Hour Total INTAKE PO 240 60 [...] 5. Keppra 500mg BID x 14d 6. PROPERTY MANAGEMENT COORDINATOR following - diet advanced 12/13/2021 7. Continue [...] 1. Agitation impr (more content not included)... [facility] 12-12-2021 Note HNO ID: [id number] Author: Ana Carr RN Service: Care Management Author Type: Registered Nurse Type: Care Mgt Initial Assessment Filed: 12/12/2021 2:41 PM Note Text: CARE MANAGEMENT: ASSESSMENT AND DISCHARGE PLAN SERVICE DATE: December 12, 2021 SERVICE TIME: 2:16 PM PRIMARY CARE PHYSICIAN: Rosa Maria Durbin MD (Confirmed with patient's spouse) Primary Contact: Extended Emergency Contact Information Primary Emergency Contact: KrystinaTamia Address: [address] [place] [address] Mobile Relation: Spouse ADMISSION STATUS: Inpatient Insurance Provider: MEDICARE A AND B; +Rx coverage NEEDS PRIOR TO DISCHARGE Needs Prior to Discharge: Accepting Facility;Bed Availability;Discharge Transportation POTENTIAL TRANSITION PLANS Halfway Facility/Intermediate Care Facility Based on clinical judgement, Care Management will address the following needs: Functional Patient's spouse perception of need for this admission: S/p fall ADVANCE DIRECTIVES Current Advance Directive: None Gas Tender Attempted to Assist with AD Completion: No [...] discharge within 30 days: No PATIENT SCREEN Patient/Clinical Project Coordinator Stated Goals: This has been discussed with [...] completed due to: Mental Status; Patient's spouse Taima reports no concerns with medication adherence SOCIAL [...] at this time. FREEDOM OF CHOICE EXPLAINED: [place] of Choice Given: Yes Level of Care Discussed: Halfway Facility Financial Disclosure Provided: Yes Provider List: Halfway Facility Provider list within the patient's requested geographic area shared with the patient/family: Yes within: 10 miles of zip code: [address] Quality and resource use metrics shared with the patient that are relevant to the patient's goals of (more content not included)... [facility] 12-12-2021 Note HNO ID: [id number] Author: Sharee Wilson APRN.CNP Service: General Surgery Author Type: Nurse Practitioner Type: Progress Notes Filed: 12/12/2021 1:20 PM Note Text: Trauma Surgery Progress Note SERVICE DATE: 12/12/2021 Trauma Service Pager: For questions or concerns Mon-Fri 6a-5p please page [phone]. After 5pm and on Weekends and Holidays, please page [phone] if in ICU or [phone] if on RNF. SUBJECTIVE: Patient transferred out [...] 12/12/21 0659 12/12/21699 - 12/13/21 0659 Shift [phone] 7068-3761 8958-5407 24 Hour Total 6435-5853 0423-8231 0353-7192 24 Hour Total INTAKE PO 50 50 PO 50 50 Shift Total 50 50 OUTPUT Urine 400 121 445 3674 Straight cath (ml) 400 400 Output ( Indwelling Urinary Catheter 12/11/21 1830 Coude) 650 325 975 Shift Total 400 990 826 9897 Weight (kg) 79.5 79.5 79.5 79.5 79.5 [...] up 4. Keppra 500mg BID x14d 5. PROPERTY MANAGEMENT COORDINATOR eval 6. Start DVT ppx 12/12 @ [...] retention, plan void (more content not included)... [facility] 12-11-2021 Note HNO ID: [id number] Author: Heather Pacheco (Solidworks Drafter) Service: Pharmacy Author Type: Field Director Type: Plan of Care Filed: 12/11/2021 3:19 PM Note Text: PHARMACY MEDICATION REVIEW Patient Name: Alexandro Flaherty : 1935 The following medications were updated within the CAR DUMPER medication list: Medications ADDED to CAR DUMPER medication list atorvastatin (LIPITOR) 10 mg tablet [...] mouth once daily. ? Medications CHANGED on CAR DUMPER medication list ? Medications REMOVED from CAR DUMPER medication list alprazolam(XANAX 0.5 MG TAB) Course [...] ? Additional comments: Verified medication information with [facility] and chart review. Did not confirm [...] medication history: Yes Medication history completed by: Field Director: Heather Pacheco ([employer]works Drafter) Source of history: Pharmacy records: [facility] [phone] and [facility] records Medication nonadherence identified: Unable to assess Reconciliation completed: No, pharmacist not yet reviewed Patient interested in Bedside Delivery Services or using OP Pharmacy at discharge? Unable to assess Preferred outpatient pharmacy: [facility] [place] [address] [address] [facility] [phone] Allergies: No Known Allergies Prior to Admission [...] once daily. Facility-Administered Medications: None Heather Pacheco ([employer])[id number] 12/11/2021 [facility] 12-11-2021 Note HNO ID: [id number] Author: Magdalena Hill RN Service: Care Management [...] 11, 2021 TIME: 11:04 AM PAGER/CONTACT #: [phone] [facility] 12-11-2021 Note HNO ID: [id number] Author: Manasa Sweeney MD Service: General Surgery [...] questions or concerns Mon-Sat 6a-5p please page [phone]. After 5pm and on Weekends and Holidays, please page [phone] if in ICU or [phone] if on RNF. SUBJECTIVE: Remains hard of [...] - 12/11/21 0612/11/21699 - 12/12/21 0659 Shift [phone] 7450-3220 24 Hour Total [phone] 3942-7744 24 Hour Total INTAKE PO 240 240 [...] Diagnosis Date Noted - SAH (subarachnoid hemorrhage) ([facility]) 12/10/2021 - Malnutrition of moderate [...] floor 1. September (more content not included)... [facility] 12-11-2021 Note HNO ID: [id number] Author: Boni Steinberg MD Service: General Surgery Author Type: Physician Type: Progress Notes Filed: 12/11/2021 10:40 AM Note Text: INPATIENT SICU PROGRESS NOTE SICU Service Pager: For questions or concerns Mon-Fri 6a-5p please page [phone]. After 5pm and on Weekends and Holidays, please page [phone]. Subjective Subjective: Patient seen and examined this [...] 12/10/21699 - 12/11/2165812/11/21699 - 12/12/21 0659 Shift 9865-4452 7944-7361 2931-1301 24 Hour Total 4611-2553 4707-5854 4601-2301 24 Hour Total INTAKE PO 240 240 [...] radiographic abnormality. Respiratory (more content not included)... [facility] 12-10-2021 Note HNO ID: [id number] Author: Gagan Milner DO Service: General Surgery Author Type: Resident Type: Plan of Care Filed: 12/10/2021 2:49 PM Note Text: SICU I spoke with the patient's Tamia via phone at [phone] 2:47 PM who confirms that she is willing for her to have a transfusion of platelets. Gagan Milner DO PGY-5 General Surgery 12/10/2021 2:47 PM [facility]* Diagnosis Traumatic avulsion of nail plate of toe, initial encounter- Primary PAD (peripheral artery disease) (HCC) Peripheral vascular disease, unspecified [facility] Outpatient Procedure (Urgent) - Pending Review Specialty Diagnoses / Procedures Referred By Contdeanna t Referred To [facility] Diagnoses PAD (peripheral artery disease) (HCC) Ingrowing toenail of left foot Procedures PVR ANK PRESS SYED VAS LAB NON-INVAS PHYSIOLOGIC STD EXTREMITY ART [address] [place] [address] [facility] [address] [place] [address] Referral ID Status Reason Start Date Expiration Date Visits Requested Visits Authorized [id number] Pending Review Auto-Generat ed Referral 12/12/202 2 05/07/2023 1 1 * Diagnostic Procedure Only (Routine) - Pending Review Specialty Diagnoses / Procedures Referred By Lenin dykes Referred To Contact XR IMAGING Diagnoses Traumatic avulsion of nail plate of toe, initial encounter Procedures XR FOOT GENERAL 3V AP/LAT/OBL RIGHT RADEX FOOT COMPLETE MINIMUM 3 VIEWS Dianna Jarrett [address] [place] [address] Xr Imaging Referral ID Status Reason Start Date Expiration Date Visits Requested Visits Authorized [id number] Pending Review Auto-Generat ed Referral 2 06/06/2023 1 1 [facility] Advance Directives Documents on File Type Date Recorded Patient Clinical Project Coordinator Expl anation Advance Directive(s) 12/12/2021 11:05 AM [...] or prosecute any alcohol or drug abuse patient.[facility]healthIn the event this information is protected by the Federal Confidentiality of Alcohol and Drug Abuse Patient Records regulations: The Federal rules restrict any use of the information to criminally investigate or prosecute any alcohol or drug abuse patient.[facility] the event this information is protected by the Federal Confidentiality of Alcohol and Drug Abuse Patient Records regulations: The Federal rules restrict any use of the information to criminally investigate or prosecute any alcohol or drug abuse patient.[facility] the event this information is protected by the Federal Confidentiality of Alcohol and Drug Abuse Patient Records regulations: The Federal rules restrict any use of the information to criminally investigate or prosecute any alcohol or drug abuse patient.[facility] the event this information is protected by the Federal Confidentiality of Alcohol and Drug Abuse Patient Records regulations: The Federal rules restrict any use of the information to criminally investigate or prosecute any alcohol or drug abuse patient.[facility] Reason for Visit (unrecogniz ed section and content) Reason Comments Appointment Reason Comments New Pain Nail Check Reason Comments Results Reason Comments Established Patient Follow Up Pain Care Teams (unrecognized sec tion and content) Windows Systems Engineer Relationship Specialty Start Date End Date Rosa Maria uDrbin MD [address] [place] [id number] PCP - General Family Practice 09/28/11 Windows Systems Engineer Relationship Specialty Start Date End Date Rosa Maria Durbin MD [address] [place] [address] PCP - General Family Medicine 09/28/11 Windows Systems Engineer Relationship Specialty Start Date End Date Rosa Maria Durbin MD [address] [facility] [place] [address] PCP - General Family Medicine 09/28/11 Windows Systems Engineer Relationship Specialty Start Date End Date Rosa Maria Durbin MD [address] [place] [address] PCP - General [facility] 09/28/11 (unrecognized sect ion and content) No Status Records FoundNo Status Records Found INFORMATION SOURCE (unrecogn ized section and content) DATE CREATED AUTHOR AUTHOR'S ORGANIZ ATION 05/30/2022 [facility] FOR RECORDS PERTAINING TO PATIENTS [...] BE BASED ON THE PRIMARY CLINICAL RECORDS. [employer] provides no warranty or guarantee of the accuracy or completeness of information in this document.
[2023-06-11 10:11] LABS: Hematocrit 41.5 % (40-54); Hemoglobin 13.6 g/dL (13.0-16.5); Mean Corp Hgb Conc 32.8 g/dL (32-36); Mean Corpuscular Hgb 29.4 pg (27.0-32.0); Mean Corpuscular Volume 89.8 fL (80-94); Mean Platelet Vol. 10.2 fl (6.2-12.0); Platelet Count 115 K/mm3 (150-450); RBC Distribution Width CV 13.2 % (11.6-14.6); RBC Distribution Width SD 43.5 fl (35.1-43.9); Red Blood Count 4.62 M/mm3 (4.6-6.2); White Blood Count 7.2 K/mm3 (4.4-11.0)
[2023-06-11 10:25] LABS: ALB/GLOB Ratio 1.1 RATIO (0.9-2.4); AST(SGOT) 18 U/L (15-37); Alanine Aminotransfer ALT/SGPT 23 U/L (16-61); Albumin, Serum 3.3 g/dL (3.2-5.0); Alkaline Phosphatase 83 U/L (45-117); Anion Gap 4 (5-15); BUN 29 mg/dL (7-18); BUN/Creat Ratio 20.4 RATIO (10-20); Calcium,Total 9.4 mg/dL (8.5-10.1); Chloride 110 mmol/L (98-107); Cholesterol 133 mg/dL (200); Creatinine, Serum 1.42 mg/dL (0.70-1.30); EST Glomerular Filtration Rate 50 mL/min (>60); Est Glom Filt Rate - Afr Amer 61 mL/min (>60); Globulin 3.1 g/dL (2.2-4.2); Glucose 97 mg/dL (74-106); High Density Lipoprotein 52 mg/dL; Potassium 4.5 mmol/L (3.5-5.1); Protein, Total 6.4 g/dL (6.4-8.2); Sodium Level 142 mmol/L (136-145); Triglycerides 197 mg/dL; Very Low Density Lipoprotein 39 mg/dL (5-40)
[2023-06-11 10:37] LABS: Vitamin D,25 Hydroxy 57.6 ng/mL
== END ==
LOC: OLS.SW 05:00
PROVIDERS: PCP Family Medicine; Visit Provider Family Medicine
DX: E55.9 Vitamin D deficiency, unspecified (principal); K21.9 Gastro-esophageal reflux disease without esophagitis; N40.0 Benign prostatic hyperplasia without lower urinary tract symptoms; E78.00 Pure hypercholesterolemia, unspecified; Z79.899 Other long term (current) drug therapy
CPT/HCPCS: 36415; 80053; 80061; 82306; 85027

== ENCOUNTER 2023-09-18 05:53 | Emergency (ER) | payer MEDICARE, OTHER, MEDICAID, SELFPAY ==
[2023-09-18 05:58] VITALS: BP 131/70; PULSE 64; RESP 18; TEMP 36.6; O2SAT 96; BMI 25.1
--- NOTE | 2023-09-18 06:27 | EDS_ITS ---
HPI History of Present Illness Chief Complaint: Weakness Informant: patient, EMS and SNF Narrative Narrative: 87-year-old male residential resident with dementia has had nausea, vomiting, diarrhea tonight to the point where nurses were not able to get him to keep any of his pills down and for this reason sent him to the emergency department. The patient is very hard of hearing and so a lot of the ROS is limited, however he is able to answer ROS questions that he can hear appropriately. He denies having any chest discomfort, abdominal pain, and he does not feel nauseated right now. He states he has a little bit of discomfort in his low back which is not new. He denies any numbness anywhere. Denies a headache. Denies feeling feverish. Accompanying paperwork documents him as DNR comfort care. [facility] Medical History Atherosclerotic heart disease of [place] coronary artery without angina pectoris BPH (benign prostatic hyperplasia) Chronic renal failure, stage 3a CVA (cerebral vascular accident) Dementia Hyperlipidemia Paroxysmal atrial flutter Presbycusis of both ears Secondary pulmonary arterial hypertension Sick sinus syndrome Subdural hematoma Syncope and collapse Home Medications atorvastatin 10 mg tablet 10 mg PO QHS cholesterol 07/23/14 [History Last Taken 07/12/20] finasteride 5 mg tablet 5 mg PO QHS PROSTATE 07/13/20 [History Last Taken 07/12/20] acetaminophen 325 mg tablet 975 mg PO Q6H PRN Pain 12/14/21 [History Last Taken Unknown] levetiracetam 500 mg tablet 500 mg PO BID prevent seizures 12/14/21 [History Last Taken Unknown] tamsulosin 0.4 mg capsule 0.4 mg PO DAILY bladder 12/14/21 [History Last Taken Unknown] melatonin 3 mg tablet 3 mg PO QHS #0 tabs 01/03/22 [Rx Last Taken Unknown] memantine 10 mg tablet 10 mg PO QHS #0 tabs 01/03/22 [Rx Last Taken Unknown] sertraline 100 mg tablet 100 mg PO DAILY #0 tabs 01/03/22 [Rx Last Taken Unknown] aluminum-magnesium hydroxide 225 mg-200 mg/5 mL oral suspension 30 ml PO Q4-5H PRN GERD 09/07/22 [History Last Taken Unknown] bisacodyl 10 mg rectal suppository 10 mg CO ONCE PRN constipation 09/07/22 [History Last Taken Unknown] guaifenesin 100 mg/5 mL oral liquid 200 mg PO Q4H PRN cough 09/07/22 [History Last Taken Unknown] magnesium hydroxide 400 mg/5 mL oral suspension (Milk of Magnesia) 30 ml PO ONCE PRN stomach upset 09/07/22 [History Last Taken Unknown] multivitamin 1 tab PO DAILY 09/07/22 [History Last Taken Unknown] omeprazole 20 mg capsule,delayed release 20 mg PO DAILY 09/07/22 [History Last Taken Unknown] sodium phosphates 19 gram-7 gram/118 mL enema (Fleet Enema) 118 ml CO ONCE PRN constipation 09/07/22 [History Last Taken Unknown] loratadine 10 mg tablet (Allergy Relief (loratadine)) 10 mg PO DAILY 07/16/23 [History Last Taken Unknown] cholecalciferol (vitamin D3) 50 mcg (2,000 unit) capsule 50 mcg PO DAILY 09/18/23 [History Last Taken Unknown] ondansetron 8 mg disintegrating tablet 8 mg PO Q8H PRN nausea and vomiting #20 tabs 09/18/23 [Rx Last Taken Unknown] Allergy/AdvReac Type Severity Reaction Status Date / Time donepezil Allergy Intermediate hallucinati Verified 09/18/23 06:38 ons niacin Allergy Hives Verified 09/18/23 06:38 [From Niaspan Extended-Release] pravastatin Allergy Other Verified 09/18/23 06:38 simvastatin [From Zocor] Allergy Other Verified 09/18/23 06:38 metoprolol AdvReac Severe Hypotensive/passing Verified 09/18/23 06:38 out Family History Mother , age 90 CAD (coronary artery disease) Hypertension Brother CVA (cerebral vascular accident) Brother Cancer Brother Heart disease Surgical History H/O coronary artery bypass surgery (12/08/01) History of coronary artery stent placement (10/04/15) History of permanent cardiac pacemaker placement (07/11/15) History of transurethral resection of prostate Social History Smoking Status: Former smoker how long ago did patient quit smokin-40 years ago alcohol intake: never substance use type: marijuana caffeine: Yes Type: coffee Number of servings: 3 ROS ROS ED Review of Systems ROS Unobtainable: other Details: hard of hearing, dementia Constitutional Constitutional ED: Denies chills, fever(s) or subjective ENT ENT ED: Denies ear pain or sore throat Cardiovascular Cardiovascular: Denies chest pain Respiratory/Chest Respiratory/Chest: Denies cough or dyspnea Gastrointestinal Gastrointestinal: Reports diarrhea, nausea and vomiting; Denies abdominal pain Musculoskeletal Musculoskeletal: Reports back pain; Denies neck pain Neurologic Neurologic: Denies headache(s) EXAM Physical Exam Const Vital Signs: 09/18/23 05:58 09/18/23 08:16 Temperature 97.9 F Temperature Source Temporal Pulse Rate 64 74 Respiratory Rate 18 16 Blood Pressure 131/70 H 137/53 H Blood Pressure Mean 90 81 Pulse Ox 96 94 Oxygen Delivery Method Room Air Room Air Positive well nourished and well developed General Appearance ED: well developed and NAD HEENT Reports moist mucous membranes normocephalic and atraumatic Eyes PERRL and EOMs intact bilaterally Neck full ROM and supple Resp normal respiratory effort and clear to auscultation bilaterally Cardio regular rate and regular rhythm GI non-tender and non-distended Auscultation: hyperactive bowel sounds Palpation: soft Back/Spine no CVA tenderness General Back: other FROM Extremity normal to inspection General Extremety ED: Negative for edema, pulses abnormal or tenderness General Extremity: Negative for edema or pulses abnormal Neuro CN's II-XII intact bilaterally and no sensory deficits noted Neuro Narrative: Keenly alert, conversive, follows commands appropriately. Sensorium / Orientation: awake, alert and orientation impaired Motor Exam: strength 5/5 throughout Psych mental status grossly normal Skin no rashes or lesions noted and no wounds MDM MDM MDM Narrative Medical decision making narrative: Obtained labs, we gave the patient Zofran and IV fluids. This held and he was able to tolerate oral fluids without vomiting. Labs noted, he does have some LIZABETH. Since he is holding down oral fluids, I think prescribing him Zofran and discharged back to long-term is entirely reasonable. He was able to have some brown watery nonbloody diarrhea that we sent for C. difficile that is pending. I had staff call the long-term facility regarding risk factors for this, he has never had C. difficile before and he has had no recent antibiotics in the past 2 years. Therefore, my suspicion is low although it certainly is theoretically possible that he could contract C. difficile through healthcare workers from a different patient. It is unknown if there are any patients there with C. difficile currently. History & Record Review Additional record(s) reviewed:: Other (Reviewed residential paperwork, medication list shows no antibiotics) Lab Data Attestation: I reviewed the patient's lab results. Labs: Laboratory Results - last 24 hr 09/18/23 06:30 WBC 9.3 RBC 5.41 Hgb 16.0 Hct 48.4 MCV 89.5 MCH 29.6 MCHC 33.1 RDW Std Deviation 43.1 RDW Coeff of [place] 13.2 Plt Count 113 L MPV 9.9 Immature Gran % (Auto) 0.600 Neut % (Auto) 87.7 H Lymph % (Auto) 6.4 L [place] % (Auto) 4.8 Eos % (Auto) 0.2 Baso % (Auto) 0.3 Absolute Neuts (auto) 8.1 H Absolute Lymphs (auto) 0.59 L Nucleated RBC % 0 Sodium 140 Potassium 4.2 Chloride 110 H Carbon Dioxide 23.0 Anion Gap 7 BUN 43 H Creatinine 2.22 H Estim Creat Clear Calc 26.99 Est GFR (MDRD) Af Amer 36 L Est GFR (MDRD) Non-Af 30 L BUN/Creatinine Ratio 19.4 Glucose 131 H Calcium 9.2 Total Bilirubin 0.70 AST 15 ALT 26 Alkaline Phosphatase 92 Total Protein 7.2 Albumin 3.9 Globulin 3.3 Albumin/Globulin Ratio 1.2 Discharge Plan Triage Chief Complaint: Weakness Other Complaint: Nausea/Vomiting/Diarrhea ED Provider: Anibal Singleton Dx/Rx/DC Orders Clinical Impression: LIZABETH (acute kidney injury), Nausea vomiting and diarrhea, Acute dehydration Instructions: ED Vomit Diarrhea Nonspec Adult Prescriptions: New ondansetron 8 mg tablet,disintegrating 8 mg PO Q8H PRN (Reason: nausea and vomiting) Qty: 20 0RF No Action aluminum-magnesium hydroxide 225-200 mg/5 mL suspension 30 ml PO Q4-5H PRN (Reason: GERD) bisacodyl 10 mg suppository 10 mg CO ONCE PRN (Reason: constipation) Fleet Enema 19-7 gram/118 mL enema 118 ml CO ONCE PRN (Reason: constipation) guaifenesin 100 mg/5 mL liquid 200 mg PO Q4H PRN (Reason: cough) magnesium hydroxide [Milk of Magnesia] 400 mg/5 mL suspension 30 ml PO ONCE PRN (Reason: stomach upset) multivitamin Tablet 1 tab PO DAILY omeprazole 20 mg capsule,delayed release(DR/EC) 20 mg PO DAILY loratadine [Allergy Relief (loratadine)] 10 mg tablet 10 mg PO DAILY atorvastatin 10 MG tablet 10 mg PO QHS Patient Comments: cholesterol finasteride 5 MG tablet 5 mg PO QHS tamsulosin 0.4 mg Capsule 0.4 mg PO DAILY acetaminophen 325 mg Tablet 975 mg PO Q6H PRN (Reason: Pain) levetiracetam 500 mg Tablet 500 mg PO BID sertraline 100 mg Tablet 100 mg PO DAILY Qty: 0 0RF melatonin 3 mg Tablet 3 mg PO QHS Qty: 0 0RF memantine 10 mg Tablet 10 mg PO QHS Qty: 0 0RF cholecalciferol (vitamin D3) 50 mcg (2,000 unit) capsule 50 mcg PO DAILY Primary Care Provider: Dusty Durbin Referrals: Dusty Durbin MD [Primary Care Provider] - Activity Restrictions/Additional Instructions: Mild LIZABETH present; creatinine in May, now 2.22. Was given a liter of IV fluid here and has normal vital signs, renal function should be followed closely. Patient is welcome to be reevaluated and treated in the emergency department for any worsening issues, but is keeping down liquids without any difficulty after a dose of Zofran, so a prescription has been sent with him. Disposition Disposition: [facility]dc Facility Discharge Location: [facility]
[2023-09-18] MEDS: 0.9% Normal Saline (1000mL) 1,000 ML 1000 ML IV (06:39)
[2023-09-18] MEDS: Ondansetron 4 MG/2 ML Vial IV (06:39)
[2023-09-18 06:40] LABS: Absolute Lymphocyte Count 0.59 X10^3/uL (0.83-4.51); Absolute Neutrophil Count 8.1 X10^3/uL (2.0-7.7); Basophil# 0.03 X10^3/uL; Basophil% 0.3 % (0-1); Eosinophil# 0.02 X10^3/uL; Eosinophils% 0.2 % (0-5); Hematocrit 48.4 % (40-54); Lymphocyte # 0.59 X10^3/ul (0.83-4.51); Lymphocyte % 6.4 % (19-41); Mean Corp Hgb Conc 33.1 g/dL (32-36); Mean Corpuscular Hgb 29.6 pg (27.0-32.0); Mean Corpuscular Volume 89.5 fL (80-94); Mean Platelet Vol. 9.9 fl (6.2-12.0); Monocyte# 0.45 X10^3/uL; Monocyte% 4.8 % (0-10); NRBC Flagged by Analyzer 0 % (0-5); Neutrophil # 8.13 X10^3/uL (2.7-7.7); Neutrophil % 87.7 % (47-70); POSITIVE DIFFERENTIAL YES; Platelet Count 113 K/mm3 (150-450); RBC Distribution Width CV 13.2 % (11.6-14.6); RBC Distribution Width SD 43.1 fl (35.1-43.9); Red Blood Count 5.41 M/mm3 (4.6-6.2); White Blood Count 9.3 K/mm3 (4.4-11.0)
[2023-09-18 06:57] LABS: ALB/GLOB Ratio 1.2 RATIO (0.9-2.4); AST(SGOT) 15 U/L (15-37); Alanine Aminotransfer ALT/SGPT 26 U/L (16-61); Albumin, Serum 3.9 g/dL (3.2-5.0); Alkaline Phosphatase 92 U/L (45-117); Anion Gap 7 (5-15); BUN 43 mg/dL (7-18); BUN/Creat Ratio 19.4 RATIO (10-20); Calcium,Total 9.2 mg/dL (8.5-10.1); Chloride 110 mmol/L (98-107); Creatinine, Serum 2.22 mg/dL (0.70-1.30); EST Glomerular Filtration Rate 30 mL/min (>60); Est Glom Filt Rate - Afr Amer 36 mL/min (>60); Estimated Creatinine Clearance 26.99 ml/min; Globulin 3.3 g/dL (2.2-4.2); Glucose 131 mg/dL (74-106); Potassium 4.2 mmol/L (3.5-5.1); Protein, Total 7.2 g/dL (6.4-8.2); Sodium Level 140 mmol/L (136-145)
[2023-09-18 08:16] VITALS: BP 137/53; PULSE 74; RESP 16; O2SAT 94
--- NOTE | 2023-09-18 08:58 | NURSING ---
CALLED [facility]QU[facility], ETA IS 30 MIN
[2023-09-18 09:21] VITALS: BP 114/51; PULSE 69; RESP 17; TEMP 36.1; O2SAT 99
--- NOTE | 2023-09-18 10:11 | ED.RN ---
report called to [facility], spoke to Yue
== END 2023-09-18 09:51 | disposition skilled nursing facility (03) ==
PROVIDERS: Emergency Provider Emergency Medicine; PCP Family Medicine; Visit Provider Emergency Medicine
DX: N17.9 Acute kidney failure, unspecified (principal); N18.31 Chronic kidney disease, stage 3a; R11.2 Nausea with vomiting, unspecified; F12.90 Cannabis use, unspecified, uncomplicated; E86.0 Dehydration; R19.7 Diarrhea, unspecified; I25.10 Atherosclerotic heart disease of native coronary artery without angina pectoris; N40.0 Benign prostatic hyperplasia without lower urinary tract symptoms; Z79.899 Other long term (current) drug therapy; Z95.1 Presence of aortocoronary bypass graft; Z95.0 Presence of cardiac pacemaker; Z95.5 Presence of coronary angioplasty implant and graft; Z87.891 Personal history of nicotine dependence
CPT/HCPCS: 80053; 85025; 87493; 96374; 99284; J7030; A4216; J2405

== ENCOUNTER → 2023-10-01 | Outpatient (REF) | payer MEDICARE, OTHER, MEDICAID, SELFPAY ==
[2023-10-01 09:04] LABS: Albumin, Serum 3.3 g/dL (3.2-5.0); BUN 23 mg/dL (7-18); BUN/Creat Ratio 15.3 RATIO (10-20); Calcium,Total 9.1 mg/dL (8.5-10.1); Chloride 109 mmol/L (98-107); EST Glomerular Filtration Rate 47 mL/min (>60); Est Glom Filt Rate - Afr Amer 57 mL/min (>60); Glucose 93 mg/dL (74-106); Phosphorus 2.5 mg/dL (2.5-4.9); Potassium 4.2 mmol/L (3.5-5.1); Sodium Level 139 mmol/L (136-145)
== END ==
LOC: OLS.SW 05:00
PROVIDERS: PCP Family Medicine; Visit Provider Family Medicine
DX: N17.8 Other acute kidney failure (principal)
CPT/HCPCS: 36415; 80069

== ENCOUNTER → 2023-10-14 | Outpatient (REF) | payer MEDICARE, OTHER, MEDICAID, SELFPAY ==
[2023-10-14 09:27] LABS: Hematocrit 45.6 % (40-54); Hemoglobin 14.8 g/dL (13.0-16.5); Mean Corp Hgb Conc 32.5 g/dL (32-36); Mean Corpuscular Hgb 29.3 pg (27.0-32.0); Mean Corpuscular Volume 90.3 fL (80-94); Platelet Count 113 K/mm3 (150-450); RBC Distribution Width CV 12.8 % (11.6-14.6); RBC Distribution Width SD 42.2 fl (35.1-43.9); Red Blood Count 5.05 M/mm3 (4.6-6.2); White Blood Count 5.8 K/mm3 (4.4-11.0)
[2023-10-14 10:04] LABS: ALB/GLOB Ratio 1.1 RATIO (0.9-2.4); AST(SGOT) 19 U/L (15-37); Alanine Aminotransfer ALT/SGPT 26 U/L (16-61); Albumin, Serum 3.6 g/dL (3.2-5.0); Alkaline Phosphatase 95 U/L (45-117); Anion Gap 3 (5-15); BUN 30 mg/dL (7-18); BUN/Creat Ratio 19.1 RATIO (10-20); Calcium,Total 9.6 mg/dL (8.5-10.1); Chloride 111 mmol/L (98-107); Creatinine, Serum 1.57 mg/dL (0.70-1.30); EST Glomerular Filtration Rate 45 mL/min (>60); Est Glom Filt Rate - Afr Amer 54 mL/min (>60); Globulin 3.2 g/dL (2.2-4.2); Glucose 94 mg/dL (74-106); Potassium 4.9 mmol/L (3.5-5.1); Protein, Total 6.8 g/dL (6.4-8.2); Sodium Level 140 mmol/L (136-145)
[2023-10-17 12:10] LABS: KEPPRA (LEVETIRACETAM) 24.1 ug/mL (10.0-40.0)
== END ==
LOC: OLS.SW 04:00
PROVIDERS: PCP Family Medicine; Referring Provider Family Medicine; Visit Provider Family Medicine
DX: N39.0 Urinary tract infection, site not specified (principal); Z79.899 Other long term (current) drug therapy
CPT/HCPCS: 36415; 80053; 80177; 85027; 87086; 87088

== ENCOUNTER → 2023-12-10 | Outpatient (REF) | payer MEDICARE, OTHER, MEDICAID, SELFPAY ==
[2023-12-10 09:44] LABS: Hematocrit 45.6 % (40-54); Hemoglobin 14.6 g/dL (13.0-16.5); Mean Corpuscular Hgb 28.8 pg (27.0-32.0); Mean Corpuscular Volume 89.9 fL (80-94); Platelet Count 118 K/mm3 (150-450); RBC Distribution Width CV 13.5 % (11.6-14.6); RBC Distribution Width SD 43.8 fl (35.1-43.9); Red Blood Count 5.07 M/mm3 (4.6-6.2); White Blood Count 8.6 K/mm3 (4.4-11.0)
[2023-12-10 10:12] LABS: ALB/GLOB Ratio 1.2 RATIO (0.9-2.4); AST(SGOT) 17 U/L (15-37); Alanine Aminotransfer ALT/SGPT 25 U/L (16-61); Albumin, Serum 3.8 g/dL (3.2-5.0); Alkaline Phosphatase 95 U/L (45-117); Anion Gap 7 (5-15); BUN 29 mg/dL (7-18); BUN/Creat Ratio 17.3 RATIO (10-20); Calcium,Total 9.3 mg/dL (8.5-10.1); Chloride 108 mmol/L (98-107); Cholesterol 149 mg/dL (200); Creatinine, Serum 1.68 mg/dL (0.70-1.30); EST Glomerular Filtration Rate 41 mL/min (>60); Est Glom Filt Rate - Afr Amer 50 mL/min (>60); Globulin 3.3 g/dL (2.2-4.2); Glucose 97 mg/dL (74-106); High Density Lipoprotein 52 mg/dL; Potassium 3.9 mmol/L (3.5-5.1); Protein, Total 7.1 g/dL (6.4-8.2); Sodium Level 140 mmol/L (136-145); Triglycerides 217 mg/dL; Very Low Density Lipoprotein 43 mg/dL (5-40)
[2023-12-10 10:40] LABS: Vitamin D,25 Hydroxy 52.9 ng/mL
== END ==
LOC: OLS.SW 05:00
PROVIDERS: PCP Family Medicine; Referring Provider Family Medicine; Visit Provider Family Medicine
DX: F03.90 Unspecified dementia, unspecified severity, without behavioral disturbance, psychotic disturbance, mood disturbance, and anxiety (principal); E11.22 Type 2 diabetes mellitus with diabetic chronic kidney disease; N18.31 Chronic kidney disease, stage 3a
CPT/HCPCS: 36415; 80053; 80061; 82306; 85027

== ENCOUNTER 2024-01-09 01:35 | Emergency (ER) | payer MEDICARE, OTHER, MEDICAID, SELFPAY ==
[2024-01-09 01:36] VITALS: BP 118/58; PULSE 60; RESP 18; TEMP 36.6; O2SAT 95; BMI 23.6
--- NOTE | 2024-01-09 01:49 | RAD_ITS ---
EXAM: XR PELVIS, 1 OR 2 VIEWS CLINICAL INDICATION: pain TECHNIQUE: Frontal view of the pelvis. COMPARISON: No relevant prior studies available. FINDINGS: BONES/JOINTS: Degenerative changes of the spine and pelvis. Mild degenerative changes of the hip joints bilaterally. Sacroiliac joints are unremarkable. No widening of the pubic symphysis. No acute or healing fracture or malalignment. No unusual lytic or sclerotic lesion of bone. SOFT TISSUES: Unremarkable. No soft tissue swelling or gas. VASCULATURE: Vascular calcifications in the pelvis. Atherosclerotic calcifications of the common femoral arteries. RAD/Pelvis 1 or 2 Views IMPRESSION: 1. No acute or healing fracture or malalignment. 2. Mild bilateral hip joint degenerative changes. 3. Ancillary findings as above. Electronically Signed: Valeriano Bang MD at 2:50 EDT ,
--- NOTE | 2024-01-09 01:49 | RAD_ITS ---
EXAM: XR LEFT ELBOW COMPLETE, 3 OR MORE VIEWS CLINICAL INDICATION: pain TECHNIQUE: Frontal, lateral and oblique views of the left elbow. COMPARISON: No relevant prior studies available. FINDINGS: BONES/JOINTS: Prominent olecranon enthesophyte. There is no displacement of the anterior or posterior fat pads. No acute fracture. No subluxation. Normal alignment. Preservation of the joint space. No destructive or sclerotic lesions. SOFT TISSUES: Unremarkable. No soft tissue swelling or gas. No radiopaque foreign body. RAD/Elbow min 3 Views IMPRESSION: Prominent olecranon enthesophyte. No acute findings in the left elbow. Electronically Signed: Valeriano Bang MD at 2:48 EDT ,
--- NOTE | 2024-01-09 02:27 | EX.ED.DYSGE1 ---
HPI History of Present Illness Chief Complaint: Fall Informant: EMS and SNF Narrative Narrative: Patient is an 88-year-old male from the intermediate with history of dementia. custodial states that they found the patient on his hands and knees and he seemed to be complaining of pain so there is concern for injury and a fall so he was sent in for evaluation. The patient is a DNR comfort care only and is typically alert and oriented to person only. He cannot provide any history based on his dementia but intermediate states he is acting at his baseline mental status other than the occasional complaint of pain status post fall [facility] Medical History Atherosclerotic heart disease of [place] coronary artery without angina pectoris BPH (benign prostatic hyperplasia) Chronic renal failure, stage 3a CVA (cerebral vascular accident) Dementia Hyperlipidemia Paroxysmal atrial flutter Presbycusis of both ears Secondary pulmonary arterial hypertension Sick sinus syndrome Subdural hematoma Syncope and collapse Home Medications ?Medication ?Instructions ?Recorded ?Last Taken ?Type atorvastatin 10 mg tablet 10 mg PO QHS cholesterol 07/23/14 07/12/20 History finasteride 5 mg tablet 5 mg PO QHS PROSTATE 07/13/20 07/12/20 History acetaminophen 325 mg tablet 975 mg PO Q6H PRN Pain 12/14/21 Unknown History levetiracetam 500 mg tablet 500 mg PO BID prevent seizures 12/14/21 Unknown History tamsulosin 0.4 mg capsule 0.4 mg PO DAILY bladder 12/14/21 Unknown History melatonin 3 mg tablet 3 mg PO QHS #0 tabs 01/03/22 Unknown Rx memantine 10 mg tablet 10 mg PO QHS #0 tabs 01/03/22 Unknown Rx aluminum-magnesium hydroxide 225 30 ml PO Q4-5H PRN GERD 09/07/22 Unknown History mg-200 mg/5 mL oral suspension bisacodyl 10 mg rectal suppository 10 mg NE ONCE PRN constipation 09/07/22 Unknown History guaifenesin 100 mg/5 mL oral liquid 200 mg PO Q4H PRN cough 09/07/22 Unknown History magnesium hydroxide 400 mg/5 mL 30 ml PO ONCE PRN stomach upset 09/07/22 Unknown History oral suspension (Milk of Magnesia) multivitamin 1 tab PO DAILY 09/07/22 Unknown History omeprazole 20 mg capsule,delayed 20 mg PO DAILY 09/07/22 Unknown History release sodium phosphates 19 gram-7 118 ml NE ONCE PRN constipation 09/07/22 Unknown History gram/118 mL enema (Fleet Enema) loratadine 10 mg tablet (Allergy 10 mg PO DAILY 07/16/23 Unknown History Relief (loratadine)) cholecalciferol (vitamin D3) 50 50 mcg PO DAILY 09/18/23 Unknown History mcg (2,000 unit) capsule ondansetron 8 mg disintegrating 8 mg PO Q8H PRN nausea and 09/18/23 Unknown Rx tablet vomiting #20 tabs Allergy/AdvReac Type Severity Reaction Status Date / Time donepezil Allergy Intermediate hallucinati Verified 01/09/24 01:36 ons niacin (From Niaspan Allergy Hives Verified 01/09/24 01:36 Extended-Release) pravastatin Allergy Other Verified 01/09/24 01:36 simvastatin (From Zocor) Allergy Other Verified 01/09/24 01:36 metoprolol AdvReac Severe Hypotensive/passing Verified 01/09/24 01:36 out Family History Mother , age 90 CAD (coronary artery disease) Hypertension Brother CVA (cerebral vascular accident) Brother Cancer Brother Heart disease Surgical History History of transurethral resection of prostate H/O coronary artery bypass surgery (12/08/01) History of permanent cardiac pacemaker placement (07/11/15) History of coronary artery stent placement (10/04/15) Social History Smoking Status: Former smoker how long ago did patient quit smokin-40 years ago alcohol intake: never substance use type: marijuana caffeine: Yes Type: coffee Number of servings: 3 ROS ROS ED ROS Narrative Unable to obtain review of systems secondary to dementia Review of Systems ROS Unobtainable: due to mental status EXAM Physical Exam Const Vital Signs: 01/09/24 01:36 01/09/24 01:36 Temperature 97.9 F Temperature Source Oral Pulse Rate 60 Respiratory Rate 18 Respiratory Effort Normal Non-Labored Respiratory Depth Normal Respiratory Pattern Normal Blood Pressure 118/58 L Blood Pressure Mean 78 Pulse Ox 95 Oxygen Delivery Method Room Air Room Air Positive well nourished and well developed General Appearance ED: well developed HEENT HEENT Narrative: No signs of depressed or basilar skull fracture Eyes PERRL and EOMs intact bilaterally General Eye ED: Negative for scleral icterus Neck supple Neck Narrative: No bony deformity or step-off of the cervical spine Chest Wall palpation of chest normal Chest Narrative: No bony deformity or crepitance of the chest wall noted Resp normal respiratory effort and clear to auscultation bilaterally Cardio regular rate and regular rhythm GI normal to inspection, nondistended, normoactive bowel sounds, non-tender, non-distended and no masses Auscultation: normoactive bowel sounds Palpation: soft Back/Spine Back/Spine Narrative: No bony deformity or step-off of the thoracic or lumbar spine Extremity Extremity Narrative: Pelvis is stable there is no shortening or external rotation of either lower extremity Patient has ecchymosis surrounding the left elbow without obvious bony deformity or joint effusion. Full passive range of motion of all joints noted without pain. Neuro Neuro Narrative: GCS of 13 Patient is at his baseline mental status per and intermediate No new or focal neurologic deficit noted Psych Psych Narrative: Patient has a flat affect Skin Skin Narrative: Ecchymosis around the left elbow as documented above MDM MDM MDM Narrative Medical decision making narrative: Patient arrived to the ER with stable vitals and at his baseline mental status which is demented and A&O x 1. He cannot provide any history secondary to his dementia however intermediate reported they found him on his hands and knees. There is concern for potential pelvic/hip fracture and as there is bruising to the left elbow potential elbow fracture. Patient also could have a skull fracture or traumatic subarachnoid or subdural hemorrhage but as he is a DNR comfort care only if these were found it would not change his treatment options and therefore I felt no need to look for them with CT scan. X-rays were obtained to rule out pelvic/hip fracture or elbow fracture and both were negative. Therefore at this time his imaging studies are negative and his vitals are stable and he is at his baseline mental status I do not feel there is need for further testing or evaluation in the ER and he is otherwise safe for discharge Radiography Diagnostic Testing: Clinical Impression(s) from Imaging Studies Elbow X-Ray 01/09/24 01:49 IMPRESSION: Prominent olecranon enthesophyte. No acute findings in the left elbow. Electronically Signed: Valeriano Bang MD at 2:48 EDT , Pelvis X-Ray 01/09/24 01:49 IMPRESSION: 1. No acute or healing fracture or malalignment. 2. Mild bilateral hip joint degenerative changes. 3. Ancillary findings as above. Electronically Signed: Valeriano Bang MD at 2:50 EDT , Pelvis x-ray as interpreted by the emergency medicine physician reveals arthritic changes without acute fracture or dislocation Elbow x-ray as interpreted by the emergency medicine physician reveals no acute fracture dislocation or joint effusion Discharge Plan Triage Chief Complaint: Fall ED Provider: Valeriano Irwin Dx/Rx/DC Orders Clinical Impression: Contusion of hip, Dementia with behavioral disturbance, Accidental fall, Paroxysmal atrial flutter Instructions: Bone Contusion, ED Fall Prevention Prescriptions: No Action aluminum-magnesium hydroxide 225-200 mg/5 mL suspension 30 ml PO Q4-5H PRN (Reason: GERD) bisacodyl 10 mg suppository 10 mg NE ONCE PRN (Reason: constipation) Fleet Enema 19-7 gram/118 mL enema 118 ml NE ONCE PRN (Reason: constipation) guaifenesin 100 mg/5 mL liquid 200 mg PO Q4H PRN (Reason: cough) magnesium hydroxide [Milk of Magnesia] 400 mg/5 mL suspension 30 ml PO ONCE PRN (Reason: stomach upset) multivitamin Tablet 1 tab PO DAILY omeprazole 20 mg capsule,delayed release(DR/EC) 20 mg PO DAILY loratadine [Allergy Relief (loratadine)] 10 mg tablet 10 mg PO DAILY atorvastatin 10 MG tablet 10 mg PO QHS Patient Comments: cholesterol finasteride 5 MG tablet 5 mg PO QHS tamsulosin 0.4 mg Capsule 0.4 mg PO DAILY acetaminophen 325 mg Tablet 975 mg PO Q6H PRN (Reason: Pain) levetiracetam 500 mg Tablet 500 mg PO BID melatonin 3 mg Tablet 3 mg PO QHS Qty: 0 0RF memantine 10 mg Tablet 10 mg PO QHS Qty: 0 0RF cholecalciferol (vitamin D3) 50 mcg (2,000 unit) capsule 50 mcg PO DAILY ondansetron 8 mg tablet,disintegrating 8 mg PO Q8H PRN (Reason: nausea and vomiting) Qty: 20 0RF Primary Care Provider: Kain Medrano Referrals: Kain Medrano MD [Primary Care Provider] - Print Language: [place] Disposition Disposition: Home, Self Care Discharge Date/Time: 01/09/24 03:16
[2024-01-09 02:50] VITALS: BP 142/68; PULSE 76; RESP 18; TEMP 36.4; O2SAT 97
== END 2024-01-09 03:16 | disposition home or self-care (01) ==
PROVIDERS: Emergency Provider Emergency Medicine; PCP Family Medicine; Visit Provider Emergency Medicine
DX: S70.00XA Contusion of unspecified hip, initial encounter (principal); F03.918 Unspecified dementia, unspecified severity, with other behavioral disturbance; I48.92 Unspecified atrial flutter; N18.31 Chronic kidney disease, stage 3a; I25.10 Atherosclerotic heart disease of native coronary artery without angina pectoris; Z79.899 Other long term (current) drug therapy; Z87.891 Personal history of nicotine dependence; Z95.0 Presence of cardiac pacemaker; Z95.5 Presence of coronary angioplasty implant and graft; Z95.1 Presence of aortocoronary bypass graft; W19.XXXA Unspecified fall, initial encounter
CPT/HCPCS: 72170; 73080; 99282

== ENCOUNTER → 2024-02-12 05:00 | Outpatient (REF) | payer MEDICARE, OTHER, MEDICAID, SELFPAY ==
[2024-02-12 08:30] LABS: Mean Corp Hgb Conc 32.6 g/dL (32-36); Mean Corpuscular Hgb 29.5 pg (27.0-32.0); Mean Corpuscular Volume 90.6 fL (80-94); Mean Platelet Vol. 10.1 fl (6.2-12.0); Platelet Count 116 K/mm3 (150-450); RBC Distribution Width CV 13.3 % (11.6-14.6); RBC Distribution Width SD 44.2 fl (35.1-43.9); Red Blood Count 5.08 M/mm3 (4.6-6.2); White Blood Count 5.9 K/mm3 (4.4-11.0)
[2024-02-12 08:37] LABS: Valproic Acid (Depakene) Level 6 ug/mL (50-100)
[2024-02-12 08:39] LABS: AST(SGOT) 20 U/L (15-37); Alanine Aminotransfer ALT/SGPT 24 U/L (16-61); Albumin, Serum 3.7 g/dL (3.2-5.0); Alkaline Phosphatase 119 U/L (45-117); Bilirubin, Direct 0.17 mg/dL (0.00-0.30); Globulin 3.2 g/dL (2.2-4.2); Protein, Total 6.9 g/dL (6.4-8.2)
== END ==
LOC: OLS.SW 05:00
PROVIDERS: PCP Family Medicine; Visit Provider Internal Medicine
DX: D64.9 Anemia, unspecified (principal); Z79.899 Other long term (current) drug therapy; N18.31 Chronic kidney disease, stage 3a
CPT/HCPCS: 36415; 80076; 80164; 85027

== ENCOUNTER → 2024-02-19 | Outpatient (REF) | payer MEDICARE, OTHER, MEDICAID, SELFPAY ==
[2024-02-19 08:55] LABS: Hematocrit 42.1 % (40-54); Hemoglobin 13.5 g/dL (13.0-16.5); Mean Corp Hgb Conc 32.1 g/dL (32-36); Mean Corpuscular Hgb 29.1 pg (27.0-32.0); Mean Corpuscular Volume 90.7 fL (80-94); Mean Platelet Vol. 10.3 fl (6.2-12.0); Platelet Count 104 K/mm3 (150-450); RBC Distribution Width CV 13.3 % (11.6-14.6); RBC Distribution Width SD 43.8 fl (35.1-43.9); Red Blood Count 4.64 M/mm3 (4.6-6.2); White Blood Count 6.1 K/mm3 (4.4-11.0)
[2024-02-19 09:11] LABS: Valproic Acid (Depakene) Level 19 ug/mL (50-100)
[2024-02-19 09:13] LABS: AST(SGOT) 23 U/L (15-37); Alanine Aminotransfer ALT/SGPT 26 U/L (16-61); Albumin, Serum 3.3 g/dL (3.2-5.0); Alkaline Phosphatase 107 U/L (45-117); Bilirubin, Direct 0.18 mg/dL (0.00-0.30); Protein, Total 6.3 g/dL (6.4-8.2)
== END ==
LOC: OLS.SW 06:12
PROVIDERS: PCP Family Medicine; Visit Provider Family Medicine
DX: D64.9 Anemia, unspecified (principal); N18.31 Chronic kidney disease, stage 3a
CPT/HCPCS: 36415; 80076; 80164; 85027

== ENCOUNTER → 2024-02-26 | Outpatient (REF) | payer MEDICARE, OTHER, MEDICAID, SELFPAY ==
[2024-02-26 09:22] LABS: Hematocrit 42.6 % (40-54); Hemoglobin 13.8 g/dL (13.0-16.5); Mean Corp Hgb Conc 32.4 g/dL (32-36); Mean Corpuscular Hgb 29.4 pg (27.0-32.0); Mean Corpuscular Volume 90.6 fL (80-94); Mean Platelet Vol. 10.7 fl (6.2-12.0); Platelet Count 109 K/mm3 (150-450); RBC Distribution Width CV 13.2 % (11.6-14.6); RBC Distribution Width SD 43.2 fl (35.1-43.9); White Blood Count 6.9 K/mm3 (4.4-11.0)
[2024-02-26 09:29] LABS: AST(SGOT) 18 U/L (15-37); Alanine Aminotransfer ALT/SGPT 20 U/L (16-61); Albumin, Serum 3.1 g/dL (3.2-5.0); Alkaline Phosphatase 94 U/L (45-117); Bilirubin, Direct 0.13 mg/dL (0.00-0.30); Protein, Total 6.1 g/dL (6.4-8.2)
[2024-02-26 09:35] LABS: Valproic Acid (Depakene) Level 14 ug/mL (50-100)
== END ==
LOC: OLS.SW 05:00
PROVIDERS: PCP Family Medicine; Visit Provider Family Medicine
DX: D64.9 Anemia, unspecified (principal); N18.31 Chronic kidney disease, stage 3a
CPT/HCPCS: 36415; 80076; 80164; 85027

== ENCOUNTER → 2024-03-04 | Outpatient (REF) | payer MEDICARE, OTHER, MEDICAID, SELFPAY ==
[2024-03-04 08:45] LABS: Hematocrit 41.5 % (40-54); Hemoglobin 13.6 g/dL (13.0-16.5); Mean Corp Hgb Conc 32.8 g/dL (32-36); Mean Corpuscular Hgb 29.5 pg (27.0-32.0); Mean Platelet Vol. 10.6 fl (6.2-12.0); Platelet Count 113 K/mm3 (150-450); RBC Distribution Width CV 13.3 % (11.6-14.6); RBC Distribution Width SD 43.7 fl (35.1-43.9); Red Blood Count 4.61 M/mm3 (4.6-6.2); White Blood Count 6.7 K/mm3 (4.4-11.0)
[2024-03-04 09:04] LABS: AST(SGOT) 26 U/L (15-37); Alanine Aminotransfer ALT/SGPT 35 U/L (16-61); Albumin, Serum 3.2 g/dL (3.2-5.0); Alkaline Phosphatase 101 U/L (45-117); Globulin 2.8 g/dL (2.2-4.2)
[2024-03-04 09:08] LABS: Valproic Acid (Depakene) Level 14 ug/mL (50-100)
== END ==
LOC: OLS.SW 05:00
PROVIDERS: PCP Family Medicine; Visit Provider Internal Medicine
DX: N18.31 Chronic kidney disease, stage 3a (principal); Z79.899 Other long term (current) drug therapy
CPT/HCPCS: 36415; 80076; 80164; 85027

== ENCOUNTER → 2024-03-11 | Outpatient (REF) | payer MEDICARE, OTHER, MEDICAID, SELFPAY ==
[2024-03-11 09:32] LABS: Hemoglobin 13.8 g/dL (13.0-16.5); Mean Corp Hgb Conc 33.7 g/dL (32-36); Mean Corpuscular Hgb 30.3 pg (27.0-32.0); Mean Corpuscular Volume 90.1 fL (80-94); Mean Platelet Vol. 10.1 fl (6.2-12.0); Platelet Count 109 K/mm3 (150-450); RBC Distribution Width CV 13.3 % (11.6-14.6); RBC Distribution Width SD 43.2 fl (35.1-43.9); Red Blood Count 4.55 M/mm3 (4.6-6.2); White Blood Count 6.6 K/mm3 (4.4-11.0)
[2024-03-11 09:42] LABS: Valproic Acid (Depakene) Level 15 ug/mL (50-100)
[2024-03-11 09:54] LABS: AST(SGOT) 26 U/L (15-37); Alanine Aminotransfer ALT/SGPT 37 U/L (16-61); Albumin, Serum 3.2 g/dL (3.2-5.0); Alkaline Phosphatase 104 U/L (45-117); Bilirubin, Direct 0.16 mg/dL (0.00-0.30); Globulin 2.9 g/dL (2.2-4.2); Protein, Total 6.1 g/dL (6.4-8.2)
== END ==
LOC: OLS.SW 05:00
PROVIDERS: PCP Family Medicine; Visit Provider Family Medicine
DX: D64.9 Anemia, unspecified (principal); N18.31 Chronic kidney disease, stage 3a
CPT/HCPCS: 36415; 80076; 80164; 85027

== ENCOUNTER → 2024-03-18 | Outpatient (REF) | payer MEDICARE, OTHER, MEDICAID, SELFPAY ==
[2024-03-18 08:29] LABS: Hematocrit 41.9 % (40-54); Hemoglobin 13.8 g/dL (13.0-16.5); Mean Corp Hgb Conc 32.9 g/dL (32-36); Mean Corpuscular Hgb 29.7 pg (27.0-32.0); Mean Corpuscular Volume 90.3 fL (80-94); Mean Platelet Vol. 10.1 fl (6.2-12.0); Platelet Count 109 K/mm3 (150-450); RBC Distribution Width CV 13.2 % (11.6-14.6); Red Blood Count 4.64 M/mm3 (4.6-6.2); White Blood Count 6.7 K/mm3 (4.4-11.0)
[2024-03-18 08:35] LABS: Valproic Acid (Depakene) Level 12 ug/mL (50-100)
[2024-03-18 08:43] LABS: AST(SGOT) 20 U/L (15-37); Alanine Aminotransfer ALT/SGPT 31 U/L (16-61); Albumin, Serum 3.1 g/dL (3.2-5.0); Alkaline Phosphatase 96 U/L (45-117); Bilirubin, Direct 0.12 mg/dL (0.00-0.30); Globulin 2.9 g/dL (2.2-4.2)
== END ==
LOC: OLS.SW 05:00
PROVIDERS: PCP Family Medicine; Visit Provider Internal Medicine
DX: D64.9 Anemia, unspecified (principal); N18.31 Chronic kidney disease, stage 3a; E78.00 Pure hypercholesterolemia, unspecified
CPT/HCPCS: 36415; 80076; 80164; 85027

== ENCOUNTER → 2024-03-25 | Outpatient (REF) | payer MEDICARE, OTHER, MEDICAID, SELFPAY ==
[2024-03-25 08:16] LABS: Hematocrit 43.9 % (40-54); Hemoglobin 14.6 g/dL (13.0-16.5); Mean Corp Hgb Conc 33.3 g/dL (32-36); Mean Corpuscular Hgb 30.2 pg (27.0-32.0); Mean Corpuscular Volume 90.7 fL (80-94); Mean Platelet Vol. 9.9 fl (6.2-12.0); Platelet Count 117 K/mm3 (150-450); RBC Distribution Width CV 13.3 % (11.6-14.6); RBC Distribution Width SD 43.9 fl (35.1-43.9); Red Blood Count 4.84 M/mm3 (4.6-6.2); White Blood Count 6.5 K/mm3 (4.4-11.0)
[2024-03-25 08:31] LABS: AST(SGOT) 17 U/L (15-37); Alanine Aminotransfer ALT/SGPT 29 U/L (16-61); Albumin, Serum 3.3 g/dL (3.2-5.0); Alkaline Phosphatase 102 U/L (45-117); Bilirubin, Direct 0.15 mg/dL (0.00-0.30); Globulin 2.9 g/dL (2.2-4.2); Protein, Total 6.2 g/dL (6.4-8.2)
[2024-03-25 08:35] LABS: Valproic Acid (Depakene) Level 16 ug/mL (50-100)
== END ==
LOC: OLS.SW 05:00
PROVIDERS: PCP Family Medicine; Visit Provider Family Medicine
DX: D64.9 Anemia, unspecified (principal); N18.31 Chronic kidney disease, stage 3a; K21.9 Gastro-esophageal reflux disease without esophagitis
CPT/HCPCS: 36415; 80076; 80164; 85027

== ENCOUNTER 2024-10-17 17:54 | Emergency (ER) | payer MEDICARE, MEDICAID, SELFPAY ==
[2024-10-17 17:55] VITALS: BP 136/66; PULSE 66; RESP 21; TEMP 36.6; O2SAT 96; BMI 20.3
[2024-10-17 18:05] VITALS: O2SAT 96
--- NOTE | 2024-10-17 18:09 | CT_ITS ---
EXAM: BRAIN/HEAD WITHOUT CONTRAST CLINICAL HISTORY: 88 y/o M with FALL WITH HEAD INJURY AND SCALP LACERATION.. COMPARISON: None. TECHNIQUE: Routine CT imaging of the head without IV contrast. Additional multiplanar reformats were obtained. Dose reduction techniques were used including intermediate exposure control (AEC),iterative reconstruction technique, and/or mA and/or KV dose adjustments based on patient's size. FINDINGS: Severe generalized cerebral volume loss with concordant prominence of the ventricles and subarachnoid spaces. Marked patchy supratentorial white matter hypodensities. Chronic encephalomalacia within the left posterior parietal lobe, compatible with prior infarct. No acute intracranial hemorrhage or herniation. Prior left ocular lens replacement. Aerated secretions within the right frontal and sphenoid sinuses. The visualized paranasal sinuses and mastoids are otherwise unremarkable. No acute calvarial fracture. Large right posterior upper scalp laceration. CT/Brain/Head without Contrast IMPRESSION: 1. No acute intracranial finding. 2. Large right posterior scalp laceration. 3. Findings of chronic microvascular ischemic changes and age-related changes. Reading Location: [id number]
--- NOTE | 2024-10-17 18:10 | ED.VIS.FALL ---
HPI HPI - Fall History of Present Illness Chief Complaint: Fall Informant: patient Occured/Mechanism Occurred: Today Mechanism/Context: Yes same level fall Pain/Injury Pain Location: head Current Severity: Mild Maximum Severity: Mild Narrative Narrative: 88-year-old male history of prior stroke, chronic kidney disease, dementia, CABG. From [facility]. Reportedly fell today struck the back of his head causing about a 1+ inch laceration. They sent him in for evaluation. Patient denies other complaints. He is very hard of hearing. There is no family with him. He is not on any blood thinners. Tetanus Immunization: <5 years Prior similar symptoms: Yes Recent Illness/Hospitalization: No PFSH [facility] Medical History Paroxysmal atrial flutter CVA (cerebral vascular accident) Hyperlipidemia Chronic renal failure, stage 3a Presbycusis of both ears Subdural hematoma Dementia Secondary pulmonary arterial hypertension Syncope and collapse Sick sinus syndrome Atherosclerotic heart disease of [place] coronary artery without angina pectoris BPH (benign prostatic hyperplasia) Home Medications ?Medication ?Instructions ?Recorded ?Last Taken ?Type atorvastatin 10 mg tablet 10 mg PO QHS cholesterol 07/23/14 07/12/20 History finasteride 5 mg tablet 5 mg PO QHS PROSTATE 07/13/20 07/12/20 History acetaminophen 325 mg tablet 650 mg PO Q6H PRN Pain 12/14/21 Unknown History levetiracetam 500 mg tablet 500 mg PO BID prevent seizures 12/14/21 Unknown History tamsulosin 0.4 mg capsule 0.4 mg PO DAILY bladder 12/14/21 Unknown History melatonin 3 mg tablet 3 mg PO QHS #0 tabs 01/03/22 Unknown Rx memantine 10 mg tablet 10 mg PO QHS #0 tabs 01/03/22 Unknown Rx aluminum-magnesium hydroxide 225 30 ml PO Q4-5H PRN GERD 09/07/22 Unknown History mg-200 mg/5 mL oral suspension bisacodyl 10 mg rectal suppository 10 mg ME ONCE PRN constipation 09/07/22 Unknown History guaifenesin 100 mg/5 mL oral liquid 200 mg PO Q4H PRN cough 09/07/22 Unknown History magnesium hydroxide 400 mg/5 mL 30 ml PO ONCE PRN stomach upset 09/07/22 Unknown History oral suspension (Milk of Magnesia) multivitamin 1 tab PO DAILY 09/07/22 Unknown History omeprazole 20 mg capsule,delayed 20 mg PO DAILY 09/07/22 Unknown History release sodium phosphates 19 gram-7 118 ml ME ONCE PRN constipation 09/07/22 Unknown History gram/118 mL enema (Fleet Enema) loratadine 10 mg tablet (Allergy 10 mg PO DAILY 07/16/23 Unknown History Relief (loratadine)) cholecalciferol (vitamin D3) 50 50 mcg PO DAILY 09/18/23 Unknown History mcg (2,000 unit) capsule ondansetron 8 mg disintegrating 8 mg PO Q8H PRN nausea and 09/18/23 Unknown Rx tablet vomiting #20 tabs divalproex 125 mg capsule,delayed 125 mg PO DAILY 10/17/24 Unknown History release sprinkle glycerin 2 drp ophthalmic (eye) BID 10/17/24 Unknown History Allergy/AdvReac Type Severity Reaction Status Date / Time donepezil Allergy Intermediate hallucinati Verified 10/17/24 18:00 ons niacin (From Niaspan Allergy Hives Verified 10/17/24 18:00 Extended-Release) pravastatin Allergy Other Verified 10/17/24 18:00 simvastatin (From Zocor) Allergy Other Verified 10/17/24 18:00 metoprolol AdvReac Severe Hypotensive/passing Verified 10/17/24 18:00 out Family History Mother , age 90 CAD (coronary artery disease) Hypertension Brother CVA (cerebral vascular accident) Brother Cancer Brother Heart disease Surgical History History of transurethral resection of prostate H/O coronary artery bypass surgery (12/08/01) History of permanent cardiac pacemaker placement (07/11/15) History of coronary artery stent placement (10/04/15) Social History Smoking Status: Former smoker how long ago did patient quit smokin-40 years ago alcohol intake: never substance use type: marijuana caffeine: Yes Type: coffee Number of servings: 3 ROS ROS ED ROS Narrative Limited informant. But denies recent illness. Review of Systems ROS Unobtainable: due to mental status Constitutional Constitutional ED: Denies chills or fever(s) Eyes Eyes: Denies blurry vision Cardiovascular Cardiovascular: Denies chest pain Respiratory/Chest Respiratory/Chest: Denies cough Gastrointestinal Gastrointestinal: Denies abdominal pain Genitourinary Genitourinary ED: Denies dysuria Musculoskeletal Musculoskeletal: Denies arthralgias Integumentary Denies abscess Neurologic Neurologic: Denies headache(s) Psychiatric Psychiatric: Denies anxiety Endocrine Endocrinology: Denies polydipsia Hematologic/Lymphatic Hematologic/Lymphatic: Denies easy bleeding, easy bruising or lymphadenopathy Allergic/Immunologic Allergic/Immunologic ED: Denies mouth swelling, tongue swelling or urticaria EXAM Physical Exam Narrative Exam Narrative: [id number] gentleman sitting upright in bed. No acute distress. Vital signs stable afebrile. Pulse ox 96% on room air no hypoxia. HEENT exam pupils round react light. No facial trauma. Posterior scalp is a 1 to 2 inch vertical laceration. Small hematoma around it. Mild active bleeding. Swelling. Tender. C-spine trachea nontender. Back and spine nontender. No signs of trauma. Lungs clear to auscultation bilaterally. Heart regular rhythm rate about 65 no murmur. Chest wall and ribs nontender. No bruising. No crepitus. Abdomen soft nontender. No peritoneal signs. No distention. Elbow girdle intact. 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 Normal dorsi plantarflexion. Upper and lower extremities are nontender without deformity. He is able to flex and extend both hips and knees. Flex and extend his elbows and shoulders. Neurologically his eyes are open. He will follow limited commands. He is very hard of hearing but does answer some questions. Const Vital Signs: 10/17/24 17:55 10/17/24 18:05 Temperature 97.8 F Temperature Source Oral Pulse Rate 66 Respiratory Rate 21 H Respiratory Effort Normal Non-Labored Respiratory Depth Normal Respiratory Pattern Normal Blood Pressure 136/66 H Blood Pressure Mean 89 Pulse Ox 96 96 Oxygen Delivery Method Room Air Room Air Positive well nourished and well developed; Negative for obese, cachectic, contractures or unkempt General Appearance ED: well developed and NAD; Negative for unkempt, cachectic or contractures Nutritional Appearance: Negative for cachectic or obese HEENT Reports normocephalic trauma, contusion, hematoma and tenderness; Negative for atraumatic Eyes PERRL and EOMs intact bilaterally General Eye ED: Negative for pale conjunctiva or scleral icterus Neck full ROM, no lymphadenopathy and supple Chest Wall inspection of chest normal and palpation of chest normal Resp normal respiratory effort, no retractions and clear to auscultation bilaterally Cardio regular rate, regular rhythm, S1 normal heart sound, S2 normal heart sound and no murmurs GI non-tender, non-distended and no masses Inspection: Negative for abdominal distention Palpation: soft; Negative for guarding or rebound tenderness present Back/Spine no CVA tenderness General Back: Negative for CVA tenderness Cervical Spine: Negative for cervical spine tenderness Lumbar Spine / Lower Back: Negative for lumbar spinal tenderness Neuro CN's II-XII intact bilaterally, moves all extremities and no focal motor deficits Sensorium / Orientation: alert and oriented to person Motor Exam: strength 5/5 throughout Psych mental status grossly normal and thought process normal Appearance: Negative for unkempt Skin Skin Narrative: Posterior scalp laceration 1 to 2 inches. Vertical. Lesions: no lesions Rashes: no rashes Trauma: laceration linear MDM MDM MDM Narrative Medical decision making narrative: 88-year-old male fell at the snf. Head injury. Scalp lacerations will need to be repaired. Reportedly tetanus up-to-date. Will locally anesthetize clean and explore the wound and closed the scalp laceration. We will obtain a CT of his brain. Repeat exam patient doing well about 6:50 PM. We sutured up his scalp laceration. There is a moderate-sized hematoma. No active bleeding. He tolerated well. Will be discharged back to the extended care facility. CAT scan was negative. Other than chronic changes in the scalp hematoma. There is no intracranial bleed. History & Record Review Discussion w/independent historian: Patient Additional record(s) reviewed:: Prior inpatient record, Prior outpatient record, Prior ED visit and Prior labs Radiography Diagnostic Testing: Clinical Impression(s) from Imaging Studies Brain CT 10/17/24 18:09 IMPRESSION: 1. No acute intracranial finding. 2. Large right posterior scalp laceration. 3. Findings of chronic microvascular ischemic changes and age-related changes. Reading Location: [id number] Procedures Lacerations Posterior scalp laceration repair:: Length: 1.5 in Depth: Sub Q Shape: Linear Prep: Shure-Clens Laceration repair: Irrigated, Lidocaine with epi, Local, Skin sutures and Wound explored Number of Sutures/Bret: 4 Suture Information: Ethilon, Simple and 4-0 Comment: 1 to 2 inch posterior scalp laceration. Hematoma. Local anesthetized lidocaine with epinephrine. Washed with Shur-Clens. Washed and irrigated with saline. Explored. Laceration involve the skin and subcu tissue. No step off. Closed using 4 simple erupted 4-0 Ethilon sutures. Proper hemostasis wound closure obtained. Patient tolerated procedure well. Discharge Plan Triage Chief Complaint: Fall ED Provider: Vish Lemus Dx/Rx/DC Orders Clinical Impression: Fall, Head injury, Laceration of scalp, Hematoma of scalp Instructions: ED Head Injury (Adult), ED Hematoma, ED Laceration, All Closures Prescriptions: No Action aluminum-magnesium hydroxide 225-200 mg/5 mL suspension 30 ml PO Q4-5H PRN (Reason: GERD) bisacodyl 10 mg suppository 10 mg ME ONCE PRN (Reason: constipation) Fleet Enema 19-7 gram/118 mL enema 118 ml ME ONCE PRN (Reason: constipation) guaifenesin 100 mg/5 mL liquid 200 mg PO Q4H PRN (Reason: cough) magnesium hydroxide [Milk of Magnesia] 400 mg/5 mL suspension 30 ml PO ONCE PRN (Reason: stomach upset) multivitamin Tablet 1 tab PO DAILY omeprazole 20 mg capsule,delayed release(DR/EC) 20 mg PO DAILY loratadine [Allergy Relief (loratadine)] 10 mg tablet 10 mg PO DAILY atorvastatin 10 MG tablet 10 mg PO QHS Patient Comments: cholesterol finasteride 5 MG tablet 5 mg PO QHS tamsulosin 0.4 mg Capsule 0.4 mg PO DAILY acetaminophen 325 mg Tablet 650 mg PO Q6H PRN (Reason: Pain) levetiracetam 500 mg Tablet 500 mg PO BID melatonin 3 mg Tablet 3 mg PO QHS Qty: 0 0RF memantine 10 mg Tablet 10 mg PO QHS Qty: 0 0RF cholecalciferol (vitamin D3) 50 mcg (2,000 unit) capsule 50 mcg PO DAILY ondansetron 8 mg tablet,disintegrating 8 mg PO Q8H PRN (Reason: nausea and vomiting) Qty: 20 0RF glycerin Drops 2 drp ophthalmic (eye) BID divalproex 125 mg capsule, delayed rel sprinkle 125 mg PO DAILY Primary Care Provider: Rosa Maria Mohan Referrals: Kain Medrano MD [Med Staff - Active Staff] - 10 Day for suture removal Activity Restrictions/Additional Instructions: Ice to his scalp to decrease pain, swelling and bruising. Clean gently daily with soap and water. Stitches out in 10 days. Head injury instructions. Print Language: Amharic Disposition Disposition: Home, Self Care
[2024-10-17] MEDS: Lidocaine 1% /Epi 1:100 (20ml) 20 ML Vial 10 ML INFILT (19:01)
[2024-10-17 19:04] VITALS: BP 128/78; PULSE 78; RESP 18; TEMP 37; O2SAT 96
[2024-10-17 19:21] VITALS: BP 125/62; PULSE 78; RESP 18; TEMP 36.6; O2SAT 94
== END 2024-10-17 19:33 | disposition home or self-care (01) ==
PROVIDERS: Emergency Provider Emergency Medicine; PCP Internal Medicine; Visit Provider Emergency Medicine
DX: S01.01XA Laceration without foreign body of scalp, initial encounter (principal); F03.90 Unspecified dementia, unspecified severity, without behavioral disturbance, psychotic disturbance, mood disturbance, and anxiety; N18.31 Chronic kidney disease, stage 3a; W18.30XA Fall on same level, unspecified, initial encounter; Y92.129 Unspecified place in nursing home as the place of occurrence of the external cause; E78.5 Hyperlipidemia, unspecified; N40.0 Benign prostatic hyperplasia without lower urinary tract symptoms; I25.10 Atherosclerotic heart disease of native coronary artery without angina pectoris; Z95.1 Presence of aortocoronary bypass graft; Z86.73 Personal history of transient ischemic attack (TIA), and cerebral infarction without residual deficits; Z79.899 Other long term (current) drug therapy; Z87.891 Personal history of nicotine dependence
CPT/HCPCS: 12001; 70450; 99285